=== PATIENT | female | born 1955 | race Caucasian/White ===

== ENCOUNTER 2020-09-02 09:44 | Outpatient (REF) | payer MEDICARE, MEDICAID, SELFPAY ==
[2020-09-02 11:49] LABS: Alanine Aminotransferase 19 U/L (0-31); Albumin Level 3.9 g/dL (3.5-5.0); Alkaline Phosphatase 83 U/L (39-117); Aspartate Amino Transferase 17 U/L (5-31); Bilirubin Direct < 0.2 mg/dL (0.0-0.5); Bilirubin Total 0.4 mg/dL (0.0-1.0); Total Protein 6.9 g/dL (6.5-8.0)
[2020-09-02 12:03] LABS: Anion Gap 13 (12-20); Blood Urea Nitrogen 29 mg/dL (9-16); Calcium 9.6 mg/dL (8.4-10.2); Carbon Dioxide 30 mmol/L (22-29); Chloride 101 mmol/L (96-108); Cholesterol 209 mg/dL; Estimated Glomerular Filt Rate 56; Glucose Fasting 93 mg/dL (60-99); HDL Cholesterol 38 mg/dL; LDL Cholesterol Calculated 125 mg/dl; Sodium 139 mmol/L (135-145); Triglycerides 233 mg/dL
[2020-09-02 12:13] LABS: Free T4 (Free Thyroxine) 0.97 ng/dL (0.71-1.85); Thyroid Stimulating Hormone 2.29 mIU/mL (0.32-4.0); Vitamin D 25-OH Total 55.1 ng/mL (>30)
[2020-09-02 19:19] LABS: Valproate 48.2 mcg/mL (50.0-100.0)
== END 2020-09-02 09:45 | disposition home or self-care (01) ==
LOC: HO.HMGCLDS 09:44
PROVIDERS: PCP Internal Medicine; Visit Provider Internal Medicine
DX: F33.1 Major depressive disorder, recurrent, moderate (principal); Z51.81 Encounter for therapeutic drug level monitoring; Z79.899 Other long term (current) drug therapy
CPT/HCPCS: 80048; 80061; 80076; 80164; 82306; 84439; 84443

== ENCOUNTER → 2020-10-05 08:57 | Outpatient (BNVA) | payer MEDICARE, MEDICAID, SELFPAY | PROVIDERS: PCP Internal Medicine; Referring Provider Internal Medicine; Visit Provider Nurse Practitioner | DX: K62.5 Hemorrhage of anus and rectum (principal) | CPT/HCPCS: 99212 ==

== ENCOUNTER 2020-10-28 09:33 | Day surgery (SDC) | payer MEDICARE, MEDICAID, SELFPAY ==
[2020-10-24 14:35] VITALS: BMI 41.4
--- NOTE | 2020-10-27 10:53 | HO.ANESPROP2 ---
HPI - Anesthesia Eval Consult details Narrative: 65yo F for Colonoscopy [facility] Past Medical History Medical History Allergic rhinitis Bipolar disorder CAD (coronary atherosclerotic disease) Chronic GERD Duodenum ulcer Dyslipidemia Eczema History of anoxic brain injury History of myasthenia gravis History of non-ST elevation myocardial infarction (NSTEMI) Mild intermittent asthma in adult without complication Mitral valve regurgitation Morbid obesity Narcotic dependence, in remission Postsurgical hypothyroidism Shoulder bursitis Smoker unmotivated to quit Trochanteric bursitis Family History Family History Father Stroke Mother Breast cancer, Onset Age: 40 Brother Brain cancer Brother HIV disease Son No problems noted. Maternal Grandmother Glaucoma Paternal Grandmother Lung cancer Ovarian cancer Surgical History Surgical History H/O colonoscopy History of appendectomy (Unknown) History of cholecystectomy (Unknown) History of esophagogastroduodenoscopy (~01/2015) History of partial hysterectomy History of thymectomy (~2007) History of thyroidectomy, total Hx of thyroidectomy Hx of tonsillectomy Social History Social History (Updated 10/05/20 @ 09:01 by JOSELO Brooke) Household Members: Other Household Members Other:: resides in retirement Do you presently have visiting nurse or other home services: Yes (resides in retirement) Alcohol intake: never Smoking Status: Current every day smoker Tobacco Type: Cigarette Packs Per Day: 0.5 Cigarettes Per Day: 10.0 Years Smoked: 40 Use of substances other than those prescribed or required for medical reasons: No Advance Directives Information Provided: No Narrative Narrative: Per PCP, NO CP/SOB. No recent EKG or Echo avail. Meds Allergies Allergy/AdvReac Type Severity Reaction Status Date / Time bee pollen [BEE STINGS] Allergy Severe ANAPHYLAXIS Verified 10/05/20 08:59 aspirin [ASA] Allergy Intermediate RASH Verified 10/05/20 08:59 Penicillins Allergy Intermediate Rash Verified 10/05/20 08:59 Compazine Allergy Unknown unknown Verified 10/05/20 08:59 iodine [IODINE] Allergy Unknown UNKNOWN Verified 10/05/20 08:59 strawberry [STRAWBERRY] Allergy Unknown RASH Verified 10/05/20 08:59 codeine [CODEINE] AdvReac Intermediate GI upset Verified 10/05/20 08:59 benztropine [From Cogentin] AdvReac Unknown Verified 10/28/20 10:07 Home Medications Medication Instructions Recorded Confirmed Type divalproex 125 mg tablet,delayed 125 mg PO TID 08/24/20 10/24/20 History release divalproex 500 mg tablet,extended 500 mg PO DAILY 08/24/20 10/24/20 History release 24 hr escitalopram oxalate 20 mg tablet 20 mg PO DAILY 08/24/20 10/24/20 History quetiapine 300 mg tablet 300 mg PO DAILY 08/24/20 10/24/20 History quetiapine 50 mg tablet 50 mg PO DAILY 08/24/20 10/24/20 History sennosides 8.6 mg tablet 8.6 mg PO BEDTIME 08/24/20 10/24/20 History atorvastatin 10 mg tablet 10 mg PO DAILY 08/25/20 10/24/20 History dextromethorphan-guaifenesin 10 10 ml PO Q4H PRN 08/25/20 10/24/20 History mg-100 mg/5 mL oral liquid esomeprazole magnesium 20 mg 20 mg PO BID cap 08/25/20 10/24/20 History capsule,delayed release fish oil-dha-epa 1,200 mg-144 1 cap PO BID cap 08/25/20 10/24/20 History mg-216 mg capsule fluticasone 250 mcg-salmeterol 50 1 inh INHALATION Q12H 08/25/20 10/24/20 History mcg/dose blistr powdr for inhalation montelukast 10 mg tablet 10 mg PO DAILY 08/25/20 10/24/20 History pyridoxine (vitamin B6) 100 mg 100 mg PO DAILY tab 08/25/20 10/24/20 History tablet trazodone 100 mg tablet 100 mg PO BEDTIME 08/25/20 10/24/20 History Exam Exam Date and Time: October 27, 2020 1053 Height,Weight and Vital Signs: Height 5 ft 7.5 in Weight 121.733 kg Assessment and Plan Assessment Anesthesia Assessment: Chart Reviewed
[2020-10-28 09:57] VITALS: BP 118/67; PULSE 74; RESP 16; TEMP 36.5; O2SAT 96
[2020-10-28] MEDS: Lactated Ringers 1,000 ML 100 ML IVCONT (10:20)
--- NOTE | 2020-10-28 10:27 | P.CONAN_ITS ---
[facility] Past Medical History Medical History Allergic rhinitis Bipolar disorder CAD (coronary atherosclerotic disease) Chronic GERD Duodenum ulcer Dyslipidemia Eczema History of anoxic brain injury History of myasthenia gravis History of non-ST elevation myocardial infarction (NSTEMI) Mild intermittent asthma in adult without complication Mitral valve regurgitation Morbid obesity Narcotic dependence, in remission Postsurgical hypothyroidism Shoulder bursitis Smoker unmotivated to quit Trochanteric bursitis Family History Family History Father Stroke Mother Breast cancer, Onset Age: 40 Brother Brain cancer Brother HIV disease Son No problems noted. Maternal Grandmother Glaucoma Paternal Grandmother Lung cancer Ovarian cancer Surgical History Surgical History H/O colonoscopy History of appendectomy (Unknown) History of cholecystectomy (Unknown) History of esophagogastroduodenoscopy (~01/2015) History of partial hysterectomy History of thymectomy (~2007) History of thyroidectomy, total Hx of thyroidectomy Hx of tonsillectomy Social History Social History (Updated 10/05/20 @ 09:01 by JOSELO Brooke) Household Members: Other Household Members Other:: resides in senior living Do you presently have visiting nurse or other home services: Yes (resides in senior living) Alcohol intake: never Smoking Status: Current every day smoker Tobacco Type: Cigarette Packs Per Day: 0.5 Cigarettes Per Day: 10.0 Years Smoked: 40 Use of substances other than those prescribed or required for medical reasons: No Advance Directives Information Provided: No Meds Allergies Allergy/AdvReac Type Severity Reaction Status Date / Time bee pollen [BEE STINGS] Allergy Severe ANAPHYLAXIS Verified 10/05/20 08:59 aspirin [ASA] Allergy Intermediate RASH Verified 10/05/20 08:59 Penicillins Allergy Intermediate Rash Verified 10/05/20 08:59 Compazine Allergy Unknown unknown Verified 10/05/20 08:59 iodine [IODINE] Allergy Unknown UNKNOWN Verified 10/05/20 08:59 strawberry [STRAWBERRY] Allergy Unknown RASH Verified 10/05/20 08:59 codeine [CODEINE] AdvReac Intermediate GI upset Verified 10/05/20 08:59 benztropine [From Cogentin] AdvReac Unknown Verified 10/28/20 10:07 Home Medications Medication Instructions Recorded Confirmed Type divalproex 125 mg tablet,delayed 125 mg PO TID 08/24/20 10/24/20 History release divalproex 500 mg tablet,extended 500 mg PO DAILY 08/24/20 10/24/20 History release 24 hr escitalopram oxalate 20 mg tablet 20 mg PO DAILY 08/24/20 10/24/20 History quetiapine 300 mg tablet 300 mg PO DAILY 08/24/20 10/24/20 History quetiapine 50 mg tablet 50 mg PO DAILY 08/24/20 10/24/20 History sennosides 8.6 mg tablet 8.6 mg PO BEDTIME 08/24/20 10/24/20 History atorvastatin 10 mg tablet 10 mg PO DAILY 08/25/20 10/24/20 History dextromethorphan-guaifenesin 10 10 ml PO Q4H PRN 08/25/20 10/24/20 History mg-100 mg/5 mL oral liquid esomeprazole magnesium 20 mg 20 mg PO BID cap 08/25/20 10/24/20 History capsule,delayed release fish oil-dha-epa 1,200 mg-144 1 cap PO BID cap 08/25/20 10/24/20 History mg-216 mg capsule fluticasone 250 mcg-salmeterol 50 1 inh INHALATION Q12H 08/25/20 10/24/20 History mcg/dose blistr powdr for inhalation montelukast 10 mg tablet 10 mg PO DAILY 08/25/20 10/24/20 History pyridoxine (vitamin B6) 100 mg 100 mg PO DAILY tab 08/25/20 10/24/20 History tablet trazodone 100 mg tablet 100 mg PO BEDTIME 08/25/20 10/24/20 History Exam Exam Date and Time: October 28, 2020 1027 Height,Weight and Vital Signs: Height 5 ft 7.5 in Weight 121.733 kg Last Vital Signs Temp 97.7 F 10/28/20 09:57 Pulse 74 10/28/20 09:57 Resp 16 10/28/20 09:57 BP 118/67 10/28/20 09:57 Pulse Ox 96 10/28/20 09:57 Airway Mallampati Class: II TM Dist: >3cm Neck ROM: Full Denture: Upper Partial: Lower Loose/Missing/Broken Teeth: Yes, Upper and Lower Heart: RRR Lungs: CTA Assessment and Plan Assessment Anesthesia Assessment: Anesthesia Plan Discussed and Chart Reviewed Final Anesthetic Review NPO: Yes ASA Class: III Final Preanesthetic Review: Meds/Allgs Chart Reviewed, Consent Obtained/Reviewed and Anes Risks/Benef Reviewed Patient Risk: High Procedure Risk: Low Anesthetic Plan Anesthetic Plan: MAC: Disposition: Standard PACU
--- NOTE | 2020-10-28 10:36 | MHC.SHP ---
Pre-Procedural Eval Section A The patient is an INPATIENT: No Changes since office visit: No Cold of Flu in the past 2 weeks, No New Medical Problems and No Changes in Medication The History & Physical has been completed within 30 days and I have reviewed it.: Yes Section B Chief Complaint: Screening Allergies: Allergies Allergy/AdvReac Type Severity Reaction Status Date / Time bee pollen [BEE STINGS] Allergy Severe ANAPHYLAXIS Verified 10/05/20 08:59 aspirin [ASA] Allergy Intermediate RASH Verified 10/05/20 08:59 Penicillins Allergy Intermediate Rash Verified 10/05/20 08:59 Compazine Allergy Unknown unknown Verified 10/05/20 08:59 iodine [IODINE] Allergy Unknown UNKNOWN Verified 10/05/20 08:59 strawberry [STRAWBERRY] Allergy Unknown RASH Verified 10/05/20 08:59 codeine [CODEINE] AdvReac Intermediate GI upset Verified 10/05/20 08:59 benztropine [From Cogentin] AdvReac Unknown Verified 10/28/20 10:07 Plan Patient has been examined and remains a candidate for the planned procedure
--- NOTE | 2020-10-28 11:32 | P.OP_ITS ---
Operative Note Operative Note Date of Service: 10/28/20 Narrative: Pre-op diagnosis: Colon cancer screening, rectal bleeding Post-op diagnosis: other (colon polyps, diverticulosis, hemorrhoids) Procedure: COLONOSCOPY PROCEDURE NOTE Consent: Indications for the procedure and potential complications of bleeding, perforation, reaction to medications and missed diagnosis were discussed with the patient and informed consent was obtained. Instrument: Olympus PCF H 190 L variable stiffness pediatric colonoscope Monitoring: Vital signs and clinical assessment, intermittent blood pressure monitoring, continuous EKG monitoring, Pulse oximetry and Carbon Dioxide monitoring were done throughout the procedure. Colon withdrawl time was 34 minutes. Procedure: The patient was placed in the left lateral decubitis position and pre-procedure medications were administered. After a digital rectal examination of the ano-rectum, the video colonoscope was inserted into the rectum and advanced through the colon to the cecum. The colonoscope was slowly withdrawn in a retrograde panoramic fashion and the colon mucosa was carefully examined including a retroflexed view of the rectum. Findings and interventions are described below. Procedure Difficulty: Colon was long and tortuous and there was some loop formation. LLQ pressure was applied to intubate the cecum Findings: Terminal Ileum: Not evaluated Cecum: A 10-12 mm sessile polyp removed with a hot snare. Ascending Colon: A 12-15 mm sessile polyp removed with a hot snare. A 4-5 mm diminutive appearing polyp removed with a cold bx. Transverse Colon: A 2 cms benign appearing nodule with normal overlying mucosa - biopsied. Descending Colon: Moderate diverticulosis Sigmoid Colon: Moderate to severe diverticulosis Rectum: Normal Ano-rectum: Moderate inflammed internal hemorrhoids Colon preparation: Good after copious irrigation Impression and Post Procedure Diagnosis: Colonoscopy Findings: Three polyps removed A 2 cms benign appearing nodule with normal overlying mucosa (likely submucosal lipoma) - biopsied. Moderate to severe diverticulosis seen in the left colon Moderate inflamed hemorrhoids on retroflexed exam - likely source of rectal bleeding. Plan: Await pathology results Patient has an appointment on 11/22/20 in the [facility] with Chantelle Iglesias NP. Repeat Colonoscopy interval based on path results - in 3 years if polyps are adenomatous and 10 years if polyps are hyperplastic. Above findings were reviewed with the patient and colon polyps, diverticulosis and hemorrhoids handouts were given in the discharge area Surgeon: Oh Ly MD Anesthesia: MAC (Dr Anti and PHYSICIAN/OPHTHALMOLOGIST [place]) Estimated blood loss (mL): 0 Pathology: other (A. Cecal polyp, B. AC polyps x 2, C. TC nodule at 80 cms) Condition: stable Disposition: PACU
[2020-10-28 12:48] VITALS: BP 116/54; PULSE 82; RESP 16; TEMP 36.8; O2SAT 94
[2020-10-28 13:03] VITALS: BP 114/61; PULSE 80; RESP 18; O2SAT 97
--- NOTE | 2020-10-28 13:30 | HO.POSTANES ---
Post Anesthesia Evaluation Post Anesthesia Evaluation Vital Signs: Vital Signs Temp Pulse Resp BP Pulse Ox 10/28/20 13:03 98.3 F 80 18 114/61 97 10/28/20 12:48 98.3 F 82 16 116/54 L 94 10/28/20 09:57 97.7 F 74 16 118/67 96 Anesthesia: Monitored Mental Status: Awake Pain Control: Satisfactory Nausea/Vomiting: None Hydration: Adequate Anesthesia-Related Issues: No Anes. Related Issues
== END 2020-10-28 13:39 | disposition home or self-care (01) ==
PROVIDERS: PCP Internal Medicine; Visit Provider Internal Medicine Gastroenterology
PROC: 0DJD8ZZ Inspection of Lower Intestinal Tract, Via Natural or Artificial Opening Endoscopic (ICD-10-PCS; CPT 45378; principal; 2020-10-28 10:40)
DX: Z12.11 Encounter for screening for malignant neoplasm of colon (principal); D12.2 Benign neoplasm of ascending colon; D12.0 Benign neoplasm of cecum; K64.8 Other hemorrhoids; K57.30 Diverticulosis of large intestine without perforation or abscess without bleeding; K56.2 Volvulus; Z88.0 Allergy status to penicillin; Z88.8 Allergy status to other drugs, medicaments and biological substances
CPT/HCPCS: 45385; 45380; 88305

== ENCOUNTER → 2020-11-22 14:54 | Outpatient (BNVA) | payer MEDICARE, MEDICAID, SELFPAY | PROVIDERS: PCP Internal Medicine; Visit Provider Nurse Practitioner | DX: Z13.89 Encounter for screening for other disorder (principal) | CPT/HCPCS: Q3014 ==

== ENCOUNTER 2021-01-05 08:50 | Outpatient (REF) | payer MEDICARE, MEDICAID, SELFPAY ==
[2021-01-05 12:05] LABS: Alanine Aminotransferase 17 U/L (0-31); Anion Gap 13 (12-20); Aspartate Amino Transferase 17 U/L (5-31); Blood Urea Nitrogen 24 mg/dL (9-16); Carbon Dioxide 29 mmol/L (22-29); Chloride 103 mmol/L (96-108); Cholesterol 187 mg/dL; Estimated Glomerular Filt Rate > 60; Glucose Fasting 91 mg/dL (60-99); HDL Cholesterol 38 mg/dL; LDL Cholesterol Calculated 107 mg/dl; Potassium 4.8 mmol/L (3.3-5.1); Sodium 140 mmol/L (135-145); Triglycerides 211 mg/dL
[2021-01-05 12:29] LABS: Free T4 (Free Thyroxine) 0.95 ng/dL (0.71-1.85); Thyroid Stimulating Hormone 3.25 uIU/mL (0.32-4.0); Vitamin D 25-OH Total 37.5 ng/mL (>30)
== END 2021-01-05 08:51 | disposition home or self-care (01) ==
LOC: HO.HMGCLDS 08:50
PROVIDERS: PCP Internal Medicine; Visit Provider Internal Medicine
DX: I25.10 Atherosclerotic heart disease of native coronary artery without angina pectoris (principal); E78.5 Hyperlipidemia, unspecified; E89.0 Postprocedural hypothyroidism; E66.01 Morbid (severe) obesity due to excess calories; Z78.0 Asymptomatic menopausal state
CPT/HCPCS: 36415; 80048; 80061; 82306; 84439; 84443; 84450; 84460

== ENCOUNTER → 2021-03-22 10:57 | Outpatient (BNVA) | payer MEDICARE, MEDICAID, SELFPAY | PROVIDERS: PCP Internal Medicine; Visit Provider Nurse Practitioner | DX: Z13.89 Encounter for screening for other disorder (principal) | CPT/HCPCS: Q3014 ==

== ENCOUNTER 2021-03-23 09:33 | Outpatient (REF) | payer MEDICARE, MEDICAID, SELFPAY ==
--- NOTE | ~2021-03-23 | MM_ITS ---
EXAMINATION: MM SCREENING DIGITAL BREAST TOMOSYNTHESIS, BILATERAL CLINICAL INFORMATION: Screening. Asymptomatic. The lifetime risk of breast cancer based on the Tyrer-Cuzick Model is 10%. COMPARISON: Mammography: 02/19/2019, outside mammography 06/16/2015 ([place]). TECHNIQUE: Digital breast tomosynthesis is performed in both the craniocaudal and mediolateral oblique views along with computer-aided detection (CAD). Synthesized 2D images are generated from the tomosynthesis. FINDINGS: There are scattered areas of fibroglandular density (ACR BI-RADS breast composition Category b). There are no significant masses, abnormal calcifications, or other abnormalities. There are chronic prominent draining veins right breast again seen similar to prior exams. The axilla and skin contours are unremarkable. MM/MM tomosynthesis screening BI IMPRESSION: No significant changes from prior exams. ASSESSMENT: BI-RADS 2: Benign RECOMMENDATION: Routine annual mammography screening. This patient's information was entered into a reminder system with a target due date for their next mammogram.
== END 2021-03-23 09:34 | disposition home or self-care (01) ==
LOC: HO.MAMMO 09:33
PROVIDERS: Visit Provider Internal Medicine
DX: Z12.31 Encounter for screening mammogram for malignant neoplasm of breast (principal)
CPT/HCPCS: 77063; 77067

== ENCOUNTER 2021-05-10 10:25 | Outpatient (REF) | payer MEDICARE, MEDICAID, SELFPAY ==
[2021-05-10 12:01] LABS: Alanine Aminotransferase 21 U/L (0-31); Anion Gap 11 (12-20); Aspartate Amino Transferase 27 U/L (5-31); Blood Urea Nitrogen 20 mg/dL (9-16); Calcium 9.2 mg/dL (8.4-10.2); Carbon Dioxide 29 mmol/L (22-29); Chloride 102 mmol/L (96-108); Cholesterol 199 mg/dL; Estimated Glomerular Filt Rate > 60; Glucose Fasting 88 mg/dL (60-99); HDL Cholesterol 43 mg/dL; LDL Cholesterol Calculated 103 mg/dl; Potassium 5.4 mmol/L (3.3-5.1); Sodium 137 mmol/L (135-145); Triglycerides 268 mg/dL
[2021-05-10 12:13] LABS: Free T4 (Free Thyroxine) 0.93 ng/dL (0.71-1.85); Thyroid Stimulating Hormone 3.16 uIU/mL (0.32-4.0); Vitamin D 25-OH Total 48.5 ng/mL (>30)
== END 2021-05-10 10:26 | disposition home or self-care (01) ==
LOC: HO.HMGCLDS 10:25
PROVIDERS: PCP Internal Medicine; Visit Provider Internal Medicine
DX: I25.10 Atherosclerotic heart disease of native coronary artery without angina pectoris (principal); E78.5 Hyperlipidemia, unspecified; E89.0 Postprocedural hypothyroidism; E03.9 Hypothyroidism, unspecified; I10 Essential (primary) hypertension; Z78.0 Asymptomatic menopausal state
CPT/HCPCS: 36415; 80048; 80061; 82306; 84439; 84443; 84450; 84460

== ENCOUNTER 2021-05-16 10:18 | Outpatient (REF) | payer MEDICARE, MEDICAID, SELFPAY | END 2021-05-16 10:19 | disposition home or self-care (01) | LOC: HO.HMGCLDS 10:18 | PROVIDERS: PCP Internal Medicine; Visit Provider Internal Medicine | DX: E87.5 Hyperkalemia (principal) | CPT/HCPCS: 36415; 84132 ==

== ENCOUNTER 2021-05-30 10:31 | Outpatient (REF) | payer MEDICARE, MEDICAID, SELFPAY ==
--- NOTE | ~2021-05-30 | MM_ITS ---
EXAMINATION: BONE DENSITOMETRY CLINICAL INDICATION: Screening or osteoporosis. COMPARISON: Baseline BD dated 02/19/2019. TECHNIQUE: Using a [employer] DXA System (software version: 13.1) manufactured by [employer], dual-energy x-ray absorptiometry was performed of the lumbar spine and left hip. The images are of good technical quality. Summary results are attached. FINDINGS: AP SPINE L1-L3 (excluding L4): The data of L1-L4 has been changed to exclude the L4 vertebral body, because degenerative changes at this level may cause overestimation of lumbar spine density. Current: BMD 1.139 g/cm2, Z-score 0.2, T-score -0.3, normal, 0.8% increase from baseline (<5% change is not significant). Baseline: BMD 1.130 g/cm2. LEFT FEMUR, NECK: Current: BMD 0.815 g/cm2, Z-score -0.9, T-score -1.6, osteopenia. Baseline: BMD 0.742 g/cm2. LEFT FEMUR, TOTAL: Current: BMD 0.869 g/cm2, Z-score -0.7, T-score -1.1, osteopenia, 12.6% increase from baseline (<5% change is not significant). Baseline: BMD 0.772 g/cm2. IDENTIFIED RISK FACTORS: Early menopause, history of fracture (adult), bilateral oophorectomy, hysterectomy, secondary osteoporosis, tobacco use (current smoker). HISTORY OF FRACTURE: Forearm, ankle. MEDICATIONS: Calcium, vitamin D. MM/XR DEXA axial skeleton IMPRESSION: 1. DIAGNOSIS: Osteopenia based on the lowest T-score value of -1.6 in the femoral neck applying World Health Organization criteria. 2. 10-YEAR FRACTURE RISK PREDICTION, FRAX: Major osteoporotic fracture (clinical spine, forearm, hip or shoulder) 13.4%. Hip fracture 2.4%. 3. Treatment Recommendations: NOF guidelines recommend consideration for treatment in postmenopausal women and men age 50 and older presenting with the following: -A hip or vertebral (clinical or morphometric) fracture. -T-score less than or equal to -2.5 at the femoral neck or spine after appropriate evaluation to exclude secondary causes. -Low bone mass at the hip or spine and a 10-year fracture probability by FRAX of greater than or equal to 3% for hip fracture or greater than or equal to 20% for major osteoporotic fracture based on the [place] adapted WHO algorithm. 4. Other Recommendations: All treatment decisions require clinical judgment and consideration of individual patient factors, including patient preferences, comorbidities, previous drug use, risk factors not captured in the FRAX model (e.g. frailty, falls, vitamin D deficiency, increased bone turnover, interval significant decline in bone density) and possible under or overestimation of fracture risk by FRAX. Additional medical evaluation for secondary cause of low bone mineral density may be appropriate. FUTURE SCAN RECOMMENDATION: People with diagnosed cases of osteoporosis or at high risk for fracture should have regular bone mineral density tests. For patients eligible for Medicare, routine testing is allowed once every 2 years. The testing frequency can be increased to one year for patients who have rapidly progressing disease, those who are receiving or discontinuing medical therapy to restore bone mass, or have additional risk factors.
== END 2021-05-30 10:32 | disposition home or self-care (01) ==
LOC: HO.MAMMO 10:31
PROVIDERS: Visit Provider Internal Medicine
DX: Z13.820 Encounter for screening for osteoporosis (principal); M85.80 Other specified disorders of bone density and structure, unspecified site; F17.200 Nicotine dependence, unspecified, uncomplicated; Z78.0 Asymptomatic menopausal state; Z87.81 Personal history of (healed) traumatic fracture; Z90.722 Acquired absence of ovaries, bilateral; Z79.899 Other long term (current) drug therapy
CPT/HCPCS: 77080

== ENCOUNTER → 2021-06-20 10:11 | Outpatient (BNVA) | payer MEDICARE, MEDICAID, SELFPAY | PROVIDERS: PCP Internal Medicine; Visit Provider Nurse Practitioner | CPT/HCPCS: Q3014 ==

== ENCOUNTER 2021-09-13 08:23 | Outpatient (REF) | payer MEDICARE, MEDICAID, SELFPAY ==
[2021-09-13 12:00] LABS: Alanine Aminotransferase 19 U/L (0-31); Albumin Level 3.6 g/dL (3.5-5.0); Alkaline Phosphatase 72 U/L (39-117); Aspartate Amino Transferase 18 U/L (5-31); Bilirubin Direct 0.2 mg/dL (0.0-0.5); Bilirubin Total 0.3 mg/dL (0.0-1.0); Total Protein 6.5 g/dL (6.5-8.0)
[2021-09-13 12:07] LABS: Valproate 69.6 mcg/mL (50.0-100.0)
== END 2021-09-13 08:24 | disposition home or self-care (01) ==
LOC: HO.HMGCLDS 08:23
PROVIDERS: PCP Internal Medicine; Visit Provider General Practice
DX: F33.1 Major depressive disorder, recurrent, moderate (principal); Z79.899 Other long term (current) drug therapy
CPT/HCPCS: 36415; 80076; 80164

== ENCOUNTER 2021-12-12 08:42 | Outpatient (REF) | payer MEDICARE, MEDICAID, SELFPAY ==
[2021-12-12 12:06] LABS: Alanine Aminotransferase 25 U/L (0-31); Anion Gap 13 (12-20); Aspartate Amino Transferase 25 U/L (5-31); Blood Urea Nitrogen 24 mg/dL (9-16); Calcium 9.5 mg/dL (8.4-10.2); Carbon Dioxide 29 mmol/L (22-29); Chloride 104 mmol/L (96-108); Cholesterol 187 mg/dL; Estimated Glomerular Filt Rate 55; Glucose Fasting 80 mg/dL (60-99); HDL Cholesterol 46 mg/dL; LDL Cholesterol Calculated 107 mg/dl; Potassium 4.5 mmol/L (3.3-5.1); Sodium 141 mmol/L (135-145); Triglycerides 173 mg/dL
[2021-12-12 12:18] LABS: Free T4 (Free Thyroxine) 0.92 ng/dL (0.71-1.85); Vitamin D 25-OH Total 45.3 ng/mL (>30)
== END 2021-12-12 08:43 | disposition home or self-care (01) ==
LOC: HO.HMGCLDS 08:42
PROVIDERS: Visit Provider Internal Medicine
DX: E78.5 Hyperlipidemia, unspecified (principal); I25.10 Atherosclerotic heart disease of native coronary artery without angina pectoris; Z78.0 Asymptomatic menopausal state; E89.0 Postprocedural hypothyroidism; I10 Essential (primary) hypertension; E03.9 Hypothyroidism, unspecified
CPT/HCPCS: 36415; 80048; 80061; 82306; 84439; 84443; 84450; 84460

== ENCOUNTER → 2022-03-27 10:15 | Outpatient (BNVA) | payer MEDICARE, MEDICAID, SELFPAY | PROVIDERS: PCP Internal Medicine; Referring Provider Internal Medicine; Visit Provider Nurse Practitioner | DX: K21.9 Gastro-esophageal reflux disease without esophagitis (principal); K64.8 Other hemorrhoids; E66.01 Morbid (severe) obesity due to excess calories; Z68.39 Body mass index [BMI] 39.0-39.9, adult | CPT/HCPCS: 99212 ==

== ENCOUNTER 2022-05-09 15:26 | Emergency (ER) | payer MEDICARE, MEDICAID, SELFPAY ==
--- NOTE | ~2022-05-09 | XR_ITS ---
EXAMINATION: XR SHOULDER, RIGHT CLINICAL INFORMATION: Pain after a fall COMPARISON: None TECHNIQUE: Three views of the right shoulder. FINDINGS: The bones and soft tissues are normal. No fracture. Glenohumeral and acromioclavicular alignment is anatomic with normal joint space. No abnormal soft tissue calcifications. Status post median sternotomy. Surgical clips over the mediastinum. XR/XR shoulder RT min 2V IMPRESSION: Normal right shoulder.
[2022-05-09 15:33] VITALS: BP 115/59; PULSE 82; RESP 18; TEMP 37.1; O2SAT 94; BMI 39.1
--- NOTE | 2022-05-09 15:39 | PC.NURSE ---
Pt is accompanied by Ayla from [facility] in [place] Contact number [phone]
--- NOTE | 2022-05-09 16:39 | ED.FALL ---
HPI - Fall General Chief Complaint: Fall Stated Complaint: fell ,right shoulder and head pain Time Seen by Provider: 05/09/22 16:30 Source: patient and other ( [facility] staff) Mode of arrival: ambulatory Limitations: no limitations History of Present Illness HPI Narrative: 66-year-old female from a [facility] with past medical history of coronary artery disease, bipolar disorder, GERD, high cholesterol, myasthenia gravis, hypothyroidism here with reports of fall. Patient tells me that she has a history of frequent falls. She tells me that today she was at [employer] [address]. She was using a different walker from her normal walker and while she was walking down hill she lost her balance falling backwards hitting her right posterior shoulder and her head. Patient denies loss of consciousness. She has no headache, vision changes, vomiting, neck pain, weakness. Patient does report some posterior right shoulder pain. No anticoagulation use. here with [facility] staff who tell me patient is at baseline Related Data Home Medications Medication Instructions Recorded Confirmed escitalopram oxalate 20 mg tablet 20 mg PO DAILY 08/24/20 05/02/22 (Lexapro) trazodone 100 mg tablet 100 mg PO BEDTIME 08/25/20 05/02/22 divalproex 500 mg tablet,extended 1,000 mg PO DAILY 01/10/21 05/02/22 release 24 hr (Depakote ER) divalproex 125 mg tablet,delayed 125 mg PO ONCE 03/22/21 05/02/22 release (Depakote) escitalopram oxalate 10 mg tablet 10 mg PO DAILY 03/22/21 05/02/22 quetiapine 300 mg tablet,extended 300 mg PO BEDTIME 09/19/21 05/02/22 release 24 hr quetiapine 50 mg tablet 50 mg PO BEDTIME 01/01/22 05/02/22 trazodone 50 mg tablet 50 mg PO BEDTIME PRN insomnia 03/27/22 05/02/22 latanoprost 0.005 % eye drops 0 drp ophthalmic (eye) 04/02/22 05/02/22 Previous Rx's Medication Instructions Recorded dextromethorphan-guaifenesin 10 10 ml PO Q4H PRN Cough #500 mL 07/05/21 mg-100 mg/5 mL oral liquid (Tussin DM) loperamide 2 mg capsule 2 mg PO BID PRN for diarrhea #20 11/13/21 caps albuterol sulfate 90 mcg/actuation 2 puff inhalation Q4H PRN for 11/23/21 aerosol inhaler (Ventolin HFA) wheezing #18 grams Advair Diskus 250 mcg-50 mcg/dose 1 inh inhalation BID #60 ea 01/01/22 powder for inhalation (fluticasone propion-salmeterol) atorvastatin 10 mg tablet 10 mg PO DAILY 90 days #90 tabs 03/12/22 montelukast 10 mg tablet 10 mg PO DAILY #90 tabs 03/12/22 pyridoxine (vitamin B6) 100 mg 100 mg PO DAILY #90 tabs 03/12/22 tablet hydrocortisone 2.5 % topical cream 1 appl [place] BID PRN hemorrhoids #30 03/27/22 with perineal applicator grams (Proctosol HC) pantoprazole 40 mg tablet,delayed 40 mg PO BID 30 days #60 tabs 03/27/22 release cetirizine 10 mg tablet 10 mg PO QAM #28 tabs 04/06/22 cholecalciferol (vitamin D3) 50 50 mcg PO QAM #28 caps 04/06/22 mcg (2,000 unit) capsule metoprolol tartrate 25 mg tablet 12.5 mg PO QAM #14 tabs 04/06/22 acetaminophen 325 mg tablet 650 mg PO Q6H PRN fever or pain 04/13/22 #60 tabs triamcinolone acetonide 0.1 % 1 appl topical BID 10 days #30 04/23/22 topical cream grams levothyroxine 50 mcg tablet 50 mcg PO DAILY #90 tabs 05/02/22 (Levoxyl) omega 2-pzv-dmk-fish oil 1,200 mg 1 cap PO BID 30 days #180 caps 05/02/22 (144 mg-216 mg) capsule (Fish Oil) Allergies Allergy/AdvReac Type Severity Reaction Status Date / Time bee pollen [BEE STINGS] Allergy Severe ANAPHYLAXIS Verified 05/02/22 12:28 aspirin [ASA] Allergy Intermediate RASH Verified 05/02/22 12:28 Penicillins Allergy Intermediate Rash Verified 05/02/22 12:28 Compazine Allergy Unknown unknown Verified 05/02/22 12:28 iodine [IODINE] Allergy Unknown UNKNOWN Verified 05/02/22 12:28 strawberry [STRAWBERRY] Allergy Unknown RASH Verified 05/02/22 12:28 codeine [CODEINE] AdvReac Intermediate GI upset Verified 05/02/22 12:28 benztropine [From Cogentin] AdvReac Unknown Verified 05/02/22 12:28 Review of Systems Review of Systems: Yes all other systems are reviewed and are negative Constitutional: Constitutional: Reports no additional constitutional complaints, Denies body ache(s), Denies chills, Denies fever(s), Denies headache(s) and Denies weakness Eyes: Eyes: Reports no additional eye complaints and Denies change in vision ENT: Reports system reviewed and no additional complaints, except as documented, Denies dizziness, Denies headache(s), Denies nasal congestion, Denies nasal discharge and Denies neck pain Cardiovascular: Cardiovascular: Reports no additional cardiovascular complaints, Denies chest pain, Denies leg edema and Denies dyspnea Respiratory: Respiratory: Reports no additional respiratory complaints, Denies cough and Denies dyspnea Gastrointestinal: Gastrointestinal: Reports no additional gastrointestinal complaints, Denies abdominal pain, Denies diarrhea, Denies nausea and Denies vomiting Genitourinary: Genitourinary: Reports no additional female genitourinary complaints and Denies urinary incontinence Musculoskeletal: Musculoskeletal: Reports no additional musculoskeletal complaints, Denies back pain, Reports arthralgias, Denies joint swelling, Denies neck pain, Denies numbness and Denies tingling Integumentary/Breasts: Skin/Breast: Reports system reviewed and no additional complaints, except as docu and Denies rash Neurologic: Reports system reviewed and no additional complaints, except as documented, Denies Abnormal speech present, Denies dizziness, Denies headache(s), Denies numbness, Denies tingling and Denies weakness [facility] Past Medical History Attestation statement: The following information was validated with the patient. Source: old records reviewed and nursing notes reviewed Medical History Cataract Colon cancer screening Duodenum ulcer History of anoxic brain injury History of myasthenia gravis Narcotic dependence, in remission Shoulder bursitis Trochanteric bursitis Surgical History H/O colonoscopy History of appendectomy (Unknown) History of cholecystectomy (Unknown) History of esophagogastroduodenoscopy (~01/2015) History of partial hysterectomy History of thymectomy (~2007) History of thyroidectomy, total Hx of thyroidectomy Hx of tonsillectomy Family History Family History Father Stroke Mother Breast cancer, Onset Age: 40 Brother Brain cancer Brother HIV disease Son No problems noted. Maternal Grandmother Glaucoma Paternal Grandmother Lung cancer Ovarian cancer Social History Social History Household Members: Other Household Members Other:: resides in [facility] Housing: Other Housing Other:: [employer] agency[facility] home Do you presently have visiting nurse or other home services: Yes (resides in [facility]) Alcohol intake: never Patient Tobacco Use Status: Current everyday Tobacco user Cigarette Packs Per Day: 0.5 Cigarettes Per Day: 10.0 Years Smoked: 40 e-Cigarette/Vaping Use: Never Used Substance Use Type: Painkillers and Prescription Drugs Advance Directives: No Advance Directives Information Provided: No Current occupational status: disabled Cognitive needs: No Hearing needs: No Vision needs: Yes Physical Exam Vital Signs: Vital Signs: Last Vital Signs Temp 98.8 F 05/09/22 15:33 Pulse 82 05/09/22 15:33 Resp 18 05/09/22 15:33 BP 115/59 L 05/09/22 15:33 Pulse Ox 94 05/09/22 15:33 O2 Del Method 05/09/22 15:33 BMI result Body Mass Index 39.1 Const: General: cooperative, healthy appearing, comfortable and no acute distress Orientation/consciousness: patient oriented x3 Limitations: no limitations HEENT: Other: no palpable tenderness over the skull Head: Yes normal to inspection, No Gonzalez's sign and No raccoon eyes Ears: hearing grossly normal bilaterally and TM's normal bilaterally General nose exam: Normal external nose present Face and sinus: Yes normal facial exam Mouth: Normal oral and palatal mucosa present Throat: Yes posterior oropharynx normal Eyes: General: appearance normal, both eyes and all related structures Pupils: Equal, round and reactive pupils present Neck: Other: no cervical midline tenderness, step-offs deformities Neck: Yes normal visual inspection, Yes full ROM and Yes no lymphadenopathy Chest: Chest palpation & inspection: normal inspection of the chest Resp: Effort & Inspection: normal respiratory effort Auscultation: clear to auscultation bilaterally Cardio: Rate: regular rate Rhythm: regular rhythm Peripheral pulses: Peripheral pulses 2+ throughout GI: Inspection: Yes normal to inspection Palpation (GI): Soft to palpation and nontender Auscultation: normal bowel sounds Back/Spine/Pelvis: Thoracic/Lumbar Spine: thoracic and lumbar spine normal to inspection Skin: General skin exam: no rashes or lesions noted Neuro: General: patient oriented x3, no focal motor deficits and normal sensation to monofilament Cranial nerves: Yes CN's II-XII intact bilaterally, Yes Equal, round and reactive pupils present, Yes Bilaterally intact EOM present, Yes Nystagmus not present, Yes Normal facial strength present and Yes Midline tongue present Cognition (Neuro): normal cognition Speech: No Abnormal speech present Gait exam (Neuro): Normal gait present Motor exam (neuro): 5/5 motor strength present throughout Sensory Exam: Normal double simultaneous stimulation for sensation Extrem: Other: tenderness the posterior right shoulder with no ecchymosis, swelling or deformity. Full range of motion. Neurovascular intact distally to the injury. General: Yes normal to inspection Course Course Course Narrative: 66-year-old female here with a fall with complaints of right shoulder pain. There was a head strike but no loss of consciousness. Patient has no complaints of headache, neck pain, dizziness, vision changes, vomiting. She has normal neurological exam. No AC therapies. Patient is alert oriented x3. She is here with [facility] staff who tell me she is at her baseline. Imaging was discussed of the head and patient declined this. [facility] staff tell me that they can monitor the patient for any signs of headache, behavior change, vomiting, dizziness and will return at that time for imaging of her head. Shoulder x-rays show no acute bony abnormality. likely contusion. reviewed rice. reviewed Tylenol for home. reviewed worrisome signs and symptoms of when to return to the emergency department. Comfortable discharge home. MDM - Fall Medical Records Attestation: I reviewed the patient's medical records. Lab Data Attestation: I reviewed the patient's lab results. Imaging Data shoulder xray: Attestation: I personally reviewed and interpreted this imaging study as follows: Radiologist's impression: ccession Number(s): [id number] cc: Generic ED Physician~ EXAMINATION: XR SHOULDER, RIGHT CLINICAL INFORMATION: Pain after a fall? COMPARISON: None? TECHNIQUE: Three views of the right shoulder. FINDINGS: The bones and soft tissues are normal. No fracture. Glenohumeral and acromioclavicular alignment is anatomic with normal joint space. No abnormal soft tissue calcifications. Status post median sternotomy. Surgical clips over the mediastinum. XR/XR shoulder RT min 2V IMPRESSION: Normal right shoulder. Discharge Plan Discharge Clinical Impression: Contusion of right shoulder, Head injury Patient Disposition: Home, Self-Care Instructions: Head Injury (ED), Contusion in Adults (ED) Additional Instructions: x-rays of the shoulder showed no bony abnormality ice 20 minutes on 20 minutes off Tylenol every 4 hours as needed for pain there was reports of a head strike but the patient denies any symptoms. She is at her baseline. Therefore imaging was declined. Patient should return for any headache, vomiting, vision changes, neck pain, weakness. Prescriptions: No Action dextromethorphan-guaifenesin [Tussin DM] 10-100 mg/5 mL liquid 10 ml PO Q4H PRN (Reason: Cough) Qty: 500 0RF loperamide 2 mg capsule 2 mg PO BID PRN (Reason: for diarrhea) Qty: 20 0RF albuterol sulfate [Ventolin HFA] 90 mcg/actuation HFA aerosol inhaler 2 puff inhalation Q4H PRN (Reason: for wheezing) Qty: 18 3RF atorvastatin 10 mg tablet 10 mg PO DAILY 90 Days Qty: 90 0RF montelukast 10 mg tablet 10 mg PO DAILY Qty: 90 0RF pyridoxine (vitamin B6) 100 mg tablet 100 mg PO DAILY Qty: 90 0RF cetirizine 10 mg tablet 10 mg PO QAM Qty: 28 5RF metoprolol tartrate 25 mg tablet 12.5 mg PO QAM Qty: 14 5RF cholecalciferol (vitamin D3) 50 mcg (2,000 unit) capsule 50 mcg PO QAM Qty: 28 3RF acetaminophen 325 mg tablet 650 mg PO Q6H PRN (Reason: fever or pain) Qty: 60 0RF triamcinolone acetonide 0.1 % cream 1 appl topical BID 10 Days Qty: 30 0RF omega 3-unz-vhq-fish oil [Fish Oil] 1,200 (144-216) mg capsule 1 cap PO BID 30 Days Qty: 180 3RF Rx Instructions: Take 1 capsule p.o. b.i.d. at 06:00 and 18:00 levothyroxine [Levoxyl] 50 mcg tablet 50 mcg PO DAILY Qty: 90 3RF escitalopram oxalate [Lexapro] 20 mg tablet 20 mg PO DAILY trazodone 100 mg tablet 100 mg PO BEDTIME divalproex [Depakote ER] 500 mg tablet extended release 24 hr 1,000 mg PO DAILY divalproex [Depakote] 125 mg tablet,delayed release (DR/EC) 125 mg PO ONCE quetiapine 300 mg tablet extended release 24 hr 300 mg PO BEDTIME latanoprost 0.005 % drops 0 drp ophthalmic (eye) quetiapine 50 mg tablet 50 mg PO BEDTIME fluticasone propion-salmeterol [Advair Diskus] 250-50 mcg/dose blister with device 1 inh inhalation BID Qty: 60 5RF escitalopram oxalate 10 mg tablet 10 mg PO DAILY trazodone 50 mg tablet 50 mg PO BEDTIME PRN (Reason: insomnia) Rx Instructions: PRN BETWEEN HOURS 11P-2A. pantoprazole 40 mg tablet,delayed release (DR/EC) 40 mg PO BID 30 Days Qty: 60 6RF hydrocortisone [Proctosol HC] 2.5 % cream with perineal applicator 1 appl WV BID PRN (Reason: hemorrhoids) Qty: 30 12RF Referrals: Chichi Rivers MD [Primary Care Provider] - 1 week ( As needed) Interventions: ED Discharge Assessment Last Done: 05/09/22 16:40 Discharge Date/Time: 05/09/22 16:42
== END 2022-05-09 16:42 | disposition home or self-care (01) ==
PROVIDERS: Emergency Provider Emergency Medicine Emergency Medical Services; PCP Internal Medicine
DX: S40.011A Contusion of right shoulder, initial encounter (principal); S09.90XA Unspecified injury of head, initial encounter; R29.6 Repeated falls; G70.00 Myasthenia gravis without (acute) exacerbation; W17.81XA Fall down embankment (hill), initial encounter; Y93.01 Activity, walking, marching and hiking; Y92.830 Public park as the place of occurrence of the external cause; Y99.9 Unspecified external cause status
CPT/HCPCS: 73030; 99282; 99283

== ENCOUNTER → 2022-08-07 10:27 | Outpatient (BNVA) | payer MEDICARE, MEDICAID, SELFPAY | PROVIDERS: PCP Internal Medicine; Referring Provider Internal Medicine; Visit Provider Internal Medicine | DX: I25.10 Atherosclerotic heart disease of native coronary artery without angina pectoris (principal); Z79.899 Other long term (current) drug therapy; Z95.1 Presence of aortocoronary bypass graft | CPT/HCPCS: 93005; 99202 ==

== ENCOUNTER 2022-08-13 10:23 | Outpatient (REF) | payer MEDICARE, MEDICAID, SELFPAY ==
[2022-08-13 14:22] LABS: Alanine Aminotransferase 27 U/L (0-31); Albumin Level 3.3 g/dL (3.5-5.0); Alkaline Phosphatase 65 U/L (39-117); Aspartate Amino Transferase 31 U/L (5-31); Bilirubin Direct 0.3 mg/dL (0.0-0.5); Bilirubin Total 0.5 mg/dL (0.0-1.0)
[2022-08-13 15:40] LABS: Valproate 92.5 mcg/mL (50.0-100.0)
[2022-08-17 19:56] LABS: Acetylcholine Recept. Blocking <15 (<15)
[2022-08-18 18:22] LABS: Acetylcholine Receptor Binding <0.30 nmol/L
[2022-08-26 18:47] LABS: Acetylcholine Recep Modulating 8
== END 2022-08-13 10:24 | disposition home or self-care (01) ==
LOC: HO.HMGCLDS 10:23
PROVIDERS: Psychiatry & Neurology Neurology; Absent Provider Internal Medicine; PCP Internal Medicine; Visit Provider General Practice
DX: G70.00 Myasthenia gravis without (acute) exacerbation (principal); Z79.899 Other long term (current) drug therapy
CPT/HCPCS: 36415; 80076; 80164; 83519

== ENCOUNTER 2022-08-17 10:14 | Outpatient (REF) | payer MEDICARE, MEDICAID, SELFPAY ==
--- NOTE | ~2022-08-17 | MR_ITS ---
EXAMINATION: MR BRAIN WITHOUT CONTRAST CLINICAL INFORMATION: Multifactorial gait disorder. COMPARISON: None available. TECHNIQUE: Multiplanar, multisequence imaging of the brain was performed without intravenous contrast. The examination was prematurely terminated at the patient's request. No axial T2 sequence was obtained. FINDINGS: There is no acute infarction, hemorrhage, mass, or extra-axial fluid collection. 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 A few minimal nonspecific foci of T2/FLAIR hyperintensity are seen within the cerebral white matter. The ventricles and sulci are commensurate with mild degree of parenchymal volume loss noted. The basal ganglia, thalami, and brainstem are unremarkable. The extracranial structures are within normal limits. MR/MR head/brain wo con IMPRESSION: No acute infarct, mass lesion, intracranial hemorrhage, or evidence of hydrocephalus. 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
--- NOTE | ~2022-08-17 | XR_ITS ---
EXAMINATION: X-RAY SKULL X-RAY CHEST X-RAY ABDOMEN CLINICAL INFORMATION: Pre-MRI screening. COMPARISON: No similar priors. TECHNIQUE: Two views of the skull. One view of the chest. One view of the abdomen. FINDINGS: Skull: Linear-like density projecting inferior to the nose is likely related with a face mask. Correlate with physical examination. No unexpected foreign bodies. No displaced fractures. Chest: Sternal wires and mediastinal surgical clips. Normal appearance of the cardiomediastinal silhouette. No focal airspace opacity, pleural effusion or pneumothorax. No acute osseous abnormalities. Abdomen: Nonobstructive bowel gas pattern. Right upper quadrant surgical clips. No acute osseous abnormalities. Small calcifications in the left abdominal wall and pelvis. No acute osseous abnormalities. XR/XR pre mri screening IMPRESSION: Sternal wires, mediastinal surgical clips and right upper quadrant cholecystectomy clips. Radiopacity projecting inferior to the nose likely related with a facial mask. Otherwise, no unexpected radiopaque foreign bodies. No acute cardiopulmonary findings. Nonobstructive bowel gas pattern.
== END 2022-08-17 10:15 | disposition home or self-care (01) ==
LOC: HO.MRI 10:14
PROVIDERS: PCP Internal Medicine; Visit Provider Psychiatry & Neurology Neurology
DX: R26.89 Other abnormalities of gait and mobility (principal)
CPT/HCPCS: 70551

== ENCOUNTER 2022-09-21 09:05 | Outpatient (REF) | payer MEDICARE, MEDICAID, SELFPAY ==
[2022-09-21 12:07] LABS: Alanine Aminotransferase 25 U/L (0-31); Aspartate Amino Transferase 23 U/L (5-31); Cholesterol 168 mg/dL; HDL Cholesterol 53 mg/dL; LDL Cholesterol Calculated 91 mg/dl; Triglycerides 121 mg/dL
[2022-09-21 12:27] LABS: Free T4 (Free Thyroxine) 1.03 ng/dL (0.71-1.85); Thyroid Stimulating Hormone 2.12 uIU/mL (0.32-4.0)
== END 2022-09-21 09:06 | disposition home or self-care (01) ==
LOC: HO.HMGCLDS 09:05
PROVIDERS: PCP Internal Medicine; Visit Provider Internal Medicine
DX: Z00.01 Encounter for general adult medical examination with abnormal findings (principal); I25.10 Atherosclerotic heart disease of native coronary artery without angina pectoris; E89.0 Postprocedural hypothyroidism; E78.5 Hyperlipidemia, unspecified; E66.01 Morbid (severe) obesity due to excess calories; J45.20 Mild intermittent asthma, uncomplicated; K21.9 Gastro-esophageal reflux disease without esophagitis; L30.9 Dermatitis, unspecified; F31.9 Bipolar disorder, unspecified; F17.200 Nicotine dependence, unspecified, uncomplicated; Z71.89 Other specified counseling
CPT/HCPCS: 36415; 80061; 84439; 84443; 84450; 84460

== ENCOUNTER → 2022-10-08 10:57 | Outpatient (BNVA) | payer MEDICARE, MEDICAID, SELFPAY | PROVIDERS: PCP Internal Medicine; Referring Provider Internal Medicine; Visit Provider Internal Medicine | DX: I25.10 Atherosclerotic heart disease of native coronary artery without angina pectoris (principal); I42.9 Cardiomyopathy, unspecified | CPT/HCPCS: 99212 ==

== ENCOUNTER → 2022-10-16 09:19 | Outpatient (REF) | payer MEDICARE, MEDICAID, SELFPAY ==
--- NOTE | 2022-10-16 09:23 | CA_ITS ---
Transthoracic Echocardiogram Patient (Last, First, Middle): Mayra Osorio, Gender: Female Date of : 1955 Age: 66 Procedure Date: 10/16/2022 Procedure Type: Transthoracic Echocardiogram Location: OP Height: 170.18 cm Weight: 100.7 kg BSA: 2.11 m2 Heart Rate: 58 bpm BP: 110 / 60 mmHg Medicaid Analyst: GARRISON Referring MD: Dallin Chin MD Symptoms: I25.10 - Atherosclerotic heart disease of [place] coronary artery without... Study Quality: Technically Difficult ECG Rhythm: Bradycardia Conclusions: - The left ventricular systolic function is normal. The visually estimated ejection fraction is between 55-60%. - No obvious valvular pathology seen on this study. Findings Procedure Information The patient declines contrast. Left Ventricle Normal left ventricular cavity size. There is mildly increased left ventricular wall thickness. The left ventricular systolic function is normal. The visually estimated ejection fraction is between 55-60%. Regional wall motion abnormalities can not be excluded due to suboptimal endocardial definition. Diastolic function is normal for age. Right Ventricle Normal right ventricular cavity size. There is mildly decreased right ventricular systolic function. Atria Both atria are normal in size. Aortic Valve The aortic valve was not well visualized. There is no aortic valve stenosis. There is no aortic valve regurgitation. Mitral Valve The mitral valve was not well visualized. There is no mitral valve regurgitation. There is no mitral valve stenosis. Pulmonic Valve The pulmonic valve is likely normal. Tricuspid Valve There is no tricuspid valve regurgitation. Tricuspid regurgitation envelope is inadequate for calculation of right ventricular systolic pressure. Great Vessels The asc aorta is normal in size. Venous The inferior vena cava is normal in size and collapses greater than 50% with inspiration. Pericardium/Pleural There is no evidence of pericardial effusion. Prior Study Comparison No prior study available for comparison. Recommendations, Care & Conclusions No obvious valvular pathology seen on this study. Measurements 2D Linear Measurements IVSd: 1.19 0.6-0.9/0.6-1.0 cm LVIDd: 4.43 3.9-5.3/4.2-5.9 cm LVIDd Index: 2.10 2.4-3.2/2.2-3.1 cm/m2 LVIDs: 3.01 2.0-3.6 cm LVPWd: 1.15 0.7-1.1 cm LA Diam: 3.20 2.7-3.8/3.0-4.0 cm LAIDs Index: 1.52 1.5-2.3 cm/m2 LV Mass: 232.28 67-162/88-224 g LV Mass Index: 110.09 43-95/49-115 g/m2 LVOT Diam: 2.00 3.0+(-)1.3 cm Mitral Valve MV Pk E: 0.56 MV PK A: 0.63 MV Decel Time: 287.00 E/A: 0.90 E'Lateral: 6.09 E'Medial: 5.98 E/E' Med: 9.30 E/E' Lat: 9.10 PHT: 84.00 MVA PHT: 2.62 Decel [place]: 1.94 Aortic Valve AoV Pk Klever: 0.91 AoV Mn Klever: 0.58 AoV VTI: 0.17 AoV Pk Grad: 3.00 Aov Mn Grad: 2.00 GILBERT Cont.VTI: 3.55 LVOT LVOT Pk Klever: 0.91 LVOT Mn Klever: 0.55 LVOT VTI: 0.19 LVOT Pk Grad: 3.00 LVOT Mn Grad: 1.00 LVOT Diam: 2.00 LVOT Area: 3.14 Diastolic Function MV Pk E: 0.56 MV Pk A: 0.63 E/A: 0.90 E'Medial: 5.98 E/E' Med: 9.30 E' Laterial: 6.09 E/E' Lat: 9.10 Right Ventricle TAPSE (mm): 12.10 TVS' Klever: 8.11 Tricuspid Valve RA Press: 3.00 Great Vessels Aorta Sinus of Valsalva: 3.20 2.0-3.5 cm Ao Asc: 3.10 2.1-3.4 cm Pulmonary Valve PV Pk Klever: 0.68 Peak PV Grad: 2.00 Updated in Other Vendor System with Status of Final Dallin Chin MD electronically signed on 10/18/2022 12:54:40 PM with status of Final
== END ==
LOC: HO.CARD 09:19
PROVIDERS: Visit Provider Internal Medicine
DX: I25.10 Atherosclerotic heart disease of native coronary artery without angina pectoris (principal); Z95.1 Presence of aortocoronary bypass graft
CPT/HCPCS: 93306

== ENCOUNTER 2022-10-24 09:55 | Outpatient (REF) | payer MEDICARE, MEDICAID, SELFPAY ==
[2022-10-24 11:46] LABS: Valproate 74.1 mcg/mL (50.0-100.0)
== END 2022-10-24 09:56 | disposition home or self-care (01) ==
LOC: HO.HMGCLDS 09:55
PROVIDERS: PCP Internal Medicine; Visit Provider General Practice
DX: Z79.899 Other long term (current) drug therapy (principal)
CPT/HCPCS: 36415; 80164

== ENCOUNTER → 2022-12-04 10:13 | Outpatient (BNVA) | payer MEDICARE, MEDICAID, SELFPAY | PROVIDERS: PCP Internal Medicine; Visit Provider Nurse Practitioner | DX: Z01.818 Encounter for other preprocedural examination (principal); K21.9 Gastro-esophageal reflux disease without esophagitis; D12.6 Benign neoplasm of colon, unspecified; E66.01 Morbid (severe) obesity due to excess calories; I42.9 Cardiomyopathy, unspecified; I25.10 Atherosclerotic heart disease of native coronary artery without angina pectoris; K64.8 Other hemorrhoids; J45.20 Mild intermittent asthma, uncomplicated; Z86.69 Personal history of other diseases of the nervous system and sense organs; Z68.32 Body mass index [BMI] 32.0-32.9, adult | CPT/HCPCS: 99212 ==

== ENCOUNTER 2023-01-02 11:10 | Outpatient (REF) | payer MEDICARE, MEDICAID, SELFPAY ==
--- NOTE | ~2023-01-02 | MM_ITS ---
EXAMINATION: MM SCREENING DIGITAL BREAST TOMOSYNTHESIS, BILATERAL CLINICAL INFORMATION: Screening. Asymptomatic. The lifetime risk of breast cancer based on the Tyrer-Cuzick Model is 10.9%. COMPARISON: Mammography: 03/23/2021 and studies dating back to 06/16/2015. TECHNIQUE: Digital breast tomosynthesis is performed in both the craniocaudal and mediolateral oblique views along with computer-aided detection (CAD). Synthesized 2D images are generated from the tomosynthesis. FINDINGS: There are scattered areas of fibroglandular density (ACR BI-RADS breast composition Category b). There are no significant masses, abnormal calcifications, or other abnormalities. Prominent right breast veins again noted. Rounded density is seen about the superior aspect of the right breast which represents a vessel on end as seen on tomosynthesis views. MM/MM tomosynthesis screening BI IMPRESSION: No significant changes from prior exam. ASSESSMENT: BI-RADS 1: Negative RECOMMENDATION: Routine annual mammography screening. This patient's information was entered into a reminder system with a target due date for their next mammogram.
== END 2023-01-02 11:11 | disposition home or self-care (01) ==
LOC: HO.MAMMO 11:10
PROVIDERS: PCP Internal Medicine; Visit Provider Internal Medicine
DX: Z12.31 Encounter for screening mammogram for malignant neoplasm of breast (principal)
CPT/HCPCS: 77063; 77067

== ENCOUNTER → 2023-03-06 10:15 | Outpatient (BNVA) | payer MEDICARE, MEDICAID, SELFPAY | PROVIDERS: PCP Internal Medicine; Visit Provider Nurse Practitioner | DX: K21.9 Gastro-esophageal reflux disease without esophagitis (principal); K58.0 Irritable bowel syndrome with diarrhea; D12.6 Benign neoplasm of colon, unspecified | CPT/HCPCS: 99212 ==

== ENCOUNTER 2023-03-11 08:09 | Outpatient (REF) | payer MEDICARE, MEDICAID, SELFPAY ==
[2023-03-11 12:05] LABS: Alanine Aminotransferase 20 U/L (0-31); Anion Gap 10 (12-20); Aspartate Amino Transferase 19 U/L (5-31); Blood Urea Nitrogen 25 mg/dL (9-16); Calcium 8.9 mg/dL (8.4-10.2); Carbon Dioxide 31 mmol/L (22-29); Chloride 107 mmol/L (96-108); Cholesterol 155 mg/dL; Estimated Glomerular Filt Rate > 60; Glucose Fasting 80 mg/dL (60-99); HDL Cholesterol 44 mg/dL; LDL Cholesterol Calculated 93 mg/dl; Potassium 4.4 mmol/L (3.3-5.1); Sodium 144 mmol/L (135-145); Triglycerides 93 mg/dL
[2023-03-11 12:16] LABS: Free T4 (Free Thyroxine) 0.89 ng/dL (0.71-1.85)
== END 2023-03-11 08:10 | disposition home or self-care (01) ==
LOC: HO.HMGCLDS 08:09
PROVIDERS: PCP Internal Medicine; Visit Provider Internal Medicine
DX: I25.10 Atherosclerotic heart disease of native coronary artery without angina pectoris (principal); I42.9 Cardiomyopathy, unspecified; E78.5 Hyperlipidemia, unspecified; E89.0 Postprocedural hypothyroidism
CPT/HCPCS: 36415; 80048; 80061; 84439; 84443; 84450; 84460

== ENCOUNTER 2023-04-09 12:50 | Outpatient (REF) | payer MEDICARE, MEDICAID, SELFPAY ==
[2023-04-09 17:21] LABS: Urine Cytology See Pathology rpt
== END 2023-04-09 12:51 | disposition home or self-care (01) ==
LOC: HO.LNP 12:50
PROVIDERS: PCP Internal Medicine; Visit Provider Nurse Practitioner Family
DX: N39.46 Mixed incontinence (principal)
CPT/HCPCS: 51798; 88112; 99202

== ENCOUNTER 2023-05-06 10:03 | Outpatient (REF) | payer MEDICARE, MEDICAID, SELFPAY ==
--- NOTE | ~2023-05-06 | US_ITS ---
EXAMINATION: US RETROPERITONEAL COMPLETE (RENAL) CLINICAL INFORMATION: Mixed incontinence. COMPARISON: None available. TECHNIQUE: Real-time imaging of the kidneys and bladder. Technically difficult study secondary to patient's limited mobility. FINDINGS: RIGHT KIDNEY: 10.4 x 4.6 x 4.6 cm (SAG x AP x TRV). The kidney is normal in size, contour, and echogenicity. Renal cortical thickness is normal. Multiple echogenic foci are noted in the kidney with the largest measuring 1.3 cm consistent with nonobstructing calculi. No focal parenchymal lesions or hydronephrosis. LEFT KIDNEY: 9.8 x 5.8 x 5.2 cm (SAG x AP x TRV). The kidney is normal in size, contour, and echogenicity. Renal cortical thickness is normal. No calculi or focal parenchymal lesions. No hydronephrosis. BLADDER: Well distended and normal. Bilateral ureteral jets are demonstrated. Prevoid bladder volume is 158 mL. Postvoid bladder volume is 7.2 mL. US/US retroperitoneal comp IMPRESSION: Multiple nonobstructing right renal calculi.
== END 2023-05-06 10:04 | disposition home or self-care (01) ==
LOC: HO.US 10:03
PROVIDERS: PCP Internal Medicine; Visit Provider Nurse Practitioner Family
DX: N39.46 Mixed incontinence (principal)
CPT/HCPCS: 76770

== ENCOUNTER 2023-06-28 10:18 | Outpatient (AMB) | payer MEDICARE, MEDICAID, SELFPAY ==
--- NOTE | 2023-06-28 10:20 | MHC.OFFWIV ---
Intake Vital Signs 06/28/23 10:21 Height 5 ft 7 in BP 104/62 Blood Pressure Location Lt brachial Position Sitting Pulse 88 Pulse Source Pulse Oximeter Temp 96.2 F L Temp Source Temporal Artery Scan Pulse Oximetry (%) 96 Oxygen Delivery Method Room Air Intake Visit Reasons: EST/threw her back out Intake Note: Pt is here c/o lower left back pain. Pt states she did have an injury years ago but not recently. Pt states her back pain started Saturday morning. Patient Tobacco Use Status: Current everyday Tobacco user Allergies bee pollen [BEE STINGS] Allergy (Severe, Verified 06/28/23 10:21) ANAPHYLAXIS aspirin [ASA] Allergy (Intermediate, Verified 06/28/23 10:21) RASH Penicillins Allergy (Intermediate, Verified 06/28/23 10:21) Rash Compazine Allergy (Unknown, Verified 06/28/23 10:21) unknown iodine [IODINE] Allergy (Unknown, Verified 06/28/23 10:21) UNKNOWN strawberry [STRAWBERRY] Allergy (Unknown, Verified 06/28/23 10:21) RASH codeine [CODEINE] Adverse Reaction (Intermediate, Verified 06/28/23 10:21) GI upset benztropine [From Cogentin] Adverse Reaction (Verified 06/28/23 10:21) Unknown Do you need a note to return to daycare/school/sports/work: No HPI HPI Comments History of Present Illness Details 1022 67-year-old female history of IBS, myasthenia gravis, coronary artery disease, GERD, bipolar disorder, obesity coming [facility] with lower back pain for the past few days worsening, pain is atraumatic in nature located to the left lower back and sometimes right lower back. Patient tells me she gets pain like this all the time, she ran out of lidocaine patches however the care home requires that she has a prescription for them and that is why she is here. Denies red flag symptoms. Denies fevers, chills, chest pain, shortness of breath, saddle paresthesias, urinary/ bowel incontinence/ retention, difficulties with ambulation, weakness, chest pain, shortness of breath, nausea, vomiting, abdominal pain, recent trauma. Physical examination lumbar paraspinous tenderness bilaterally, ambulating with steady gait normal coordination. No midline tenderness. No saddle paresthesias. Likely lumbar spasm or strain vs lumbar radiculopathy versus lumbago. unlikely cauda equina, epidural abscess, cord compression. Plan, Lidoderm and Ibuprofen. Will have her follow up with PCP, educated on red flag symptoms. Educated patient on diagnosis and treatment plan, answered all question, patient verbalizes understanding. At this time patient will be discharged home, advised to return with new or worsening symptoms. Educated on worrisome signs and symptoms and when to return. At this time I feel comfortable discharge home. [facility] Medical History Allergic rhinitis Atherosclerotic cardiovascular disease Bipolar disorder CAD (coronary atherosclerotic disease) Cataract Chronic GERD Colon cancer screening Duodenum ulcer Dyslipidemia Eczema History of anoxic brain injury History of myasthenia gravis Hx of non-ST elevation myocardial infarction (NSTEMI) Mild intermittent asthma in adult without complication Mitral valve regurgitation Morbid obesity Narcotic dependence, in remission Postsurgical hypothyroidism Shoulder bursitis Smoker unmotivated to quit Trochanteric bursitis Urinary incontinence, mixed Surgical History H/O colonoscopy History of appendectomy (Unknown) History of cholecystectomy (Unknown) History of esophagogastroduodenoscopy (~01/2015) History of partial hysterectomy History of thymectomy (~2007) History of thyroidectomy, total Hx of CABG Hx of thyroidectomy Hx of tonsillectomy Family History Father Stroke Mother Breast cancer, Onset Age: 40 Brother Brain cancer Brother HIV disease Son No problems noted. Maternal Grandmother Glaucoma Paternal Grandmother Lung cancer Ovarian cancer Social History Household Members: Other Household Members Other:: resides in care home Housing: Other Housing Other:: [employer] agencyGroup home Do you presently have visiting nurse or other home services: Yes (resides in care home) Alcohol intake: never Patient Tobacco Use Status: Current everyday Tobacco user Cigarette Packs Per Day: 0.5 Cigarettes Per Day: 10.0 Years Smoked: 40 e-Cigarette/Vaping Use: Never Used Current occupational status: disabled Cognitive needs: No Hearing needs: No Vision needs: Yes Review of Systems Const Details: Constitutional : No Weight loss, No Fever, No Chills, ENT/Mouth : No Hearing loss, No Ear Pain, No Nasal Congestion, No Sinus Pain, No Hoarseness, No sore throat, No Rhinorrhea, No Swallowing Difficulty Cardiovascular : No Chest Pain, No SOB Respiratory : No Cough, No Dyspnea Gastrointestinal : No Nausea, No Vomiting, No Diarrhea, No abdominal Pain, No Hematochezia, No Melena Genitourinary : No Dysuria, No Urinary Frequency, No Hematuria, No Urinary Incontinence, Musculoskeletal : positive back pain Skin : No Skin Lesions, No rash Neuro : No Weakness, No Numbness, No Paresthesias, no loss of bowel or bladder incontinence, no saddle anesthesia All systems reviewed & are unremarkable except as noted in HPI and below Physical Exam Vital Signs: vss Appearance: Alert.? Oriented X3.? No acute distress.? Head: Normocephalic, atraumatic, no step-offs or deformities Eyes: Pupils equal, round and reactive to light.? CVS: Normal heart rate and rhythm.? Pulses normal.? Respiratory: No respiratory distress.? Breath sounds normal.? Abdomen: Soft and nontender.? Skin: Skin warm and dry.? Normal skin color.? Normal skin turgor.? Extremities: No lower extremity edema.? No calf ttp. 5/5 strength to bilateral upper and lower extremities Back: No midline tenderness, no C-spine tenderness, full range of motion, no CVA tenderness bilaterally + Bilateral lumbar paraspinous tenderness bilaterally L>R No midline tenderness. Neuro: Oriented X 3.? No motor deficit.? No sensory deficit. CN 2-12 intact . No saddle paresthesias, ambulating with steady gait normal coordination. Assessment & Plan Assessment & Plan (1) Lumbar paraspinal muscle spasm: Code(s): M62.830 - Muscle spasm of back Plan Take your medications as prescribed. If you were prescribed antibiotics today, it is important that you take your medication to their entirety, do not skip any doses, do not finish them early. Follow-up with your primary care provider this week. Return to the emergency department with new or worsening symptoms. Such as fevers, chills, chest pain, shortness of breath, nausea, vomiting, dizziness, headache, vision changes, lethargy In case of emergency call 911 Medications: New lidocaine 4% (AsperFlex (lidocaine)) 1 patch topical DAILY PRN 15 ea 0RF pain acetaminophen 325 mg PO QID PRN 30 caps 0RF pain Coding Level of Care Code Est Pt Level 3 (65389) Diagnoses Lumbar paraspinal muscle spasm M62.830
[2023-06-28 10:21] VITALS: BP 104/62; PULSE 88; TEMP 35.7; O2SAT 96
== END 2023-06-28 11:54 | disposition home or self-care (01) ==
PROVIDERS: PCP Internal Medicine; Visit Provider Physician Assistant
DX: M62.830 Muscle spasm of back (principal)
CPT/HCPCS: 99213

== ENCOUNTER 2023-07-03 10:19 | Outpatient (AMB) | payer MEDICARE, MEDICAID, SELFPAY ==
[2023-07-03 10:46] VITALS: BP 98/60; PULSE 63; O2SAT 99; BMI 34.8
--- NOTE | 2023-07-03 10:46 | MHC.OFFWIV ---
Intake Vital Signs 07/03/23 10:46 Height 5 ft 7 in Weight 100.698 kg BMI 34.8 BP 98/60 Blood Pressure Location Lt brachial Position Sitting Pulse 63 Pulse Source Pulse Oximeter Pulse Oximetry (%) 99 Oxygen Delivery Method Room Air Intake Visit Reasons: EP lower back pain (lobby) Intake Note: Pt is here today for a walk in visit. Pt c/o lower back pain. Patient Tobacco Use Status: Current everyday Tobacco user Allergies bee pollen [BEE STINGS] Allergy (Severe, Verified 06/28/23 10:21) ANAPHYLAXIS aspirin [ASA] Allergy (Intermediate, Verified 06/28/23 10:21) RASH Penicillins Allergy (Intermediate, Verified 06/28/23 10:21) Rash Compazine Allergy (Unknown, Verified 06/28/23 10:21) unknown iodine [IODINE] Allergy (Unknown, Verified 06/28/23 10:21) UNKNOWN strawberry [STRAWBERRY] Allergy (Unknown, Verified 06/28/23 10:21) RASH codeine [CODEINE] Adverse Reaction (Intermediate, Verified 06/28/23 10:21) GI upset benztropine [From Cogentin] Adverse Reaction (Verified 06/28/23 10:21) Unknown HPI HPI Comments History of Present Illness Details 67-year-old female? history of IBS, myasthenia gravis, coronary artery disease, GERD, bipolar disorder, obesity coming from [facility] with lower back pain for the past few days worsening, pain is atraumatic in nature located to the left lower back and sometimes right lower back, was seen here on 06/28 for same compalint.? Patient tells me she gets pain like this all the time, she ran out of lidocaine patches however [facility] a prescription for them and that is why she is here, since her last visit purchased a heating pack..? Denies red flag symptoms.? Denies fevers, chills, chest pain, shortness of breath, saddle paresthesias, urinary/ bowel incontinence/ retention, difficulties with ambulation, weakness, chest pain, shortness of breath, nausea, vomiting, abdominal pain, recent trauma Physical examination lumbar paraspinous tenderness bilaterally, ambulating with steady gait normal coordination.? No midline tenderness.? No saddle paresthesias. Likely lumbar spasm or strain vs lumbar radiculopathy versus lumbago. unlikely cauda equina, epidural abscess, cord compression. Plan volataren tylenol as needed .? Will have her follow up with PCP, educated on red flag symptoms.? Educated patient on diagnosis and treatment plan, answered all question, patient verbalizes understanding.? At this time patient will be discharged home, advised to return with new or worsening symptoms.? Educated on worrisome signs and symptoms and when to return.? At this time I feel comfortable discharge home. ? [facility] Medical History Allergic rhinitis Atherosclerotic cardiovascular disease Bipolar disorder CAD (coronary atherosclerotic disease) Cataract Chronic GERD Colon cancer screening Duodenum ulcer Dyslipidemia Eczema History of anoxic brain injury History of myasthenia gravis Hx of non-ST elevation myocardial infarction (NSTEMI) Mild intermittent asthma in adult without complication Mitral valve regurgitation Morbid obesity Narcotic dependence, in remission Postsurgical hypothyroidism Shoulder bursitis Smoker unmotivated to quit Trochanteric bursitis Urinary incontinence, mixed Surgical History H/O colonoscopy History of appendectomy (Unknown) History of cholecystectomy (Unknown) History of esophagogastroduodenoscopy (~01/2015) History of partial hysterectomy History of thymectomy (~2007) History of thyroidectomy, total Hx of CABG Hx of thyroidectomy Hx of tonsillectomy Family History Father Stroke Mother Breast cancer, Onset Age: 40 Brother Brain cancer Brother HIV disease Son No problems noted. Maternal Grandmother Glaucoma Paternal Grandmother Lung cancer Ovarian cancer Social History Household Members: Other Household Members Other:: resides in jail Housing: Other Housing Other:: [employer] agencyGroup home Do you presently have visiting nurse or other home services: Yes (resides in jail) Alcohol intake: never Patient Tobacco Use Status: Current everyday Tobacco user Cigarette Packs Per Day: 0.5 Cigarettes Per Day: 10.0 Years Smoked: 40 e-Cigarette/Vaping Use: Never Used Current occupational status: disabled Cognitive needs: No Hearing needs: No Vision needs: Yes Review of Systems Const Details: Constitutional : No Weight loss, No Fever, No Chills, ENT/Mouth : No Hearing loss, No Ear Pain, No Nasal Congestion, No Sinus Pain, No Hoarseness, No sore throat, No Rhinorrhea, No Swallowing Difficulty Cardiovascular : No Chest Pain, No SOB Respiratory : No Cough, No Dyspnea Gastrointestinal : No Nausea, No Vomiting, No Diarrhea, No abdominal Pain, No Hematochezia, No Melena Genitourinary : No Dysuria, No Urinary Frequency, No Hematuria, No Urinary Incontinence, Musculoskeletal : positive back pain Skin : No Skin Lesions, No rash Neuro : No Weakness, No Numbness, No Paresthesias, no loss of bowel or bladder incontinence, no saddle anesthesia All systems reviewed & are unremarkable except as noted in HPI and below Physical Exam Vital Signs: Last Vital Signs Pulse 63 07/03/23 10:46 BP 98/60 07/03/23 10:46 Pulse Ox 99 07/03/23 10:46 Oxygen Delivery Method Room Air 07/03/23 10:46 BMI result Body Mass Index 34.8 vss Appearance: Alert.? Oriented X3.? No acute distress.? Head:? Normocephalic, atraumatic, no step-offs or deformities Eyes: Pupils equal, round and reactive to light.? CVS: Normal heart rate and rhythm.? Pulses normal.? Respiratory: No respiratory distress.? Breath sounds normal.? Abdomen: Soft and nontender.? Skin: Skin warm and dry.? Normal skin color.? Normal skin turgor.? Extremities: No lower extremity edema.? No calf ttp.? 5/5 strength to bilateral upper and lower extremities Back:? No midline tenderness, no C-spine tenderness, full range of motion, no CVA tenderness bilaterally +? Bilateral lumbar paraspinous tenderness bilaterally L>R? No midline tenderness. Neuro: Oriented X 3.? No motor deficit.? No sensory deficit. CN 2-12 intact? .? No saddle paresthesias,? ambulating with steady gait normal coordination. Assessment & Plan Assessment & Plan (1) Lumbar paraspinal muscle spasm: Code(s): M62.830 - Muscle spasm of back Plan Take your medications as prescribed. If you were prescribed antibiotics today, it is important that you take your medication to their entirety, do not skip any doses, do not finish them early. Follow-up with your primary care provider this week. Return to the emergency department with new or worsening symptoms. Such as fevers, chills, chest pain, shortness of breath, nausea, vomiting, dizziness, headache, vision changes, lethargy In case of emergency call 911 Medications: New diclofenac sodium 1% (Voltaren Arthritis Pain) apply to single elbow, wrist or hand; for hand includes palm/fingers/back of hand. Can apply to lower back 2 grams topical QID 100 grams 2RF Coding Level of Care Code Est Pt Level 3 (27171) Diagnoses Lumbar paraspinal muscle spasm M62.830
== END 2023-07-03 12:44 | disposition home or self-care (01) ==
PROVIDERS: PCP Internal Medicine; Visit Provider Physician Assistant
DX: M62.830 Muscle spasm of back (principal)
CPT/HCPCS: 99213

== ENCOUNTER 2023-07-10 08:10 | Outpatient (AMB) | payer MEDICARE, MEDICAID, SELFPAY ==
--- NOTE | 2023-07-10 08:11 | MHC.OFFWIV ---
Intake Vital Signs 07/10/23 08:13 Weight 228 lb BP 94/50 L Blood Pressure Location Lt brachial Position Sitting Pulse 60 Pulse Source Pulse Oximeter Pulse Oximetry (%) 96 Oxygen Delivery Method Room Air Intake Visit Reasons: EP LT Leg Swelling Intake Note: Patient here for left leg swelling, pt mentioned that her back is hurting as well which started first and then the swelling in the leg happened and is unsure if its connected. Patient Tobacco Use Status: Current everyday Tobacco user Allergies bee pollen [BEE STINGS] Allergy (Severe, Verified 07/10/23 18:08) ANAPHYLAXIS aspirin [ASA] Allergy (Intermediate, Verified 07/10/23 18:08) RASH Penicillins Allergy (Intermediate, Verified 07/10/23 18:08) Rash Compazine Allergy (Unknown, Verified 07/10/23 18:08) unknown iodine [IODINE] Allergy (Unknown, Verified 07/10/23 18:08) UNKNOWN strawberry [STRAWBERRY] Allergy (Unknown, Verified 07/10/23 18:08) RASH codeine [CODEINE] Adverse Reaction (Intermediate, Verified 07/10/23 18:08) GI upset benztropine [From Cogentin] Adverse Reaction (Verified 07/10/23 18:08) Unknown Medication List - Last Reconciled 07/10/23 by Huey Marte MD acetaminophen 325 mg PO QID PRN acetaminophen 650 mg (2 x 325 mg) PO BID PRN Advair Diskus 250-50 mcg/dose (fluticasone propion-salmeterol) 1 inh inhalation BID NS albuterol sulfate 90 mcg/actuation (Ventolin HFA) 2 puffs inhalation Q4H PRN atorvastatin 10 mg PO DAILY 90 days cetirizine 10 mg PO QAM cholecalciferol (vitamin D3) 50 mcg PO QAM dextromethorphan-guaifenesin 10-100 mg/5 mL (Tussin DM) 10 mL PO Q4H PRN diclofenac sodium 1% (Voltaren Arthritis Pain) 2 grams topical QID divalproex 500 mg PO BID dorzolamide 2% 0 drps ophthalmic (eye) escitalopram oxalate (Lexapro) 20 mg PO DAILY escitalopram oxalate 10 mg PO DAILY hydrocortisone 2.5% (Proctosol HC) 1 appl NV BID PRN latanoprost 0.005% 0 drps ophthalmic (eye) levothyroxine (Levoxyl) 50 mcg PO DAILY lidocaine 4% (AsperFlex (lidocaine)) 1 patch topical DAILY PRN loperamide 2 mg PO TID PRN metoprolol tartrate 12.5 mg (1/2 x 25 mg) PO QAM montelukast 10 mg PO DAILY omega [id number] oil 1,200 (144-216) mg (Fish Oil) 1 cap PO BID 30 days pantoprazole 40 mg PO BID pyridoxine (vitamin B6) 100 mg PO DAILY quetiapine ER 300 mg PO BEDTIME trazodone 100 mg PO BEDTIME trazodone 50 mg PO BEDTIME Do you need a note to return to daycare/school/sports/work: No HPI EP LT Leg Swelling HPI Details 67-year-old female presents to the office for a sick visit. She lives in a prison and is brought to the office by a worker from the prison. Patient is reporting swelling in both her legs in knees. She cannot actually tell me when her symptoms really started. He denies any shortness of breath or chest pains. No fevers or chills. She uses a walker to ambulate at baseline. [facility] Medical History Allergic rhinitis Atherosclerotic cardiovascular disease Bipolar disorder CAD (coronary atherosclerotic disease) Cataract Chronic GERD Colon cancer screening Duodenum ulcer Dyslipidemia Eczema History of anoxic brain injury History of myasthenia gravis Hx of non-ST elevation myocardial infarction (NSTEMI) Mild intermittent asthma in adult without complication Mitral valve regurgitation Morbid obesity Narcotic dependence, in remission Postsurgical hypothyroidism Shoulder bursitis Smoker unmotivated to quit Trochanteric bursitis Urinary incontinence, mixed Surgical History H/O colonoscopy History of appendectomy (Unknown) History of cholecystectomy (Unknown) History of esophagogastroduodenoscopy (~01/2015) History of partial hysterectomy History of thymectomy (~2007) History of thyroidectomy, total Hx of CABG Hx of thyroidectomy Hx of tonsillectomy Family History Father Stroke Mother Breast cancer, Onset Age: 40 Brother Brain cancer Brother HIV disease Son No problems noted. Maternal Grandmother Glaucoma Paternal Grandmother Lung cancer Ovarian cancer Social History Household Members: Other Household Members Other:: resides in prison Housing: Other Housing Other:: Service Net agencyGroup home Do you presently have visiting nurse or other home services: Yes (resides in prison) Alcohol intake: never Patient Tobacco Use Status: Current everyday Tobacco user Cigarette Packs Per Day: 0.5 Cigarettes Per Day: 10.0 Years Smoked: 40 e-Cigarette/Vaping Use: Never Used Current occupational status: disabled Cognitive needs: No Hearing needs: No Vision needs: Yes Physical Exam Vital Signs: Last Vital Signs Pulse 60 07/10/23 08:13 BP 94/50 L 07/10/23 08:13 Pulse Ox 96 07/10/23 08:13 Oxygen Delivery Method Room Air 07/10/23 08:13 Const General: cooperative and healthy appearing Nutritional Appearance: well nourished Orientation/consciousness: patient oriented x3 Limitations: no limitations HEENT Head: Yes normal to inspection Eyes General: appearance normal, both eyes and all related structures Neck Neck: Yes normal visual inspection Chest Chest palpation & inspection: normal palpation of entire chest wall Resp Effort & Inspection: normal respiratory effort Neuro General: patient oriented x3 Extrem Other: Right knee: No joint line tenderness. Similar in size to the left knee. Significant overlying pendulous layer of skin. Assessment & Plan Assessment & Plan (1) Osteoarthritis: Code(s): M19.90 - Unspecified osteoarthritis, unspecified site Plan: Nothing acute in this visit. Most of her problems are chronic and need the attention of her primary care provider. Patient was encouraged to see her primary care provider Coding Level of Care Code Est Pt Level 3 (63428) Diagnoses Osteoarthritis M19.90
[2023-07-10 08:13] VITALS: BP 94/50; PULSE 60; O2SAT 96
== END 2023-07-10 09:05 | disposition home or self-care (01) ==
PROVIDERS: PCP Internal Medicine; Visit Provider Internal Medicine
DX: M19.90 Unspecified osteoarthritis, unspecified site (principal)
CPT/HCPCS: 99213

== ENCOUNTER 2023-08-22 07:54 | Day surgery (SDC) | payer MEDICARE, MEDICAID, SELFPAY ==
[2023-08-20 10:49] VITALS: BMI 34.8
--- NOTE | 2023-08-21 09:28 | HO.ANESPROP2 ---
Documented by User: Jazmin Miller NP 08/21/23 11:49 HPI - Anesthesia Eval Consult details Narrative: 67yo F for Colonoscopy Pt from a half-way Myesthenia Gravis ? s/p thymectomy Last seen by cardiology 09/2022: Vague history of coronary artery bypass in 2008 but cardiac catheterization 2010 rather shows [place] coronaries only. There was 30% mid right coronary artery stenosis but no significant obstructive disease overall. There is an echocardiogram from 2009 that describes EF of 30-40%; inferior septal infarction. Overall, she has underlying coronary disease but mild based on the catheterization. With regard to bypass surgery, not entirely clear if she actually had a surgery or if it is just incorrect information. More than likely, may not have had bypass as she does not have any obstructive CAD. Of note, there is description of rather thymus surgery for myasthenia gravis and hence the sternotomy scar might be from this rather. FORMERLY [facility], [facility] Active Problems Active Problems: All Active Problems (Updated 08/20/23 @ 10:53 by Teresa Saunders RN) Osteoarthritis (Acute) Irritable bowel syndrome with diarrhea (Acute) Cardiomyopathy (Acute) Frequent falls (Acute) Difficulty balancing (Acute) Tubular adenoma of colon (Acute) Hemorrhoids, internal, with bleeding (Acute) Diverticulosis (Acute) Menopause (Acute) Urinary incontinence, mixed (Acute) Atherosclerotic cardiovascular disease (Acute) History of myasthenia gravis (Acute) History of anoxic brain injury (Acute) Hx of non-ST elevation myocardial infarction (NSTEMI) (Acute) Smoker unmotivated to quit (Acute) Mitral valve regurgitation (Acute) CAD (coronary atherosclerotic disease) (Acute) Dyslipidemia (Acute) Postsurgical hypothyroidism (Acute) Mild intermittent asthma in adult without complication (Acute) Bipolar disorder (Acute) Chronic GERD (Acute) Allergic rhinitis (Acute) Eczema (Acute) Morbid obesity (Acute) Past Medical History Medical History Urinary incontinence, mixed Atherosclerotic cardiovascular disease Hx of non-ST elevation myocardial infarction (NSTEMI) Cataract Colon cancer screening Smoker unmotivated to quit Shoulder bursitis Trochanteric bursitis Mitral valve regurgitation Narcotic dependence, in remission Chronic GERD Morbid obesity History of myasthenia gravis Allergic rhinitis Eczema CAD (coronary atherosclerotic disease) Duodenum ulcer Bipolar disorder History of anoxic brain injury Dyslipidemia Mild intermittent asthma in adult without complication Postsurgical hypothyroidism Family History Family History Father Stroke Mother Breast cancer, Onset Age: 40 Brother Brain cancer Brother HIV disease Son No problems noted. 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-way ([employer]) Housing: Other Housing Other:: [employer] agencyGroup home Do you presently have visiting nurse or other home services: Yes (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-way staff) Alcohol intake: never Patient Tobacco Use Status: Current everyday Tobacco user Tobacco use type: Cigarette Cigarette Packs Per Day: 0.5 Cigarettes Per Day: 10 Years Smoked: 40 e-Cigarette/Vaping Use: Never Used Use of substances other than those prescribed or required for medical reasons: No Are you DNR?: No Advance Directives: No Advance Directives Information Provided: Yes Advance Directives on File: No Recently lost weight without trying: No Eating poorly because of decreased appetite: No Nutrition Risks: No Nutritional Risk Current occupational status: disabled Cognitive needs: No Hearing needs: No Vision needs: Yes Meds Allergies Allergy/AdvReac Type Severity Reaction Status Date / Time bee pollen [BEE STINGS] Allergy Severe ANAPHYLAXIS Verified 07/10/23 18:08 aspirin [ASA] Allergy Intermediate RASH Verified 07/10/23 18:08 Penicillins Allergy Intermediate Rash Verified 07/10/23 18:08 strawberry [STRAWBERRY] Allergy Intermediate RASH Verified 08/20/23 10:47 Compazine Allergy Unknown unknown Verified 07/10/23 18:08 iodine [IODINE] Allergy Unknown UNKNOWN Verified 07/10/23 18:08 codeine [CODEINE] AdvReac Intermediate GI upset Verified 07/10/23 18:08 benztropine [From Cogentin] AdvReac Unknown Unknown Verified 08/20/23 10:47 Home Medications Medication Instructions Recorded Confirmed Last Taken Type escitalopram oxalate 20 mg tablet 20 mg PO DAILY 08/24/20 08/20/23 10/28/20 History (Lexapro) trazodone 100 mg tablet 100 mg PO BEDTIME 08/25/20 08/20/23 Unknown History escitalopram oxalate 10 mg tablet 10 mg PO DAILY 03/22/21 08/20/23 Unknown History quetiapine 300 mg tablet,extended 300 mg PO BEDTIME 09/19/21 08/20/23 Unknown History release 24 hr latanoprost 0.005 % eye drops 0 drp ophthalmic (eye) 04/02/22 07/10/23 Unknown History trazodone 50 mg tablet 50 mg PO BEDTIME 12/04/22 08/20/23 Unknown History dorzolamide 2 % eye drops 0 drp ophthalmic (eye) 03/22/23 07/10/23 Unknown History divalproex 500 mg tablet,delayed 500 mg PO BID 04/09/23 08/20/23 Unknown History release Exam Exam Date and Time: August 21, [id number] Height,Weight and Vital Signs: Height 5 ft 7 in Weight 100.698 kg Pertinent Lab Results Pertinent Lab Results: Laboratory Tests 03/11/23 08:19 Sodium 144 Potassium 4.4 Chloride 107 Carbon Dioxide 31 H BUN 25 H Creatinine 0.84 Assessment and Plan Assessment Anesthesia Assessment: Chart Reviewed Documented by User: Kiana Ibrahim MD 08/22/23 09:13 FOR[facility]LY [facility] Past Medical History Medical History Urinary incontinence, mixed Atherosclerotic cardiovascular disease Hx of non-ST elevation myocardial infarction (NSTEMI) Cataract Colon cancer screening Smoker unmotivated to quit Shoulder bursitis Trochanteric bursitis Mitral valve regurgitation Narcotic dependence, in remission Chronic GERD Morbid obesity History of myasthenia gravis Allergic rhinitis Eczema CAD (coronary atherosclerotic disease) Duodenum ulcer Bipolar disorder History of anoxic brain injury Dyslipidemia Mild intermittent asthma in adult without complication Postsurgical hypothyroidism Family History Family History Father Stroke Mother Breast cancer, Onset Age: 40 Brother Brain cancer Brother HIV disease Son No problems noted. 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 ([employer]) Housing: Other Housing Other:: [employer] agencyGroup home Do you presently have visiting nurse or other home services: Yes (half-way staff) Alcohol intake: never Patient Tobacco Use Status: Current everyday Tobacco user Tobacco use type: Cigarette Cigarette Packs Per Day: 0.5 Cigarettes Per Day: 10 Years Smoked: 40 e-Cigarette/Vaping Use: Never Used Use of substances other than those prescribed or required for medical reasons: No Are you DNR?: No Advance Directives: No Advance Directives Information Provided: Yes Advance Directives on File: No Recently lost weight without trying: No Eating poorly because of decreased appetite: No Nutrition Risks: No Nutritional Risk Current occupational status: disabled Cognitive needs: No Hearing needs: No Vision needs: Yes Meds Allergies Allergy/AdvReac Type Severity Reaction Status Date / Time bee pollen [BEE STINGS] Allergy Severe ANAPHYLAXIS Verified 07/10/23 18:08 aspirin [ASA] Allergy Intermediate RASH Verified 07/10/23 18:08 Penicillins Allergy Intermediate Rash Verified 07/10/23 18:08 strawberry [STRAWBERRY] Allergy Intermediate RASH Verified 08/20/23 10:47 Compazine Allergy Unknown unknown Verified 07/10/23 18:08 iodine [IODINE] Allergy Unknown UNKNOWN Verified 07/10/23 18:08 codeine [CODEINE] AdvReac Intermediate GI upset Verified 07/10/23 18:08 benztropine [From Cogentin] AdvReac Unknown Unknown Verified 08/20/23 10:47 Home Medications Medication Instructions Recorded Confirmed Last Taken Type escitalopram oxalate 20 mg tablet 20 mg PO DAILY 08/24/20 08/20/23 10/28/20 History (Lexapro) trazodone 100 mg tablet 100 mg PO BEDTIME 08/25/20 08/20/23 Unknown History escitalopram oxalate 10 mg tablet 10 mg PO DAILY 03/22/21 08/20/23 Unknown History quetiapine 300 mg tablet,extended 300 mg PO BEDTIME 09/19/21 08/20/23 Unknown History release 24 hr latanoprost 0.005 % eye drops 0 drp ophthalmic (eye) 04/02/22 07/10/23 Unknown History trazodone 50 mg tablet 50 mg PO BEDTIME 12/04/22 08/20/23 Unknown History dorzolamide 2 % eye drops 0 drp ophthalmic (eye) 03/22/23 07/10/23 Unknown History divalproex 500 mg tablet,delayed 500 mg PO BID 04/09/23 08/20/23 Unknown History release Exam Airway Mallampati Class: II (edentulous) TM Dist: >3cm Neck ROM: Full Loose/Missing/Broken Teeth: Yes, Upper and Lower Heart: RRR Lungs: CTA Assessment and Plan Assessment Anesthesia Assessment: Anesthesia Plan Discussed Final Anesthetic Review History of Problems with Anesthesia: No NPO: Yes ASA Class: III Final Preanesthetic Review: Meds/Allgs Chart Reviewed, Consent Obtained/Reviewed and Anes Risks/Benef Reviewed Patient Risk: Intermediate Procedure Risk: Low Anesthetic Plan Anesthetic Plan: MAC: Disposition: Standard PACU
--- NOTE | 2023-08-22 08:39 | P.OP_ITS ---
Operative Note Operative Note Date of Service: 08/22/23 Narrative: Procedure: Colonoscopy Indication: Personal history of polyps Endoscopist: Catalina Sunshine MD Anesthesia Provider: Ashlie Ingram CRNA Anesthesia type: MAC Instrument: Olympus [id number]-H190L Consent: Indication, risks vs benefits, and alternatives were discussed with the patient who gave written informed consent to proceed. EKG, pulse, pulse oximetry and blood pressure were monitored throughout the procedure. Please see anesthesia flowsheet. Procedure: The patient was brought to the procedure room and placed in the left lateral decubitus position. IV medications were administered by the anesthesia provider in attendance. A digital rectal exam was performed which was abnormal due to finding of hemorrhoids and perineal rash. A distal attachment cap was affixed to the tip of the colonoscope which was then inserted through the anus and advanced through the colon to the cecum at 80 cm,and terminal ileum. Ileocecal valve and appendiceal orifice were identified. Mucosa was carefully examined under high definition white light as the instrument was slowly withdrawn in a retrograde panoramic fashion. Retroflexion was performed in rectum. The procedure was not difficult. There were no immediate obvious complications. The quality of the prep was BBPS: 2+3+3 = adequate Withdrawal time 16 minutes. Limitations: No limitations. Findings: Mucosa: Normal to cecum and terminal ileum. Protruding lesions: * 1 sessile polyp of size 2 mm in cecum Cold forceps polypectomy was performed. The polyp was completely removed and retrieved. * 2 sessile polyp of size 4-6 mm in transverse colon. Cold forceps polypectomy was done for the smaller polyp while the 6 mm polyp was removed with cold snare. The polyps were completely removed and retrieved. * Medium internal hemorrhoids without stigmata of recent bleeding. Impression: 1. Normal colon and terminal ileum mucosa 2. Total of 3 polyps removed 3. External and internal hemorrhoids Recommendations: - Follow path results. - Repeat colonoscopy in 3 years if all 3 polyps are adenomas otherwise 5 years. - Nystatin powder prescribed for perianal yeast infection.
--- NOTE | 2023-08-22 08:39 | MHC.SHP ---
Pre-Procedural Eval Section A Date of Service: 08/22/23 Section B Chief Complaint: Personal hx of polyps Details of Present Illness: PMH: Allergic rhinitis Atherosclerotic cardiovascular disease Bipolar disorder CAD (coronary atherosclerotic disease) Cataract Chronic GERD Colon cancer screening Duodenum ulcer Dyslipidemia Eczema History of anoxic brain injury History of myasthenia gravis Hx of non-ST elevation myocardial infarction (NSTEMI) Mild intermittent asthma in adult without complication Mitral valve regurgitation Morbid obesity Narcotic dependence, in remission Postsurgical hypothyroidism Shoulder bursitis Smoker unmotivated to quit Trochanteric bursitis Surgical History H/O colonoscopy History of appendectomy (Unknown) History of cholecystectomy (Unknown) History of esophagogastroduodenoscopy (~01/2015) History of partial hysterectomy History of thymectomy (~2007) History of thyroidectomy, total Hx of CABG Hx of thyroidectomy Hx of tonsillectomy Present Medications: see Short Stay Collaborative assessment Allergies: Allergies Allergy/AdvReac Type Severity Reaction Status Date / Time bee pollen [BEE STINGS] Allergy Severe ANAPHYLAXIS Verified 07/10/23 18:08 aspirin [ASA] Allergy Intermediate RASH Verified 07/10/23 18:08 Penicillins Allergy Intermediate Rash Verified 07/10/23 18:08 strawberry [STRAWBERRY] Allergy Intermediate RASH Verified 08/20/23 10:47 Compazine Allergy Unknown unknown Verified 07/10/23 18:08 iodine [IODINE] Allergy Unknown UNKNOWN Verified 07/10/23 18:08 codeine [CODEINE] AdvReac Intermediate GI upset Verified 07/10/23 18:08 benztropine [From Cogentin] AdvReac Unknown Unknown Verified 08/20/23 10:47 Review of Systems Review of Systems Comment: Ten point ROS negative Exam Exam Comment: Gen appear: No acute distress HEENT: no icterus Chest: No overt resp distress Abd: soft, nontender, nondistended Psych: Stable affect, answering questions appropriately Neuro: A/Ox3 noted to move all extremities spontaneously Ext: no peripheral edema Plan Diagnosis/Plan: Unchanged I have reviewed the history and physical and performed a pertinent physical examination on my patient. No changes have occurred unless specified. Time Spent With Patient Time: Total time managing care of this patient today ____ minutes.
[2023-08-22 08:43] VITALS: BP 125/67; PULSE 58; RESP 17; TEMP 35.6; O2SAT 98
[2023-08-22 09:49] VITALS: BP 111/51; PULSE 60; RESP 16; TEMP 36.1; O2SAT 96
[2023-08-22 10:04] VITALS: BP 124/55; PULSE 57; RESP 16; TEMP 36.1; O2SAT 96
[2023-08-22 10:19] VITALS: BP 118/49; PULSE 50; RESP 16; TEMP 36.1; O2SAT 96
== END 2023-08-22 11:20 | disposition home or self-care (01) ==
PROVIDERS: PCP Internal Medicine; Visit Provider Internal Medicine
PROC: 0DJD8ZZ Inspection of Lower Intestinal Tract, Via Natural or Artificial Opening Endoscopic (ICD-10-PCS; CPT 45378; principal; 2023-08-22 09:10)
DX: Z12.11 Encounter for screening for malignant neoplasm of colon (principal); Z86.010 Personal history of colon polyps; D12.0 Benign neoplasm of cecum; D12.3 Benign neoplasm of transverse colon; K64.8 Other hemorrhoids; K64.4 Residual hemorrhoidal skin tags; K58.0 Irritable bowel syndrome with diarrhea; K21.9 Gastro-esophageal reflux disease without esophagitis; J45.20 Mild intermittent asthma, uncomplicated; I25.2 Old myocardial infarction; I42.9 Cardiomyopathy, unspecified; I25.10 Atherosclerotic heart disease of native coronary artery without angina pectoris; Z95.1 Presence of aortocoronary bypass graft; E89.0 Postprocedural hypothyroidism; E78.5 Hyperlipidemia, unspecified; E66.01 Morbid (severe) obesity due to excess calories; Z68.34 Body mass index [BMI] 34.0-34.9, adult; Z86.69 Personal history of other diseases of the nervous system and sense organs; Z88.0 Allergy status to penicillin; Z88.5 Allergy status to narcotic agent; Z88.8 Allergy status to other drugs, medicaments and biological substances; Z91.041 Radiographic dye allergy status; F11.21 Opioid dependence, in remission; F17.210 Nicotine dependence, cigarettes, uncomplicated
CPT/HCPCS: 45385; 45380; 88305

== ENCOUNTER → 2023-08-22 07:54 | Outpatient (BNV) | payer MEDICARE, MEDICAID, SELFPAY | PROVIDERS: PCP Internal Medicine; Visit Provider Internal Medicine | DX: Z12.11 Encounter for screening for malignant neoplasm of colon (principal); Z86.010 Personal history of colon polyps; D12.0 Benign neoplasm of cecum; D12.3 Benign neoplasm of transverse colon | CPT/HCPCS: 45380; 45385 ==

== ENCOUNTER 2023-08-26 08:20 | Outpatient (REF) | payer MEDICARE, MEDICAID, SELFPAY ==
[2023-08-26 12:04] LABS: Alanine Aminotransferase 15 U/L (0-31); Albumin Level 3.7 g/dL (3.5-5.0); Alkaline Phosphatase 75 U/L (39-117); Aspartate Amino Transferase 14 U/L (5-31); Bilirubin Direct < 0.2 mg/dL (0.0-0.5); Bilirubin Total 0.2 mg/dL (0.0-1.0); Total Protein 6.9 g/dL (6.5-8.0)
[2023-08-26 12:36] LABS: Alanine Aminotransferase 14 U/L (0-31); Anion Gap 12 (12-20); Aspartate Amino Transferase 15 U/L (5-31); Blood Urea Nitrogen 20 mg/dL (9-16); Calcium 10.2 mg/dL (8.4-10.2); Carbon Dioxide 30 mmol/L (22-29); Chloride 104 mmol/L (96-108); Cholesterol 162 mg/dL (<200); Estimated Glomerular Filt Rate > 60; Free T4 (Free Thyroxine) 0.98 ng/dL (0.71-1.85); Glucose Fasting 75 mg/dL (60-99); HDL Cholesterol 54 mg/dL (>40); LDL Cholesterol Calculated 88 mg/dL (<100); Sodium 141 mmol/L (135-145); Thyroid Stimulating Hormone 2.11 uIU/mL (0.32-4.0); Triglycerides 103 mg/dL (<150)
== END 2023-08-26 08:21 | disposition home or self-care (01) ==
LOC: HO.HMGCLDS 08:20
PROVIDERS: PCP Internal Medicine; Visit Provider General Practice
DX: E89.0 Postprocedural hypothyroidism (principal); E66.01 Morbid (severe) obesity due to excess calories; J45.20 Mild intermittent asthma, uncomplicated; K21.9 Gastro-esophageal reflux disease without esophagitis; E78.5 Hyperlipidemia, unspecified; F17.200 Nicotine dependence, unspecified, uncomplicated; N39.46 Mixed incontinence; I42.9 Cardiomyopathy, unspecified; F33.1 Major depressive disorder, recurrent, moderate; Z79.899 Other long term (current) drug therapy
CPT/HCPCS: 36415; 80048; 80061; 80076; 80164; 84439; 84443; 84450; 84460

== ENCOUNTER 2023-09-05 09:38 | Outpatient (AMB) | payer MEDICARE, MEDICAID, SELFPAY ==
--- NOTE | 2023-09-05 09:40 | MHC.OFFVIS ---
Intake Vital Signs 09/05/23 09:41 Height 5 ft 7 in Weight 228 lb 6.382 oz BMI 35.8 BP 144/63 H Blood Pressure Location Rt brachial Position Sitting Intake Visit Reasons: S/P Jong colo / 6 month follow up Intake Note: Patient presents to in office visit today in follow up of colonoscopy. CC: Pt reports rectal bleeding for 2 days after colonoscopy but she is no longer having rectal bleeding. She c/o diarrhea and nausea today. 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 Accompanied by: STAFF Allergies bee pollen [BEE STINGS] Allergy (Severe, Verified 07/10/23 18:08) ANAPHYLAXIS aspirin [ASA] Allergy (Intermediate, Verified 07/10/23 18:08) RASH Penicillins Allergy (Intermediate, Verified 07/10/23 18:08) Rash strawberry [STRAWBERRY] Allergy (Intermediate, Verified 08/20/23 10:47) RASH Compazine Allergy (Unknown, Verified 07/10/23 18:08) unknown iodine [IODINE] Allergy (Unknown, Verified 07/10/23 18:08) UNKNOWN codeine [CODEINE] Adverse Reaction (Intermediate, Verified 07/10/23 18:08) GI upset benztropine [From Cogentin] Adverse Reaction (Unknown, Verified 08/20/23 10:47) Unknown HPI S/P Jong colo / 6 month follow up HPI Details Assessment & Plan (1) Chronic GERD: Code(s): K21.9 - Gastro-esophageal reflux disease without esophagitis Plan: Mayra is doing well. She continues on her pantoprazole, loperamide, and her hemorrhoid cream with acceptable control. She will still have breakthrough diarrhea times but again she is not good about asking for her p.r.n. loperamide and this is an ongoing point of Education. She has not yet heard about scheduling the colonoscopy and I explained our schedulers her behind but I will send them another note. Return office visit in 6 months and of course after the procedure. (2) Tubular adenoma of colon: Comment: 10/2020 scope repeat in 3 years related to large size Code(s): D12.6 - Benign neoplasm of colon, unspecified (3) Irritable bowel syndrome with diarrhea: Code(s): K58.0 - Irritable bowel syndrome with diarrhea Medications: New hydrocortisone 2.5% (Proctosol HC) BE SURE TO INCLUDE RECTAL APPICATOR!! 1 appl ID BID 30 grams 6RF hemorrhoids K64.9 - Unspecified hemorrhoids Changed From loperamide 2 mg PO BID PRN 20 caps 0RF for diarrhea K58.0 - Irritable bowel syndrome with diarrhea To loperamide 2 mg PO TID PRN 90 caps 6RF for diarrhea K58.0 - Irritable bowel syndrome with diarrhea Refilled hydrocortisone 2.5% (Proctosol HC) 1 appl ID BID PRN 30 grams 12RF hemorrhoids pantoprazole 40 mg PO BID 60 tabs 6RF K21.9 - Gastro-esophageal reflux disease without esophagitis COLONOSCOPY 08/22/23 Findings: Mucosa: Normal to cecum and terminal ileum. Protruding lesions: 1 sessile polyp of size 2 mm in cecum Cold forceps polypectomy was performed. The polyp was completely removed and retrieved. 2 sessile polyp of size 4-6 mm in transverse colon. Cold forceps polypectomy was done for the smaller polyp while the 6 mm polyp was removed with cold snare. The polyps were completely removed and retrieved. Medium internal hemorrhoids without stigmata of recent bleeding. Impression: 1. Normal colon and terminal ileum mucosa 2. Total of 3 polyps removed 3. External and internal hemorrhoids Recommendations: - Follow path results. - Repeat colonoscopy in 3 years if all 3 polyps are adenomas otherwise 5 years. - Nystatin powder prescribed for perianal yeast infection. Received: 08/22/23 Diagnosis A. Colon, cecum, polypectomy: Tubular adenoma; negative for high-grade dysplasia. B. Colon, transverse, polypectomy x2: Tubular adenoma (2); negative for high-grade dysplasia. TODAY'S VISIT She is here today with Di jaquez who is a residential counsellor. THE PROCEDURE NEEDS TO BE REPEATED IN 3 YEARS TO THE FINDING OF 3 LARGE TUBULAR ADENOMAS. The procedure was well tolerated. The results were explained and the patient is agreeable to the follow-up interval as stated. The bowel pattern has returned to normal. Education was provided to tell any 1st degree relatives about their findings to be sure that they are screened by age 45. Educated that they will be put on a recall list when it is time for their repeat scope but should they move out of state or away from the hospital they will need to remember along with their primary to repeat the procedure in a timely fashion to avoid any adverse complications. She continues to have diarrhea which is her baseline. She is only eating 1 meal a day because she was counseled to lose weight and she has lost over 40 lb any year. However she is concerned that she is not getting proper nutrition because she has frequent diarrhea that tends to manifest mostly overnight. As the past we discussed that she needs to take at least 1 Imodium a day but I do not think she has remembered to do this, she also was concerned about her total pill burden. Now that she has someone with her to help her I think we can try this and then titrate the medication to affect her side effect. Return office visit in 4 weeks [facility] Medical History Urinary incontinence, mixed Atherosclerotic cardiovascular disease Hx of non-ST elevation myocardial infarction (NSTEMI) Cataract Colon cancer screening Smoker unmotivated to quit Shoulder bursitis Trochanteric bursitis Mitral valve regurgitation Narcotic dependence, in remission Chronic GERD Morbid obesity History of myasthenia gravis Allergic rhinitis Eczema CAD (coronary atherosclerotic disease) Duodenum ulcer Bipolar disorder History of anoxic brain injury Dyslipidemia Mild intermittent asthma in adult without complication Postsurgical hypothyroidism Surgical History Hx of CABG H/O colonoscopy Hx of thyroidectomy History of esophagogastroduodenoscopy (~01/2015) History of partial hysterectomy History of thymectomy (~2007) History of thyroidectomy, total Hx of tonsillectomy History of cholecystectomy (Unknown) History of appendectomy (Unknown) Family History Father Stroke Mother Breast cancer, Onset Age: 40 Brother Brain cancer Brother HIV disease Son No problems noted. Maternal Grandmother Glaucoma Paternal Grandmother Lung cancer Ovarian cancer Social History Household Members: Other Household Members Other:: [facility] ([employer] Housing: Other Housing Other:: [employer] agencyGroup home Do you presently have visiting nurse or other home services: Yes (penitentiary staff) Alcohol intake: never Patient Tobacco Use Status: Current everyday Tobacco user Tobacco use type: Cigarette Cigarette Packs Per Day: 0.5 Cigarettes Per Day: 10 Years Smoked: 40 e-Cigarette/Vaping Use: Never Used Current occupational status: disabled Cognitive needs: No Hearing needs: No Vision needs: Yes Review of Systems Const Denies fatigue, Denies fever(s), Denies night sweats, Denies poor appetite and Reports weight loss (Via intentional dieting) ENT Details: Edentulous Reports Normal hearing present, Denies dental pain, Denies dysphagia, Denies hearing loss, Denies mouth pain, Denies odynophagia, Denies throat swelling and Denies tongue swelling Card Reports no additional complaints Resp Reports no additional complaints GI Denies abdominal pain, Denies melena, Denies bloating, Denies hematochezia, Denies constipation, Denies GI cramping, Denies dysphagia, Denies excessive flatus, Denies early satiety, Reports heartburn, Reports diarrhea, Denies nausea, Denies odynophagia, Denies vomiting and Denies hematemesis Musc Reports abnormal gait and Reports arthralgias Skin/Breast Denies pruritus, Denies lesions, Denies rash and Denies jaundice Neuro Reports Normal hearing present, Denies Abnormal speech present and Reports abnormal gait Endo Denies fatigue Aller/Immun Denies throat swelling and Denies tongue swelling Physical Exam Vital Signs: Last Vital Signs BP 144/63 H 09/05/23 09:41 BMI result Body Mass Index 35.8 Const General: cooperative, no acute distress, well developed and well groomed Nutritional Appearance: well nourished and obese Orientation/consciousness: oriented to person, oriented to place and oriented to time Limitations: No language barrier, ambulation with walker and other limitations HEENT Head: Yes normocephalic and Yes atraumatic Eyes General: appearance normal, both eyes and all related structures Pupils: Equal, round and reactive pupils present Neck Neck: Yes normal visual inspection and Yes no lymphadenopathy Thyroid: Thyroid normal Resp Effort & Inspection: normal respiratory effort and able to speak in complete sentences Auscultation: clear to auscultation bilaterally Cardio Rate: regular rate Rhythm: regular rhythm Heart sounds: Normal, physiologic split S2 sound present Peripheral pulses: radial pulses present and posterior tibial pulses present GI Inspection: No distended, Yes Abdominal panniculus present and Yes obesity Palpation (GI): Soft to palpation, nontender, no guarding, not rigid and No hepatosplenomegaly present Percussion: Yes normal to percussion Auscultation: normal bowel sounds Rectal Exam - Female: deferred Skin General skin exam: no rashes or lesions noted, turgor normal, skin not dry, no jaundice, No spider nevi and no striae Rashes: no rashes Nails: normal Neuro General: oriented to person, oriented to place and oriented to time Cranial nerves: Yes Equal, round and reactive pupils present and Yes Normal hearing present Speech: No Abnormal speech present Extrem General: Yes normal to inspection, No clubbing, No cyanosis and No edema Psych Appearance: grossly normal and well kempt Mental Status: mental status grossly normal Speech and movement: Normal speech and movement present Affect: normal affect Attitude: cooperative Thought process: Circumstantial thought process present and not confabulating Thought content: Normal thought content present Insight: Limited insight present (Psych) Judgement: Limited judgement present (Psych) Results Reviewed Results Reviewed: COLONOSCOPY 08/22/23 Findings: Mucosa: Normal to cecum and terminal ileum. Protruding lesions: 1 sessile polyp of size 2 mm in cecum Cold forceps polypectomy was performed. The polyp was completely removed and retrieved. 2 sessile polyp of size 4-6 mm in transverse colon. Cold forceps polypectomy was done for the smaller polyp while the 6 mm polyp was removed with cold snare. The polyps were completely removed and retrieved. Medium internal hemorrhoids without stigmata of recent bleeding. Impression: 1. Normal colon and terminal ileum mucosa 2. Total of 3 polyps removed 3. External and internal hemorrhoids Recommendations: - Follow path results. - Repeat colonoscopy in 3 years if all 3 polyps are adenomas otherwise 5 years. - Nystatin powder prescribed for perianal yeast infection. Received: 08/22/23 Diagnosis A. Colon, cecum, polypectomy: Tubular adenoma; negative for high-grade dysplasia. B. Colon, transverse, polypectomy x2: Tubular adenoma (2); negative for high-grade dysplasia. Assessment & Plan Assessment & Plan (1) Tubular adenoma of colon: Comment: 2022= 3 POLYPS REPEAT IN 3 YEARS; 10/2020 scope repeat in 3 years related to large size Code(s): D12.6 - Benign neoplasm of colon, unspecified Plan: She is here today with Di today who is a residential counsellor. THE PROCEDURE NEEDS TO BE REPEATED IN 3 YEARS TO THE FINDING OF 3 LARGE TUBULAR ADENOMAS. The procedure was well tolerated. The results were explained and the patient is agreeable to the follow-up interval as stated. The bowel pattern has returned to normal. Education was provided to tell any 1st degree relatives about their findings to be sure that they are screened by age 45. Educated that they will be put on a recall list when it is time for their repeat scope but should they move out of state or away from the hospital they will need to remember along with their primary to repeat the procedure in a timely fashion to avoid any adverse complications. She continues to have diarrhea which is her baseline. She is only eating 1 meal a day because she was counseled to lose weight and she has lost over 40 lb any year. However she is concerned that she is not getting proper nutrition because she has frequent diarrhea that tends to manifest mostly overnight. As the past we discussed that she needs to take at least 1 Imodium a day but I do not think she has remembered to do this, she also was concerned about her total pill burden. Now that she has someone with her to help her I think we can try this and then titrate the medication to affect her side effect. Return office visit in 4 weeks (2) Irritable bowel syndrome with diarrhea: Code(s): K58.0 - Irritable bowel syndrome with diarrhea (3) Chronic GERD: Code(s): K21.9 - Gastro-esophageal reflux disease without esophagitis Coding Level of Care Code Est Pt Level 3 (07543) Diagnoses Tubular adenoma of colon D12.6 Irritable bowel syndrome with diarrhea K58.0 Chronic GERD K21.9
[2023-09-05 09:41] VITALS: BP 144/63; BMI 35.8
== END 2023-09-05 10:26 | disposition home or self-care (01) ==
PROVIDERS: Visit Provider Nurse Practitioner
DX: D12.6 Benign neoplasm of colon, unspecified (principal); K58.0 Irritable bowel syndrome with diarrhea; K21.9 Gastro-esophageal reflux disease without esophagitis
CPT/HCPCS: 99213

== ENCOUNTER → 2023-09-05 09:38 | Outpatient (BNVA) | payer MEDICARE, MEDICAID, SELFPAY | PROVIDERS: Visit Provider Nurse Practitioner | DX: D12.0 Benign neoplasm of cecum (principal); K64.8 Other hemorrhoids; K64.4 Residual hemorrhoidal skin tags; K58.0 Irritable bowel syndrome with diarrhea; K21.9 Gastro-esophageal reflux disease without esophagitis; Z98.890 Other specified postprocedural states | CPT/HCPCS: 99212 ==

== ENCOUNTER 2023-09-09 11:08 | Outpatient (AMB) | payer MEDICARE, MEDICAID, SELFPAY ==
--- NOTE | 2023-09-09 11:06 | MHC.OFFVIS ---
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 Required: No Accompanied by: hadoop java developer(Franci) Allergies bee pollen [BEE STINGS] Allergy (Severe, Verified 09/09/23 12:15) ANAPHYLAXIS aspirin [ASA] Allergy (Intermediate, Verified 09/09/23 12:15) RASH Penicillins Allergy (Intermediate, Verified 09/09/23 12:15) Rash strawberry [STRAWBERRY] Allergy (Intermediate, Verified 09/09/23 12:15) RASH Compazine Allergy (Unknown, Verified 09/09/23 12:15) unknown iodine [IODINE] Allergy (Unknown, Verified 09/09/23 12:15) UNKNOWN codeine [CODEINE] Adverse Reaction (Intermediate, Verified 09/09/23 12:15) GI upset benztropine [From Cogentin] Adverse Reaction (Unknown, Verified 09/09/23 12:15) Unknown Medication List - Last Reconciled 09/09/23 by BRADY Zuniga acetaminophen 650 mg (2 x 325 mg) PO BID PRN Advair Diskus 250-50 mcg/dose (fluticasone propion-salmeterol) 1 inh inhalation BID NS albuterol sulfate 90 mcg/actuation (Ventolin HFA) 2 puffs inhalation Q4H PRN atorvastatin 10 mg PO DAILY 90 days cetirizine 10 mg PO QAM cholecalciferol (vitamin D3) 50 mcg PO QAM dextromethorphan-guaifenesin 10-100 mg/5 mL (Tussin DM) 10 mL PO Q4H PRN diclofenac sodium 1% (Voltaren Arthritis Pain) 2 grams topical QID divalproex 1,000 mg PO .every evening dorzolamide 2% 0 drps ophthalmic (eye) escitalopram oxalate (Lexapro) 20 mg PO DAILY escitalopram oxalate 10 mg PO DAILY hydrocortisone 2.5% (Proctosol HC) 1 appl RI BID PRN latanoprost 0.005% 0 drps ophthalmic (eye) levothyroxine (Levoxyl) 50 mcg PO DAILY lidocaine 4% (AsperFlex (lidocaine)) 1 patch topical DAILY PRN loperamide 2 mg PO TID PRN metoprolol tartrate 12.5 mg (1/2 x 25 mg) PO QAM montelukast 10 mg PO DAILY nystatin 1 appl topical BID 2 weeks omega 1-lbs-ald-fish oil 1,200 (144-216) mg (Fish Oil) 1 cap PO BID 30 days pantoprazole 40 mg PO BID pyridoxine (vitamin B6) 100 mg PO DAILY quetiapine ER 300 mg PO BEDTIME trazodone 100 mg PO BEDTIME trazodone 50 mg PO BEDTIME HPI HPI Comments History of Present Illness Details Mayra is a pleasant 67-year-old female patient of Dr. Rivers who is accompanied by her hadoop java developer/sawmill manager Tess. She has a PMH of irritable bowel syndrome, cardiomyopathy, ACD, myasthenia gravis, and oxycodone injury, frequent falls, difficulty balancing, history of non ST elevation [place], diverticulosis, tobacco dependence, mitral valve regurgitation, CAD, dyslipidemia, bipolar disorder, GERD, eczema, and morbid obesity. She presents to the office today for follow-up of her mixed urinary incontinence. Of note, patient was seen approximately 5 months ago at which time a retroperitoneal ultrasound was ordered for further assessment evaluation. These results were reviewed with the patient and her hadoop java developer today. Right kidney with multiple echogenic foci in the kidney with the largest measuring 1.3 cm consistent with nonobstructing calculi. No lesions or hydronephrosis noted. Left kidney with no calculi, lesions, and or hydronephrosis. The bladder is well distended and normal. Pre void bladder volume is approximately 160 mL. Postvoid bladder volume is approximately 10 mL. When asked she does report previously approximately 2-3 months ago experiencing back pain and is unsure if this is related. She reports pain has since subsided. She does endorse to not drinking water as she reports not liking it. She reports to also be drinking coffee all day long. Discussed at length potential causes of nephrolithiasis as well as mixed urinary incontinence patient is experiencing. Discussed at length effects of cigarette smoking as well as caffeine on urinary symptoms as well as overall health and well-being. When asked patient currently denies hematuria, foul smelling urine, changes to urinary stream, flank pain, fever, and or chills. In office urinalysis results reviewed with the patient today. 3+ leukocytes. Negative nitrates. PVR 0 mL Patient does report noting intermittent episodes of dysuria. Discussed obtaining CT KUB for further assessment evaluation. [facility] Medical History Urinary incontinence, mixed Atherosclerotic cardiovascular disease Hx of non-ST elevation myocardial infarction (NSTEMI) Cataract Colon cancer screening Smoker unmotivated to quit Shoulder bursitis Trochanteric bursitis Mitral valve regurgitation Narcotic dependence, in remission Chronic GERD Morbid obesity History of myasthenia gravis Allergic rhinitis Eczema CAD (coronary atherosclerotic disease) Duodenum ulcer Bipolar disorder History of anoxic brain injury Dyslipidemia Mild intermittent asthma in adult without complication Postsurgical hypothyroidism Surgical History Hx of CABG H/O colonoscopy Hx of thyroidectomy History of esophagogastroduodenoscopy (~01/2015) History of partial hysterectomy History of thymectomy (~2007) History of thyroidectomy, total Hx of tonsillectomy History of cholecystectomy (Unknown) History of appendectomy (Unknown) Family History Father Stroke Mother Breast cancer, Onset Age: 40 Brother Brain cancer Brother HIV disease Son No problems noted. Maternal Grandmother Glaucoma Paternal Grandmother Lung cancer Ovarian cancer Social History Household Members: Other Household Members Other:: longterm ([employer]) Housing: Other Housing Other:: [employer] agencyGroup home Do you presently have visiting nurse or other home services: Yes (longterm staff) Alcohol intake: never Patient Tobacco Use Status: Current everyday Tobacco user Tobacco use type: Cigarette Cigarette Packs Per Day: 0.5 Cigarettes Per Day: 10 Years Smoked: 40 e-Cigarette/Vaping Use: Never Used Current occupational status: disabled Cognitive needs: No Hearing needs: No Vision needs: Yes Review of Systems Const Reports as per HPI Eyes Reports no additional complaints ENT Reports no additional complaints Card Reports as per HPI Resp Reports no additional complaints GI Reports as per HPI Reports as per HPI Neuro Reports as per HPI Psych Reports as per HPI Physical Exam Const General: cooperative, healthy appearing, comfortable, no acute distress, well developed, alert and awake Orientation/consciousness: patient oriented x3 Limitations: ambulation with walker HEENT Head: Yes normal to inspection, Yes normocephalic and Yes atraumatic Ears: hearing grossly normal bilaterally Eyes General: appearance normal, both eyes and all related structures Neck Neck: Yes normal visual inspection and Yes trachea midline Chest Chest palpation & inspection: normal inspection of the chest Resp Effort & Inspection: normal respiratory effort and able to speak in complete sentences Cardio Rate: regular rate GI Inspection: Yes normal to inspection General: Yes no CVA tenderness Back/Spine/Pelvis Back: no CVA tenderness Skin General skin exam: no rashes or lesions noted Neuro General: patient oriented x3 Extrem General: Yes normal to inspection Psych Appearance: grossly normal and well kempt Mental Status: mental status grossly normal Speech and movement: Normal speech and movement present and Clear speech present Affect: normal affect Attitude: cooperative Thought process: Normal thought process present Thought content: Normal thought content present Insight: Fair insight present (Psych) Judgement: Fair judgement present (Psych) Office Procedures Post Void Residual Post Residual Void Post Void Residual (PVR): 0 [id number]-[id number] Void Residual by ultrasound Results AMB Urinalysis, Automated UA Leukoctes 500 Pasquale/uL Last Edit by [employer] on 09/09/23 11:47 UA Nitrite Negative Last Edit by [employer] on 09/09/23 11:47 UA Urobilinogen 0.2 mg/dL Last Edit by [employer] on 09/09/23 11:47 UA Protein 15 mg/dL Last Edit by [employer] on 09/09/23 11:47 UA pH 7.0 Last Edit by [employer] on 09/09/23 11:47 UA Blood 10 Gregorio/uL Last Edit by [employer] on 09/09/23 11:47 UA Specific [place] 1.015 Last Edit by [employer] on 09/09/23 11:47 UA Ketone Negative Last Edit by [employer] on 09/09/23 11:47 UA Bilirubin 0 mg/dL Last Edit by [employer] on 09/09/23 11:47 UA Glucose 0 mg/dL Last Edit by [employer] on 09/09/23 11:47 Results Reviewed Results Reviewed: Laboratory Last Values Urine pH (Auto) 7.0 09/09/23 11:09 Specific [place] (Auto) 1.015 09/09/23 11:09 Urine Protein (Auto) 15 mg/dL 09/09/23 11:09 Glucose (UA)(Auto) 0 mg/dL 09/09/23 11:09 Urine Ketones (Auto) Negative 09/09/23 11:09 Urine Blood (Auto) 10 Gregorio/uL 09/09/23 11:09 Urine Nitrite (Auto) Negative 09/09/23 11:09 Urine Bilirubin (Auto) 0 mg/dL 09/09/23 11:09 Urine Urobilinogen (Auto) 0.2 mg/dL 09/09/23 11:09 Leukocyte Esterase (Auto) 500 Pasquale/uL 09/09/23 11:09 Date of Service: 05/06/23 EXAMINATION: US RETROPERITONEAL COMPLETE (RENAL) CLINICAL INFORMATION: Mixed incontinence. COMPARISON: None available. TECHNIQUE: Real-time imaging of the kidneys and bladder. Technically difficult study secondary to patient's limited mobility. FINDINGS: RIGHT KIDNEY: 10.4 x 4.6 x 4.6 cm (SAG x AP x TRV). The kidney is normal in size, contour, and echogenicity. Renal cortical thickness is normal. Multiple echogenic foci are noted in the kidney with the largest measuring 1.3 cm consistent with nonobstructing calculi. No focal parenchymal lesions or hydronephrosis. LEFT KIDNEY: 9.8 x 5.8 x 5.2 cm (SAG x AP x TRV). The kidney is normal in size, contour, and echogenicity. Renal cortical thickness is normal. No calculi or focal parenchymal lesions. No hydronephrosis. BLADDER: Well distended and normal. Bilateral ureteral jets are demonstrated. Prevoid bladder volume is 158 mL. Postvoid bladder volume is 7.2 mL. IMPRESSION: Multiple nonobstructing right renal calculi. Assessment & Plan Assessment & Plan (1) Nephrolithiasis: Code(s): N20.0 - Calculus of kidney (2) Urinary incontinence, mixed: Code(s): N39.46 - Mixed incontinence Plan In office urinalysis results reviewed with the patient today; as noted above; will send for urine culture PVR 0 mL Recent retroperitoneal ultrasound results reviewed with the patient and her hadoop java developer today; as noted above. Discussed at length potential causes of nephrolithiasis as well as mixed urinary incontinence. Discussed and stressed the importance of drinking water daily. Discussed affects of caffeine and cigarettes on the bladder as well as overall health and well-being. Will obtain CT KUB for further assessment evaluation. Continue vitamin B6 as discussed and prescribed. Follow-up in 1 month with imaging to be completed prior; or sooner with any issues, concerns, and or questions. Orders: Orders AMB Post Void Residual by ultrasound Today N39.46 - Mixed incontinence Urine Culture Today N39.46 - Mixed incontinence AMB Urinalysis Automated Today Z13.9 - Encounter for screening, unspecified CT kidney stone Today N20.0 - Calculus of kidney Patient Instructions: The patient had an opportunity to ask questions regarding the treatment plan. All questions were answered. Physical exam, labs, and imaging were discussed and reviewed in detail. As well as risks, benefits, and discussion of treatment choices. No major barriers to understanding were identified. The patient expressed understanding and agreement with the above treatment plan. The patient was made aware they should contact our office by phone for worsening of their current condition, the appearance of new symptoms, or with any questions or concerns. Compliance is encouraged with any medications and follow up testing that is ordered. It is a privilege to be allowed the opportunity to participate in? your urological care.? Again, if you have any questions or concerns If you have any questions or concerns please do not hesitate to contact me. The office is [phone]. This note is constructed using voice recognition software. While every effort has been made to ensure accuracy wool cleaner errors may have been included. Yours sincerely, BRADY Zuniga Coding Level of Care Code Est Pt Level 3 (85646) Diagnoses Nephrolithiasis N20.0 Urinary incontinence, mixed N39.46 CPT Codes Post Residual Void - PVR CPT Code: 58185-Khli Void Residual by ultrasound ([id number]) Time Spent (min) 35
== END 2023-09-09 13:09 | disposition home or self-care (01) ==
PROVIDERS: PCP Internal Medicine; Visit Provider Nurse Practitioner Family
DX: N20.0 Calculus of kidney (principal); N39.46 Mixed incontinence; Z13.9 Encounter for screening, unspecified
CPT/HCPCS: 99213

== ENCOUNTER 2023-09-09 11:20 | Outpatient (REF) | payer MEDICARE, MEDICAID, SELFPAY | END 2023-09-09 11:21 | disposition home or self-care (01) | LOC: HO.LNP 11:20 | PROVIDERS: PCP Internal Medicine; Visit Provider Nurse Practitioner Family | DX: N20.0 Calculus of kidney (principal); N39.46 Mixed incontinence | CPT/HCPCS: 51798; 81003; 87086; 87088; 87186; 99212 ==

== ENCOUNTER 2023-09-23 08:41 | Outpatient (AMB) | payer MEDICARE, MEDICAID, SELFPAY ==
--- NOTE | 2023-09-23 08:48 | AM.OFFVISMDC ---
Intake Vital Signs 09/23/23 08:51 Height 5 ft 7 in Weight 233 lb 6 oz BMI 36.5 BP 100/58 L Blood Pressure Location Lt brachial Position Sitting Pulse 70 Pulse Source Pulse Oximeter Pulse Oximetry (%) 100 Oxygen Delivery Method Room Air Intake Visit Reasons: AWV Intake Note: pt is here for AWV Allergies bee pollen [BEE STINGS] Allergy (Severe, Verified 10/14/23 11:22) ANAPHYLAXIS aspirin [ASA] Allergy (Intermediate, Verified 10/14/23 11:22) RASH Penicillins Allergy (Intermediate, Verified 10/14/23 11:22) Rash strawberry [STRAWBERRY] Allergy (Intermediate, Verified 10/14/23 11:22) RASH Compazine Allergy (Unknown, Verified 10/14/23 11:22) unknown iodine [IODINE] Allergy (Unknown, Verified 10/14/23 11:22) UNKNOWN codeine [CODEINE] Adverse Reaction (Intermediate, Verified 10/14/23 11:22) GI upset benztropine [From Cogentin] Adverse Reaction (Unknown, Verified 10/14/23 11:22) Unknown Medication List - Last Reconciled 09/23/23 by Chichi Rivers MD acetaminophen 650 mg (2 x 325 mg) PO BID PRN Advair Diskus 250-50 mcg/dose (fluticasone propion-salmeterol) 1 inh inhalation BID NS albuterol sulfate 90 mcg/actuation (Ventolin HFA) 2 puffs inhalation Q4H PRN atorvastatin 10 mg PO DAILY 90 days cetirizine 10 mg PO QAM cholecalciferol (vitamin D3) 50 mcg PO QAM dextromethorphan-guaifenesin 10-100 mg/5 mL (Tussin DM) 10 mL PO Q4H PRN diclofenac sodium 1% (Voltaren Arthritis Pain) 2 grams topical QID divalproex 1,000 mg PO .every evening dorzolamide 2% 0 drps ophthalmic (eye) escitalopram oxalate (Lexapro) 20 mg PO DAILY escitalopram oxalate 10 mg PO DAILY hydrocortisone 2.5% (Proctosol HC) 1 appl [place] BID PRN latanoprost 0.005% 0 drps ophthalmic (eye) levothyroxine (Levoxyl) 50 mcg PO DAILY lidocaine 4% (AsperFlex (lidocaine)) 1 patch topical DAILY PRN loperamide 2 mg PO TID PRN metoprolol tartrate 12.5 mg (1/2 x 25 mg) PO QAM montelukast 10 mg PO DAILY nystatin 1 appl topical BID 2 weeks omega [id number] oil 1,200 (144-216) mg (Fish Oil) 1 cap PO BID 30 days pantoprazole 40 mg PO BID pyridoxine (vitamin B6) 100 mg PO DAILY quetiapine ER 300 mg PO BEDTIME sulfamethoxazole-trimethoprim 800-160 mg (Bactrim DS) 1 tab PO BID 14 days trazodone 100 mg PO BEDTIME trazodone 50 mg PO BEDTIME HPI AWV HPI Details AWV 67-year-old lady with history of myasthenia gravis, atherosclerotic cardiovascular disease status post non STEMI, has mitral valve regurgitation, dyslipidemia, postsurgical hypothyroidism, mild intermittent asthma, bipolar disorder, chronic GERD, allergic rhinitis, eczema and morbid obesity, here today for her initial annual wellness visit. She is up-to-date with her cholesterol and glucose screening, done 08/26/2023. Up-to-date with her screening mammogram done 01/02/2023, does not get Paps as she has had a hysterectomy, up-to-date with her colonoscopy done 08/22/2023, to be repeated again in 5 years due to removal of a tubular adenoma in the transverse colon. Up-to-date with her pneumonia vaccine and Shingrix vaccination, and is scheduled to get her flu and COVID booster later this week. She has osteopenia in her left femoral neck, seen on bone density scan done 05/30/2021. ? Medical / Social History Reviewed? Past Medical History ?Yes . ? [place] of Care / Care Team list updated ?Yes . ? Surgical/Hospitalization History ?Yes . ? Current Medications (including OTC and supplements) ?Yes . ? Family History ?Yes . ? Tobacco Control form ?Yes . ? AUDIT-C (Alcohol use) form ?Yes . ? Illicit drug use in Social History ?Yes . ? Current diagnosis of depression? ?No ? Appropriate PHQ2/PHQ9 completed ?Yes . ? Data entered by ?Stone Paver and reviewed by provider ? Fall Risk ? Fall History? Have you had any falls with injury in the past year? ?No . ? Have you had two or more falls in the past year? ?No . ? Fall Risk Assessment: ?No falls in the past year . ? HRA filled out by the patient, reviewed by Provider and scanned. ? AWV ? Balance? Romberg ?Yes . ? Tandem walk ?Yes . ? Walk and Turn ?Yes . ? Rise from sit to stand ?Yes . ?Vision? Corrective lens ?Yes ? Vision screen ? Up-to-date, goes to [facility] in [place] ?Hearing? Whisper test ?pass . ?Written Plan?Completed. See Patient Documents.? [facility] Medical History Urinary incontinence, mixed Atherosclerotic cardiovascular disease Hx of non-ST elevation myocardial infarction (NSTEMI) Cataract Colon cancer screening Smoker unmotivated to quit Shoulder bursitis Trochanteric bursitis Mitral valve regurgitation Narcotic dependence, in remission Chronic GERD Morbid obesity History of myasthenia gravis Allergic rhinitis Eczema CAD (coronary atherosclerotic disease) Duodenum ulcer Bipolar disorder History of anoxic brain injury Dyslipidemia Mild intermittent asthma in adult without complication Postsurgical hypothyroidism Surgical History Hx of CABG H/O colonoscopy Hx of thyroidectomy History of esophagogastroduodenoscopy (~01/2015) History of partial hysterectomy History of thymectomy (~2007) History of thyroidectomy, total Hx of tonsillectomy History of cholecystectomy (Unknown) History of appendectomy (Unknown) Family History Father Stroke Mother Breast cancer, Onset Age: 40 Brother Brain cancer Brother HIV disease Son No problems noted. Maternal Grandmother Glaucoma Paternal Grandmother Lung cancer Ovarian cancer Social History Household Members: Other Household Members Other:: [facility] Housing: Other Housing Other:: [facility] agencyGroup home Do you presently have visiting nurse or other home services: Yes (penitentiary staff) Alcohol intake: never Patient Tobacco Use Status: Current everyday Tobacco user Tobacco use type: Cigarette Cigarette Packs Per Day: 0.5 Cigarettes Per Day: 10 Years Smoked: 40 e-Cigarette/Vaping Use: Never Used Current occupational status: disabled Cognitive needs: No Hearing needs: No Vision needs: Yes Questionnaire Medicare Wellness Checkup What [age] What gender do you identify with?: female During the past 4 weeks, how much have you been bothered by emotional problems such as feeling anxious, depressed, irritable, sad or downhearted, and blue?: moderately During the past 4 weeks, has your physical & emotional health limited your social activities with family, friends, neighbors, or groups?: slightly During the past 4 weeks, how much bodily pain have you generally had?: mild pain During the past 4 weeks, was someone available to help you if you needed & wanted help?: yes, as much as I wanted During the past 4 weeks, what was the hardest physical activity you could do for at least 2 minutes?: light Can you get to places out of walking distance without help? (For eg., can you travel alone on buses, taxis or drive your car?): No Can you go shopping for groceries or clothes without someone's help?: No Can you prepare your own meals?: Yes Can you do your housework without help?: Yes Because of any health problems, do you need the help of another person with your personal care needs such as eating, bathing, dressing or getting around the house?: No Can you handle your own money without help?: No During the past 4 weeks, how would you rate your health in general?: fair During the past 4 weeks how have things been going for you?: good & bad parts about equal Are you having difficulties driving your car?: not applicable, I don't use a car Do you always fasten your seat belt when you are in a car?: yes, usually During past 4 weeks, have you been bothered by the following: never: Falling or dizzy when standing up, Sexual problems?, Trouble eating well?, Teeth or denture problems? and Problems using the telephone? and sometimes: Tiredness or fatigue? Have you fallen 2 or more times in the past year?: No Are you afraid of falling?: Yes Are you a smoker?: yes, but I'm not ready to quit During the past 4 weeks, how many drinks of wine, beer, or other alcoholic beverages did you have?: no alcohol at all Do you exercise for about 20 minutes 3 or more times a week?: yes, some of the time Have you been given information to help with the following?: yes: Hazards in your house that might hurt you? and yes: Keeping track of your medications? How often do you have trouble taking medicines the way you have been told to take them?: I always take medicine as prescribed How confident are you that you can control & manage most of your health problems?: somewhat confident What is your race?: White Mini Mental State Exam (MMSE) Orientation What is the (year) (season) (date) (day) (month)?: year (2022), season (Fall), date (09/23/2020), day (Saturday) and month (August) Where are we (state) (county) (town or city) (hospital) (floor)?: state ([place]), county ([place]), town or city ([place]) and hospital/clinic ([facility]) Score Score: 9 Activity of Daily Living Bathing - sponge bath, tub bath or shower: receives help in bathing only one body part (such as back or leg) Transfer: moves in & out of bed or chair with help Continence: has occasional 'accidents' Feeding: feeds self without help Total Score: 0 Information obtained from: patient Using telephone: independent Traveling: dependent Shopping: dependent Preparing meals: dependent Housework: needs assistance Taking medicine: dependent Managing money: dependent PHQ-9 Over the last 2 weeks, how often have you been bothered by any of the following problems? 1. Little interest or pleasure in doing things: not at all 2. Feeling down, depressed, or hopeless: several days 3. Trouble falling or staying asleep, or sleeping too much: several days 4. Feeling tired or having little energy: several days 5. Poor appetite or overeating: not at all 6. Feeling bad about yourself - or that you are a failure or have let yourself or your family down: several days 7. Trouble concentrating on things, such as reading the newspaper or watching television: not at all 8. Moving or speaking so slowly that other people could have noticed. Or the opposite - being so fidgety or restless that you have been moving around a lot more than usual: not at all 9. Thoughts that you would be better off or of hurting yourself in some way: not at all Total score: 4 Depression Screening Interpretation: Positive Depression Screening Follow-up: Existing condition, In treatment and Community Mental Health Worker F/U Depression Screening Done: Yes 56516 - PHQ-9 Billing: Yes Source: Developed by Drs. Maxi Powers, Palak Brown, Gorge Lund and colleagues, with an educational jon from [employer]. Physical Exam Vital Signs: Last Vital Signs Pulse 70 09/23/23 08:51 BP 100/58 L 09/23/23 08:51 Pulse Ox 100 09/23/23 08:51 Oxygen Delivery Method Room Air 09/23/23 08:51 BMI result Body Mass Index 36.5 Assessment & Plan Assessment & Plan (1) Nephrolithiasis: Code(s): N20.0 - Calculus of kidney Plan: Followed by [facility] (2) Difficulty balancing: Code(s): R29.818 - Other symptoms and signs involving the nervous system (3) Tubular adenoma of colon: Comment: 2022= 3 POLYPS REPEAT IN 3 YEARS; 10/2020 scope repeat in 3 years related to large size Code(s): D12.6 - Benign neoplasm of colon, unspecified Plan: Up-to-date with screening colonoscopy due again in 2025 (4) Urinary incontinence, mixed: Code(s): N39.46 - Mixed incontinence Plan: Followed by urology (5) Atherosclerotic cardiovascular disease: Code(s): I25.10 - Atherosclerotic heart disease of torres martinez coronary artery without angina pectoris Plan: Currently on metoprolol tartrate (6) History of myasthenia gravis: Code(s): Z86.69 - Personal history of other diseases of the nervous system and sense organs Plan: Followed by Neurology (7) Dyslipidemia: Code(s): E78.5 - Hyperlipidemia, unspecified Plan: Currently on atorvastatin (8) Postsurgical hypothyroidism: Code(s): E89.0 - Postprocedural hypothyroidism Plan: On levothyroxine 50 mcg daily (9) Mild intermittent asthma in adult without complication: Code(s): J45.20 - Mild intermittent asthma, uncomplicated Plan: Currently on montelukast, Advair Diskus and rescue Ventolin inhaler (10) Bipolar disorder: Code(s): F31.9 - Bipolar disorder, unspecified Plan: Followed by psychiatry (11) Chronic GERD: Code(s): K21.9 - Gastro-esophageal reflux disease without esophagitis Plan: Currently on pantoprazole (12) Allergic rhinitis: Code(s): J30.9 - Allergic rhinitis, unspecified Qualifiers: Allergic rhinitis trigger: unspecified Allergic rhinitis seasonality: seasonal Qualified Code(s): J30.2 - Other seasonal allergic rhinitis Plan: Takes montelukast and cetirizine (13) Encounter for annual wellness visit (AWV) in Medicare patient: Code(s): Z00.00 - Encounter for general adult medical examination without abnormal findings Plan: Medical wellness checklist, discussed with patient and caregiver, reviewed and updated. (14) CAD (coronary atherosclerotic disease): Comment: follows with [facility]-Dr. Chin Code(s): I25.10 - Atherosclerotic heart disease of torres martinez coronary artery without angina pectoris Qualifiers: Coronary Disease-Associated Artery/Lesion type: torres martinez artery Eagle vs. transplanted heart: torres martinez heart Associated angina: without angina Qualified Code(s): I25.10 - Atherosclerotic heart disease of torres martinez coronary artery without angina pectoris Plan: Currently on metoprolol tartrate and atorvastatin, followed by cardiology (15) Advanced directives, counseling/discussion: Code(s): Z71.89 - Other specified counseling Plan: Initiated the conversation about Advanced Directives. Advanced Directives help patients prepare for current and future decisions about their medical treatment and place of care. Discussed with patient that it is a process where a patients current condition and prognosis are reviewed, their wishes for information regarding their illness are elicited, and likely medical dilemmas are presented and options discussed. These forms can be amended as needed, reviewed yearly and make changes as needed Quality Reporting (2019) Depression/Bipolar (159/160/161/177) PHQ-9: Total score: 4 Coding Level of Care Code Medicare First (G0438) Diagnoses Nephrolithiasis N20.0 Difficulty balancing R29.818 Tubular adenoma of colon D12.6 Urinary incontinence, mixed N39.46 Atherosclerotic cardiovascular disease I25.10 History of myasthenia gravis Z86.69 Dyslipidemia E78.5 Postsurgical hypothyroidism E89.0 Mild intermittent asthma in adult without complication J45.20 Bipolar disorder F31.9 Chronic GERD K21.9 Seasonal allergic rhinitis, unspecified trigger J30.2 Allergic rhinitis trigger: unspecified Allergic rhinitis seasonality: seasonal Encounter for annual wellness visit (AWV) in Medicare patient Z00.00 Atherosclerosis of torres martinez coronary artery of torres martinez heart without angina pectoris I25.10 Coronary Disease-Associated Artery/Lesion type: torres martinez artery Eagle vs. transplanted heart: torres martinez heart Associated angina: without angina Advanced directives, counseling/discussion Z71.89 CPT Codes Advance Care Planning - Time spent: 16-45 minutes ([id number]) Advance Care Planning Advance Care Planning discussion: Completed/Scanned Date of discussion: 09/23/23 Who was present: Patient and caregiver Forms completed: Health Care Proxy and MOLST Time spent: 16-45 minutes Actual minutes spent: 16
[2023-09-23 08:51] VITALS: BP 100/58; PULSE 70; O2SAT 100; BMI 36.5
== END 2023-09-23 09:54 | disposition home or self-care (01) ==
PROVIDERS: PCP Internal Medicine; Visit Provider Internal Medicine
DX: Z00.00 Encounter for general adult medical examination without abnormal findings (principal)
CPT/HCPCS: 99497; G0438

== ENCOUNTER 2023-10-10 08:36 | Outpatient (REF) | payer MEDICARE, MEDICAID, SELFPAY ==
--- NOTE | ~2023-10-10 | CT_ITS ---
STUDY PERFORMED: CT ABDOMEN AND PELVIS WITHOUT CONTRAST HISTORY: Kidney stone. DESCRIPTION: Routine abdomen and pelvis CT protocol without contrast was performed. Coronal and sagittal reformatted images. DOSE LOWERING TECHNIQUES: This CT examination was performed using dose optimization techniques as appropriate, variously including the following: - Automated exposure control - Adjustment of mA and/or kV according to patient size (this includes techniques or standardized protocols for targeted exams where dose is matched to indication/reason for exam; i.e. extremities or head) - Use of iterative reconstruction technique DOSE LENGTH PRODUCT: 738 mGycm COMPARISON: Renal ultrasound 05/06/2023. FINDINGS: Lung Bases: The visualized lung bases are unremarkable. Liver, Gallbladder and Biliary Tree: The liver is normal in size, shape, and attenuation. No focal hepatic lesion or biliary ductal dilatation is present. Cholecystectomy. Calcification along the posterior dependent right liver margin may be a dropped gallstone. There is no inflammatory reaction around it. Pancreas: No discrete pancreatic mass or ductal dilatation. Spleen: Unremarkable. Adrenal Glands: Unremarkable. Kidneys and Ureters: 3.3 cm staghorn calculus in the upper pole the right kidney with attenuation approximately 675 Hounsfield units. No nephrolithiasis on the left. No hydroureteronephrosis. There are gonadal vein phleboliths but no definite ureterolithiasis. Bladder: No visible bladder calculus. Gastrointestinal Tract: The small and large bowel are normal in caliber. Abdominal Wall: No significant hernia is appreciated. Lymph Nodes: No adenopathy. Vascular: No aortic aneurysm. Mild aortoiliac atherosclerosis. Pelvic Viscera: Hysterectomy. No pelvic mass. Osseous Structures: Moderate degenerative disc disease in the lower lumbar spine. CT/CT kidney stone IMPRESSION: 3.3 cm right upper pole staghorn calculus. No hydronephrosis.
== END 2023-10-10 08:37 | disposition home or self-care (01) ==
LOC: HO.CT 08:36
PROVIDERS: PCP Internal Medicine; Visit Provider Nurse Practitioner Family
DX: N20.0 Calculus of kidney (principal)
CPT/HCPCS: 74176

== ENCOUNTER 2023-10-14 09:54 | Outpatient (REF) | payer MEDICARE, MEDICAID, SELFPAY | END 2023-10-14 09:55 | disposition home or self-care (01) | LOC: HO.LNP 09:54 | PROVIDERS: PCP Internal Medicine; Visit Provider Nurse Practitioner Family | DX: N20.0 Calculus of kidney (principal); N39.46 Mixed incontinence | CPT/HCPCS: 51798; 81003; 87086; 99212 ==

== ENCOUNTER 2023-10-14 09:54 | Outpatient (AMB) | payer MEDICARE, MEDICAID, SELFPAY ==
--- NOTE | 2023-10-14 09:59 | MHC.OFFVIS ---
Intake Intake Visit Reasons: 4w/CT(set) Intake Note: Patient is present for follow up visit mixed incontinence/CT Scan (imaging 10/10/23) Urology Medications: none Blood Thinner: none PVR: 0ml's Grades 9 Through 12 Teacher Required: No Accompanied by: mba internship(Franci) Allergies bee pollen [BEE STINGS] Allergy (Severe, Verified 10/14/23 11:22) ANAPHYLAXIS aspirin [ASA] Allergy (Intermediate, Verified 10/14/23 11:22) RASH Penicillins Allergy (Intermediate, Verified 10/14/23 11:22) Rash strawberry [STRAWBERRY] Allergy (Intermediate, Verified 10/14/23 11:22) RASH Compazine Allergy (Unknown, Verified 10/14/23 11:22) unknown iodine [IODINE] Allergy (Unknown, Verified 10/14/23 11:22) UNKNOWN codeine [CODEINE] Adverse Reaction (Intermediate, Verified 10/14/23 11:22) GI upset benztropine [From Cogentin] Adverse Reaction (Unknown, Verified 10/14/23 11:22) Unknown Medication List - Last Reconciled 10/14/23 by BRADY Zuniga acetaminophen 650 mg (2 x 325 mg) PO BID PRN Advair Diskus 250-50 mcg/dose (fluticasone propion-salmeterol) 1 inh inhalation BID NS albuterol sulfate 90 mcg/actuation (Ventolin HFA) 2 puffs inhalation Q4H PRN atorvastatin 10 mg PO DAILY 90 days cetirizine 10 mg PO QAM cholecalciferol (vitamin D3) 50 mcg PO QAM diclofenac sodium 1% (Voltaren Arthritis Pain) 2 grams topical QID divalproex 1,000 mg PO .every evening escitalopram oxalate (Lexapro) 20 mg PO DAILY escitalopram oxalate 10 mg PO DAILY hydrocortisone 2.5% (Proctosol HC) 1 appl [place] BID PRN levothyroxine (Levoxyl) 50 mcg PO DAILY lidocaine 4% (AsperFlex (lidocaine)) 1 patch topical DAILY PRN loperamide 2 mg PO TID PRN metoprolol tartrate 12.5 mg (1/2 x 25 mg) PO QAM montelukast 10 mg PO DAILY nystatin 1 appl topical BID 2 weeks pantoprazole 40 mg PO BID quetiapine ER 300 mg PO BEDTIME trazodone 100 mg PO BEDTIME trazodone 50 mg PO BEDTIME HPI HPI Comments History of Present Illness Details Mayra is a pleasant 67-year-old female patient of Dr. Rivers who is accompanied by her mba internship/semiconductor testing group leader Tess. She has a PMH of mixed urinary incontinence, atherosclerotic cardiovascular disease, NSTEMI, cataracts, smoker, shoulder bursitis, trochanter bursitis, mitral valve regurgitation, GERD, obesity, myasthenia gravis, allergic rhinitis, eczema, bipolar disorder, dyslipidemia, asthma, hypothyroidism, and history of anoxic brain injury. She presents to the office today for follow-up of her mixed urinary incontinence. Of note, patient was seen approximately 1 month ago at which time a CT KUB was ordered for further assessment evaluation as most recent retroperitoneal ultrasound noting right kidney with multiple echogenic foci in the right kidney with the largest measuring 1.3 cm consistent with nonobstructing calculi. Therefore, CT KUB was ordered for further assessment evaluation. These results reviewed with the patient today. 3.3 cm staghorn calculus in the upper pole of the right kidney. No nephrolithiasis on the left. No hydroureteronephrosis. No visible bladder calculus. Discussed at length surveillance monitoring of staghorn calculus verses surgical intervention. Discussed risks and benefits of surveillance monitoring versus surgical intervention at length. She reports many months ago having experienced flank pain however has not recently. She endorses to be drinking coffee most of the day. Discussed at length potential causes of nephrolithiasis as well as mixed urinary incontinence patient is experiencing. Discussed at length effects of cigarette smoking as well as caffeine on urinary symptoms as well as overall health and well-being. When asked patient currently denies hematuria, foul smelling urine, changes to urinary stream, flank pain, fever, and or chills. In office urinalysis results reviewed with the patient today. 3+ leukocytes. Negative nitrates. PVR 0 mL. PFSH Medical History Urinary incontinence, mixed Atherosclerotic cardiovascular disease Hx of non-ST elevation myocardial infarction (NSTEMI) Cataract Colon cancer screening Smoker unmotivated to quit Shoulder bursitis Trochanteric bursitis Mitral valve regurgitation Narcotic dependence, in remission Chronic GERD Morbid obesity History of myasthenia gravis Allergic rhinitis Eczema CAD (coronary atherosclerotic disease) Duodenum ulcer Bipolar disorder History of anoxic brain injury Dyslipidemia Mild intermittent asthma in adult without complication Postsurgical hypothyroidism Surgical History Hx of CABG H/O colonoscopy Hx of thyroidectomy History of esophagogastroduodenoscopy (~01/2015) History of partial hysterectomy History of thymectomy (~2007) History of thyroidectomy, total Hx of tonsillectomy History of cholecystectomy (Unknown) History of appendectomy (Unknown) Family History Father Stroke Mother Breast cancer, Onset Age: 40 Brother Brain cancer Brother HIV disease Son No problems noted. Maternal Grandmother Glaucoma Paternal Grandmother Lung cancer Ovarian cancer Social History Household Members: Other Household Members Other:: intermediate ([employer]) Housing: Other Housing Other:: [employer] agencyGroup home Do you presently have visiting nurse or other home services: Yes (intermediate staff) Alcohol intake: never Patient Tobacco Use Status: Current everyday Tobacco user Tobacco use type: Cigarette Cigarette Packs Per Day: 0.5 Cigarettes Per Day: 10 Years Smoked: 40 e-Cigarette/Vaping Use: Never Used Current occupational status: disabled Cognitive needs: No Hearing needs: No Vision needs: Yes Review of Systems Const Reports as per HPI Eyes Reports no additional complaints ENT Reports no additional complaints Card Reports as per HPI Resp Reports no additional complaints GI Reports as per HPI Reports as per HPI Neuro Reports as per HPI Psych Reports as per HPI Physical Exam Const General: cooperative, healthy appearing, comfortable, no acute distress, well developed, alert and awake Orientation/consciousness: patient oriented x3 Limitations: ambulation with walker HEENT Head: Yes normal to inspection, Yes normocephalic and Yes atraumatic Ears: hearing grossly normal bilaterally Eyes General: appearance normal, both eyes and all related structures Neck Neck: Yes normal visual inspection and Yes trachea midline Chest Chest palpation & inspection: normal inspection of the chest Resp Effort & Inspection: normal respiratory effort and able to speak in complete sentences Cardio Rate: regular rate GI Inspection: Yes normal to inspection General: Yes no CVA tenderness Back/Spine/Pelvis Back: no CVA tenderness Skin General skin exam: no rashes or lesions noted Neuro General: patient oriented x3 Extrem General: Yes normal to inspection Psych Appearance: grossly normal and well kempt Mental Status: mental status grossly normal Speech and movement: Normal speech and movement present and Clear speech present Affect: normal affect Attitude: cooperative Thought process: Normal thought process present Thought content: Normal thought content present Insight: Fair insight present (Psych) Judgement: Fair judgement present (Psych) Office Procedures Post Void Residual Post Residual Void Post Void Residual (PVR): 0 63160-[id number] Void Residual by ultrasound Results AMB Urinalysis, Automated UA Leukoctes 500 Pasquale/uL Last Edit by Chasqui Bus on 10/14/23 10:22 UA Nitrite Negative Last Edit by Chasqui Bus on 10/14/23 10:22 UA Urobilinogen 0.2 mg/dL Last Edit by Chasqui Bus on 10/14/23 10:22 UA Protein 0 mg/dL Last Edit by Chasqui Bus on 10/14/23 10:22 UA pH 7.0 Last Edit by Chasqui Bus on 10/14/23 10:22 UA Blood 0 Gregorio/uL Last Edit by Chasqui Bus on 10/14/23 10:22 UA Specific [place] 1.015 Last Edit by Chasqui Bus on 10/14/23 10:22 UA Ketone Negative Last Edit by Chasqui Bus on 10/14/23 10:22 UA Bilirubin 0 mg/dL Last Edit by Chasqui Bus on 10/14/23 10:22 UA Glucose 0 mg/dL Last Edit by Chasqui Bus on 10/14/23 10:22 Results Reviewed Results Reviewed: Laboratory Last Values Urine pH (Auto) 7.0 10/14/23 10:11 Specific [place] (Auto) 1.015 10/14/23 10:11 Urine Protein (Auto) 0 mg/dL 10/14/23 10:11 Glucose (UA)(Auto) 0 mg/dL 10/14/23 10:11 Urine Ketones (Auto) Negative 10/14/23 10:11 Urine Blood (Auto) 0 Gregorio/uL 10/14/23 10:11 Urine Nitrite (Auto) Negative 10/14/23 10:11 Urine Bilirubin (Auto) 0 mg/dL 10/14/23 10:11 Urine Urobilinogen (Auto) 0.2 mg/dL 10/14/23 10:11 Leukocyte Esterase (Auto) 500 Pasquale/uL 10/14/23 10:11 Date of Service: 10/10/23 Procedure(s): CT kidney stone FINDINGS: Lung Bases: The visualized lung bases are unremarkable. Liver, Gallbladder and Biliary Tree: The liver is normal in size, shape, and attenuation. No focal hepatic lesion or biliary ductal dilatation is present. Cholecystectomy. Calcification along the posterior dependent right liver margin may be a dropped gallstone. There is no inflammatory reaction around it. Pancreas: No discrete pancreatic mass or ductal dilatation. Spleen: Unremarkable. Adrenal Glands: Unremarkable. Kidneys and Ureters: 3.3 cm staghorn calculus in the upper pole the right kidney with attenuation approximately 675 Hounsfield units. No nephrolithiasis on the left. No hydroureteronephrosis. There are gonadal vein phleboliths but no definite ureterolithiasis. Bladder: No visible bladder calculus. Gastrointestinal Tract: The small and large bowel are normal in caliber. Abdominal Wall: No significant hernia is appreciated. Lymph Nodes: No adenopathy. Vascular: No aortic aneurysm. Mild aortoiliac atherosclerosis. Pelvic Viscera: Hysterectomy. No pelvic mass. Osseous Structures: Moderate degenerative disc disease in the lower lumbar spine. IMPRESSION: 3.3 cm right upper pole staghorn calculus. No hydronephrosis. Assessment & Plan Assessment & Plan (1) Staghorn calculus: Code(s): N20.0 - Calculus of kidney (2) Urinary incontinence, mixed: Code(s): N39.46 - Mixed incontinence Plan: Ureteroscopy We discussed the nature of the decision and reasonable alternatives for performing ureteroscopy. Options such as medical therapy were discussed. Interventions include chemical dissolution, ESWL, ureteroscopy with laser lithotripsy and stent placement, PCNL. The relative uncertainties and benefits related to each alternate procedure were adequately discussed. General surgical risks including, but not limited to - pain, bleeding, infection, myocardial infarction, pulmonary embolus, deep vein thrombosis and cerebrovascular accident which may result in further hospitalization were discussed.? Full disclosure of the procedure as well as all major risks, benefits and complications were discussed including but not limited to damage to the urethra, bladder and kidney infection, damage to the ureter, stent migration or malposition, scarring to the renal pelvis, remnant stone fragments, subsequent stone passage with need for secondary procedures. The overall secondary procedure rate is approximately 10-15%.? The overall clearance rate is approximately 90-95%. Success of the procedure in the short-term does not necessarily guarantee that long-term success will be maintained. Suitable follow up will need to be maintained. The patient showed understanding of discussion and wishes to proceed with - cystoscopy, retrograde, ureteroscopy, possible lithotripsy/stone basketing and stent on the right side Plan In office urinalysis results reviewed with the patient today; as noted above; will send for urine culture. PVR [address] KUB results reviewed with the patient today; as noted above Start Bactrim as discussed and prescribed. Discussed low-dose antibiotic therapy prior to surgical intervention. Discussed at length surveillance monitoring versus surgical intervention of staghorn calculus; discussed risks and benefits of these interventions. Discussed bladder triggers/irritants Discussed and stressed the importance of drinking plenty of water daily. Will schedule for right-sided cystoscopy, retrograde, ureteroscopy, possible lithotripsy/stone basketing and stent on the right side with Dr. Mays as discussed Follow-up status post surgical intervention per Dr. Mays's order; or sooner with any issues, concerns, and or questions. Orders: Orders AMB Urinalysis Automated Today Z13.9 - Encounter for screening, unspecified AMB Post Void Residual by ultrasound Today N39.46 - Mixed incontinence Urine Culture Today N39.46 - Mixed incontinence Patient Instructions: The patient had an opportunity to ask questions regarding the treatment plan. All questions were answered. Physical exam, labs, and imaging were discussed and reviewed in detail. As well as risks, benefits, and discussion of treatment choices. No major barriers to understanding were identified. The patient expressed understanding and agreement with the above treatment plan. The patient was made aware they should contact our office by phone for worsening of their current condition, the appearance of new symptoms, or with any questions or concerns. Compliance is encouraged with any medications and follow up testing that is ordered. It is a privilege to be allowed the opportunity to participate in? your urological care.? Again, if you have any questions or concerns If you have any questions or concerns please do not hesitate to contact me. The office is [phone]. This note is constructed using voice recognition software. While every effort has been made to ensure accuracy pipe buffer errors may have been included. Yours sincerely, LJ Zuniga-BC Coding Level of Care Code Est Pt Level 4 (38466) Diagnoses Staghorn calculus N20.0 Urinary incontinence, mixed N39.46 CPT Codes Post Residual Void - PVR CPT Code: 29777-Xfbv Void Residual by ultrasound ([id number])
== END 2023-10-14 10:48 | disposition home or self-care (01) ==
PROVIDERS: PCP Internal Medicine; Visit Provider Nurse Practitioner Family
DX: N20.0 Calculus of kidney (principal); N39.46 Mixed incontinence; Z13.9 Encounter for screening, unspecified
CPT/HCPCS: 99214

== ENCOUNTER 2023-12-26 10:32 | Outpatient (AMB) | payer MEDICARE, MEDICAID, SELFPAY ==
--- NOTE | 2023-12-26 10:36 | A.OFFVIS_ITS ---
Intake Vital Signs 12/26/23 10:38 Height 5 ft 7 in Weight 240 lb 4.862 oz BMI 37.6 BP 102/56 L Blood Pressure Location Lt brachial Position Sitting Pulse 65 Intake Visit Reasons: FU/needs cardiac clearance Intake Note: follow up Refund Specialist Required: No Accompanied by: Editor & Co Founder Allergies bee pollen [BEE STINGS] Allergy (Severe, Verified 12/26/23 10:39) ANAPHYLAXIS aspirin [ASA] Allergy (Intermediate, Verified 12/26/23 10:39) RASH Penicillins Allergy (Intermediate, Verified 12/26/23 10:39) Rash strawberry [STRAWBERRY] Allergy (Intermediate, Verified 12/26/23 10:39) RASH Compazine Allergy (Unknown, Verified 12/26/23 10:39) unknown iodine [IODINE] Allergy (Unknown, Verified 12/26/23 10:39) UNKNOWN codeine [CODEINE] Adverse Reaction (Intermediate, Verified 12/26/23 10:39) GI upset benztropine [From Cogentin] Adverse Reaction (Unknown, Verified 12/26/23 10:39) Unknown Medication List - Last Reconciled 12/26/23 by Dallin Chin MD acetaminophen 650 mg (2 x 325 mg) PO BID PRN Advair Diskus 250-50 mcg/dose (fluticasone propion-salmeterol) 1 inh inhalation BID NS albuterol sulfate 90 mcg/actuation (Ventolin HFA) 2 puffs inhalation Q4H PRN atorvastatin 10 mg PO DAILY 90 days cetirizine 10 mg PO QAM cholecalciferol (vitamin D3) 50 mcg PO QAM diclofenac sodium 1% (Voltaren Arthritis Pain) 2 grams topical QID divalproex 1,000 mg PO .every evening dorzolamide 2% drps ophthalmic (eye) escitalopram oxalate (Lexapro) 20 mg PO DAILY escitalopram oxalate 10 mg PO DAILY hydrocortisone 2.5% (Proctosol HC) 1 appl SC BID PRN latanoprost 0.005% drps ophthalmic (eye) levothyroxine (Levoxyl) 50 mcg PO DAILY lidocaine 4% (AsperFlex (lidocaine)) 1 patch topical DAILY PRN loperamide 2 mg PO TID PRN metoprolol tartrate 12.5 mg (1/2 x 25 mg) PO QAM montelukast 10 mg PO DAILY nystatin 1 appl topical BID 2 weeks pantoprazole 40 mg PO BID quetiapine ER 300 mg PO BEDTIME sulfamethoxazole-trimethoprim 400-80 mg (Bactrim) 1 tab PO DAILY 90 days sulfamethoxazole-trimethoprim 400-80 mg (Bactrim) 1 tab PO DAILY sulfamethoxazole-trimethoprim 800-160 mg (Bactrim DS) 1 tab PO BID 14 days trazodone 100 mg PO BEDTIME trazodone 50 mg PO BEDTIME HPI HPI Comments History of Present Illness Details Mayra returns for follow-up. She needs preoperative clearance for ureteroscopy. In the past, she was seen in consultation regarding coronary disease. There was a question of bypass surgery but it was felt that she probably did not have bypass, but just thymus surgery. On review of data from [facility], there is a cardiac catheterization from 2010. However, that shows only nonobstructive disease and nothing of hemodynamic significance. Hence likely did not have coronary bypass. Otherwise, she lives in a senior living. No specific cardiac symptoms like angina. Chronic smoker. Overall, no new symptoms since last seen. [facility] Medical History (Updated 10/29/23 @ 19:06 by Chichi Rivers MD) Urinary incontinence, mixed Atherosclerotic cardiovascular disease Hx of non-ST elevation myocardial infarction (NSTEMI) Cataract Colon cancer screening Smoker unmotivated to quit Shoulder bursitis Trochanteric bursitis Mitral valve regurgitation Narcotic dependence, in remission Chronic GERD Morbid obesity History of myasthenia gravis Allergic rhinitis Eczema CAD (coronary atherosclerotic disease) Duodenum ulcer Bipolar disorder History of anoxic brain injury Dyslipidemia Mild intermittent asthma in adult without complication Postsurgical hypothyroidism Surgical History (Updated 12/26/23 @ 12:25 by Dallin Chin MD) H/O colonoscopy Hx of thyroidectomy History of esophagogastroduodenoscopy (~01/2015) History of partial hysterectomy History of thymectomy (~2007) History of thyroidectomy, total Hx of tonsillectomy History of cholecystectomy (Unknown) History of appendectomy (Unknown) Family History Father Stroke Mother Breast cancer, Onset Age: 40 Brother Brain cancer Brother HIV disease Son No problems noted. Maternal Grandmother Glaucoma Paternal Grandmother Lung cancer Ovarian cancer Social History Household Members: Other Household Members Other:: senior living ([employer]) Housing: Other Housing Other:: [employer] agencyGroup home Do you presently have visiting nurse or other home services: Yes (senior living staff) Alcohol intake: never Patient Tobacco Use Status: Current everyday Tobacco user Tobacco use type: Cigarette Cigarette Packs Per Day: 0.5 Cigarettes Per Day: 10 Years Smoked: 40 e-Cigarette/Vaping Use: Never Used Current occupational status: disabled Cognitive needs: No Hearing needs: No Vision needs: Yes Review of Systems Const Denies weakness ENT Denies dizziness Card Denies chest pain, Denies chest pain with activity, Denies syncope, Denies rapid heart rate, Denies pedal edema, Denies edema, Denies leg edema, Denies lightheadedness, Denies palpitations, Denies dyspnea, Denies dyspnea on exertion and Denies orthopnea Resp Denies cough, Denies dyspnea and Denies dyspnea on exertion GI Denies hematochezia and Denies change in stool character Musc Denies abnormal gait, Denies muscle cramps, Denies muscle weakness, Denies numbness, Denies radiating pain into limb and Denies tingling Neuro Denies abnormal gait, Denies dizziness, Denies syncope, Denies numbness, Denies tingling and Denies weakness Endo Denies palpitations Physical Exam Vital Signs: Last Vital Signs Pulse 65 12/26/23 10:38 BP 102/56 L 12/26/23 10:38 BMI result Body Mass Index 37.6 Const General: comfortable and no acute distress Orientation/consciousness: patient oriented x3 HEENT Other: Unremarkable Head: Yes normal to inspection Neck Neck: Yes normal visual inspection Chest Chest palpation & inspection: normal inspection of the chest Resp Auscultation: clear to auscultation bilaterally Cardio Palpation: normal PMI Heart sounds: S1 normal heart sound present, S2 normal heart sound present, no gallops, no murmurs and no rubs GI Palpation (GI): Soft to palpation Back/Spine/Pelvis Other: unremarkable Skin General skin exam: no rashes or lesions noted Neuro General: patient oriented x3 Extrem General: Yes normal to inspection Psych Mental Status: mental status grossly normal Office Procedures EKG Details: EKG with sinus rhythm at 65/Min; right bundle-branch block pattern. [id number], Complete Assessment & Plan Assessment & Plan (1) Atherosclerotic cardiovascular disease: Code(s): I25.10 - Atherosclerotic heart disease of [place] coronary artery without angina pectoris (2) Cardiomyopathy: Code(s): I42.9 - Cardiomyopathy, unspecified Plan Cardiac studies reviewed. Vague history of coronary artery bypass in 2008 but cardiac catheterization 2010 rather shows [place] coronaries only. There was 30% mid right coronary artery stenosis but no significant obstructive disease overall. There is an echocardiogram from 2009 that describes EF of 30-40%; inferior septal infarction. A more recent echocardiogram from 2021 shows LVEF of 55-60% and otherwise unremarkable. Hence overall suspect that the question of CABG was likely incorrect and she probably just had time of surgery leading to the sternotomy scar. With regard to cardiac function, seems recovered on the echocardiogram. Clinically, she has got no cardiac symptoms whatsoever. With regard to the ureteroscopic procedure, may proceed as planned. Low cardiac risk. Discussed with the physical testing supervisor from a senior living. They will contact us as needed for appointments. Total time spent including review of data, counseling, documentation, coordination of care-33 minutes. Coding Level of Care Code Est Pt Level 4 (90838) Diagnoses Atherosclerotic cardiovascular disease I25.10 Cardiomyopathy I42.9 CPT Codes EKG - CPT: 45635-[id number], Complete ([id number])
[2023-12-26 10:38] VITALS: BP 102/56; PULSE 65; BMI 37.6
== END 2023-12-26 10:57 | disposition home or self-care (01) ==
PROVIDERS: PCP Internal Medicine; Visit Provider Internal Medicine
DX: I25.10 Atherosclerotic heart disease of native coronary artery without angina pectoris (principal); I42.9 Cardiomyopathy, unspecified
CPT/HCPCS: 93010; 99214

== ENCOUNTER → 2023-12-26 10:32 | Outpatient (BNVA) | payer MEDICARE, MEDICAID, SELFPAY | PROVIDERS: PCP Internal Medicine; Visit Provider Internal Medicine | DX: I25.10 Atherosclerotic heart disease of native coronary artery without angina pectoris (principal); I42.9 Cardiomyopathy, unspecified | CPT/HCPCS: 93005; 99212 ==

== ENCOUNTER 2024-01-01 10:13 | Outpatient (AMB) | payer MEDICARE, MEDICAID, SELFPAY ==
--- NOTE | 2024-01-01 10:54 | A.OFFPC_ITS ---
Vital Signs 01/01/24 11:08 Height 5 ft 7 in Weight 245 lb BMI 38.4 BP 108/64 Blood Pressure Location Rt brachial Position Sitting Pulse 62 Pulse Source Pulse Oximeter Pulse Oximetry (%) 99 Oxygen Delivery Method Room Air Intake Visit Reasons: kidney stone removal Intake Note: Pt is here today for her pre-op for a cysto with possible stent on 01/20/[address] Mays Allergies bee pollen [BEE STINGS] Allergy (Severe, Verified 01/17/24 15:58) ANAPHYLAXIS aspirin [ASA] Allergy (Intermediate, Verified 01/17/24 15:58) RASH Penicillins Allergy (Intermediate, Verified 01/17/24 15:58) Rash strawberry [STRAWBERRY] Allergy (Intermediate, Verified 01/17/24 15:58) RASH Compazine Allergy (Unknown, Verified 01/17/24 15:58) unknown iodine [IODINE] Allergy (Unknown, Verified 01/17/24 15:58) UNKNOWN codeine [CODEINE] Adverse Reaction (Intermediate, Verified 01/17/24 15:58) GI upset benztropine [From Cogentin] Adverse Reaction (Unknown, Verified 01/17/24 15:58) Unknown Medication List - Last Reconciled 01/01/24 by Chichi Rivers MD acetaminophen 650 mg (2 x 325 mg) PO BID PRN Advair Diskus 250-50 mcg/dose (fluticasone propion-salmeterol) 1 inh inhalation BID NS albuterol sulfate 90 mcg/actuation (Ventolin HFA) 2 puffs inhalation Q4H PRN atorvastatin 10 mg PO DAILY 90 days cetirizine 10 mg PO QAM cholecalciferol (vitamin D3) 50 mcg PO QAM diclofenac sodium 1% (Voltaren Arthritis Pain) 2 grams topical QID divalproex 1,000 mg PO .every evening dorzolamide 2% drps ophthalmic (eye) escitalopram oxalate (Lexapro) 20 mg PO DAILY escitalopram oxalate 10 mg PO DAILY hydrocortisone 2.5% (Proctosol HC) 1 appl TN BID PRN latanoprost 0.005% drps ophthalmic (eye) levothyroxine (Levoxyl) 50 mcg PO DAILY lidocaine 4% (AsperFlex (lidocaine)) 1 patch topical DAILY PRN loperamide 2 mg PO TID PRN metoprolol tartrate 12.5 mg (/2 x 25 mg) PO QAM montelukast 10 mg PO DAILY nystatin 1 appl topical BID 2 weeks pantoprazole 40 mg PO BID quetiapine ER 300 mg PO BEDTIME sulfamethoxazole-trimethoprim 400-80 mg (Bactrim) 1 tab PO DAILY trazodone 100 mg PO BEDTIME trazodone 50 mg PO BEDTIME Tobacco use date assessed: 01/01/24 Fall risk assessment: No Falls in past year Last assessed Fall Risk: 01/01/24 Dental Screening Dental Screen Date: 01/01/24 Did you have a dental visit in the last 12 months?: Yes Did you have a dental problem in the last 6 months where you did not have access to dental care?: No Was dental information given to patient?: Patient has dentist HPI kidney stone removal HPI Details 68 year lady with history of myasthenia gravies history of non STEMI, has mitral valve regurgitation, dyslipidemia, postsurgical hypothyroidism , low disorder, mild intermittent asthma and chronic GERD with morbid obesity, here today for preoperative exam for ureteroscopy for removed right kidney stone, scheduled for 01/20/2024, requested by Dr. Mays. She has been feeling well, with no complaints at present time, no chest pain, no unusual bleeding noted or shortness of breath. She has already been seen and cleared by Cardiology for procedure. [facility] Medical History (Updated 01/17/24 @ 16:19 by Chichi Rivers MD) Urinary incontinence, mixed Atherosclerotic cardiovascular disease Hx of non-ST elevation myocardial infarction (NSTEMI) Cataract Colon cancer screening Smoker unmotivated to quit Shoulder bursitis Trochanteric bursitis Mitral valve regurgitation Narcotic dependence, in remission Chronic GERD Morbid obesity History of myasthenia gravis Allergic rhinitis Eczema Duodenum ulcer Bipolar disorder History of anoxic brain injury Dyslipidemia Mild intermittent asthma in adult without complication Postsurgical hypothyroidism Surgical History H/O colonoscopy Hx of thyroidectomy History of esophagogastroduodenoscopy (~01/2015) History of partial hysterectomy History of thymectomy (~2007) History of thyroidectomy, total Hx of tonsillectomy History of cholecystectomy (Unknown) History of appendectomy (Unknown) Family History Father Stroke Mother Breast cancer, Onset Age: 40 Brother Brain cancer Brother HIV disease Son No problems noted. Maternal Grandmother Glaucoma Paternal Grandmother Lung cancer Ovarian cancer Social History Household Members: Other Household Members Other:: shelter ([employer] [facility]) Housing: Other Housing Other:: [facility] agency[facility] home Do you presently have visiting nurse or other home services: Yes (shelter staff) Alcohol intake: never Patient Tobacco Use Status: Current everyday Tobacco user Tobacco use type: Cigarette Cigarette Packs Per Day: 0.5 Cigarettes Per Day: 10 Years Smoked: 40 e-Cigarette/Vaping Use: Never Used Current occupational status: disabled Cognitive needs: No Hearing needs: No Vision needs: Yes Questionnaire PHQ-9 Over the last 2 weeks, how often have you been bothered by any of the following problems? 1. Little interest or pleasure in doing things: not at all 2. Feeling down, depressed, or hopeless: not at all 3. Trouble falling or staying asleep, or sleeping too much: nearly every day 4. Feeling tired or having little energy: nearly every day 5. Poor appetite or overeating: not at all 6. Feeling bad about yourself - or that you are a failure or have let yourself or your family down: not at all 7. Trouble concentrating on things, such as reading the newspaper or watching television: not at all 8. Moving or speaking so slowly that other people could have noticed. Or the opposite - being so fidgety or restless that you have been moving around a lot more than usual: not at all 9. Thoughts that you would be better off or of hurting yourself in some way: not at all Total score: 6 Depression Screening Interpretation: Negative Depression Screening Done: Yes 57650 - PHQ-9 Billing: Yes Source: Developed by Drs. Maxi Powers, Palak Brown, Gorge Lund and colleagues, with an educational jon from [employer]. Thrive Questionnaire Date Thrive assessed: 01/01/24 I am a: Patient What is your living situation today?: I have a steady place to live Within the past 12 months, did the food you bought not last and you didn't have the money to get more?: Never true Within the past 12 months, did you worry whether your food would run out before you got money to buy more?: Never true Do you have trouble paying for medicines?: No Do you have trouble getting transportation to medical appointments?: No Do you have trouble paying your heating and electricity bill?: No Do you have trouble taking care of your child, family member or friend?: No Do you have trouble with day-to-day activities such as bathing, preparing meals, shopping, managing finances, etc.?: No Are you currently unemployed and looking for a job?: No Are you interested in more education?: No THRIVE Score: 0 AUDIT C Alcohol Use Questionnaire (AUDIT-C) 1. How often do you have a drink containing alcohol?: Never Total Score: 0 SIMRAN-7 AMB Questionnaire SIMRAN-7 Date SIMRAN - 7 assessed: 01/01/24 Feeling nervous, anxious, or on edge: 2 = More than half the days Not being able to stop or control worryin = Several days Worrying too much about different things: 1 = Several days Trouble relaxin = Not at all Being so restless that it is hard to sit still: 0 = Not at all Becoming easily annoyed or irritable: 1 = Several days Feeling afraid as if something awful might happen: 0 = Not at all Total SIMRAN-7 score (0-4 normal; 5-9 mild; 10-14 moderate; 15-21 severe): 5 Source: Developed by Drs. Maxi Powers, Palak Brown, Gorge Lund and colleagues, with an educational jon from [employer]. SIMRAN-7 Assessment Billing SIMRAN-7 Assessment Tool: SIMRAN-7 Assessment 39317 Review of Systems Const Denies fatigue, Denies headache(s) and Denies weakness Eyes Denies change in vision ENT Reports Normal hearing present, Denies dizziness, Denies headache(s) and Denies nasal congestion Card Denies chest pain, Denies chest pain with activity, Denies syncope, Denies rapid heart rate, Denies edema, Denies lightheadedness, Denies palpitations, Denies dyspnea and Denies dyspnea on exertion Resp Denies cough, Denies dyspnea and Denies dyspnea on exertion GI Denies abdominal pain, Denies melena, Denies hematochezia, Denies change in bowel habits and Denies heartburn Reports as per HPI Musc Denies abnormal gait, Denies muscle cramps, Denies muscle weakness, Denies numbness, Denies radiating pain into limb and Denies tingling Skin/Breast Denies rash and Denies unusual bruising Neuro Reports Normal hearing present, Denies Abnormal speech present, Denies abnormal gait, Denies dizziness, Denies syncope, Denies headache(s), Denies numbness, Denies tingling and Denies weakness Psych Reports no additional complaints and Reports as per HPI Endo Denies fatigue, Denies polydipsia, Denies polyuria and Denies palpitations Ned/Lymph Denies easy bleeding and Denies easy bruising Aller/Immun Reports no additional complaints Physical exam (Primary Care) Vital Signs: Last Vital Signs Pulse 62 01/01/24 11:08 BP 108/64 01/01/24 11:08 Pulse Ox 99 01/01/24 11:08 Oxygen Delivery Method Room Air 01/01/24 11:08 BMI result Body Mass Index 38.4 Tobacco/Smoking Status: Tobacco use Status Tobacco use date assessed 01/01/24 01/01/24 11:15 Patient Tobacco Use Status Current everyday Tobacco 01/01/24 10:59 Tobacco use type Cigarette 01/01/24 10:59 e-Cigarette/Vaping Use Never Used 01/01/24 10:59 Are you ready to quit: No PHQ-9: PHQ-9 Score PHQ-9: Total score 6 01/17/24 16:14 Depression Screening Interpretation: Negative Thrive Assessment: Date of Thrive Assessment Date Thrive assessed 01/01/24 01/01/24 12:05 Const Other: Accompanied by caregiver General: no acute distress and alert Nutritional Appearance: obese Orientation/consciousness: patient oriented x3 HENMT Mouth: Normal oral and palatal mucosa present, oropharynx normal and moist mucous membranes Eyes General: appearance normal, both eyes and all related structures Neck Neck: Yes full ROM, Yes no lymphadenopathy and Yes supple Resp Auscultation: clear to auscultation bilaterally Cardio Other: S1-S2 present regular rate and rhythm GI Palpation (GI): Soft to palpation, nontender and no guarding Auscultation: normal bowel sounds General: Yes no CVA tenderness Back/Spine/Pelvis Back: no CVA tenderness and No back tenderness Skin General skin exam: no rashes or lesions noted Neuro General: patient oriented x3, moves all extremities, Normal light touch and pain sensation, no focal motor deficits and CN's II-XI intact bilaterally Cranial nerves: Yes Normal hearing present Speech: No Abnormal speech present Gait exam (Neuro): Shuffling gait present and Assisted gait required Gait assisted method: walker Extrem General: Yes full ROM, Yes no joint enlargement, Yes no pedal edema and Yes no calf tenderness Results Reviewed Results Reviewed: RUN: 01/17/24 1615 PAGE 1 [facility] [address] [place] [id number] Manager Hiv: Aj Leach M.D. Specimen Inquiry Name: Mayra Osorio Age/Sex: 68/F : 1955 Unit#: [id number] Attend Dr: Chichi Rivers MD Re01/06/24 Status: DEP REF Location: [facility] Disch: SPEC : [id number] ANITA: 01/06/24 STATUS: COMP REQ : [id number] RECD: 01/06/24-[address]: Chichi Rivers MD COMP: 01/06/24-1301 ENTERED: 01/06/[address] [facility] [address]: ORDERED: Met Prof Fast, AST, ALT, Lipid Panel, Vitamin D 25-OH, Free T4, TSH Test Result Flag Reference Sodium 140 135-145 mmol/L Potassium 5.1 3.3-5.1 mmol/L CL 104 96-108 mmol/L CO2 29 22-29 mmol/L Gap 12 12-20 BUN 27 H 9-16 mg/dL Creat 0.88 0.5-1.4 mg/dL EGFR > 60 NOTE: For -Serbian individuals, multiply the result by 1.210. Chronic Kidney Disease: Estimated GFR < 60 mL/min/1.73m2 Severe Kidney Disease: Estimated GFR < 15 mL/min/1.7 3m2 FBS 92 60-99 mg/dL CA 9.9 8.4-10.2 mg/dL AST (GOT) 16 5-31 U/L ALT (GPT) 15 0-31 U/L Triglyceride 106 <150 mg/dL Desirable Triglyceride: less than 150 mg/dL Borderline High Triglyceride 150-199 mg/dL High Triglyceride: 200-499 mg/dL Very High Triglyceride: greater than or equal to 5OO mg/dL Cholesterol 165 <200 mg/dL Desirable Cholesterol: less than 200 mg/dL Borderline High Cholesterol: 200-239 mg/dL High Cholesterol: greater than 239 mg/dL LDL Calculated 93 <100 mg/dL Desirable LDL: less than 100 mg/dL Near Optimal/Above Optimal LDL: 110-129 mg/dL Borderline High LDL: 130-159 mg/dL High LDL: 160-189 mg/dL Very High LDL: greater than or equal to 190 mg/dL HDL 51 >40 mg/dL Desirable HDL: greater than 40 mg/dL Note: This HDL assay may give artificially low results in patients with liver disease. Vit D 25-OH Tot 46.2 >30 ng/mL Health Based Reference Values* < 20 ng/mL Deficient 20-30 ng/mL Insufficient > 30 ng/mL Sufficient *Romeo BLAKE. N Engl J Med. 2007;357:266-280 Care must be taken in interpreting Vitamin D results from different laboratories and methodologies. Published data demonstrated that results from patients undergoing hemodialysis may show a negative bias when tested with various automated 25-OH vitamin D assays when compared to LC-MS/MS. When testing samples from patients whose predominant form of Vitamin D is Vitamin D2, such as patients receiving Vitamin D2 supplementation, results that are subtherapeutic should be confirmed with another method such as LC-MS/MS. Free T4 0.96 0.71-1.85 ng/dL TSH 3rd Gen. 2.53 0.32-4.0 uIU/mL Name: Mayra Osorio Age/Sex: 68/F : 1955 Unit#: [id number] Attend Dr: Chichi Rivers MD Re01/06/24 Status: DEP [facility] Disch: SPEC : [id number] ANITA: 01/06/24 STATUS: COMP REQ : [id number] RECD: 01/06/[address]: Chichi Rivers MD COMP: 01/06/24 ENTERED: 01/06/[address] [facility] [address]: ORDERED: CBC Auto Diff Test Result Flag Reference WBC 4.7 L 4.8-10.8 X10*3/uL RBC 4.49 4.20-5.50 X10*6/uL HGB 13.4 12.0-16.0 g/dl HCT 41.8 37.0-47.0 % MCV 93.1 80.0-98.0 fL MCH 29.8 27.0-33.0 pg MCHC 32.1 31.0-35.0 g/dl RDW 13.4 11.0-16.0 % PLT 166 160-400 X10*3/uL MPV 11.4 9.4-12.3 fL Neut Pct Auto 55.8 45-73 % ImGran Pct Auto 0.4 0.0-0.4 % Lymp Pct Auto 32.2 20-40 % Garrard Pct Auto 6.1 2-11 % Eos Pct Auto 4.7 H 0-4 % Baso Pct Auto 0.8 0-2 % NRBC Pct Auto 0.0 0.0-0.2 /100WBC ANC Neut Abs # 2.6 2.0-8.3 x10*3/uL ImGran Abs Auto 0.02 0.00-0.03 X10*3/uL Lymph Abs Auto 1.5 1.2-4.9 X10*3/uL G[place]ard Abs Auto 0.3 0.1-1.2 X10*3/uL Eos Abs Auto 0.2 0.0-0.4 X10*3/uL Baso Abs Auto 0.0 0.0-0.2 X10*3/uL NRBC Abs Auto 0.000 0.0-0.012 X10*3/uL Assessment and Plan Assessment & Plan (1) Preoperative examination: Code(s): Z01.818 - Encounter for other preprocedural examination Plan: 68 year old lady with history of myasthenia gravis, dyslipidemia, chronic GERD, mild intermittent asthma history of non STEMI,here, acquired hypothyroidism, fo bipolar disorder, here for preoperative clearance for ureteroscopy for removal of right renal calculi, scheduled for 01/20/[address] Mays. Preoperative exam and labs were unremarkable . She has been seen already by Cardiology and cleared for surgery . Patient with low cardiac risk index for proposed procedure. (2) Staghorn calculus: Code(s): N20.0 - Calculus of kidney Plan: Scheduled for ureteroscopy on 01/20/[address] Mays (3) Dyslipidemia: Code(s): E78.5 - Hyperlipidemia, unspecified Plan: Reviewed recent fasting lipid profile with patient with levels within normal limits . Continue with atorvastatin 10 mg daily , in addition to adherence to low-cholesterol diet and regular exercise, at least 30 minutes 3 to 4 times a week. Advised patient to make healthy food choices, eat more fruits, vegetables, whole grains, wild caught fish and low-fat dairy. Limit amount of meat and fried or fatty food products, as well as processed foods and fast foods. (4) Postsurgical hypothyroidism: Code(s): E89.0 - Postprocedural hypothyroidism Plan: Controlled with levothyroxine 50 mcg once a day. Latest thyroid levels are within normal limits (5) History of myasthenia gravis: Code(s): Z86.69 - Personal history of other diseases of the nervous system and sense organs Plan: Currently asymptomatic (6) Hx of non-ST elevation myocardial infarction (NSTEMI): Comment: per pt in 2008 Code(s): I25.2 - Old myocardial infarction Plan: On metoprolol tartrate 12.5 mg daily in a.m., Has already been seen and cleared by Cardiology (7) Smoker unmotivated to quit: Code(s): F17.200 - Nicotine dependence, unspecified, uncomplicated Plan: Patient strongly advised to stop smoking, as smoking damages blood vessels, degenerative of joints and spine, damage to lungs and heart., predisposes to developing certain cancers like lung, breast, bladder, colon. Recommended to try decreasing cigarette use by 1-2 cigarettes a day. Advised to monitor what triggers are for smoking so that this can be discussed on the next office visit. We can discuss different options to quit smoking when ready. (8) Mild intermittent asthma in adult without complication: Code(s): J45.20 - Mild intermittent asthma, uncomplicated Plan: On Advair and uses albuterol inhaler as needed for episodes of wheezing and bronchospasm (9) Bipolar disorder: Comment: Followed by Sylvain Fuentes Code(s): F31.9 - Bipolar disorder, unspecified Qualifiers: Active/Remission status: currently active Current bipolar episode type: mixed Current episode severity: unspecified Qualified Code(s): F31.60 - Bipolar disorder, current episode mixed, unspecified Plan: Followed by psychiatry (Sylvain Fuentes), currently on escitalopram 20 mg daily, divalproex 1000 mg at night, quetiapine ER 300 mg at bedtime and trazodone (10) Chronic GERD: Code(s): K21.9 - Gastro-esophageal reflux disease without esophagitis Plan: Controlled on pantoprazole 40 mg 1 capsule twice a day Orders: Orders Basic Metabolic Panel Fasting 01/06/24 N20.0 - Calculus of kidney, K58.0 - Irritable bowel syndrome with diarrhea, I42.9 - Cardiomyopathy, unspecified, D12.6 - Benign neoplasm of colon, unspecified, I25.10 - Atherosclerotic heart disease of [place] coronary artery without angina pectoris, I25.2 - Old myocardial infarction, E78.5 - Hyperlipidemia, unspecified, E66.01 - Morbid (severe) obesity due to excess calories, Z78.0 - Asymptomatic menopausal state Complete Blood Count Auto Diff 01/06/24 N20.0 - Calculus of kidney, K58.0 - Irritable bowel syndrome with diarrhea, I42.9 - Cardiomyopathy, unspecified, D12.6 - Benign neoplasm of colon, unspecified, I25.10 - Atherosclerotic heart disease of [place] coronary artery without angina pectoris, I25.2 - Old myocardial infarction, E78.5 - Hyperlipidemia, unspecified, E66.01 - Morbid (severe) obesity due to excess calories, Z78.0 - Asymptomatic menopausal state Lipid Panel 01/06/24 N20.0 - Calculus of kidney, K58.0 - Irritable bowel syndrome with diarrhea, I42.9 - Cardiomyopathy, unspecified, D12.6 - Benign neoplasm of colon, unspecified, I25.10 - Atherosclerotic heart disease of [place] coronary artery without angina pectoris, I25.2 - Old myocardial infarction, E78.5 - Hyperlipidemia, unspecified, E66.01 - Morbid (severe) obesity due to excess calories, Z78.0 - Asymptomatic menopausal state Vitamin D 25-OH Total 01/06/24 N20.0 - Calculus of kidney, K58.0 - Irritable bowel syndrome with diarrhea, I42.9 - Cardiomyopathy, unspecified, D12.6 - Benign neoplasm of colon, unspecified, I25.10 - Atherosclerotic heart disease of [place] coronary artery without angina pectoris, I25.2 - Old myocardial infarction, E78.5 - Hyperlipidemia, unspecified, E66.01 - Morbid (severe) obesity due to excess calories, Z78.0 - Asymptomatic menopausal state Free T4 (Free Thyroxine) 01/06/24 E89.0 - Postprocedural hypothyroidism Alanine Aminotransferase 01/06/24 N20.0 - Calculus of kidney, K58.0 - Irritable bowel syndrome with diarrhea, I42.9 - Cardiomyopathy, unspecified, D12.6 - Benign neoplasm of colon, unspecified, I25.10 - Atherosclerotic heart disease of [place] coronary artery without angina pectoris, I25.2 - Old myocardial infarction, E78.5 - Hyperlipidemia, unspecified, E66.01 - Morbid (severe) obesity due to excess calories, Z78.0 - Asymptomatic menopausal state Aspartate Amino Transferase 01/06/24 N20.0 - Calculus of kidney, K58.0 - Irritable bowel syndrome with diarrhea, I42.9 - Cardiomyopathy, unspecified, D12.6 - Benign neoplasm of colon, unspecified, I25.10 - Atherosclerotic heart disease of [place] coronary artery without angina pectoris, I25.2 - Old myocardial infarction, E78.5 - Hyperlipidemia, unspecified, E66.01 - Morbid (severe) obesity due to excess calories, Z78.0 - Asymptomatic menopausal state Thyroid Stimulating Hormone 01/06/24 E89.0 - Postprocedural hypothyroidism Medications: Refilled cetirizine 10 mg PO QAM 28 tabs 5RF metoprolol tartrate 12.5 mg (1/2 x 25 mg) PO QAM 14 tabs 5RF Advair Diskus 250-50 mcg/dose (fluticasone propion-salmeterol) 1 inh inhalation BID 60 ea 5RF NS Coding Level of Care Code Est Pt Level 4 (05027) Diagnoses Preoperative examination Z01.818 Staghorn calculus N20.0 Dyslipidemia E78.5 Postsurgical hypothyroidism E89.0 History of myasthenia gravis Z86.69 Hx of non-ST elevation myocardial infarction (NSTEMI) I25.2 Smoker unmotivated to quit F17.200 Mild intermittent asthma in adult without complication J45.20 Bipolar affective disorder, current episode mixed, current episode severity unspecified F31.60 Active/Remission status: currently active Current bipolar episode type: mixed Current episode severity: unspecified Chronic GERD K21.9 Additional Codes SIMRAN-7 Assessment Billing - SIMRAN-7 Assessment Tool: SIMRAN-7 Assessment 22922 ([id number])
[2024-01-01 11:08] VITALS: BP 108/64; PULSE 62; O2SAT 99; BMI 38.4
== END 2024-01-01 12:41 | disposition home or self-care (01) ==
PROVIDERS: PCP Internal Medicine; Visit Provider Internal Medicine
DX: E78.5 Hyperlipidemia, unspecified (principal); F31.60 Bipolar disorder, current episode mixed, unspecified; E66.01 Morbid (severe) obesity due to excess calories; Z68.38 Body mass index [BMI] 38.0-38.9, adult; N20.0 Calculus of kidney; Z01.818 Encounter for other preprocedural examination; E89.0 Postprocedural hypothyroidism; Z86.69 Personal history of other diseases of the nervous system and sense organs; I25.2 Old myocardial infarction; F17.200 Nicotine dependence, unspecified, uncomplicated; J45.20 Mild intermittent asthma, uncomplicated; K21.9 Gastro-esophageal reflux disease without esophagitis
CPT/HCPCS: 99214

== ENCOUNTER 2024-01-06 08:04 | Outpatient (REF) | payer MEDICARE, MEDICAID, SELFPAY ==
[2024-01-06 11:48] LABS: MANUAL DIFF FLAG NO
[2024-01-06 12:01] LABS: Basophils Percent Auto 0.8 % (0-2); Eosinophils Absolute Auto 0.2 X10*3/uL (0.0-0.4); Eosinophils Percent Auto 4.7 % (0-4); Hematocrit 41.8 % (37.0-47.0); Hemoglobin 13.4 g/dl (12.0-16.0); Imm Gran Abs Auto 0.02 X10*3/uL (0.00-0.03); Imm Gran Pct Auto 0.4 % (0.0-0.4); Lymphocytes Absolute Auto 1.5 X10*3/uL (1.2-4.9); Lymphocytes Percent Auto 32.2 % (20-40); Mean Corpuscular HGB Conc 32.1 g/dl (31.0-35.0); Mean Corpuscular Hemoglobin 29.8 pg (27.0-33.0); Mean Corpuscular Volume 93.1 fL (80.0-98.0); Mean Platelet Volume 11.4 fL (9.4-12.3); Monocytes Absolute Auto 0.3 X10*3/uL (0.1-1.2); Monocytes Percent Auto 6.1 % (2-11); Neutrophils Absolute Auto 2.6 x10*3/uL (2.0-8.3); Neutrophils Percent Auto 55.8 % (45-73); Platelet Count 166 X10*3/uL (160-400); Red Blood Count 4.49 X10*6/uL (4.20-5.50); Red Cell Distribution Width 13.4 % (11.0-16.0); White Blood Count 4.7 X10*3/uL (4.8-10.8)
[2024-01-06 12:38] LABS: Alanine Aminotransferase 15 U/L (0-31); Anion Gap 12 (12-20); Aspartate Amino Transferase 16 U/L (5-31); Blood Urea Nitrogen 27 mg/dL (9-16); Calcium 9.9 mg/dL (8.4-10.2); Carbon Dioxide 29 mmol/L (22-29); Chloride 104 mmol/L (96-108); Cholesterol 165 mg/dL (<200); Estimated Glomerular Filt Rate > 60; Glucose Fasting 92 mg/dL (60-99); HDL Cholesterol 51 mg/dL (>40); LDL Cholesterol Calculated 93 mg/dL (<100); Potassium 5.1 mmol/L (3.3-5.1); Sodium 140 mmol/L (135-145); Triglycerides 106 mg/dL (<150)
[2024-01-06 13:02] LABS: Free T4 (Free Thyroxine) 0.96 ng/dL (0.71-1.85); Thyroid Stimulating Hormone 2.53 uIU/mL (0.32-4.0); Vitamin D 25-OH Total 46.2 ng/mL (>30)
== END 2024-01-06 08:05 | disposition home or self-care (01) ==
LOC: HO.HMGCLDS 08:04
PROVIDERS: PCP Internal Medicine; Visit Provider Internal Medicine
DX: N20.0 Calculus of kidney (principal); K58.0 Irritable bowel syndrome with diarrhea; I42.9 Cardiomyopathy, unspecified; D12.6 Benign neoplasm of colon, unspecified; I25.10 Atherosclerotic heart disease of native coronary artery without angina pectoris; I25.2 Old myocardial infarction; E78.5 Hyperlipidemia, unspecified; E66.01 Morbid (severe) obesity due to excess calories; E89.0 Postprocedural hypothyroidism; Z78.0 Asymptomatic menopausal state
CPT/HCPCS: 36415; 80048; 80061; 82306; 84439; 84443; 84450; 84460; 85025

== ENCOUNTER 2024-01-16 11:26 | Outpatient (AMB) | payer MEDICARE, MEDICAID, SELFPAY ==
--- NOTE | 2024-01-16 11:28 | A.OFFVIS_ITS ---
Intake Intake Visit Reasons: Surgical Consent/H&P Cysto special/Poss stent Intake Note: Patient is Present for Telephone Follow Up For h&p Consent Urology Med: None Antibiotic Allergy: Penicillin Blood Thinner: None Health Proxy will be present for Telephone appointment Almaz Allergies bee pollen [BEE STINGS] Allergy (Severe, Verified 01/16/24 11:30) ANAPHYLAXIS aspirin [ASA] Allergy (Intermediate, Verified 01/16/24 11:30) RASH Penicillins Allergy (Intermediate, Verified 01/16/24 11:30) Rash strawberry [STRAWBERRY] Allergy (Intermediate, Verified 01/16/24 11:30) RASH Compazine Allergy (Unknown, Verified 01/16/24 11:30) unknown iodine [IODINE] Allergy (Unknown, Verified 01/16/24 11:30) UNKNOWN codeine [CODEINE] Adverse Reaction (Intermediate, Verified 01/16/24 11:30) GI upset benztropine [From Cogentin] Adverse Reaction (Unknown, Verified 01/16/24 11:30) Unknown HPI HPI Comments History of Present Illness Details Mayra is a pleasant female. She is a patient of Dr. Rivers. She is seen for the following urologic conditions - large right renal stone Telemedicine Evaluation 15 min Consultation [employer] Video attempted Discussion with Mayra is healthcare proxy Information provided regarding planned procedure Consent signed and stored in chart Plan ureteroscopy. May require staged procedure Nephrolithiasis CT 1.3 cm right renal stone PFSH Medical History Urinary incontinence, mixed Atherosclerotic cardiovascular disease Hx of non-ST elevation myocardial infarction (NSTEMI) Cataract Colon cancer screening Smoker unmotivated to quit Shoulder bursitis Trochanteric bursitis Mitral valve regurgitation Narcotic dependence, in remission Chronic GERD Morbid obesity History of myasthenia gravis Allergic rhinitis Eczema CAD (coronary atherosclerotic disease) Duodenum ulcer Bipolar disorder History of anoxic brain injury Dyslipidemia Mild intermittent asthma in adult without complication Postsurgical hypothyroidism Surgical History H/O colonoscopy Hx of thyroidectomy History of esophagogastroduodenoscopy (~01/2015) History of partial hysterectomy History of thymectomy (~2007) History of thyroidectomy, total Hx of tonsillectomy History of cholecystectomy (Unknown) History of appendectomy (Unknown) Family History Father Stroke Mother Breast cancer, Onset Age: 40 Brother Brain cancer Brother HIV disease Son No problems noted. Maternal Grandmother Glaucoma Paternal Grandmother Lung cancer Ovarian cancer Social History Household Members: Other Household Members Other:: long-term ([employer]) Housing: Other Housing Other:: [employer] agencyGroup home Do you presently have visiting nurse or other home services: Yes (long-term staff) Alcohol intake: never Patient Tobacco Use Status: Current everyday Tobacco user Tobacco use type: Cigarette Cigarette Packs Per Day: 0.5 Cigarettes Per Day: 10 Years Smoked: 40 e-Cigarette/Vaping Use: Never Used Current occupational status: disabled Cognitive needs: No Hearing needs: No Vision needs: Yes Review of Systems Const All systems reviewed & are unremarkable except as noted in HPI and below Reports no additional complaints Resp Reports no additional complaints GI Reports no additional complaints Reports as per HPI Musc Reports no additional complaints Physical Exam Telemedicine evaluation Appropriate responses Regular breathing rate and rhythm HEENT Head: Yes normal to inspection Ears: hearing grossly normal bilaterally Eyes General: appearance normal, both eyes and all related structures Neck Neck: Yes normal visual inspection Chest Chest palpation & inspection: normal inspection of the chest Resp Effort & Inspection: normal respiratory effort and able to speak in complete sentences Assessment & Plan Assessment & Plan (1) Staghorn calculus: Code(s): N20.0 - Calculus of kidney Plan Ureteroscopy We discussed the nature of the decision and reasonable alternatives for performing ureteroscopy. Options such as medical therapy were discussed. Interventions include chemical dissolution, ESWL, ureteroscopy with laser lithotripsy and stent placement, PCNL. The relative uncertainties and benefits related to each alternate procedure were adequately discussed. General surgical risks including, but not limited to - pain, bleeding, infection, myocardial infarction, pulmonary embolus, deep vein thrombosis and cerebrovascular accident which may result in further hospitalization were discussed. Full disclosure of the procedure as well as all major risks, benefits and complications were discussed including but not limited to damage to the urethra, bladder and kidney infection, damage to the ureter, stent migration or malposition, scarring to the renal pelvis, remnant stone fragments, subsequent stone passage with need for secondary procedures. The overall secondary procedure rate is approximately 10-15%. The overall clearance rate is approximately 90-95%. Success of the procedure in the short-term does not necessarily guarantee that long-term success will be maintained. Suitable follow up will need to be maintained. The patient showed understanding of discussion and wishes to proceed with - cystoscopy, retrograde, ureteroscopy, possible lithotripsy/stone basketing and stent on the right side Patient Instructions: Imaging studies, laboratory and physical exam results were discussed and reviewed in detail. No major barriers to patient understanding were identified. An opportunity to ask questions regarding the treatment plan was provided. All questions were answered. The patient expressed understanding and agreement with the above treatment plan. The patient is aware they should contact our office by phone for worsening of their current condition or the appearance of new urologic symptoms. Compliance is encouraged with any medications and followup testing that is ordered. It is a privilege to participate in the urologic care of your patient. If you have any questions or concerns regarding treatment for the above conditions, or other urologic issues, please do not hesitate to contact me. The office telephone contact is [phone]. This note is constructed using voice recognition software. While every effort has been made to ensure accuracy complaint adjuster errors may have been included. Yours sincerely, Dr Rocky Mays MD, [facility] - Urology Providers of Expert, Compassionate Care for the Genitourinary System Telehealth Telehealth Location of provider rendering services: practice address Location of patient: address on file Patient Identification confirmed using: Name, : Yes Telehealth method: video Patient verbally consented to treatment: Yes Patient verbally consented to billing insurance company: Yes Patient informed of any privacy concerns related to visit: Yes Coding Level of Care Code Tele Est Pt Level 4 (64861) Diagnoses Staghorn calculus N20.0
== END 2024-01-16 12:14 | disposition home or self-care (01) ==
LOC: HO.HUSH 11:27
PROVIDERS: PCP Internal Medicine; Visit Provider Urology
DX: N20.0 Calculus of kidney (principal)
CPT/HCPCS: 99214

== ENCOUNTER → 2024-01-16 11:26 | Outpatient (BNVA) | payer MEDICARE, MEDICAID, SELFPAY | PROVIDERS: PCP Internal Medicine; Visit Provider Urology ==

== ENCOUNTER 2024-01-20 07:29 | Day surgery (SDC) | payer MEDICARE, MEDICAID, SELFPAY ==
--- NOTE | 2024-01-17 09:20 | P.CONAN_ITS ---
Documented by User: Jazmin Miller NP 01/17/24 09:27 HPI - Anesthesia Eval Consult details Narrative: 68yo F for Cystoscopy, Ureteroroscopy, Retro, Laser,with poss stent s/p Colonoscopy 07/2023 with TIVA Pt from a halfway Myesthenia Gravis s/p thymectomy Cardiac cleared [facility] Active Problems Active Problems: All Active Problems (Updated 10/29/23 @ 19:06 by Chichi Rivers MD) Staghorn calculus (Acute) Nephrolithiasis (Acute) Osteoarthritis (Acute) Irritable bowel syndrome with diarrhea (Acute) Cardiomyopathy (Acute) Frequent falls (Acute) Difficulty balancing (Acute) Tubular adenoma of colon (Acute) Hemorrhoids, internal, with bleeding (Acute) Diverticulosis (Acute) Menopause (Acute) Urinary incontinence, mixed (Acute) Atherosclerotic cardiovascular disease (Acute) History of myasthenia gravis (Acute) History of anoxic brain injury (Acute) Hx of non-ST elevation myocardial infarction (NSTEMI) (Acute) Smoker unmotivated to quit (Acute) Mitral valve regurgitation (Acute) CAD (coronary atherosclerotic disease) (Acute) Dyslipidemia (Acute) Postsurgical hypothyroidism (Acute) Mild intermittent asthma in adult without complication (Acute) Bipolar disorder (Acute) Chronic GERD (Acute) Allergic rhinitis (Acute) Eczema (Acute) Morbid obesity (Acute) Past Medical History Medical History (Updated 01/17/24 @ 16:19 by Chichi Rivers MD) Urinary incontinence, mixed Atherosclerotic cardiovascular disease Hx of non-ST elevation myocardial infarction (NSTEMI) Cataract Colon cancer screening Smoker unmotivated to quit Shoulder bursitis Trochanteric bursitis Mitral valve regurgitation Narcotic dependence, in remission Chronic GERD Morbid obesity History of myasthenia gravis Allergic rhinitis Eczema Duodenum ulcer Bipolar disorder History of anoxic brain injury Dyslipidemia Mild intermittent asthma in adult without complication Postsurgical hypothyroidism Family History Family History Father Stroke Mother Breast cancer, Onset Age: 40 Brother Brain cancer Brother HIV disease Son No problems noted. Maternal Grandmother Glaucoma Paternal Grandmother Lung cancer Ovarian cancer Surgical History Surgical History H/O colonoscopy Hx of thyroidectomy History of esophagogastroduodenoscopy (~01/2015) History of partial hysterectomy History of thymectomy (~2007) History of thyroidectomy, total Hx of tonsillectomy History of cholecystectomy (Unknown) History of appendectomy (Unknown) History of Problems with Anesthesia: No Social History Social History Household Members: Other Household Members Other:: halfway ([employer]) Housing: Other Housing Other:: [employer] agencyGroup home Do you presently have visiting nurse or other home services: Yes (halfway staff) Alcohol intake: never Patient Tobacco Use Status: Current everyday Tobacco user Tobacco use type: Cigarette Cigarette Packs Per Day: 0.5 Cigarettes Per Day: 12 Years Smoked: 40 e-Cigarette/Vaping Use: Never Used Use of substances other than those prescribed or required for medical reasons: No Are you DNR?: No Advance Directives: No Advance Directives Information Provided: Yes Current occupational status: disabled Cognitive needs: No Hearing needs: No Vision needs: Yes Meds Allergies Allergy/AdvReac Type Severity Reaction Status Date / Time bee pollen [BEE STINGS] Allergy Severe ANAPHYLAXIS Verified 01/17/24 15:58 aspirin [ASA] Allergy Intermediate RASH Verified 01/17/24 15:58 Penicillins Allergy Intermediate Rash Verified 01/17/24 15:58 strawberry [STRAWBERRY] Allergy Intermediate RASH Verified 01/17/24 15:58 Compazine Allergy Unknown unknown Verified 01/17/24 15:58 iodine [IODINE] Allergy Unknown UNKNOWN Verified 01/17/24 15:58 codeine [CODEINE] AdvReac Intermediate GI upset Verified 01/17/24 15:58 benztropine [From Cogentin] AdvReac Unknown Unknown Verified 01/17/24 15:58 Home Medications Medication Instructions Recorded Confirmed Last Taken Type escitalopram oxalate 20 mg tablet 20 mg PO DAILY 08/24/20 12/26/23 10/28/20 History (Lexapro) trazodone 100 mg tablet 100 mg PO BEDTIME 08/25/20 12/26/23 Unknown History escitalopram oxalate 10 mg tablet 10 mg PO DAILY 03/22/21 12/26/23 Unknown History quetiapine 300 mg tablet,extended 300 mg PO BEDTIME 09/19/21 12/26/23 Unknown History release 24 hr trazodone 50 mg tablet 50 mg PO BEDTIME 12/04/22 12/26/23 Unknown History divalproex 500 mg tablet,delayed 1,000 mg PO .every evening 09/05/23 12/26/23 Unknown History release dorzolamide 2 % eye drops drp ophthalmic (eye) 12/26/23 12/26/23 Unknown History latanoprost 0.005 % eye drops drp ophthalmic (eye) 12/26/23 12/26/23 Unknown History sulfamethoxazole 400 1 tab PO DAILY 12/26/23 12/26/23 Unknown History mg-trimethoprim 80 mg tablet (Bactrim) Exam Pertinent Lab Results Pertinent Lab Results: Laboratory Tests 01/06/24 08:14 WBC 4.7 L Hgb 13.4 Hct 41.8 Plt Count 166 Sodium 140 Potassium 5.1 Chloride 104 Carbon Dioxide 29 BUN 27 H Creatinine 0.88 Narrative Narrative: EKG 12/2023 sinus rhythm at 65/Min; right bundle-branch block pattern ECHO 2021 Conclusions: - The left ventricular systolic function is normal. The visually estimated ejection fraction is between 55-60%. - No obvious valvular pathology seen on this study. Per 12/2023 cardiology office visit note: Vague history of coronary artery bypass in 2008 but cardiac catheterization 2010 rather shows telida coronaries only. There was 30% mid right coronary artery stenosis but no significant obstructive disease overall. There is an echocardiogram from 2009 that describes EF of 30-40%; inferior septal infarction. A more recent echocardiogram from 2021 shows LVEF of 55-60% and otherwise unremarkable. Hence overall suspect that the question of CABG was likely incorrect and she probably just had [thymus] surgery leading to the sternotomy scar. Assessment and Plan Assessment Anesthesia Assessment: Chart Reviewed Final Anesthetic Review History of Problems with Anesthesia: No Documented by User: Tejas Powell MD 01/20/24 09:43 [facility] Past Medical History Medical History (Updated 01/17/24 @ 16:19 by Chichi Rivers MD) Urinary incontinence, mixed Atherosclerotic cardiovascular disease Hx of non-ST elevation myocardial infarction (NSTEMI) Cataract Colon cancer screening Smoker unmotivated to quit Shoulder bursitis Trochanteric bursitis Mitral valve regurgitation Narcotic dependence, in remission Chronic GERD Morbid obesity History of myasthenia gravis Allergic rhinitis Eczema Duodenum ulcer Bipolar disorder History of anoxic brain injury Dyslipidemia Mild intermittent asthma in adult without complication Postsurgical hypothyroidism Functional capacity: uses cane/walker Family History Family History Father Stroke Mother Breast cancer, Onset Age: 40 Brother Brain cancer Brother HIV disease Son No problems noted. Maternal Grandmother Glaucoma Paternal Grandmother Lung cancer Ovarian cancer Family history of problems with anesthesia: Unobtainable Surgical History Surgical History H/O colonoscopy Hx of thyroidectomy History of esophagogastroduodenoscopy (~01/2015) History of partial hysterectomy History of thymectomy (~2007) History of thyroidectomy, total Hx of tonsillectomy History of cholecystectomy (Unknown) History of appendectomy (Unknown) Social History Social History Household Members: Other Household Members Other:: halfway ([employer]) Housing: Other Housing Other:: [employer] agencyGroup home Do you presently have visiting nurse or other home services: Yes (halfway staff) Alcohol intake: never Patient Tobacco Use Status: Current everyday Tobacco user Tobacco use type: Cigarette Cigarette Packs Per Day: 0.5 Cigarettes Per Day: 12 Years Smoked: 40 e-Cigarette/Vaping Use: Never Used Use of substances other than those prescribed or required for medical reasons: No Are you DNR?: No Advance Directives: No Advance Directives Information Provided: Yes Current occupational status: disabled Cognitive needs: No Hearing needs: No Vision needs: Yes Meds Allergies Allergy/AdvReac Type Severity Reaction Status Date / Time bee pollen [BEE STINGS] Allergy Severe ANAPHYLAXIS Verified 01/17/24 15:58 aspirin [ASA] Allergy Intermediate RASH Verified 01/17/24 15:58 Penicillins Allergy Intermediate Rash Verified 01/17/24 15:58 strawberry [STRAWBERRY] Allergy Intermediate RASH Verified 01/17/24 15:58 Compazine Allergy Unknown unknown Verified 01/17/24 15:58 iodine [IODINE] Allergy Unknown UNKNOWN Verified 01/17/24 15:58 codeine [CODEINE] AdvReac Intermediate GI upset Verified 01/17/24 15:58 benztropine [From Cogentin] AdvReac Unknown Unknown Verified 01/17/24 15:58 Home Medications Medication Instructions Recorded Confirmed Last Taken Type escitalopram oxalate 20 mg tablet 20 mg PO DAILY 08/24/20 12/26/23 10/28/20 History (Lexapro) trazodone 100 mg tablet 100 mg PO BEDTIME 08/25/20 12/26/23 Unknown History escitalopram oxalate 10 mg tablet 10 mg PO DAILY 03/22/21 12/26/23 Unknown History quetiapine 300 mg tablet,extended 300 mg PO BEDTIME 09/19/21 12/26/23 Unknown History release 24 hr trazodone 50 mg tablet 50 mg PO BEDTIME 12/04/22 12/26/23 Unknown History divalproex 500 mg tablet,delayed 1,000 mg PO .every evening 09/05/23 12/26/23 Unknown History release dorzolamide 2 % eye drops drp ophthalmic (eye) 12/26/23 12/26/23 Unknown History latanoprost 0.005 % eye drops drp ophthalmic (eye) 12/26/23 12/26/23 Unknown History sulfamethoxazole 400 1 tab PO DAILY 12/26/23 12/26/23 Unknown History mg-trimethoprim 80 mg tablet (Bactrim) Exam Airway Mallampati Class: I TM Dist: <=3cm Neck ROM: Full Denture: Upper and Lower Heart: ok. see above. Lungs: ok Assessment and Plan Assessment Anesthesia Assessment: Anesthesia Plan Discussed Final Anesthetic Review Family History of Problems with Anesthesia: Unobtainable NPO: Yes ASA Class: IV Final Preanesthetic Review: No Changes in Pt Med Stat, Meds/Allgs Chart Reviewed, Consent Obtained/Reviewed and Anes Risks/Benef Reviewed Patient Risk: High Procedure Risk: Low Anesthetic Plan Anesthetic Plan: GA and Agree w/ Assess. and Plan Disposition: Standard PACU
[2024-01-20] VITALS (9 sets, daily range): BP systolic 112–154; BP diastolic 54–76; PULSE 59–78; RESP 16–18; TEMP 36.1–36.4; O2SAT 91–99; BMI 38.9
--- NOTE | ~2024-01-20 | FL_ITS ---
EXAMINATION: XR FLUOROSCOPY WITH IMAGES CLINICAL INFORMATION: Retrograde urethrogram COMPARISON: CT from 10/10/2023 TECHNIQUE: Fluoroscopy Supervised By: Dr. Rocky Mays. Fluoroscopy Time: 67.5 seconds. Cumulative Dose: 31.15 mGy. Images: 4. FINDINGS: Images obtained during placement of ureteral stent in the right ureter and injection of contrast in right ureter and collecting system by urologist. FL/FL guidance in OR IMPRESSION: Right ureteral stent placement
[2024-01-20] MEDS: Lactated Ringers 1,000 ML 100 ML IVCONT (08:32)
--- NOTE | 2024-01-20 09:40 | P.HPSUR_ITS ---
Pre-Procedural Eval Section A - 24 Hr Update-Section A only Date of Service: 01/20/24 The patient is an INPATIENT: No Changes since office visit: No Cold of Flu in the past 2 weeks, No New Medical Problems, No Changes in Medication and No Patient answered all questions The patient has been examined within 24 hours of the surgical procedure. The History & Physical has been completed within 30 days and I have reviewed it.: Yes Section B - Complete if H&P > 30 days Chief Complaint: Calculus of kidney Details of Present Illness: right renal stone Allergies: Allergies Allergy/AdvReac Type Severity Reaction Status Date / Time bee pollen [BEE STINGS] Allergy Severe ANAPHYLAXIS Verified 01/17/24 15:58 aspirin [ASA] Allergy Intermediate RASH Verified 01/17/24 15:58 Penicillins Allergy Intermediate Rash Verified 01/17/24 15:58 strawberry [STRAWBERRY] Allergy Intermediate RASH Verified 01/17/24 15:58 Compazine Allergy Unknown unknown Verified 01/17/24 15:58 iodine [IODINE] Allergy Unknown UNKNOWN Verified 01/17/24 15:58 codeine [CODEINE] AdvReac Intermediate GI upset Verified 01/17/24 15:58 benztropine [From Cogentin] AdvReac Unknown Unknown Verified 01/17/24 15:58 Review of Systems Sugical H&P ROS: Negative: Constitution, Cardiovascular, Respiratory, Neurologi luis, Psychiatric, Hem-Onc, Allergic/Immunologic, Gastrointestinal, Genitourinary, Musculoskeletal, Integumentary, Endocrine and Eyes/Ears/Nose/Throat Exam Surgical H&P Exam: Normal: HEENT, Normal: Heart, Normal: Lungs, Normal: Extremities, Normal: Abdomen, Normal: Skin and Normal: Neurological Plan Diagnosis/Plan: Unchanged I have reviewed the history and physical and performed a pertinent physical examination on my patient. No changes have occurred unless specified. Time Spent With Patient Time: Total time managing care of this patient today ____ minutes.
--- NOTE | 2024-01-20 11:49 | P.OP_ITS ---
Operative Note Operative Note Date of Service: 01/20/24 Narrative: PreOperative Diagnosis: right renal stone staghorn Post Operative Diagnosis: right renal stone staghorn Procedure: - cystoscopy, right retrograde - right dilatation of ureteric orifice under fluoroscopy - right ureteroscopy, laser lithotripsy - modifier 22 - right stent placement Surgeon: Dr Rocky Mays Anesthesia: General Indications for procedure: right renal stone staghorn Procedure: After informed consent was verified patient was brought to the operating placed in supine position. Anesthesia was administered per protocol. Patient was placed in modified dorsal lithotomy position and prepped and draped in a sterile fashion. Safety pause time-out and side of surgery confirmed. Antibiotics confirmed. 22 Montserratian cystoscope was inserted per urethra. Bladder was normal in its entirety. Both ureteric orifices were in normal position. The right ureteric orifice was cannulated and a retrograde examination was performed. Filling defects seen within right renal pelvis. A Sensor guidewire was placed up to the level of the renal pelvis under fluoroscopy. The rigid cystoscope was removed and the inner cannula of ureteric access sheath was used under fluoroscopy to dilate the ureteric orifice. The suction ureteric access sheath was placed and the inner cannula with access wire removed. The disposable digital flexible ureteral scope was placed. Stone was encountered in upper pole. Kidney itself was rotated. Access was dif ficult secondary to malrotation of kidney. Stone was obtained and broken into small pieces particularly the lower component stone. The upper pole stone we were not able to reach fully. Lasering was performed for approximately 75 minutes. This is 100% longer than typical. At this point decision was made place stent. At the completion of the stone procedure a Sensor wire was placed back into the renal pelvis. The rigid cystoscope was backloaded over the wire and advanced into the bladder. A 6 Montserratian by 24 cm double-J stent was placed into the renal pelvis and bladder under a combination of fluoroscopy and direct visualization. The symphisis pubis was used as a radiographic marker to release the stent and good coil was seen within the bladder confirming position The bladder was emptied. The patient tolerated the procedure well and was extubated in the operating room, and transferred in stable condition to the recovery area. This was a staged procedure and there will be a plan secondary intervention. Pathology: No fragments Drains: As above
[2024-01-20] MEDS: Ketorolac Tromethamine 15 MG/ML VIAL IVPUSH (11:55)
[2024-01-20] MEDS: oxyCODONE HCl Immed Release 5 MG TABLET PO (11:55)
[2024-01-20] MEDS: fentaNYL citrate/PF 100 MCG/2 ML VIAL 25 MCG IVPUSH (12:17)
== END 2024-01-20 13:27 | disposition home or self-care (01) ==
PROVIDERS: PCP Internal Medicine; Visit Provider Urology
PROC: (CPT 52356; principal; 2024-01-20 09:30)
DX: N20.0 Calculus of kidney (principal); Q63.2 Ectopic kidney; N39.46 Mixed incontinence; E78.5 Hyperlipidemia, unspecified; I25.2 Old myocardial infarction; I25.10 Atherosclerotic heart disease of native coronary artery without angina pectoris; G70.00 Myasthenia gravis without (acute) exacerbation; K21.9 Gastro-esophageal reflux disease without esophagitis; G93.1 Anoxic brain damage, not elsewhere classified; J45.20 Mild intermittent asthma, uncomplicated; Z79.51 Long term (current) use of inhaled steroids; Z79.899 Other long term (current) drug therapy; Z88.0 Allergy status to penicillin; Z88.5 Allergy status to narcotic agent; Z88.8 Allergy status to other drugs, medicaments and biological substances; Z91.041 Radiographic dye allergy status; F17.210 Nicotine dependence, cigarettes, uncomplicated
CPT/HCPCS: 52356; C1758; C1769; C2617; J0131; J1885; J1956; J2704; J3010; Q9967

== ENCOUNTER → 2024-01-20 07:29 | Outpatient (BNV) | payer MEDICARE, MEDICAID, SELFPAY | PROVIDERS: PCP Internal Medicine; Visit Provider Urology | DX: N20.0 Calculus of kidney (principal) | CPT/HCPCS: 52356; 74420 ==

== ENCOUNTER 2024-01-28 13:27 | Outpatient (AMB) | payer MEDICARE, MEDICAID, SELFPAY ==
--- NOTE | 2024-01-28 13:29 | A.OFFVIS_ITS ---
Intake Intake Visit Reasons: Discuss next procedure Intake Note: Patient is Present for Telephone Discussion on next procedure Urology Med: Tamsulosin Antibiotic Allergy: Penicillins, Blood Thinner: None Confirmed Pharmacy: [facility] Allergies bee pollen [BEE STINGS] Allergy (Severe, Verified 01/17/24 15:58) ANAPHYLAXIS aspirin [ASA] Allergy (Intermediate, Verified 01/17/24 15:58) RASH Penicillins Allergy (Intermediate, Verified 01/17/24 15:58) Rash strawberry [STRAWBERRY] Allergy (Intermediate, Verified 01/17/24 15:58) RASH Compazine Allergy (Unknown, Verified 01/17/24 15:58) unknown iodine [IODINE] Allergy (Unknown, Verified 01/17/24 15:58) UNKNOWN codeine [CODEINE] Adverse Reaction (Intermediate, Verified 01/17/24 15:58) GI upset benztropine [From Cogentin] Adverse Reaction (Unknown, Verified 01/17/24 15:58) Unknown HPI HPI Comments History of Present Illness Details Mayra is a pleasant female. She is a patient of Dr. Rivers. She is seen for the following urologic conditions - large right renal stone Telemedicine Evaluation 15 min Consultation TagArray Meme Video attempted Had been able to reach 60% of stone with ureteroscopy Plan for ESWL for completion and follow-up imaging Has had some bladder spasm Prescribe OAB medication Nephrolithiasis CT 1.3 cm right renal stone Intervention - 01/18 ureteroscopy with laser lithotrip [facility] Medical History (Updated 01/17/24 @ 16:19 by Chichi Rivers MD) Urinary incontinence, mixed Atherosclerotic cardiovascular disease Hx of non-ST elevation myocardial infarction (NSTEMI) Cataract Colon cancer screening Smoker unmotivated to quit Shoulder bursitis Trochanteric bursitis Mitral valve regurgitation Narcotic dependence, in remission Chronic GERD Morbid obesity History of myasthenia gravis Allergic rhinitis Eczema Duodenum ulcer Bipolar disorder History of anoxic brain injury Dyslipidemia Mild intermittent asthma in adult without complication Postsurgical hypothyroidism Surgical History H/O colonoscopy Hx of thyroidectomy History of esophagogastroduodenoscopy (~01/2015) History of partial hysterectomy History of thymectomy (~2007) History of thyroidectomy, total Hx of tonsillectomy History of cholecystectomy (Unknown) History of appendectomy (Unknown) Family History Father Stroke Mother Breast cancer, Onset Age: 40 Brother Brain cancer Brother HIV disease Son No problems noted. Maternal Grandmother Glaucoma Paternal Grandmother Lung cancer Ovarian cancer Social History Household Members: Other Household Members Other:: [facility] ([employer]) Housing: Other Housing Other:: [employer] agencyGroup home Do you presently have visiting nurse or other home services: Yes ([facility] staff) Alcohol intake: never Patient Tobacco Use Status: Current everyday Tobacco user Tobacco use type: Cigarette Cigarette Packs Per Day: 0.5 Cigarettes Per Day: 12 Years Smoked: 40 e-Cigarette/Vaping Use: Never Used Current occupational status: disabled Cognitive needs: No Hearing needs: No Vision needs: Yes Review of Systems Const All systems reviewed & are unremarkable except as noted in HPI and below Reports no additional complaints Resp Reports no additional complaints GI Reports no additional complaints Reports as per HPI Musc Reports no additional complaints Physical Exam Telemedicine evaluation Appropriate responses Regular breathing rate and rhythm HEENT Head: Yes normal to inspection Ears: hearing grossly normal bilaterally Eyes General: appearance normal, both eyes and all related structures Neck Neck: Yes normal visual inspection Chest Chest palpation & inspection: normal inspection of the chest Resp Effort & Inspection: normal respiratory effort and able to speak in complete sentences Assessment & Plan Assessment & Plan (1) Nephrolithiasis: Code(s): N20.0 - Calculus of kidney Plan OAB medication Plan for ESWL right side Extracorporeal Shock Wave Lithotripsy We discussed the nature of the decision and reasonable alternatives for performing the above surgery. Interventions include chemical dissolution, ESWL, ureteroscopy with laser lithotripsy and stent placement, PCNL. Options such as medical therapy were discussed. The relative uncertainties and benefits related to each alternate procedure were adequately discussed. General surgical risks including, but not limited to, pain, bleeding, infection, myocardial infarction, pulmonary embolus, deep vein thrombosis and cerebrovascular accident which may result in further hospitalization were discussed. Full disclosure of the procedure as well as all major risks, benefits and complications were discussed including but not limited to risks of bleeding, injury to the kidney with hematoma or lynette-hematoma, failure to fragments stone, potential for ureteric obstruction from stone passage and need for secondary procedures. There is a small long-term risk of hypertension and a question alejandro of diabetes. Success rate of fragmentation and passage is approximately 70- 75%. This is compared to the risks and benefits for ureteroscopy which has a higher success rate but is a more invasive procedure. The success rate of the procedure was discussed. Success of the procedure in the short-term does not necessarily guarantee that long-term success will be maintained. Suitable follow up will need to be maintained. The patient showed understanding of the discussion as well as the typical recovery time, and the outpatient nature of this procedure. Opportunity was given for questions. Repeat-back protocol used to confirm understanding. They wish to proceed with right ESWL Medications: New solifenacin 5 mg PO DAILY 30 days 30 tabs 1RF N39.46 - Mixed incontinence Patient Instructions: Imaging studies, laboratory and physical exam results were discussed and reviewed in detail. No major barriers to patient understanding were identified. An opportunity to ask questions regarding the treatment plan was provided. All questions were answered. The patient expressed understanding and agreement with the above treatment plan. The patient is aware they should contact our office by phone for worsening of their current condition or the appearance of new urologic symptoms. Compliance is encouraged with any medications and followup testing that is ordered. It is a privilege to participate in the urologic care of your patient. If you have any questions or concerns regarding treatment for the above conditions, or other urologic issues, please do not hesitate to contact me. The office telephone contact is [phone]. This note is constructed using voice recognition software. While every effort has been made to ensure accuracy environmental sustainability manager errors may have been included. Yours sincerely, Dr Rocky Mays MD, [facility] - Urology Providers of Expert, Compassionate Care for the Genitourinary System Telehealth Telehealth Location of provider rendering services: practice address Location of patient: address on file Patient Identification confirmed using: Name, : Yes Telehealth method: video Patient verbally consented to treatment: Yes Patient verbally consented to billing insurance company: Yes Patient informed of any privacy concerns related to visit: Yes Coding Level of Care Code Tele Est Pt Level 4 (38753) Diagnoses Nephrolithiasis N20.0
== END 2024-01-28 13:58 | disposition home or self-care (01) ==
LOC: HO.HUSH 13:27
PROVIDERS: PCP Internal Medicine; Visit Provider Urology
DX: N20.0 Calculus of kidney (principal)
CPT/HCPCS: 99214

== ENCOUNTER → 2024-01-28 13:27 | Outpatient (BNVA) | payer MEDICARE, MEDICAID, SELFPAY | PROVIDERS: PCP Internal Medicine; Visit Provider Urology ==

== ENCOUNTER 2024-02-12 13:45 | Outpatient (AMB) | payer MEDICARE, MEDICAID, SELFPAY ==
--- NOTE | 2024-02-12 14:38 | MHC.OFFVIS ---
Intake Visit Reasons: Stent Removal Intake Note: Patient presents today for a Cysto Stent Removal Meds- None Allergies to Antibiotic- Penicillins Blood Thinner- None Urinalysis test clear for Cysto? No urine was provided Disposable Uro-G Cystoscope Cannula: Lot: [id number] Exp: 09/19/2026 Patient stated she is allergic to the Betadine swabs, also she stated she is on Bactrim 400. French Pastry Cook Required: No Accompanied by: Cellophane Wrapping Examiner from [facility] Allergies bee pollen [BEE STINGS] Allergy (Severe, Verified 03/11/24 09:38) ANAPHYLAXIS aspirin [ASA] Allergy (Intermediate, Verified 03/11/24 09:38) RASH Penicillins Allergy (Intermediate, Verified 03/11/24 09:38) Rash strawberry [STRAWBERRY] Allergy (Intermediate, Verified 03/11/24 09:38) RASH Compazine Allergy (Unknown, Verified 03/11/24 09:38) unknown iodine [IODINE] Allergy (Unknown, Verified 03/11/24 09:38) UNKNOWN codeine [CODEINE] Adverse Reaction (Intermediate, Verified 03/11/24 09:38) GI upset benztropine [From Cogentin] Adverse Reaction (Unknown, Verified 03/11/24 09:38) Unknown HPI Comments Details: Mayra is a pleasant female. She is a patient of Dr. Rivers. She is seen for the following urologic conditions - large right renal stone Not tolerating stent Here for removal Procedure performed today Had been able to reach 60% of stone with ureteroscopy Plan for ESWL for completion and follow-up imaging Has had some bladder spasm Prescribe OAB medication Nephrolithiasis CT 1.3 cm right renal stone Intervention - 01/18 ureteroscopy with laser lithotripsy [facility] Medical History Urinary incontinence, mixed Atherosclerotic cardiovascular disease Hx of non-ST elevation myocardial infarction (NSTEMI) Cataract Colon cancer screening Smoker unmotivated to quit Shoulder bursitis Trochanteric bursitis Mitral valve regurgitation Narcotic dependence, in remission Chronic GERD Morbid obesity History of myasthenia gravis Allergic rhinitis Eczema Duodenum ulcer Bipolar disorder History of anoxic brain injury Dyslipidemia Mild intermittent asthma in adult without complication Postsurgical hypothyroidism Surgical History Hx of cystoscopy H/O colonoscopy Hx of thyroidectomy History of esophagogastroduodenoscopy (~01/2015) History of partial hysterectomy History of thymectomy (~2007) History of thyroidectomy, total Hx of tonsillectomy History of cholecystectomy (Unknown) History of appendectomy (Unknown) Family History Father Stroke Mother Breast cancer, Onset Age: 40 Brother Brain cancer Brother HIV disease Son No problems noted. Maternal Grandmother Glaucoma Paternal Grandmother Lung cancer Ovarian cancer Social History Household Members: Other [facility] Housing: Other Housing Other:: [employer] agencyGroup home Do you presently have visiting nurse or other home services: Yes ([facility] staff) Alcohol intake: never Patient Tobacco Use Status: Current everyday Tobacco user Tobacco use type: Cigarette Cigarette Packs Per Day: 0.5 Cigarettes Per Day: 10.0 Years Smoked: 40 e-Cigarette/Vaping Use: Never Used Current occupational status: disabled Cognitive needs: No Hearing needs: No Vision needs: Yes Review of Systems Const Denies chills and Denies fever(s) Card Reports no additional complaints and Denies syncope Resp Denies cough GI Denies abdominal pain and Denies heartburn Reports as per HPI and Denies change in libido Neuro Denies syncope Psych Denies change in libido Endo Denies change in libido Physical Exam Const General: cooperative, healthy appearing, comfortable and no acute distress Orientation/consciousness: patient oriented x3 HEENT Face and sinus: Yes normal facial exam Mouth: moist mucous membranes Neck Neck: Yes normal visual inspection, Yes full ROM and Yes trachea midline Chest Chest palpation & inspection: normal inspection of the chest Resp Effort & Inspection: normal respiratory effort, able to speak in complete sentences and no respiratory distress GI Inspection: Yes normal to inspection Back/Spine/Pelvis Cervical Spine: normal cervical lordosis Thoracic/Lumbar Spine: thoracic and lumbar spine normal to inspection Skin General skin exam: no rashes or lesions noted Neuro General: patient oriented x3, gait normal, tone normal and moves all extremities Extrem General: Yes normal to inspection and Yes capillary refill normal Office Procedures Cystoscopy Consent Discussed risk and benefit or proposed procedure with the patient. Information consent for procedure given to the patient. Discussed technical aspects, risks, benefits and alternatives in full. Addressed all of the patient's questions and concerns regarding the procedure. The patient demonstrated knowledge and understanding. They wish to proceed with this procedure. Preparation The patient was prepped in the usual manner. A plate and weld inspector was present and in the room. Genitalia was prepped with betadine solution in a sterile manner. Lidocaine Jelly 2% was placed into the urethra and 16Fr flexible Olympus cystoscope was inserted into the meatus after adequate lubrication. Procedure A well lubricated 16 Wolof cystoscope was placed No abnormality noted of urethra during placement Indwelling stent seen within bladder emerging from right ureteric orifices The stent was grasped with a 3 prong grasper and removed without difficulty The patient tolerated the procedure well [id number] with stent removal DISPOSABLE SCOPE URO-G FLEXIBLE SCOPE Procedure code (CPT) selection complete Office Meds lidocaine HCl 2 % mucosal jelly in applicator Performing Provider: Rocky Mays MD Performing Location: [facility] [place] [facility] Administered by: Aide Palm RN on 02/12/24 15:10 Dose Route Admin Location Dispensed Lot Number Expiration Date NDC Linen Folder 10 mL intra-urethral 10 mL nitrofurantoin monohydrate/macrocrystals 100 mg capsule Performing Provider: Rocky Mays MD Performing Location: [facility] [place] [facility] Administered by: Aide Palm RN on 02/12/24 15:10 Dose Route Admin Location Dispensed Lot Number Expiration Date NDC Linen Folder 100 mg PO 1 cap naproxen 500 mg tablet Performing Provider: Rocky Mays MD Performing Location: [facility] [place] [facility] Administered by: Aide Palm RN on 02/12/24 15:10 Dose Route Admin Location Dispensed Lot Number Expiration Date NDC Linen Folder 500 mg PO 1 tab Assessment & Plan Assessment & Plan (1) Nephrolithiasis: Code(s): N20.0 - Calculus of kidney Category: Medical Plan Planned right side ESWL Orders: Orders AMB Cystoscopy 02/12/24 N20.0 - Calculus of kidney Patient Instructions: Imaging studies, laboratory and physical exam results were discussed and reviewed in detail. No major barriers to patient understanding were identified. An opportunity to ask questions regarding the treatment plan was provided. All questions were answered. The patient expressed understanding and agreement with the above treatment plan. The patient is aware they should contact our office by phone for worsening of their current condition or the appearance of new urologic symptoms. Compliance is encouraged with any medications and followup testing that is ordered. It is a privilege to participate in the urologic care of your patient. If you have any questions or concerns regarding treatment for the above conditions, or other urologic issues, please do not hesitate to contact me. The office telephone contact is [phone]. This note is constructed using voice recognition software. While every effort has been made to ensure accuracy steel sash erector errors may have been included. Yours sincerely, Dr Rocky Mays MD, [facility] - Urology Providers of Expert, Compassionate Care for the Genitourinary System
== END 2024-02-12 15:27 | disposition home or self-care (01) ==
PROVIDERS: PCP Internal Medicine; Visit Provider Urology
DX: N20.0 Calculus of kidney (principal)
CPT/HCPCS: 52310; 99213

== ENCOUNTER → 2024-02-12 13:45 | Outpatient (BNVA) | payer MEDICARE, MEDICAID, SELFPAY | PROVIDERS: PCP Internal Medicine; Visit Provider Urology | DX: N20.0 Calculus of kidney (principal) | CPT/HCPCS: 52310; 99212 ==

== ENCOUNTER 2024-03-11 09:01 | Day surgery (SDC) | payer MEDICARE, MEDICAID, SELFPAY ==
[2024-03-06 10:10] VITALS: BMI 38.9
--- NOTE | ~2024-03-11 | XR_ITS ---
EXAMINATION: XR ABDOMEN KUB CLINICAL INDICATION: Right kidney stones, preop. COMPARISON: CT kidney stone 10/10/2023. TECHNIQUE: 3 AP views of the abdomen. FINDINGS: Surgical clips in the right upper quadrant. Degenerative changes in the imaged spine. Prawflya-se-yvydt amount of stool in the colon. Multiple prominent, nonspecific air-filled loops of bowel predominantly in the left upper quadrant. No definitive left renal calculi appreciated, although visualization is limited due to overlying bowel. Previously identified right renal calculi are not clearly appreciated, although visualization is limited due to overlying bowel. 4 mm calcification along the superior aspect of the right sacroiliac joint, possibly related to the right ureter versus extra ureteral. XR/XR KUB IMPRESSION: Previously identified right renal calculi are not clearly appreciated, although visualization is limited due to overlying bowel. 4 mm calcification along the superior aspect of the right sacroiliac joint, possibly related to the right ureter versus extra ureteral. This study was presented today, 03/11/2024, for interpretation. Stat results provided at this time as requested by referring provider.
[2024-03-11 09:35] VITALS: BMI 37.8
--- NOTE | 2024-03-11 09:46 | P.CONAN_ITS ---
[facility] Active Problems Active Problems: All Active Problems Staghorn calculus (Acute) Nephrolithiasis (Acute) Osteoarthritis (Acute) Irritable bowel syndrome with diarrhea (Acute) Cardiomyopathy (Acute) Frequent falls (Acute) Difficulty balancing (Acute) Tubular adenoma of colon (Acute) Hemorrhoids, internal, with bleeding (Acute) Diverticulosis (Acute) Menopause (Acute) Urinary incontinence, mixed (Acute) Atherosclerotic cardiovascular disease (Acute) History of myasthenia gravis (Acute) History of anoxic brain injury (Acute) Hx of non-ST elevation myocardial infarction (NSTEMI) (Acute) Smoker unmotivated to quit (Acute) Mitral valve regurgitation (Acute) Dyslipidemia (Acute) Postsurgical hypothyroidism (Acute) Mild intermittent asthma in adult without complication (Acute) Bipolar disorder (Acute) Chronic GERD (Acute) Allergic rhinitis (Acute) Eczema (Acute) Morbid obesity (Acute) Past Medical History Medical History Urinary incontinence, mixed Atherosclerotic cardiovascular disease Hx of non-ST elevation myocardial infarction (NSTEMI) Cataract Colon cancer screening Smoker unmotivated to quit Shoulder bursitis Trochanteric bursitis Mitral valve regurgitation Narcotic dependence, in remission Chronic GERD Morbid obesity History of myasthenia gravis Allergic rhinitis Eczema Duodenum ulcer Bipolar disorder History of anoxic brain injury Dyslipidemia Mild intermittent asthma in adult without complication Postsurgical hypothyroidism Family History Family History Father Stroke Mother Breast cancer, Onset Age: 40 Brother Brain cancer Brother HIV disease Son No problems noted. Maternal Grandmother Glaucoma Paternal Grandmother Lung cancer Ovarian cancer Family history of problems with anesthesia: Unobtainable Surgical History Surgical History Hx of cystoscopy H/O colonoscopy Hx of thyroidectomy History of esophagogastroduodenoscopy (~01/2015) History of partial hysterectomy History of thymectomy (~2007) History of thyroidectomy, total Hx of tonsillectomy History of cholecystectomy (Unknown) History of appendectomy (Unknown) History of Problems with Anesthesia: No Social History Social History Household Members: Other Household Members Other:: [facility] Housing: Other Housing Other:: [employer] agencyGroup home Do you presently have visiting nurse or other home services: Yes ([facility] staff) Alcohol intake: never Patient Tobacco Use Status: Current everyday Tobacco user Tobacco use type: Cigarette Cigarette Packs Per Day: 0.5 Cigarettes Per Day: 10.0 Years Smoked: 40 e-Cigarette/Vaping Use: Never Used Use of substances other than those prescribed or required for medical reasons: No Advance Directives: No Advance Directives Information Provided: Yes Current occupational status: disabled Cognitive needs: No Hearing needs: No Vision needs: Yes Meds Allergies Allergy/AdvReac Type Severity Reaction Status Date / Time bee pollen [BEE STINGS] Allergy Severe ANAPHYLAXIS Verified 03/11/24 09:38 aspirin [ASA] Allergy Intermediate RASH Verified 03/11/24 09:38 Penicillins Allergy Intermediate Rash Verified 03/11/24 09:38 strawberry [STRAWBERRY] Allergy Intermediate RASH Verified 03/11/24 09:38 Compazine Allergy Unknown unknown Verified 03/11/24 09:38 iodine [IODINE] Allergy Unknown UNKNOWN Verified 03/11/24 09:38 codeine [CODEINE] AdvReac Intermediate GI upset Verified 03/11/24 09:38 benztropine [From Cogentin] AdvReac Unknown Unknown Verified 03/11/24 09:38 Active Medications: Current Medications Fentanyl (Fentanyl Citrate/Pf 100 Mcg/2 Ml Vial) 25 mcg IVPUSH Q5M PRN; Protocol PRN Reason: Pain, Moderate(Pain Scale 4-6) Stop: 03/11/24 15:22 Home Medications ?Medication ?Instructions ?Recorded ?Confirmed ?Last Taken ?Type escitalopram oxalate 20 mg tablet 20 mg PO DAILY 08/24/20 03/06/24 10/28/20 History (Lexapro) trazodone 100 mg tablet 100 mg PO BEDTIME 08/25/20 03/06/24 Unknown History escitalopram oxalate 10 mg tablet 10 mg PO DAILY 03/22/21 03/06/24 Unknown History quetiapine 300 mg tablet,extended 300 mg PO BEDTIME 09/19/21 03/06/24 Unknown History release 24 hr trazodone 50 mg tablet 50 mg PO BEDTIME 12/04/22 03/06/24 Unknown History divalproex 500 mg tablet,delayed 1,000 mg PO .every evening 09/05/23 03/06/24 Unknown History release dorzolamide 2 % eye drops 1 drp ophthalmic (eye) DAILY 12/26/23 03/06/24 Unknown History latanoprost 0.005 % eye drops 1 drp ophthalmic (eye) DAILY 12/26/23 03/06/24 Unknown History sulfamethoxazole 400 1 tab PO DAILY 12/26/23 12/26/23 Unknown History mg-trimethoprim 80 mg tablet (Bactrim) Exam Height,Weight and Vital Signs: Height 5 ft 7.5 in Weight 111.13 kg Airway Mallampati Class: II TM Dist: >3cm Neck ROM: Full Loose/Missing/Broken Teeth: Yes (edentulous) Heart: rrr Lungs: cta Assessment and Plan Assessment Anesthesia Assessment: Anesthesia Plan Discussed and Chart Reviewed Final Anesthetic Review Family History of Problems with Anesthesia: Unobtainable History of Problems with Anesthesia: No NPO: Yes ASA Class: III Final Preanesthetic Review: No Changes in Pt Med Stat, Meds/Allgs Chart Reviewed, Consent Obtained/Reviewed, Anes Risks/Benef Reviewed and DNR Form (If Appl.) Patient Risk: Intermediate Procedure Risk: Intermediate Anesthetic Plan Anesthetic Plan: MAC: Disposition: Standard PACU
[2024-03-11 09:52] VITALS: BP 155/60; PULSE 65; RESP 18; TEMP 36.3; O2SAT 98
--- NOTE | 2024-03-11 09:57 | P.HPSUR_ITS ---
Pre-Procedural Eval Section A - 24 Hr Update-Section A only Date of Service: 03/11/24 The patient is an INPATIENT: No Changes since office visit: No Cold of Flu in the past 2 weeks, No New Medical Problems, No Changes in Medication and No Patient answered all questions The patient has been examined within 24 hours of the surgical procedure. The History & Physical has been completed within 30 days and I have reviewed it.: Yes Section B - Complete if H&P > 30 days Chief Complaint: Calculus of kidney Details of Present Illness: right eswl Relevant Family History (Specify if Yes): No Relevant Social History: None Present Medications: None Medical History: Significant History History of Previous Operations: Relevant previous surgery/procedure and date(s) Allergies: Allergies Allergy/AdvReac Type Severity Reaction Status Date / Time bee pollen [BEE STINGS] Allergy Severe ANAPHYLAXIS Verified 03/11/24 09:38 aspirin [ASA] Allergy Intermediate RASH Verified 03/11/24 09:38 Penicillins Allergy Intermediate Rash Verified 03/11/24 09:38 strawberry [STRAWBERRY] Allergy Intermediate RASH Verified 03/11/24 09:38 Compazine Allergy Unknown unknown Verified 03/11/24 09:38 iodine [IODINE] Allergy Unknown UNKNOWN Verified 03/11/24 09:38 codeine [CODEINE] AdvReac Intermediate GI upset Verified 03/11/24 09:38 benztropine [From Cogentin] AdvReac Unknown Unknown Verified 03/11/24 09:38 Review of Systems Sugical H&P ROS: Negative: Constitution, Cardiovascular, Respiratory, Neurological, Psychiatric, Hem-Onc, Allergic/Immunologic, Gastrointestinal, Ge nitourinary, Musculoskeletal, Integumentary, Endocrine and Eyes/Ears/Nose/Throat Exam Surgical H&P Exam: Normal: HEENT, Normal: Heart, Normal: Lungs, Normal: Extremities, Normal: Abdomen, Normal: Skin and Normal: Neurological Plan Diagnosis/Plan: Unchanged (right eswl) I have reviewed the history and physical and performed a pertinent physical examination on my patient. No changes have occurred unless specified. Time Spent With Patient Time: Total time managing care of this patient today ____ minutes.
--- NOTE | 2024-03-11 10:38 | W.PM.OPN ---
Operative Note Operative Note Date of Service: 03/11/24 Narrative: PreOperative Diagnosis: right Renal stones Post Operative Diagnosis: right Renal stones Procedure: right ESWL Surgeon: Dr Rocky Mays Anesthesia: mac/sedation Indications for procedure: The patient understands ESWL may be a staged procedure and subsequent intervention may be required based on imaging after ESWL. Quoted stone clearance rates for a solitary procedure are in the 70-80% range based primarily on stone location. They also understand there is a risk of bleeding to the kidney, infection, damage to adjacent organs, and stone migration following the procedure. - Imaging right lower pole 11mm remnant Procedure optimization has been performed with IV acetaminophen given in the holding area and 1 L of lactated Ringer's to be given in order to optimize the fluid-stone interface. 20 mg of IV Lasix will be given in the last 5 minutes of the procedure to optimize stone clearance. Procedure: After informed consent was verified the patient was brought to the operating room and placed in a supine position. Anesthesia was performed per protocol. Safety pause time-out was performed. Imaging was displayed in the room and laterality confirmed. ESWL was performed. The 1st 500 shocks were performed at 60 hertz. These were performed with increasing power. Once maximum power was reached the rate was increased to 180 hertz. A total of 2500 shocks were given. Targeted imaging with ultrasound/fluoroscopy showed stone smudging suggestive of disintegration. The patient tolerated the procedure well and was transferred to the recovery area upon completion. Post procedure imaging will be organized. There was no evidence for flank discoloration.
[2024-03-11 10:51] VITALS: BP 135/57; PULSE 70; RESP 16; TEMP 36.6; O2SAT 99
[2024-03-11] MEDS: oxyCODONE HCl Immed Release 5 MG TABLET PO (11:02)
[2024-03-11 11:06] VITALS: BP 121/61; PULSE 67; RESP 16; O2SAT 96
[2024-03-11 11:21] VITALS: BP 125/63; PULSE 66; RESP 16; TEMP 36.8; O2SAT 96
== END 2024-03-11 12:11 | disposition home or self-care (01) ==
PROVIDERS: PCP Internal Medicine; Visit Provider Urology
PROC: (CPT 50590; principal; 2024-03-11 10:30)
DX: N20.0 Calculus of kidney (principal); N39.46 Mixed incontinence; J45.20 Mild intermittent asthma, uncomplicated; I25.2 Old myocardial infarction; G93.1 Anoxic brain damage, not elsewhere classified; Z66 Do not resuscitate; Z79.899 Other long term (current) drug therapy; Z88.0 Allergy status to penicillin; Z91.041 Radiographic dye allergy status; Z88.8 Allergy status to other drugs, medicaments and biological substances; F17.210 Nicotine dependence, cigarettes, uncomplicated; Z98.890 Other specified postprocedural states
CPT/HCPCS: 50590; 74018; J0131; J1956; J2250; J2405; J2704; J3010

== ENCOUNTER → 2024-03-11 09:01 | Outpatient (BNV) | payer MEDICARE, MEDICAID, SELFPAY | PROVIDERS: PCP Internal Medicine; Visit Provider Urology | DX: N20.0 Calculus of kidney (principal) | CPT/HCPCS: 50590 ==

== ENCOUNTER 2024-04-15 10:24 | Outpatient (REF) | payer MEDICARE, MEDICAID, SELFPAY ==
--- NOTE | ~2024-04-15 | US_ITS ---
EXAMINATION: US RETROPERITONEAL LIMITED (RENAL ONLY) CLINICAL INFORMATION: Calculus of kidney. COMPARISON: X-ray abdomen KUB 03/11/2024. CT abdomen and pelvis without contrast 10/10/2023. Ultrasound kidneys and bladder 05/06/2023. TECHNIQUE: Real-time imaging of the kidneys. Limited visualization due to bowel gas. FINDINGS: RIGHT KIDNEY: 11.5 x 5.4 x 6.5 cm (SAG x AP x TRV). Moderate right hydronephrosis. A 1.9 x 1.6 x 2.0 cm echogenic foci characteristic of cluster of calcification versus calcification in the lateral lower pole of the right kidney. Imaged portion of proximal ureter measures 1.0 cm in diameter. Renal cortical thickness is normal. Limited visualization. LEFT KIDNEY: 10.3 x 4.9 x 4.9 cm (SAG x AP x TRV). No hydronephrosis. No renal calculi. Renal cortical thickness is normal. Limited visualization. US/US renal BI IMPRESSION: Moderate right hydronephrosis. A 1.9 x 1.6 x 2.0 cm echogenic foci characteristic of cluster of calcification versus calcification in the lateral lower pole of the right kidney. Imaged portion of proximal ureter measures 1.0 cm in diameter.
== END 2024-04-15 10:25 | disposition home or self-care (01) ==
LOC: HO.US 10:24
PROVIDERS: PCP Internal Medicine; Visit Provider Urology
DX: N20.0 Calculus of kidney (principal)
CPT/HCPCS: 76775

== ENCOUNTER 2024-04-24 11:44 | Outpatient (AMB) | payer MEDICARE, MEDICAID, SELFPAY ==
--- NOTE | 2024-04-24 11:50 | MHC.OFFVIS ---
Intake Visit Reasons: ESWL follow up/US(04/15) Intake Note: Patient is Present for Follow Up Urology Medication: None Antibiotic Allergies: Penicillins, Blood Thinners:none Allergies bee pollen [BEE STINGS] Allergy (Severe, Verified 04/24/24 11:53) ANAPHYLAXIS aspirin [ASA] Allergy (Intermediate, Verified 04/24/24 11:53) RASH Penicillins Allergy (Intermediate, Verified 04/24/24 11:53) Rash strawberry [STRAWBERRY] Allergy (Intermediate, Verified 04/24/24 11:53) RASH Compazine Allergy (Unknown, Verified 04/24/24 11:53) unknown iodine [IODINE] Allergy (Unknown, Verified 04/24/24 11:53) UNKNOWN codeine [CODEINE] Adverse Reaction (Intermediate, Verified 04/24/24 11:53) GI upset benztropine [From Cogentin] Adverse Reaction (Unknown, Verified 04/24/24 11:53) Unknown HPI Comments Details: Mayra is a pleasant female. She is a patient of Dr. Rivers. She is seen for the following urologic conditions - large right renal stone Fragments within renal pelvis Has had some bladder spasm Prescribe OAB medication Imaging - renal ultrasound stone cluster right side Nephrolithiasis CT 1.3 cm right renal stone Intervention - 01/18 ureteroscopy with laser lithotripsy - 03/18 ESWL [facility] Medical History Urinary incontinence, mixed Atherosclerotic cardiovascular disease Hx of non-ST elevation myocardial infarction (NSTEMI) Cataract Colon cancer screening Smoker unmotivated to quit Shoulder bursitis Trochanteric bursitis Mitral valve regurgitation Narcotic dependence, in remission Chronic GERD Morbid obesity History of myasthenia gravis Allergic rhinitis Eczema Duodenum ulcer Bipolar disorder History of anoxic brain injury Dyslipidemia Mild intermittent asthma in adult without complication Postsurgical hypothyroidism Surgical History Hx of cystoscopy H/O colonoscopy Hx of thyroidectomy History of esophagogastroduodenoscopy (~01/2015) History of partial hysterectomy History of thymectomy (~2007) History of thyroidectomy, total Hx of tonsillectomy History of cholecystectomy (Unknown) History of appendectomy (Unknown) Family History Father Stroke Mother Breast cancer, Onset Age: 40 Brother Brain cancer Brother HIV disease Son No problems noted. 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[employer]) Housing: Other Housing Other:: [employer] agencyGroup home Do you presently have visiting nurse or other home services: Yes (skilled nursing staff) Alcohol intake: never Patient Tobacco Use Status: Current everyday Tobacco user Tobacco use type: Cigarette Cigarette Packs Per Day: 0.5 Cigarettes Per Day: 10.0 Years Smoked: 40 e-Cigarette/Vaping Use: Never Used Current occupational status: disabled Cognitive needs: No Hearing needs: No Vision needs: Yes Review of Systems Const Denies chills and Denies fever(s) Card Reports no additional complaints and Denies syncope Resp Denies cough GI Denies abdominal pain and Denies heartburn Reports as per HPI and Denies change in libido Neuro Denies syncope Psych Denies change in libido Endo Denies change in libido Physical Exam Const General: cooperative, healthy appearing, comfortable and no acute distress Orientation/consciousness: patient oriented x3 HEENT Face and sinus: Yes normal facial exam Mouth: moist mucous membranes Neck Neck: Yes normal visual inspection, Yes full ROM and Yes trachea midline Chest Chest palpation & inspection: normal inspection of the chest Resp Effort & Inspection: normal respiratory effort, able to speak in complete sentences and no respiratory distress GI Inspection: Yes normal to inspection Back/Spine/Pelvis Cervical Spine: normal cervical lordosis Thoracic/Lumbar Spine: thoracic and lumbar spine normal to inspection Skin General skin exam: no rashes or lesions noted Neuro General: patient oriented x3, gait normal, tone normal and moves all extremities Extrem General: Yes normal to inspection and Yes capillary refill normal Assessment & Plan Assessment & Plan (1) Nephrolithiasis: Code(s): N20.0 - Calculus of kidney Category: Medical (2) Urinary incontinence, mixed: Code(s): N39.46 - Mixed incontinence Category: Medical Plan Six week follow-up renal ultrasound Orders: Orders US renal BI 6 Months N20.0 - Calculus of kidney Patient Instructions: Imaging studies, laboratory and physical exam results were discussed and reviewed in detail. No major barriers to patient understanding were identified. An opportunity to ask questions regarding the treatment plan was provided. All questions were answered. The patient expressed understanding and agreement with the above treatment plan. The patient is aware they should contact our office by phone for worsening of their current condition or the appearance of new urologic symptoms. Compliance is encouraged with any medications and followup testing that is ordered. It is a privilege to participate in the urologic care of your patient. If you have any questions or concerns regarding treatment for the above conditions, or other urologic issues, please do not hesitate to contact me. The office telephone contact is [phone]. This note is constructed using voice recognition software. While every effort has been made to ensure accuracy tool engine lathe set up operator errors may have been included. Yours sincerely, Dr Rocky Mays MD, [facility] - Urology Providers of Expert, Compassionate Care for the Genitourinary System Coding Level of Care Code Est Pt Level 3 (19702) Diagnoses Nephrolithiasis N20.0 Urinary incontinence, mixed N39.46
== END 2024-04-24 12:45 | disposition home or self-care (01) ==
PROVIDERS: PCP Internal Medicine; Visit Provider Urology
DX: N20.0 Calculus of kidney (principal); N39.46 Mixed incontinence
CPT/HCPCS: 99024

== ENCOUNTER → 2024-04-24 11:44 | Outpatient (BNVA) | payer MEDICARE, MEDICAID, SELFPAY | PROVIDERS: PCP Internal Medicine; Visit Provider Urology | DX: N20.0 Calculus of kidney (principal); N39.46 Mixed incontinence | CPT/HCPCS: 99212 ==

== ENCOUNTER 2024-07-07 09:38 | Outpatient (REF) | payer MEDICARE, MEDICAID, SELFPAY ==
[2024-07-07 13:53] LABS: Alanine Aminotransferase 11 U/L (0-31); Albumin Level 3.4 g/dL (3.5-5.0); Alkaline Phosphatase 81 U/L (39-117); Aspartate Amino Transferase 10 U/L (5-31); Bilirubin Direct < 0.2 mg/dL (0.0-0.5); Bilirubin Total 0.2 mg/dL (0.0-1.0); Total Protein 6.5 g/dL (6.5-8.0)
[2024-07-07 14:31] LABS: Valproate 28.2 mcg/mL (50.0-100.0)
== END 2024-07-07 09:39 | disposition home or self-care (01) ==
LOC: HO.HMGCLDS 09:38
PROVIDERS: PCP Internal Medicine; Visit Provider General Practice
DX: F33.1 Major depressive disorder, recurrent, moderate (principal); Z79.899 Other long term (current) drug therapy
CPT/HCPCS: 36415; 80076; 80164

== ENCOUNTER → 2024-09-01 11:15 | Outpatient (BNVA) | payer MEDICARE, MEDICAID, SELFPAY | PROVIDERS: PCP Internal Medicine; Visit Provider Nurse Practitioner | DX: K21.9 Gastro-esophageal reflux disease without esophagitis (principal); K59.00 Constipation, unspecified; K64.8 Other hemorrhoids | CPT/HCPCS: 99212 ==

== ENCOUNTER 2024-09-01 11:16 | Outpatient (AMB) | payer MEDICARE, MEDICAID, SELFPAY ==
[2024-09-01 11:25] VITALS: BP 123/61; PULSE 80; BMI 38.1
--- NOTE | 2024-09-01 11:25 | A.OFFVIS_ITS ---
Vital Signs 09/01/24 11:25 Height 5 ft 7.5 in Weight 247 lb BMI 38.1 BP 123/61 Blood Pressure Location Lt brachial Position Sitting Pulse 80 Intake Visit Reasons: Follow up Intake Note: Mayra presents to in office follow up of IBS. CC: Patient reports doing well but states that she had kidney stones and is seeing urology. Denies having any GI concerns today. 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 Accompanied by: home staff Allergies bee pollen [BEE STINGS] Allergy (Severe, Verified 09/01/24 11:39) ANAPHYLAXIS aspirin [ASA] Allergy (Intermediate, Verified 09/01/24 11:39) RASH Penicillins Allergy (Intermediate, Verified 09/01/24 11:39) Rash strawberry [STRAWBERRY] Allergy (Intermediate, Verified 09/01/24 11:39) RASH Compazine Allergy (Unknown, Verified 09/01/24 11:39) unknown iodine [IODINE] Allergy (Unknown, Verified 09/01/24 11:39) UNKNOWN codeine [CODEINE] Adverse Reaction (Intermediate, Verified 09/01/24 11:39) GI upset benztropine [From Cogentin] Adverse Reaction (Unknown, Verified 09/01/24 11:39) Unknown Medication List - Last Reconciled 09/01/24 by TOMAS Jim acetaminophen 650 mg (2 x 325 mg) PO BID PRN albuterol sulfate 90 mcg/actuation (Ventolin HFA) 2 puffs inhalation Q4H PRN atorvastatin 10 mg PO DAILY 90 days cetirizine 10 mg PO QAM cholecalciferol (vitamin D3) 50 mcg PO QAM dextromethorphan-guaifenesin 10-100 mg/5 mL (Tussin DM) 10 mL PO Q4H PRN diclofenac sodium 1% (Voltaren Arthritis Pain) 2 grams topical QID divalproex 1,000 mg PO .every evening dorzolamide 2% 1 drp ophthalmic (eye) DAILY escitalopram oxalate (Lexapro) 20 mg PO DAILY escitalopram oxalate 10 mg PO DAILY fluticasone furoate-vilanterol 100-25 mcg/dose (Breo Ellipta) 1 inh inhalation Q24H hydrocortisone 2.5% (Proctosol HC) 1 appl NE BID PRN latanoprost 0.005% 1 drp ophthalmic (eye) DAILY levothyroxine (Levoxyl) 50 mcg PO DAILY lidocaine 4% (AsperFlex (lidocaine)) 1 patch topical DAILY PRN lubiprostone (Amitiza) 24 mcg PO BID 30 days metoprolol tartrate 12.5 mg (1/2 x 25 mg) PO QAM montelukast 10 mg PO DAILY omega 1-vuk-efh-fish oil 1,200 (144-216) mg (Fish Oil) 1 cap PO BID 30 days pantoprazole 40 mg PO BID quetiapine ER 300 mg PO BEDTIME trazodone 100 mg PO BEDTIME trazodone 200 mg PO DAILY HPI HPI Follow up: Details: Assessment & Plan (1) Tubular adenoma of colon: Comment: 2022= 3 POLYPS REPEAT IN 3 YEARS; 10/2020 scope repeat in 3 years related to large size Code(s): D12.6 - Benign neoplasm of colon, unspecified Plan: She is here today with Di jaquez who is a residential counsellor. THE PROCEDURE NEEDS TO BE REPEATED IN 3 YEARS TO THE FINDING OF 3 LARGE TUBULAR ADENOMAS. The procedure was well tolerated. The results were explained and the patient is agreeable to the follow-up interval as stated. The bowel pattern has returned to normal. Education was provided to tell any 1st degree relatives about their findings to be sure that they are screened by age 45. Educated that they will be put on a recall list when it is time for their repeat scope but should they move out of state or away from the hospital they will need to remember along with their primary to repeat the procedure in a timely fashion to avoid any adverse complications. She continues to have diarrhea which is her baseline. She is only eating 1 meal a day because she was counseled to lose weight and she has lost over 40 lb any year. However she is concerned that she is not getting proper nutrition because she has frequent diarrhea that tends to manifest mostly overnight. As the past we discussed that she needs to take at least 1 Imodium a day but I do not think she has remembered to do this, she also was concerned about her total pill burden. Now that she has someone with her to help her I think we can try this and then titrate the medication to affect her side effect. Return office visit in 4 weeks (2) Irritable bowel syndrome with diarrhea: Code(s): K58.0 - Irritable bowel syndrome with diarrhea (3) Chronic GERD: Code(s): K21.9 - Gastro-esophageal reflux disease without esophagitis Laboratory Tests 08/13/22 09/21/22 10/24/22 10:50 09:10 10:10 WBC Hgb Hct Plt Count Estimated GFR Total Bilirubin 0.5 Direct Bilirubin AST 23 ALT 25 Alkaline Phosphatase 65 TSH 2.12 Valproic Acid 74.1 01/06/24 07/07/24 08:14 09:45 WBC 4.7 L Hgb 13.4 Hct 41.8 Plt Count 166 Estimated GFR > 60 Total Bilirubin 0.2 Direct Bilirubin < 0.2 AST 10 ALT 11 Alkaline Phosphatase 81 TSH Valproic Acid TODAY'S VISIT She had a scope in 2022 She has been struggling with renal stones! She had a couple of complex lithotripsies, several courses of antibiotics and was temporarily on Flomax for awhile. She was very ill with this but hopefully she is past the worst. She is no longer having diarrhea, now CIC not moving bowels for 4 days. She can not point to any particular medication changes although the constipation did seem to start her on the same time as the kidney stones. They did increase her Seroquel and her trazodone but otherwise her medications are all the same. There have been no major diet changes to explain this either. She is on lev othyroxine urge that her thyroid is being monitored. Start trial Amitiza 8mcg bid and titrate and send miralax. In the meantime she continues on her omeprazole twice a day and we will also refill her hemorrhoid cream. ROV 8 weeks. [facility] Medical History (Updated 09/01/24 @ 16:57 by TOMAS Jim) Irritable bowel syndrome with diarrhea Osteoarthritis Staghorn calculus Diverticulosis Urinary incontinence, mixed Atherosclerotic cardiovascular disease Hx of non-ST elevation myocardial infarction (NSTEMI) Cataract Colon cancer screening Smoker unmotivated to quit Shoulder bursitis Trochanteric bursitis Mitral valve regurgitation Narcotic dependence, in remission Chronic GERD Morbid obesity History of myasthenia gravis Allergic rhinitis Eczema Duodenum ulcer Bipolar disorder History of anoxic brain injury Dyslipidemia Mild intermittent asthma in adult without complication Postsurgical hypothyroidism Surgical History Hx of cystoscopy H/O colonoscopy Hx of thyroidectomy History of esophagogastroduodenoscopy (~01/2015) History of partial hysterectomy History of thymectomy (~2007) History of thyroidectomy, total Hx of tonsillectomy History of cholecystectomy (Unknown) History of appendectomy (Unknown) Family History Father Stroke Mother Breast cancer, Onset Age: 40 Brother Brain cancer Brother HIV disease Son No problems noted. 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[employer]) Housing: Other Housing Other:: [employer] agencyGroup home Do you presently have visiting nurse or other home services: Yes (nursing home staff) Alcohol intake: never Patient Tobacco Use Status: Current everyday Tobacco user Tobacco use type: Cigarette Cigarette Packs Per Day: 0.5 Cigarettes Per Day: 10.0 Years Smoked: 40 e-Cigarette/Vaping Use: Never Used Current occupational status: disabled Cognitive needs: No Hearing needs: No Vision needs: Yes Review of Systems Const Denies fatigue, Denies fever(s), Denies night sweats, Denies poor appetite and Denies weight loss ENT Reports Normal hearing present, Denies dysphagia, Denies odynophagia, Denies throat swelling and Denies tongue swelling Card Reports no additional complaints and Reports dyspnea on exertion Resp Reports dyspnea on exertion GI Details: Denies abdominal pain, Denies melena, Denies bloating, Denies hematochezia, Reports constipation, Denies GI cramping, Denies dysphagia, Denies excessive flatus, Denies early satiety, Reports heartburn, Denies diarrhea, Denies nausea, Denies odynophagia, Denies vomiting and Denies hematemesis Reports flank pain Musc Reports abnormal gait, Reports back pain and Reports arthralgias Skin/Breast Denies pruritus, Denies lesions, Denies rash and Denies jaundice Neuro Reports Normal hearing present, Denies Abnormal speech present and Reports abnormal gait Endo Denies fatigue Aller/Immun Denies throat swelling and Denies tongue swelling Physical Exam Vital Signs: Last Vital Signs Pulse 80 09/01/24 11:25 BP 123/61 09/01/24 11:25 BMI result Body Mass Index 38.1 Const General: cooperative, no acute distress, well developed and well groomed Nutritional Appearance: well nourished and obese Orientation/consciousness: oriented to person, oriented to place and oriented to time Limitations: No language barrier, wheelchair and other limitations HEENT Head: Yes normocephalic and Yes atraumatic Eyes General: appearance normal, both eyes and all related structures Pupils: Equal, round and reactive pupils present Neck Neck: Yes normal visual inspection and Yes no lymphadenopathy Thyroid: Thyroid normal Resp Effort & Inspection: normal respiratory effort and able to speak in complete sentences Auscultation: clear to auscultation bilaterally Cardio Rate: regular rate Rhythm: regular rhythm Heart sounds: Normal, physiologic split S2 sound present Peripheral pulses: radial pulses present and posterior tibial pulses present GI Inspection: No distended, Yes Abdominal panniculus present and Yes obesity Palpation (GI): Soft to palpation, nontender, no guarding, not rigid and No hepatosplenomegaly present Percussion: Yes normal to percussion Auscultation: normal bowel sounds Rectal Exam - Female: deferred Skin General skin exam: no rashes or lesions noted, turgor normal, skin not dry, no jaundice, No spider nevi and no striae Rashes: no rashes Nails: normal Neuro General: oriented to person, oriented to place and oriented to time Cranial nerves: Yes Equal, round and reactive pupils present and Yes Normal hearing present Speech: No Abnormal speech present Extrem General: Yes normal to inspection, No clubbing, No cyanosis and No edema Psych Appearance: grossly normal and well kempt Mental Status: mental status grossly normal Speech and movement: Normal speech and movement present Affect: normal affect Attitude: cooperative Thought process: Normal thought process present and not confabulating Thought content: Normal thought content present Insight: Limited insight present (Psych) Judgement: Limited judgement present (Psych) Assessment & Plan Assessment & Plan (1) Constipation: Code(s): K59.00 - Constipation, unspecified Category: Medical (2) Chronic GERD: Code(s): K21.9 - Gastro-esophageal reflux disease without esophagitis Category: Medical (3) Hemorrhoids, internal, with bleeding: Code(s): K64.8 - Other hemorrhoids Category: Medical Plan She had a scope in 2022 She has been struggling with renal stones! She had a couple of complex lithotripsies, several courses of antibiotics and was temporarily on Flomax for awhile. She was very ill with this but hopefully she is past the worst. She is no longer having diarrhea, now CIC not moving bowels for 4 days. She can not point to any particular medication changes although the constipation did seem to start her on the same time as the kidney stones. They did increase her Seroquel and her trazodone but otherwise her medications are all the same. There have been no major diet changes to explain this either. She is on levothyroxine urge that her thyroid is being monitored. Start trial Amitiza 8mcg bid and titrate and send miralax. In the meantime she continues on her omeprazole twice a day and we will also refill her hemorrhoid cream. ROV 8 weeks. Medications: New lubiprostone (Amitiza) 24 mcg PO BID 60 caps 1RF 30 days Refilled pantoprazole 40 mg PO BID 60 tabs 6RF K21.9 - Gastro-esophageal reflux disease without esophagitis Discontinued oxycodone-acetaminophen 5-325 mg Partial Fill upon patient request. Discontinued Reason: Patient Completed Course 1 tab PO Q4H 7 days PRN 14 tabs 0RF pain (scale score 4-6) tamsulosin Discontinued Reason: Patient Completed Course 0.4 mg PO BEDTIME 14 days 14 caps 0RF sulfamethoxazole-trimethoprim 800-160 mg (Bactrim DS) Discontinued Reason: Patient Completed Course 1 tab PO BID 3 days 6 tabs 0RF oxycodone-acetaminophen 5-325 mg Partial Fill upon patient request. Discontinued Reason: Patient Completed Course 1 tab PO Q4H 7 days PRN 14 tabs 0RF pain (scale score 4-6) tamsulosin Discontinued Reason: Patient Completed Course 0.4 mg PO BEDTIME 14 days 14 caps 0RF sulfamethoxazole-trimethoprim 400-80 mg (Bactrim) Discontinued Reason: Patient Completed Course 1 tab PO DAILY 90 days 90 tabs 1RF UTI suppression N39.0 - Urinary tract infection, site not specified Coding Level of Care Code Est Pt Level 3 (09816) Diagnoses Constipation K59.00 Chronic GERD K21.9 Hemorrhoids, internal, with bleeding K64.8
== END 2024-09-01 13:08 | disposition home or self-care (01) ==
PROVIDERS: PCP Internal Medicine; Visit Provider Nurse Practitioner
DX: K59.00 Constipation, unspecified (principal); K21.9 Gastro-esophageal reflux disease without esophagitis; K64.8 Other hemorrhoids
CPT/HCPCS: 99213

== ENCOUNTER 2024-09-28 09:57 | Outpatient (REF) | payer MEDICARE, MEDICAID, SELFPAY ==
[2024-09-28 13:35] LABS: MANUAL DIFF FLAG NO
[2024-09-28 13:54] LABS: Basophils Percent Auto 0.8 % (0-2); Eosinophils Absolute Auto 0.2 X10*3/uL (0.0-0.4); Eosinophils Percent Auto 3.5 % (0-4); Hematocrit 38.8 % (37.0-47.0); Hemoglobin 12.3 g/dl (12.0-16.0); Imm Gran Abs Auto 0.02 X10*3/uL (0.00-0.03); Imm Gran Pct Auto 0.4 % (0.0-0.4); Lymphocytes Absolute Auto 1.1 X10*3/uL (1.2-4.9); Lymphocytes Percent Auto 22.2 % (20-40); Mean Corpuscular HGB Conc 31.7 g/dl (31.0-35.0); Mean Corpuscular Hemoglobin 30.1 pg (27.0-33.0); Mean Corpuscular Volume 94.9 fL (80.0-98.0); Mean Platelet Volume 11.6 fL (9.4-12.3); Monocytes Absolute Auto 0.4 X10*3/uL (0.1-1.2); Neutrophils Absolute Auto 3.2 x10*3/uL (2.0-8.3); Neutrophils Percent Auto 65.1 % (45-73); Platelet Count 182 X10*3/uL (160-400); Red Blood Count 4.09 X10*6/uL (4.20-5.50); Red Cell Distribution Width 13.5 % (11.0-16.0); White Blood Count 4.9 X10*3/uL (4.8-10.8)
[2024-09-28 14:22] LABS: Alanine Aminotransferase 8 U/L (0-31); Albumin Level 3.5 g/dL (3.5-5.0); Alkaline Phosphatase 69 U/L (39-117); Anion Gap 13 (12-20); Aspartate Amino Transferase 15 U/L (5-31); Bilirubin Total 0.2 mg/dL (0.0-1.0); Blood Urea Nitrogen 27 mg/dL (9-16); Calcium 9.8 mg/dL (8.4-10.2); Carbon Dioxide 29 mmol/L (22-29); Chloride 105 mmol/L (96-108); Cholesterol 162 mg/dL (<200); Estimated Glomerular Filt Rate 40; Glucose Fasting 78 mg/dL (60-99); HDL Cholesterol 45 mg/dL (>40); LDL Cholesterol Calculated 91 mg/dL (<100); Potassium 4.5 mmol/L (3.3-5.1); Sodium 142 mmol/L (135-145); Total Protein 6.7 g/dL (6.5-8.0); Triglycerides 134 mg/dL (<150)
[2024-09-28 14:39] LABS: TSH reflex Free T4 2.02 uIU/mL (0.32-4.0); Vitamin D 25-OH Total 50.7 ng/mL (>30)
== END 2024-09-28 09:58 | disposition home or self-care (01) ==
LOC: HO.HMGCLDS 09:57
PROVIDERS: PCP Internal Medicine; Visit Provider Nurse Practitioner Family
DX: E78.5 Hyperlipidemia, unspecified (principal); Z78.0 Asymptomatic menopausal state; M19.90 Unspecified osteoarthritis, unspecified site; R29.6 Repeated falls
CPT/HCPCS: 36415; 80053; 80061; 82306; 84443; 85025

== ENCOUNTER 2024-10-01 09:28 | Outpatient (AMB) | payer MEDICARE, MEDICAID, SELFPAY ==
--- NOTE | 2024-10-01 09:35 | MHC.PC.OV ---
Vital Signs 10/01/24 09:42 Height 5 ft 7.5 in Weight 255 lb BMI 39.3 BP 126/62 Blood Pressure Location Rt brachial Position Sitting Pulse 66 Pulse Source Pulse Oximeter Pulse Oximetry (%) 96 Oxygen Delivery Method Room Air Intake Visit Reasons: PE/SECONDARY Intake Note: Pt is here today for her PE: Last mammogram 01/02/23, bone density scan 05/30/21, colonoscopy 08/22/23 Allergies bee pollen [BEE STINGS] Allergy (Severe, Verified 10/01/24 09:55) ANAPHYLAXIS aspirin [ASA] Allergy (Intermediate, Verified 10/01/24 09:55) RASH Penicillins Allergy (Intermediate, Verified 10/01/24 09:55) Rash strawberry [STRAWBERRY] Allergy (Intermediate, Verified 10/01/24 09:55) RASH Compazine Allergy (Unknown, Verified 10/01/24 09:55) unknown iodine [IODINE] Allergy (Unknown, Verified 10/01/24 09:55) UNKNOWN codeine [CODEINE] Adverse Reaction (Intermediate, Verified 10/01/24 09:55) GI upset benztropine [From Cogentin] Adverse Reaction (Unknown, Verified 10/01/24 09:55) Unknown Medication List - Last Reconciled 10/01/24 by Chichi Rivers MD acetaminophen 650 mg (2 x 325 mg) PO BID PRN albuterol sulfate 90 mcg/actuation (Ventolin HFA) 2 puffs inhalation Q4H PRN atorvastatin 10 mg PO DAILY 90 days brinzolamide 1% (Azopt) drps ophthalmic (eye) cetirizine 10 mg PO QAM cholecalciferol (vitamin D3) 50 mcg PO QAM dextromethorphan-guaifenesin 10-100 mg/5 mL (Tussin DM) 10 mL PO Q4H PRN diclofenac sodium 1% (Voltaren Arthritis Pain) 2 grams topical QID divalproex 1,000 mg PO .every evening escitalopram oxalate (Lexapro) 20 mg PO DAILY escitalopram oxalate 10 mg PO DAILY fluticasone furoate-vilanterol 100-25 mcg/dose (Breo Ellipta) 1 inh inhalation Q24H hydrocortisone 2.5% (Proctosol HC) 1 appl NM BID PRN latanoprost 0.005% 1 drp ophthalmic (eye) DAILY levothyroxine (Levoxyl) 50 mcg PO DAILY lubiprostone (Amitiza) 8 mcg PO BID PRN metoprolol tartrate 12.5 mg (1/2 x 25 mg) PO QAM montelukast 10 mg PO DAILY omega 5-lyk-dac-fish oil 1,200 (144-216) mg (Fish Oil) 1 cap PO BID 30 days pantoprazole 40 mg PO BID quetiapine ER 200 mg PO BEDTIME quetiapine ER mg PO trazodone 200 mg PO DAILY Tobacco use date assessed: 10/01/24 Fall risk assessment: 1 Fall in past year Last assessed Fall Risk: 10/01/24 Dental Screening Dental Screen Date: 10/01/24 Did you have a dental visit in the last 12 months?: Yes Did you have a dental problem in the last 6 months where you did not have access to dental care?: No Was dental information given to patient?: Patient has dentist HPI PE/SECONDARY HPI Details 68 year lady with history of myasthenia gravies , history of non STEMI, has mitral valve regurgitation, dyslipidemia, postsurgical hypothyroidism , bipolar disorder followed by Dr. Fuentes, mild intermittent asthma , history of tubular adenoma of colon, IBS, and chronic GERD followed by the GI clinic at [facility], renal calculi , and morbid obesity, here today for her physical exam. She is overdue to get her screening mammogram, last done 01/14/2023, due for her repeat bone density scan which was last done 05/30/2021 Up-to-date with her screening colonoscopy, last done 08/22/23 with removal of a tubular adenoma, repeat colonoscopy due again in 2027 Currently goes to [facility], followed for her glaucoma. [facility] Medical History (Updated 10/01/24 @ 10:23 by Chichi Rivers MD) Glaucoma Osteopenia of multiple sites Irritable bowel syndrome with diarrhea Osteoarthritis Staghorn calculus Diverticulosis Urinary incontinence, mixed Atherosclerotic cardiovascular disease Colon cancer screening Smoker unmotivated to quit Shoulder bursitis Trochanteric bursitis Mitral valve regurgitation Narcotic dependence, in remission Chronic GERD Morbid obesity History of myasthenia gravis Allergic rhinitis Eczema Duodenum ulcer Bipolar disorder History of anoxic brain injury Dyslipidemia Mild intermittent asthma in adult without complication Postsurgical hypothyroidism Surgical History (Updated 10/01/24 @ 10:12 by Chichi Rivers MD) History of cataract surgery Hx of cystoscopy H/O colonoscopy Hx of thyroidectomy History of esophagogastroduodenoscopy (~01/2015) History of partial hysterectomy History of thymectomy (~2007) History of thyroidectomy, total Hx of tonsillectomy History of cholecystectomy (Unknown) History of appendectomy (Unknown) Family History Father Stroke Mother Breast cancer, Onset Age: 40 Brother Brain cancer Brother HIV disease Son No problems noted. Maternal Grandmother Glaucoma Paternal Grandmother Lung cancer Ovarian cancer Social History Household Members: Other Household Members Other:: senior care ([employer]) Housing: Other Housing Other:: [employer] agencyGroup home Do you presently have visiting nurse or other home services: Yes (senior care staff) Alcohol intake: never Patient Tobacco Use Status: Current everyday Tobacco user Tobacco use type: Cigarette Cigarette Packs Per Day: 0.5 Cigarettes Per Day: 10.0 Years Smoked: 40 e-Cigarette/Vaping Use: Never Used Current occupational status: disabled Cognitive needs: No Hearing needs: No Vision needs: Yes Questionnaire PHQ-9 Over the last 2 weeks, how often have you been bothered by any of the following problems? 1. Little interest or pleasure in doing things: not at all 2. Feeling down, depressed, or hopeless: not at all 3. Trouble falling or staying asleep, or sleeping too much: several days 4. Feeling tired or having little energy: not at all 5. Poor appetite or overeating: not at all 6. Feeling bad about yourself - or that you are a failure or have let yourself or your family down: not at all 7. Trouble concentrating on things, such as reading the newspaper or watching television: not at all 8. Moving or speaking so slowly that other people could have noticed. Or the opposite - being so fidgety or restless that you have been moving around a lot more than usual: not at all 9. Thoughts that you would be better off or of hurting yourself in some way: not at all Total score: 1 Depression Screening Interpretation: Negative Depression Screening Done: Yes 37228 - PHQ-9 Billing: Yes Source: Developed by Drs. Maxi Powers, Gorge Montero and colleagues, with an educational jon from [employer]. Thrive Questionnaire Date Thrive assessed: 10/01/24 I am a: Patient What is your living situation today?: I have a steady place to live Within the past 12 months, did the food you bought not last and you didn't have the money to get more?: Never true Within the past 12 months, did you worry whether your food would run out before you got money to buy more?: Never true Do you have trouble paying for medicines?: No Do you have trouble getting transportation to medical appointments?: No Do you have trouble paying your heating and electricity bill?: No Do you have trouble taking care of your child, family member or friend?: No Do you have trouble with day-to-day activities such as bathing, preparing meals, shopping, managing finances, etc.?: No Are you currently unemployed and looking for a job?: No Are you interested in more education?: No Please select the resources that you would like help with: None Currently or been in a relationship where the following occur: No concerns reported THRIVE Score: 0 AUDIT C Alcohol Use Questionnaire (AUDIT-C) 1. How often do you have a drink containing alcohol?: Never Total Score: 0 SIMRAN-7 AMB Questionnaire SIMRAN-7 Date SIMRAN - 7 assessed: 10/01/24 Feeling nervous, anxious, or on edge: 0 = Not at all Not being able to stop or control worryin = Not at all Worrying too much about different things: 0 = Not at all Trouble relaxin = Not at all Being so restless that it is hard to sit still: 0 = Not at all Becoming easily annoyed or irritable: 0 = Not at all Feeling afraid as if something awful might happen: 0 = Not at all Total SIMRAN-7 score (0-4 normal; 5-9 mild; 10-14 moderate; 15-21 severe): 0 Source: Developed by Drs. Maxi Powers, Gorge Montero and colleagues, with an educational jon from [employer]. SIMRAN-7 Assessment Billing SIMRAN-7 Assessment Tool: SIMRAN-7 Assessment 74063 Review of Systems Const Denies fatigue and Denies headache(s) Eyes Details: Up-to-date with her eye exam, sees [facility] Denies change in vision ENT Reports Normal hearing present, Denies dizziness, Denies headache(s) and Denies nasal congestion Card Denies chest pain, Denies chest pain with activity, Denies syncope, Denies rapid heart rate, Denies edema, Denies lightheadedness, Denies palpitations, Denies dyspnea and Denies dyspnea on exertion Resp Denies cough, Denies dyspnea and Denies dyspnea on exertion GI Denies abdominal pain, Denies melena, Denies hematochezia, Denies change in bowel habits and Denies heartburn Reports as per HPI Musc Denies muscle cramps, Denies numbness, Denies radiating pain into limb and Denies tingling Skin/Breast Details: sees Dr Martinez for raised erythematous rash on right anterior chest Denies unusual bruising Neuro Reports Normal hearing present, Denies Abnormal speech present, Denies dizziness, Denies syncope, Denies headache(s), Denies numbness and Denies tingling Psych Details: Followed by psychiatry Reports no additional complaints Endo Denies fatigue, Denies polydipsia, Denies polyuria and Denies palpitations Ned/Lymph Denies easy bleeding and Denies easy bruising Aller/Immun Reports no additional complaints Physical exam (Primary Care) Vital Signs: Last Vital Signs Pulse 66 10/01/24 09:42 BP 126/62 10/01/24 09:42 Pulse Ox 96 10/01/24 09:42 Oxygen Delivery Method Room Air 10/01/24 09:42 BMI result Body Mass Index 39.3 Tobacco/Smoking Status: Tobacco use Status Tobacco use date assessed 10/01/24 10/01/24 09:37 Patient Tobacco Use Status Current everyday Tobacco 10/01/24 09:37 Tobacco use type Cigarette 10/01/24 09:37 e-Cigarette/Vaping Use Never Used 10/01/24 09:37 Are you ready to quit: No PHQ-9: PHQ-9 Score PHQ-9: Total score 1 10/03/24 02:53 Depression Screening Interpretation: Negative Thrive Assessment: Date of Thrive Assessment Date Thrive assessed 10/01/24 10/01/24 09:50 Currently or been in a relationship where the following occur: No concerns reported Const Other: Accompanied by caregiver General: no acute distress and alert Nutritional Appearance: obese Orientation/consciousness: patient oriented x3 Limitations: ambulation with walker HENMT Mouth: Normal oral and palatal mucosa present, oropharynx normal and moist mucous membranes Teeth and gingiva: edentulous Eyes General: appearance normal, both eyes and all related structures Neck Neck: Yes full ROM, Yes no lymphadenopathy and Yes supple Chest Breast/axilla palpation: normal palpation of the breasts Resp Auscultation: clear to auscultation bilaterally Cardio Other: S1-S2 present regular rate and rhythm GI Palpation (GI): Soft to palpation, nontender and no guarding Auscultation: normal bowel sounds General: Yes no CVA tenderness Back/Spine/Pelvis Back: no CVA tenderness and No back tenderness Skin Other: Slightly scaly Erythematous patch on right anterior chest General skin exam: no rashes or lesions noted Neuro General: patient oriented x3, moves all extremities, Normal light touch and pain sensation, no focal motor deficits and CN's II-XI intact bilaterally Cranial nerves: Yes Normal hearing present Speech: No Abnormal speech present Gait exam (Neuro): Shuffling gait present and Assisted gait required Gait assisted method: walker Extrem General: Yes full ROM, Yes no joint enlargement, Yes no pedal edema and Yes no calf tenderness Psych Appearance: grossly normal and well kempt Speech and movement: Normal speech and movement present Affect: normal affect Attitude: cooperative Thought process: Normal thought process present Thought content: Normal thought content present Results Reviewed Results Reviewed: Name: Mayra Osorio Age/Sex: 68/F : 1955 Unit#: [id number] Attend Dr: Wilner Gonzalez [facility] Re09/28/24 Status: DEP [facility] Disch: SPEC : [id number] ANITA: 09/28/24 STATUS: COMP REQ : [id number] RECD: 09/28/[address]: Wilner Gonzalez [facility] COMP: 09/28/24 ENTERED: 09/28/[address]: Chichi Rivers MD ORDERED: CBC Auto Diff Test Result Flag Reference WBC 4.9 4.8-10.8 X10*3/uL RBC 4.09 L 4.20-5.50 X10*6/uL HGB 12.3 12.0-16.0 g/dl HCT 38.8 37.0-47.0 % MCV 94.9 80.0-98.0 fL MCH 30.1 27.0-33.0 pg MCHC 31.7 31.0-35.0 g/dl RDW 13.5 11.0-16.0 % PLT 182 160-400 X10*3/uL MPV 11.6 9.4-12.3 fL Neut Pct Auto 65.1 45-73 % ImGran Pct Auto 0.4 0.0-0.4 % Lymp Pct Auto 22.2 20-40 % [place] Pct Auto 8.0 2-11 % Eos Pct Auto 3.5 0-4 % Baso Pct Auto 0.8 0-2 % NRBC Pct Auto 0.0 0.0-0.2 /100WBC ANC Neut Abs # 3.2 2.0-8.3 x10*3/uL ImGran Abs Auto 0.02 0.00-0.03 X10*3/uL Lymph Abs Auto 1.1 L 1.2-4.9 X10*3/uL [place] Abs Auto 0.4 0.1-1.2 X10*3/uL Eos Abs Auto 0.2 0.0-0.4 X10*3/uL Baso Abs Auto 0.0 0.0-0.2 X10*3/uL NRBC Abs Auto 0.000 0.0-0.012 X10*3/uL Name: Mayra Osorio Age/Sex: 68/F : 1955 Unit#: [id number] Attend Dr: Wilner Gonzalez Re09/28/24 Status: DEP REF [facility] Disch: SPEC : [id number] ANITA: 09/28/24 STATUS: COMP REQ : [id number] RECD: 09/28/24-[address]: Wilner Gonzalez COMP: 09/28/24-1439 ENTERED: 09/28/24-1020 [facility]: Chichi Rivers MD ORDERED: CMP Fast, Lipid Panel, Vitamin D 25-OH, TSH Rflx Test Result Flag Reference Sodium 142 135-145 mmol/L Potassium 4.5 3.3-5.1 mmol/L CL 105 96-108 mmol/L CO2 29 22-29 mmol/L Gap 13 12-20 BUN 27 H 9-16 mg/dL Creat 1.31 0.5-1.4 mg/dL EGFR 40 NOTE: For -[place] individuals, multiply the result by 1.210. Chronic Kidney Disease: Estimated GFR < 60 mL/min/1.73m2 Severe Kidney Disease: Estimated GFR < 15 mL/min/1.73m2 FBS 78 60-99 mg/dL CA 9.8 8.4-10.2 mg/dL Total Bili 0.2 0.0-1.0 mg/dL AST (GOT) 15 5-31 U/L ALT (GPT) 8 0-31 U/L Protein, Total 6.7 6.5-8.0 g/dL Alb 3.5 3.5-5.0 g/dL Triglyceride 134 <150 mg/dL Desirable Triglyceride: less than 150 mg/dL Borderline High Triglyceride 150-199 mg/dL High Triglyceride: 200-499 mg/dL Very High Triglyceride: greater than or equal to 5OO mg/dL Cholesterol 162 <200 mg/dL Desirable Cholesterol: less than 200 mg/dL Borderline High Cholesterol: 200-239 mg/dL High Cholesterol: greater than 239 mg/dL LDL Calculated 91 <100 mg/dL Desirable LDL: less than 100 mg/dL Near Optimal/Above Optimal LDL: 110-129 mg/dL Borderline High LDL: 130-159 mg/dL High LDL: 160-189 mg/dL Very High LDL: greater than or equal to 190 mg/dL HDL 45 >40 mg/dL Desirable HDL: greater than 40 mg/dL Note: This HDL assay may give artificially low results in patients with liver disease. Alk Phos 69 39-117 U/L Vit D 25-OH Tot 50.7 >30 ng/mL Health Based Reference Values* < 20 ng/mL Deficient 20-30 ng/mL Insufficient > 30 ng/mL Sufficient *Romeo BLAKE. N Engl J Med. 2007;357:266-280 Care must be taken in interpreting Vitamin D results from different laboratories and methodologies. Published data demonstrated that results from patients undergoing hemodialysis may show a negative bias when tested with various automated 25-OH vitamin D assays when compared to LC-MS/MS. When testing samples from patients whose predominant form of Vitamin D is Vitamin D2, such as patients receiving Vitamin D2 supplementation, results that are subtherapeutic should be confirmed with another method such as LC-MS/MS. TSH 2.02 0.32-4.0 uIU/mL Coding Level of Care Code Est Pt Prev Care >65y(58208) Diagnoses Annual visit for general adult medical examination with abnormal findings Z00.01 Osteopenia of multiple sites M85.89 Chronic GERD K21.9 Mild intermittent asthma in adult without complication J45.20 Bipolar affective disorder, current episode mixed, current episode severity unspecified F31.60 Active/Remission status: currently active Current bipolar episode type: mixed Current episode severity: unspecified Postsurgical hypothyroidism E89.0 Dyslipidemia E78.5 Eczema L30.9 Morbid obesity E66.01 Smoker unmotivated to quit F17.200 Constipation K59.00 Glaucoma H40.9 Abnormal kidney function N28.9 Urinary incontinence, mixed N39.46 Additional Codes SIMRAN-7 Assessment Billing - SIMRAN-7 Assessment Tool: SIMRAN-7 Assessment 75395 ([id number]) PHQ-9 - 32288 - PHQ-9 Billing: Yes ([id number]) Assessment & Plan Assessment & Plan (1) Annual visit for general adult medical examination with abnormal findings: Code(s): Z00.01 - Encounter for general adult medical examination with abnormal findings Plan: Reviewed recent fasting lab results with patient.. Advised to continue with regular eye exams, goes to [facility]. Take adequate calcium in diet and vitamin-D 3 at 2000 IU per cap once a day, in addition to weight-bearing exercises to help maintain good muscle tone and weight control. Instructed to do self-breast exam, and recommended to get yearly mammogram, ordered today. She is up-to-date with her screening colonoscopy done by Dr. Sunshine last year, with tubular adenoma polyp removed, repeat again in 2027 (2) Osteopenia of multiple sites: Code(s): M85.89 - Other specified disorders of bone density and structure, multiple sites Category: Medical Plan: Repeat bone density scan ordered, continue taking adequate calcium from dietary sources, take vitamin-D 3 2000 units daily, and regular weight-bearing exercise (3) Chronic GERD: Code(s): K21.9 - Gastro-esophageal reflux disease without esophagitis Category: Medical Plan: Followed by GI clinic, currently on pantoprazole 40 mg 1 capsule twice a day (4) Mild intermittent asthma in adult without complication: Code(s): J45.20 - Mild intermittent asthma, uncomplicated Category: Medical Plan: Controlled with present treatment (5) Bipolar disorder: Comment: Followed by Sylvain Fuentes Code(s): F31.9 - Bipolar disorder, unspecified Category: Medical Qualifiers: Active/Remission status: currently active Current bipolar episode type: mixed Current episode severity: unspecified Qualified Code(s): F31.60 - Bipolar disorder, current episode mixed, unspecified Plan: Followed by psychiatry (6) Postsurgical hypothyroidism: Code(s): E89.0 - Postprocedural hypothyroidism Category: Medical Plan: Continued on levothyroxine 50 mcg daily in a.m. (7) Dyslipidemia: Code(s): E78.5 - Hyperlipidemia, unspecified Category: Medical Plan: Fasting lipid panel ordered, continue atorvastatin 10 mg daily and [place] 3 fatty acid supplements twice a day (8) Eczema: Code(s): L30.9 - Dermatitis, unspecified Category: Medical Plan: Referred to [facility] (9) Morbid obesity: Code(s): E66.01 - Morbid (severe) obesity due to excess calories Category: Medical Plan: Discussed need to increase activity and weight reduction. Recommended focusing on improving health instead of dieting. Mediterranean diet is a healthy diet that helps, limit food high in fat, sugar, and calories. Eat slowly, pay attention to portion sizes, plan your meals ahead of time, start regular physical activity, at least 150 minutes of moderate intensity exercise, or 90 minutes per week of vigorous exercise. Keeping a food diary, tracking what you eat and your physical activity can help assess what improvements you can make. There are many health problems associated with being overweight/obese, so it is important to improve your diet and exercise. There are medications and surgical options available, but Lifestyle changes are the 1st step. (10) Smoker unmotivated to quit: Code(s): F17.200 - Nicotine dependence, unspecified, uncomplicated Category: Social Hx Plan: Patient strongly advised to stop smoking, as smoking damages blood vessels, degenerative of joints and spine, damage to lungs and heart., predisposes to developing certain cancers like lung, breast, bladder, colon. Recommended to try decreasing cigarette use by 1-2 cigarettes a day. Advised to monitor what triggers are for smoking so that this can be discussed on the next office visit. We can discuss different options to quit smoking when ready. (11) Constipation: Code(s): K59.00 - Constipation, unspecified Category: Medical Plan: Followed by GI, currently has Amitiza which he takes only as needed (12) Glaucoma: Comment: Followed by Dr. Blakely, [facility] Code(s): H40.9 - Unspecified glaucoma Category: Medical Plan: Followed at [facility] (13) Abnormal kidney function: Code(s): N28.9 - Disorder of kidney and ureter, unspecified Plan: Advised to stay well-hydrated, avoid NSAIDs, basic metabolic panel ordered today. Repeat basic metabolic panel ordered (14) Urinary incontinence, mixed: Code(s): N39.46 - Mixed incontinence Category: Medical Plan: Followed by Urology Orders: Orders MM tomosynthesis screening BI 10/01/24 M85.89 - Other specified disorders of bone density and structure, multiple sites, Z12.31 - Encounter for screening mammogram for malignant neoplasm of breast Basic Metabolic Panel 10/25/24 N28.9 - Disorder of kidney and ureter, unspecified Free T4 (Free Thyroxine) 03/25/25 E66.01 - Morbid (severe) obesity due to excess calories, E78.5 - Hyperlipidemia, unspecified, E89.0 - Postprocedural hypothyroidism, M85.89 - Other specified disorders of bone density and structure, multiple sites XR DEXA axial skeleton 10/01/24 M85.89 - Other specified disorders of bone density and structure, multiple sites, Z12.31 - Encounter for screening mammogram for malignant neoplasm of breast Lipid Panel 03/25/25 E66.01 - Morbid (severe) obesity due to excess calories, E78.5 - Hyperlipidemia, unspecified, E89.0 - Postprocedural hypothyroidism, M85.89 - Other specified disorders of bone density and structure, multiple sites Vitamin D 25-OH Total 03/25/25 E66.01 - Morbid (severe) obesity due to excess calories, E78.5 - Hyperlipidemia, unspecified, E89.0 - Postprocedural hypothyroidism, M85.89 - Other specified disorders of bone density and structure, multiple sites Alanine Aminotransferase 03/25/25 E66.01 - Morbid (severe) obesity due to excess calories, E78.5 - Hyperlipidemia, unspecified, E89.0 - Postprocedural hypothyroidism, M85.89 - Other specified disorders of bone density and structure, multiple sites Aspartate Amino Transferase 03/25/25 E66.01 - Morbid (severe) obesity due to excess calories, E78.5 - Hyperlipidemia, unspecified, E89.0 - Postprocedural hypothyroidism, M85.89 - Other specified disorders of bone density and structure, multiple sites Basic Metabolic Panel Fasting 03/25/25 E66.01 - Morbid (severe) obesity due to excess calories, E78.5 - Hyperlipidemia, unspecified, E89.0 - Postprocedural hypothyroidism, M85.89 - Other specified disorders of bone density and structure, multiple sites Thyroid Stimulating Hormone 03/25/25 E66.01 - Morbid (severe) obesity due to excess calories, E78.5 - Hyperlipidemia, unspecified, E89.0 - Postprocedural hypothyroidism, M85.89 - Other specified disorders of bone density and structure, multiple sites Referrals Dermatology Referral L30.9 - Dermatitis, unspecified Medications: Changed From metoprolol tartrate 12.5 mg (1/2 x 25 mg) PO QAM 14 tabs 1RF To metoprolol tartrate 12.5 mg (1/2 x 25 mg) PO QAM 45 tabs 2RF 3 months From omega 5-exl-vcz-fish oil 1,200 (144-216) mg (Fish Oil) Take 1 capsule p.o. b.i.d. at 06:00 and 18:00 1 cap PO BID 30 days 180 caps 3RF E78.5 - Hyperlipidemia, unspecified To omega 3-lxd-pjo-fish oil 1,200 (144-216) mg (Fish Oil) Take 1 capsule p.o. b.i.d. at 06:00 and 18:00 1 cap PO BID 180 caps 3RF 3 months E78.5 - Hyperlipidemia, unspecified Refilled cholecalciferol (vitamin D3) 50 mcg PO QAM 90 caps 2RF levothyroxine (Levoxyl) 50 mcg PO DAILY 90 tabs 3RF atorvastatin 10 mg PO DAILY 90 tabs 3RF 90 days E78.5 - Hyperlipidemia, unspecified dextromethorphan-guaifenesin 10-100 mg/5 mL (Carlinein DM) 10 mL PO Q4H PRN 500 mL 2RF Cough montelukast 10 mg PO DAILY 90 tabs 2RF J30.89 - Other allergic rhinitis cetirizine 10 mg PO QAM 90 tabs 2RF acetaminophen 650 mg (2 x 325 mg) PO BID PRN 60 tabs 5RF fever or pain
[2024-10-01 09:42] VITALS: BP 126/62; PULSE 66; O2SAT 96; BMI 39.3
== END 2024-10-01 10:40 | disposition home or self-care (01) ==
LOC: HO.HMCC 09:29
PROVIDERS: PCP Internal Medicine; Visit Provider Internal Medicine
DX: Z00.00 Encounter for general adult medical examination without abnormal findings (principal); F31.60 Bipolar disorder, current episode mixed, unspecified; Z68.39 Body mass index [BMI] 39.0-39.9, adult; E66.01 Morbid (severe) obesity due to excess calories; M85.89 Other specified disorders of bone density and structure, multiple sites; K21.9 Gastro-esophageal reflux disease without esophagitis; J45.20 Mild intermittent asthma, uncomplicated; E89.0 Postprocedural hypothyroidism; E78.5 Hyperlipidemia, unspecified; L30.9 Dermatitis, unspecified; F17.210 Nicotine dependence, cigarettes, uncomplicated; K59.00 Constipation, unspecified

== ENCOUNTER → 2024-10-01 09:28 | Outpatient (BNVA) | payer MEDICARE, MEDICAID, SELFPAY | PROVIDERS: PCP Internal Medicine; Visit Provider Internal Medicine | DX: Z00.01 Encounter for general adult medical examination with abnormal findings (principal); M85.89 Other specified disorders of bone density and structure, multiple sites; K21.9 Gastro-esophageal reflux disease without esophagitis; J45.20 Mild intermittent asthma, uncomplicated; F31.60 Bipolar disorder, current episode mixed, unspecified; E89.0 Postprocedural hypothyroidism; E78.5 Hyperlipidemia, unspecified; L30.9 Dermatitis, unspecified; E66.01 Morbid (severe) obesity due to excess calories; K59.00 Constipation, unspecified; H40.9 Unspecified glaucoma; N28.9 Disorder of kidney and ureter, unspecified; N39.46 Mixed incontinence; F17.200 Nicotine dependence, unspecified, uncomplicated; Z71.6 Tobacco abuse counseling | CPT/HCPCS: 96127; 99397 ==

== ENCOUNTER 2024-10-05 10:03 | Outpatient (REF) | payer MEDICARE, MEDICAID, SELFPAY | END 2024-10-05 10:04 | disposition home or self-care (01) | LOC: HO.HMGCX 10:03 | PROVIDERS: PCP Internal Medicine; Visit Provider Urology | DX: N20.0 Calculus of kidney (principal) | CPT/HCPCS: 76775 ==

== ENCOUNTER 2024-10-12 09:17 | Outpatient (AMB) | payer MEDICARE, MEDICAID, SELFPAY ==
[2024-10-12 09:33] VITALS: BP 134/78; PULSE 71; TEMP 36.1; O2SAT 98; BMI 39.4
--- NOTE | 2024-10-12 09:33 | AM.OFFWIN_ITS ---
Intake Vital Signs 10/12/24 09:33 Height 5 ft 7.5 in Weight 255 lb 8 oz BMI 39.4 BP 134/78 Blood Pressure Location Lt brachial Position Sitting Pulse 71 Pulse Source Pulse Oximeter Temp 97.0 F Temp Source Temporal Artery Scan Pulse Oximetry (%) 98 Oxygen Delivery Method Room Air Intake Visit Reasons: EP neck pain over a week ago Intake Note: Pt presents to the office todaay for neck pain x9 days with no known injury. Patient Tobacco Use Status: Current everyday Tobacco user Allergies bee pollen [BEE STINGS] Allergy (Severe, Verified 10/12/24 09:38) ANAPHYLAXIS aspirin [ASA] Allergy (Intermediate, Verified 10/12/24 09:38) RASH Penicillins Allergy (Intermediate, Verified 10/12/24 09:38) Rash strawberry [STRAWBERRY] Allergy (Intermediate, Verified 10/12/24 09:38) RASH Compazine Allergy (Unknown, Verified 10/12/24 09:38) unknown iodine [IODINE] Allergy (Unknown, Verified 10/12/24 09:38) UNKNOWN codeine [CODEINE] Adverse Reaction (Intermediate, Verified 10/12/24 09:38) GI upset benztropine [From Cogentin] Adverse Reaction (Unknown, Verified 10/12/24 09:38) Unknown HPI EP neck pain over a week ago HPI Details This note is constructed using voice recognition software. While every effort has been made to ensure accuracy, internet database specialist errors may have been included. The patient is a 68 year old female who presents to the clinic today with left- sided cervical pain for the past 9 days. She reports that she woke up with this 1 day, and has been working with it since. She has been trying Tylenol, heat, and has been working with occupational therapy as she was already in occupational therapy to do stretches to help the pain. She reports that it hurts to turn her neck. She denies any previous injury or surgery to the area. She denies numbness and tingling in the hands. FORMERLY [facility], [facility] Medical History (Updated 10/01/24 @ 10:23 by Chichi Rivers MD) Glaucoma Osteopenia of multiple sites Irritable bowel syndrome with diarrhea Osteoarthritis Staghorn calculus Diverticulosis Urinary incontinence, mixed Atherosclerotic cardiovascular disease Colon cancer screening Smoker unmotivated to quit Shoulder bursitis Trochanteric bursitis Mitral valve regurgitation Narcotic dependence, in remission Chronic GERD Morbid obesity History of myasthenia gravis Allergic rhinitis Eczema Duodenum ulcer Bipolar disorder History of anoxic brain injury Dyslipidemia Mild intermittent asthma in adult without complication Postsurgical hypothyroidism Surgical History (Updated 10/01/24 @ 10:12 by Chichi Rivers MD) History of cataract surgery Hx of cystoscopy H/O colonoscopy Hx of thyroidectomy History of esophagogastroduodenoscopy (~01/2015) History of partial hysterectomy History of thymectomy (~2007) History of thyroidectomy, total Hx of tonsillectomy History of cholecystectomy (Unknown) History of appendectomy (Unknown) Family History Father Stroke Mother Breast cancer, Onset Age: 40 Brother Brain cancer Brother HIV disease Son No problems noted. Maternal Grandmother Glaucoma Paternal Grandmother Lung cancer Ovarian cancer Social History Household Members: Other Household Members Other:: shelter ([employer]) Housing: Other Housing Other:: [employer] agencyGroup home Do you presently have visiting nurse or other home services: Yes (shelter staff) Alcohol intake: never Patient Tobacco Use Status: Current everyday Tobacco user Tobacco use type: Cigarette Cigarette Packs Per Day: 0.5 Cigarettes Per Day: 10.0 Years Smoked: 40 e-Cigarette/Vaping Use: Never Used Current occupational status: disabled Cognitive needs: No Hearing needs: No Vision needs: Yes Review of Systems Const All systems reviewed & are unremarkable except as noted in HPI and below Physical Exam Vital Signs: Last Vital Signs Temp 97.0 F 10/12/24 09:33 Pulse 71 10/12/24 09:33 BP 134/78 10/12/24 09:33 Pulse Ox 98 10/12/24 09:33 Oxygen Delivery Method Room Air 10/12/24 09:33 BMI result Body Mass Index 39.4 Const General: cooperative, healthy appearing, comfortable, no acute distress and well developed Orientation/consciousness: patient oriented x3 Limitations: no limitations Neck Neck: Yes normal visual inspection Resp Effort & Inspection: normal respiratory effort and able to speak in complete sentences Back/Spine/Pelvis Other: Left cervical tenderness to palpation with increased muscle bulging into the trapezius region. Right lateral rotation impaired by pain. Left lateral rotation appears normal. Flexion and extension normal. Arm strength equal bilaterally 5/5, distal neurovascular exam intact. Skin General skin exam: no rashes or lesions noted Neuro General: patient oriented x3 Extrem General: Yes normal to inspection Assessment & Plan Assessment & Plan (1) Cervicalgia: Code(s): M54.2 - Cervicalgia Plan: Appears muscular in origin. Discussed treatment options, declined prednisone due to history of myasthenia gravis. We will try a short duration of muscle relaxer as needed. Advised continuation of at-home methods that she is already using. Advised follow up with PCP with worsening or failure to resolve. Plan See above for full details and plan. Medications: New cyclobenzaprine 5 mg PO BEDTIME 3 days PRN 3 tabs 0RF Muscle Spasm Coding Level of Care Code Est Pt Level 3 (86067) Diagnoses Cervicalgia M54.2
== END 2024-10-12 10:18 | disposition home or self-care (01) ==
PROVIDERS: PCP Internal Medicine; Visit Provider Registered Nurse
DX: M54.2 Cervicalgia (principal)

== ENCOUNTER → 2024-10-12 09:17 | Outpatient (BNVA) | payer MEDICARE, MEDICAID, SELFPAY | PROVIDERS: PCP Internal Medicine; Visit Provider Registered Nurse | DX: M54.2 Cervicalgia (principal) | CPT/HCPCS: 99212 ==

== ENCOUNTER 2024-10-21 10:35 | Outpatient (AMB) | payer MEDICARE, MEDICAID, SELFPAY ==
--- NOTE | 2024-10-21 10:39 | A.OFFVIS_ITS ---
Intake Visit Reasons: 6m/US(set) Intake Note: Patient presents today for follow up on: incontinence, nephrolithiasis, and ultrasound results Imaging Completed: 10/05/24 Urology Medication: None Antibiotic Allergies: Penicillins Blood Thinners:none PVR: 17ml's Stage Builder Required: No Accompanied by: Self / Same As Patient Allergies bee pollen [BEE STINGS] Allergy (Severe, Verified 10/21/24 11:20) ANAPHYLAXIS aspirin [ASA] Allergy (Intermediate, Verified 10/21/24 11:20) RASH Penicillins Allergy (Intermediate, Verified 10/21/24 11:20) Rash strawberry [STRAWBERRY] Allergy (Intermediate, Verified 10/21/24 11:20) RASH Compazine Allergy (Unknown, Verified 10/21/24 11:20) unknown iodine [IODINE] Allergy (Unknown, Verified 10/21/24 11:20) UNKNOWN codeine [CODEINE] Adverse Reaction (Intermediate, Verified 10/21/24 11:20) GI upset benztropine [From Cogentin] Adverse Reaction (Unknown, Verified 10/21/24 11:20) Unknown Medication List - Last Reconciled 10/21/24 by BRADY Zuniga acetaminophen 650 mg (2 x 325 mg) PO BID PRN albuterol sulfate 90 mcg/actuation (Ventolin HFA) 2 puffs inhalation Q4H PRN atorvastatin 10 mg PO DAILY 90 days brinzolamide 1% (Azopt) drps ophthalmic (eye) cetirizine 10 mg PO QAM cholecalciferol (vitamin D3) 50 mcg PO QAM cyclobenzaprine 5 mg PO BEDTIME PRN 3 days dextromethorphan-guaifenesin 10-100 mg/5 mL (Tussin DM) 10 mL PO Q4H PRN diclofenac sodium 1% (Voltaren Arthritis Pain) 2 grams topical QID divalproex 1,000 mg PO .every evening escitalopram oxalate (Lexapro) 20 mg PO DAILY escitalopram oxalate 10 mg PO DAILY fluticasone furoate-vilanterol 100-25 mcg/dose (Breo Ellipta) 1 inh inhalation Q24H hydrocortisone 2.5% (Proctosol HC) 1 appl NE BID PRN latanoprost 0.005% 1 drp ophthalmic (eye) DAILY levothyroxine (Levoxyl) 50 mcg PO DAILY lubiprostone (Amitiza) 8 mcg PO BID PRN metoprolol tartrate 12.5 mg (1/2 x 25 mg) PO QAM 3 months montelukast 10 mg PO DAILY omega 1-mfe-zie-fish oil 1,200 (144-216) mg (Fish Oil) 1 cap PO BID 3 months pantoprazole 40 mg PO BID quetiapine ER 200 mg PO BEDTIME quetiapine ER mg PO trazodone 200 mg PO DAILY HPI Comments Details: Mayra is a very pleasant 68-year-old female patient of who was accompanied by her water meter reader/group therapist. She has a PMH of mixed urinary incontinence, atherosclerotic cardiovascular disease, NSTEMI, cataracts, smoker, shoulder bursitis, trochanter bursitis, mitral valve regurgitation, GERD, obesity, myasthenia gravis, allergic rhinitis, eczema, bi polar disorder, dyslipidemia, asthma, hypothyroidism, and history of anoxic brain injury. She presents to the office today for follow-up of her large right renal stone. Recent renal imaging results reviewed with the patient today..... In discussion with the patient today she reports noting cloudy urine over the last 1-2 weeks. She reports having completed low-dose Bactrim as prescribed by Dr. Mays since her last office visit. She has a previous surgical history for large right renal stone 2/ ureteroscopy with laser lithotripsy followed by right ESWL4/. In office urinalysis results reviewed with the patient today 3+ leukocytes negative nitrates. Discussed obtaining urine culture for further assessment evaluation as patient was reporting cloudy urine. PVR 17 mL. She continues to report intermittent episodes of right-sided flank pain. We discussed stone burden on recent imaging will obtain CT KUB for further assessment evaluation. We discussed potential for near future repeat surgical intervention of large right renal stone. She does report noting urinary frequency however relates this to her increased water consumption given diagnosis of nephrolithiasis. She otherwise denies incontinence, nocturia, hematuria, dysuria, foul smelling urine, changes to urinary stream, flank pain, fever, and or chills. She otherwise offers no other issues or concerns at this time. [facility] Medical History Glaucoma Osteopenia of multiple sites Irritable bowel syndrome with diarrhea Osteoarthritis Staghorn calculus Diverticulosis Urinary incontinence, mixed Atherosclerotic cardiovascular disease Colon cancer screening Smoker unmotivated to quit Shoulder bursitis Trochanteric bursitis Mitral valve regurgitation Narcotic dependence, in remission Chronic GERD Morbid obesity History of myasthenia gravis Allergic rhinitis Eczema Duodenum ulcer Bipolar disorder History of anoxic brain injury Dyslipidemia Mild intermittent asthma in adult without complication Postsurgical hypothyroidism Surgical History History of cataract surgery Hx of cystoscopy H/O colonoscopy Hx of thyroidectomy History of esophagogastroduodenoscopy (~01/2015) History of partial hysterectomy History of thymectomy (~2007) History of thyroidectomy, total Hx of tonsillectomy History of cholecystectomy (Unknown) History of appendectomy (Unknown) Family History Father Stroke Mother Breast cancer, Onset Age: 40 Brother Brain cancer Brother HIV disease Son No problems noted. Maternal Grandmother Glaucoma Paternal Grandmother Lung cancer Ovarian cancer Social History Household Members: Other Household Members Other:: [facility] ([employer]) Housing: Other Housing Other:: [employer] agencyGroup home Do you presently have visiting nurse or other home services: Yes ([facility] staff) Alcohol intake: never Patient Tobacco Use Status: Current everyday Tobacco user Tobacco use type: Cigarette Cigarette Packs Per Day: 0.5 Cigarettes Per Day: 10.0 Years Smoked: 40 e-Cigarette/Vaping Use: Never Used Current occupational status: disabled Cognitive needs: No Hearing needs: No Vision needs: Yes Review of Systems Const Reports as per HPI Eyes Reports no additional complaints ENT Reports no additional complaints Card Reports as per HPI Resp Reports no additional complaints GI Reports as per HPI Reports as per HPI Neuro Reports as per HPI Psych Reports as per HPI Physical Exam Const General: cooperative, healthy appearing, comfortable, no acute distress, well developed, alert and awake Orientation/consciousness: patient oriented x3 Limitations: ambulation with walker HEENT Head: Yes normal to inspection, Yes normocephalic and Yes atraumatic Ears: hearing grossly normal bilaterally Eyes General: appearance normal, both eyes and all related structures Neck Neck: Yes normal visual inspection and Yes trachea midline Chest Chest palpation & inspection: normal inspection of the chest Resp Effort & Inspection: normal respiratory effort and able to speak in complete sentences Cardio Rate: regular rate GI Inspection: Yes normal to inspection General: Yes no CVA tenderness Back/Spine/Pelvis Back: no CVA tenderness Skin General skin exam: no rashes or lesions noted Neuro General: patient oriented x3 Extrem General: Yes normal to inspection Psych Appearance: grossly normal and well kempt Mental Status: mental status grossly normal Speech and movement: Normal speech and movement present and Clear speech present Affect: normal affect Attitude: cooperative Thought process: Normal thought process present Thought content: Normal thought content present Insight: Fair insight present (Psych) Judgement: Fair judgement present (Psych) Office Procedures Post Void Residual Post Residual Void Post Void Residual (PVR): 17 88609-[id number] Void Residual by ultrasound Results AMB Urinalysis, Automated UA Leukoctes 500 Pasquale/uL Last Edit by [facility] on 10/21/24 11:18 UA Nitrite Last Edit by [facility] on 10/21/24 11:18 UA Urobilinogen 0.2 mg/dL Last Edit by [facility] on 10/21/24 11:18 UA Protein 15 mg/dL Last Edit by [facility] on 10/21/24 11:18 UA pH 6.5 Last Edit by [facility] on 10/21/24 11:18 UA Blood 10 Gregorio/uL Last Edit by [facility] on 10/21/24 11:18 UA Specific [place] 1.015 Last Edit by [facility] on 10/21/24 11:18 UA Ketone Last Edit by [facility] on 10/21/24 11:18 UA Bilirubin 0 mg/dL Last Edit by [facility] on 10/21/24 11:18 UA Glucose 0 mg/dL Last Edit by [facility] on 10/21/24 11:18 Results Reviewed Results Reviewed: Laboratory Last Values Urine pH (Auto) 6.5 10/21/24 11:11 Specific [place] (Auto) 1.015 10/21/24 11:11 Urine Protein (Auto) 15 mg/dL 10/21/24 11:11 Glucose (UA)(Auto) 0 mg/dL 10/21/24 11:11 Urine Blood (Auto) 10 Gregorio/uL 10/21/24 11:11 Urine Bilirubin (Auto) 0 mg/dL 10/21/24 11:11 Urine Urobilinogen (Auto) 0.2 mg/dL 10/21/24 11:11 Leukocyte Esterase (Auto) 500 Pasquale/uL 10/21/24 11:11 Assessment & Plan Assessment & Plan (1) Cloudy urine: Code(s): R82.90 - Unspecified abnormal findings in urine Category: Medical (2) Nephrolithiasis: Code(s): N20.0 - Calculus of kidney Category: Medical (3) Flank pain: Code(s): R10.9 - Unspecified abdominal pain Category: Medical Plan In office urinalysis results reviewed with the patient today; as noted above; will send for urine culture; will await results for potential treatment. PVR 17 mL Recent renal imaging results reviewed with the patient today; as noted above. Will obtain CT KUB for further assessment evaluation. Discussed, educated, and stressed the importance of adequate hydration relation to nephrolithiasis as well as overall health and well-being. Follow-up in 1-3 months with imaging to be completed prior; or sooner with any issues, concerns, and or questions. Orders: Orders AMB Post Void Residual by ultrasound Today N39.46 - Mixed incontinence AMB Urinalysis Automated Today Z13.9 - Encounter for screening, unspecified CT kidney stone Today N20.0 - Calculus of kidney Patient Instructions: The patient had an opportunity to ask questions regarding the treatment plan. All questions were answered. Physical exam, labs, and imaging were discussed and reviewed in detail. As well as risks, benefits, and discussion of treatment choices. No major barriers to understanding were identified. The patient expressed understanding and agreement with the above treatment plan. The patient was made aware they should contact our office by phone for worsening of their current condition, the appearance of new symptoms, or with any questions or concerns. Compliance is encouraged with any medications and follow up testing that is ordered. It is a privilege to be allowed the opportunity to participate in? your urological care.? Again, if you have any questions or concerns If you have any questions or concerns please do not hesitate to contact me. The office is [phone]. This note is constructed using voice recognition software. While every effort has been made to ensure accuracy slat grader errors may have been included. Yours sincerely, BRADY Zuniga Coding Level of Care Code Est Pt Level 4 (63271) Complex EM visit Add On G2211 Diagnoses Cloudy urine R82.90 Nephrolithiasis N20.0 Flank pain R10.9 CPT Codes Post Residual Void - PVR CPT Code: 10478-Mcer Void Residual by ultrasound ([id number])
== END 2024-10-21 11:22 | disposition home or self-care (01) ==
PROVIDERS: PCP Internal Medicine; Visit Provider Nurse Practitioner Family
DX: Z13.9 Encounter for screening, unspecified (principal)

== ENCOUNTER 2024-10-21 10:35 | Outpatient (REF) | payer MEDICARE, MEDICAID, SELFPAY | END 2024-10-21 10:36 | disposition home or self-care (01) | LOC: HO.LNP 10:35 | PROVIDERS: PCP Internal Medicine; Visit Provider Nurse Practitioner Family | DX: R82.90 Unspecified abnormal findings in urine (principal); R10.9 Unspecified abdominal pain | CPT/HCPCS: 51798; 81003; 87086; 99212 ==

== ENCOUNTER 2024-11-16 08:34 | Outpatient (REF) | payer MEDICARE, MEDICAID, SELFPAY ==
[2024-11-16 11:08] LABS: Anion Gap 10 (12-20); Blood Urea Nitrogen 30 mg/dL (9-16); Calcium 9.5 mg/dL (8.4-10.2); Carbon Dioxide 30 mmol/L (22-29); Chloride 105 mmol/L (96-108); Estimated Glomerular Filt Rate 44; Glucose Random 68 mg/dL (60-115); Potassium 4.3 mmol/L (3.3-5.1); Sodium 141 mmol/L (135-145)
== END 2024-11-16 08:35 | disposition home or self-care (01) ==
LOC: HO.HMGCLDS 08:34
PROVIDERS: PCP Internal Medicine; Visit Provider Internal Medicine
DX: N28.9 Disorder of kidney and ureter, unspecified (principal)
CPT/HCPCS: 36415; 80048

== ENCOUNTER 2024-11-26 09:29 | Outpatient (AMB) | payer MEDICARE, MEDICAID, SELFPAY ==
[2024-11-26 09:30] VITALS: BP 124/70; PULSE 68; O2SAT 95; BMI 39.3
--- NOTE | 2024-11-26 09:30 | A.OFFVIS_ITS ---
Intake Vital Signs 11/26/24 09:30 Height 5 ft 7.5 in Weight 255 lb BMI 39.3 BP 124/70 Blood Pressure Location Lt brachial Position Sitting Pulse 68 Pulse Source Pulse Oximeter Pulse Oximetry (%) 95 Oxygen Delivery Method Room Air Intake Visit Reasons: VANDANA [id number] Intake Note: Pt is here today for her SWV: Last mammogram 01/02/23, bone density scan 05/30/21, colonoscopy 08/22/23 Allergies bee pollen [BEE STINGS] Allergy (Severe, Verified 11/26/24 10:09) ANAPHYLAXIS aspirin [ASA] Allergy (Intermediate, Verified 11/26/24 10:09) RASH Penicillins Allergy (Intermediate, Verified 11/26/24 10:09) Rash strawberry [STRAWBERRY] Allergy (Intermediate, Verified 11/26/24 10:09) RASH Compazine Allergy (Unknown, Verified 11/26/24 10:09) unknown iodine [IODINE] Allergy (Unknown, Verified 11/26/24 10:09) UNKNOWN codeine [CODEINE] Adverse Reaction (Intermediate, Verified 11/26/24 10:09) GI upset benztropine [From Cogentin] Adverse Reaction (Unknown, Verified 11/26/24 10:09) Unknown Medication List - Last Reconciled 11/26/24 by Chichi Rivers MD acetaminophen 650 mg (2 x 325 mg) PO BID PRN albuterol sulfate 90 mcg/actuation (Ventolin HFA) 2 puffs inhalation Q4H PRN atorvastatin 10 mg PO DAILY 90 days brinzolamide 1% (Azopt) drps ophthalmic (eye) cetirizine 10 mg PO QAM cholecalciferol (vitamin D3) 50 mcg PO QAM dextromethorphan-guaifenesin 10-100 mg/5 mL (Tussin DM) 10 mL PO Q4H PRN divalproex 1,000 mg PO .every evening escitalopram oxalate (Lexapro) 20 mg PO DAILY escitalopram oxalate 10 mg PO DAILY fluticasone furoate-vilanterol 100-25 mcg/dose (Breo Ellipta) 1 inh inhalation Q24H hydrocortisone 2.5% (Proctosol HC) 1 appl NC BID PRN latanoprost 0.005% 1 drp ophthalmic (eye) DAILY levothyroxine (Levoxyl) 50 mcg PO DAILY lubiprostone (Amitiza) 8 mcg PO BID PRN metoprolol tartrate 12.5 mg (1/2 x 25 mg) PO QAM 3 months montelukast 10 mg PO DAILY omega 1-kjp-rov-fish oil 1,200 (144-216) mg (Fish Oil) 1 cap PO BID 3 months pantoprazole 40 mg PO BID quetiapine ER 200 mg PO BEDTIME quetiapine ER mg PO trazodone 200 mg PO DAILY HPI SWV [id number] HPI Details SWV 67-year-old lady with history of myasthenia gravis, atherosclerotic cardiovascular disease status post non STEMI, has mitral valve regurgitation, dyslipidemia, postsurgical hypothyroidism, mild intermittent asthma, bipolar disorder, chronic GERD, allergic rhinitis, eczema and morbid obesity, here today for her initial annual wellness visit. She is up-to-date with her cholesterol and glucose screening, done 09/28/2024 and 11/21/2024, both with normal results. Up-to-date with her screening mammogr am done 01/02/2023, does not get Paps as she has had a hysterectomy due to uterine fibroids, up-to-date with her colonoscopy done 08/22/[address] Sunshine, to be repeated again in 5 years due to removal of a tubular adenoma in the transverse colon. Up-to-date with recommended adult vaccinations. She has osteopenia in her left femoral neck and left femur, normal in lumbar spine, seen on bone density scan done 05/30/2021. ? Medical / Social History Reviewed? Past Medical History ?Yes . ? [place] of Care / Care Team list updated ?Yes . ? Surgical/Hospitalization History ?Yes . ? Current Medications (including OTC and supplements) ?Yes . ? Family History ?Yes . ? Tobacco Control form ?Yes . ? AUDIT-C (Alcohol use) form ?Yes . ? Illicit drug use in Social History ?Yes . ? Current diagnosis of depression? ?No ? Appropriate PHQ2/PHQ9 completed ?Yes . ? Data entered by ?[employer] and reviewed by provider ? Fall Risk ? Fall History? Have you had any falls with injury in the past year? ?No . ? Have you had two or more falls in the past year? ?No . ? Fall Risk Assessment: ?No falls in the past year . ? HRA filled out by the patient, reviewed by Provider and scanned. ? SWV ? Balance? Romberg ?negative ? Tandem walk unable . ? Walk and Turn ?Yes . ? Rise from sit to stand ?Yes . ?Vision? Corrective lens ?Yes ? Vision screen ? Up-to-date, goes to [facility] in [place], where she is being followed for her glaucoma ?Hearing? Whisper test ?pass . ?Written Plan?Completed. See Patient Documents.? [facility] Medical History (Updated 11/29/24 @ 12:47 by Chichi Rivers MD) Hx of adenomatous polyp of colon Glaucoma Osteopenia of multiple sites Irritable bowel syndrome with diarrhea Osteoarthritis Staghorn calculus Diverticulosis Urinary incontinence, mixed Atherosclerotic cardiovascular disease Colon cancer screening Smoker unmotivated to quit Shoulder bursitis Trochanteric bursitis Mitral valve regurgitation Narcotic dependence, in remission Chronic GERD Morbid obesity History of myasthenia gravis Allergic rhinitis Eczema Duodenum ulcer Bipolar disorder History of anoxic brain injury Dyslipidemia Mild intermittent asthma in adult without complication Postsurgical hypothyroidism Surgical History History of cataract surgery Hx of cystoscopy H/O colonoscopy Hx of thyroidectomy History of esophagogastroduodenoscopy (~01/2015) History of partial hysterectomy History of thymectomy (~2007) History of thyroidectomy, total Hx of tonsillectomy History of cholecystectomy (Unknown) History of appendectomy (Unknown) Family History Father Stroke Mother Breast cancer, Onset Age: 40 Brother Brain cancer Brother HIV disease Son No problems noted. Maternal Grandmother Glaucoma Paternal Grandmother Lung cancer Ovarian cancer Social History Household Members: Other Household Members Other:: intermediate ([employer]) Housing: Other Housing Other:: [employer] agencyGroup home Do you presently have visiting nurse or other home services: Yes (intermediate staff) Alcohol intake: never Patient Tobacco Use Status: Current everyday Tobacco user Tobacco use type: Cigarette Cigarette Packs Per Day: 0.5 Cigarettes Per Day: 10.0 Years Smoked: 40 e-Cigarette/Vaping Use: Never Used Current occupational status: disabled Cognitive needs: No Hearing needs: No Vision needs: Yes Questionnaire Medicare Wellness Checkup What [age] 65-69 What gender do you identify with?: female During the past 4 weeks, how much have you been bothered by emotional problems such as feeling anxious, depressed, irritable, sad or downhearted, and blue?: moderately During the past 4 weeks, has your physical & emotional health limited your social activities with family, friends, neighbors, or groups?: not at all During the past 4 weeks, how much bodily pain have you generally had?: mild pain During the past 4 weeks, was someone available to help you if you needed & wanted help?: yes, as much as I wanted During the past 4 weeks, what was the hardest physical activity you could do for at least 2 minutes?: light Can you get to places out of walking distance without help? (For eg., can you travel alone on buses, taxis or drive your car?): No Can you go shopping for groceries or clothes without someone's help?: No Can you prepare your own meals?: Yes Can you do your housework without help?: No Because of any health problems, do you need the help of another person with your personal care needs such as eating, bathing, dressing or getting around the house?: No Can you handle your own money without help?: No During the past 4 weeks, how would you rate your health in general?: fair During the past 4 weeks how have things been going for you?: pretty well Are you having difficulties driving your car?: not applicable, I don't use a car Do you always fasten your seat belt when you are in a car?: yes, usually During past 4 weeks, have you been bothered by the following: never: Falling or dizzy when standing up, Sexual problems?, Trouble eating well?, Teeth or denture problems? and Problems using the telephone? and sometimes: Tiredness or fatigue? Have you fallen 2 or more times in the past year?: No Are you afraid of falling?: Yes Are you a smoker?: yes, but I'm not ready to quit During the past 4 weeks, how many drinks of wine, beer, or other alcoholic beverages did you have?: no alcohol at all Do you exercise for about 20 minutes 3 or more times a week?: no, I usually do not exercise this much Have you been given information to help with the following?: yes: Hazards in your house that might hurt you? and yes: Keeping track of your medications? How often do you have trouble taking medicines the way you have been told to take them?: sometimes I take medicine as prescribed How confident are you that you can control & manage most of your health problems?: somewhat confident What is your race?: White Mini Mental State Exam (MMSE) Orientation What is the (year) (season) (date) (day) (month)?: year (2024), season (winter), date (11/26/2024), day (?) and month (November) Where are we (state) (county) (town or city) (hospital) (floor)?: state ([place]), county ([place]), town or city ([place]) and hospital/clinic ([facility]) Score Score: 9 Activity of Daily Living Bathing - sponge bath, tub bath or shower: receives help in bathing only one body part (such as back or leg) Transfer: moves in & out of bed or chair with help Continence: supervision helps urination/bowel control; catheter use; incontinent Feeding: feeds self without help Total Score: 1 Information obtained from: patient Using telephone: independent Traveling: dependent Shopping: dependent Preparing meals: dependent Housework: needs assistance Taking medicine: dependent Managing money: dependent PHQ-9 Over the last 2 weeks, how often have you been bothered by any of the following problems? 1. Little interest or pleasure in doing things: several days 2. Feeling down, depressed, or hopeless: several days 3. Trouble falling or staying asleep, or sleeping too much: not at all 4. Feeling tired or having little energy: not at all 5. Poor appetite or overeating: not at all 6. Feeling bad about yourself - or that you are a failure or have let yourself or your family down: not at all 7. Trouble concentrating on things, such as reading the newspaper or watching television: not at all 8. Moving or speaking so slowly that other people could have noticed. Or the opposite - being so fidgety or restless that you have been moving around a lot more than usual: not at all 9. Thoughts that you would be better off or of hurting yourself in some way: not at all Total score: 2 Depression Screening Interpretation: Positive (Has been diagnosed with bipolar disorder, followed bypsychiatrist, Dr Sylvain Fuentes) Depression Screening Follow- up: Existing condition, In treatment and Community Mental Health Worker F/U Depression Screening Done: Yes 10407 - PHQ-9 Billing: Yes Source: Developed by Drs. Maxi Powers, Palak Brown, Gorge Lund and colleagues, with an educational jon from [employer]. Physical Exam Vital Signs: Last Vital Signs Pulse 68 11/26/24 09:30 BP 124/70 11/26/24 09:30 Pulse Ox 95 11/26/24 09:30 Oxygen Delivery Method Room Air 11/26/24 09:30 BMI result Body Mass Index 39.3 Assessment & Plan Assessment & Plan (1) Encounter for subsequent annual wellness visit (AWV) in Medicare patient: Code(s): Z00.00 - Encounter for general adult medical examination without abnormal findings Plan: Medical wellness checklist reviewed, discussed with patient and updated. Copy given. Up-to-date with her vaccinations and screening mammogram and colonoscopy (2) Eczema: Code(s): L30.9 - Dermatitis, unspecified Qualifiers: Eczema type: unspecified Qualified Code(s): L30.9 - Dermatitis, unsp ecified Plan: Currently on triamcinolone acetonide 0.1% cream applied sparingly to affected area once a day for no more than 10 days at a time. (3) Morbid obesity: Code(s): E66.01 - Morbid (severe) obesity due to excess calories Plan: Reinforced importance of following a healthy diet and getting regular exercise (4) Allergic rhinitis: Code(s): J30.9 - Allergic rhinitis, unspecified Qualifiers: Allergic rhinitis seasonality: seasonal Allergic rhinitis trigger: uns pecified Qualified Code(s): J30.2 - Other seasonal allergic rhinitis Plan: Takes cetirizine 10 mg daily and montelukast 10 mg once a day (5) Chronic GERD: Code(s): K21.9 - Gastro-esophageal reflux disease without esophagitis Plan: Followed by GI clinic, currently on pantoprazole mg 1 capsule twice a day (6) Bipolar disorder: Comment: Followed by Sylvain Fuentes Code(s): F31.9 - Bipolar disorder, unspecified Qualifiers: Active/Remission status: currently active Current bipolar episode type: mixed Current episode severity: unspecified Qualified Code(s): F31.60 - Bipolar disorder, current episode mixed, unspecified Plan: Followed by psychiatrist, Dr. Sylvain Fuentes. On quetiapine, trazodone, escitalopram, and Depakote (7) Mild intermittent asthma in adult without complication: Code(s): J45.20 - Mild intermittent asthma, uncomplicated Plan: Currently on Breo 1 inhalation once a day, rarely needing to use her rescue inhaler, Ventolin . (8) Postsurgical hypothyroidism: Code(s): E89.0 - Postprocedural hypothyroidism Plan: Taking levothyroxine 50 mcg once a day in a.m. (9) Dyslipidemia: Code(s): E78.5 - Hyperlipidemia, unspecified Plan: On atorvastatin 10 mg once a day (10) Smoker unmotivated to quit: Code(s): F17.200 - Nicotine dependence, unspecified, uncomplicated Plan: Patient strongly advised to stop smoking, as smoking damages blood vessels, degenerative of joints and spine, damage to lungs and heart., predisposes to developing certain cancers like lung, breast, bladder, colon. Recommended to try decreasing cigarette use by 1-2 cigarettes a day. Advised to monitor what triggers are for smoking so that this can be discussed on the next office visit. We can discuss different options to quit smoking when ready. (11) Glaucoma: Comment: Followed by Dr. Blakely, [facility] Code(s): H40.9 - Unspecified glaucoma Qualifiers: Glaucoma type: unspecified Plan: Followed by Dr. Blakely at [facility], currently on latanoprost 0.005% 1 drop at bedtime in both eyes and Azopt % 1 drop in each eye twice a day (12) Hx of adenomatous polyp of colon: Code(s): Z86.0101 - Personal history of adenomatous and serrated colon polyps Plan: Done by Dr. Lund a repeat colonoscopy due again in 2027 (13) Osteopenia of multiple sites: Code(s): M85.89 - Other specified disorders of bone density and structure, multiple sites Plan: Has an appointment already scheduled for her bone density scan on 01/01/2025 together with her screening mammogram (14) Nephrolithiasis: Code(s): N20.0 - Calculus of kidney Plan: Followed by Urology Medications: New triamcinolone acetonide 0.1% 1 appl topical DAILY PRN 30 grams 0RF rash Refilled fluticasone furoate-vilanterol 100-25 mcg/dose (Breo Ellipta) 1 inh inhalation Q24H 60 ea 5RF J45.20 - Mild intermittent asthma, uncomplicated Quality Reporting (2019) Depression/Bipolar (159/160/161/177) PHQ-9: Total score: 2 Coding Level of Care Code Medicare Subsequent (G0439) Diagnoses Encounter for subsequent annual wellness visit (AWV) in Medicare patient Z00.00 Eczema, unspecified type L30.9 Eczema type: unspecified Morbid obesity E66.01 Seasonal allergic rhinitis, unspecified trigger J30.2 Allergic rhinitis seasonality: seasonal Allergic rhinitis trigger: unspecified Chronic GERD K21.9 Bipolar affective disorder, current episode mixed, current episode severity unspecified F31.60 Active/Remission status: currently active Current bipolar episode type: mixed Current episode severity: unspecified Mild intermittent asthma in adult without complication J45.20 Postsurgical hypothyroidism E89.0 Dyslipidemia E78.5 Smoker unmotivated to quit F17.200 Glaucoma H40.9 Glaucoma type: unspecified Hx of adenomatous polyp of colon Z86.0101 Osteopenia of multiple sites M85.89 Nephrolithiasis N20.0 CPT Codes Advance Care Planning - Advance Care Planning discussion: On file, no changes ([id number]) Advance Care Planning - Time spent: 1-15 minutes, on File ([id number]) Additional Codes PHQ-9 - 67612 - PHQ-9 Billing: Yes ([id number]) Advance Care Planning Advance Care Planning discussion: On file, no changes Date of discussion: 11/26/24 Who was present: Patient and caregiver Forms completed: MOLST and Comfort care/DNR Time spent: 1-15 minutes, on File Actual minutes spent: 1
== END 2024-11-26 10:44 | disposition home or self-care (01) ==
PROVIDERS: PCP Internal Medicine; Visit Provider Internal Medicine
DX: Z00.00 Encounter for general adult medical examination without abnormal findings (principal); E66.01 Morbid (severe) obesity due to excess calories; F31.60 Bipolar disorder, current episode mixed, unspecified; Z68.39 Body mass index [BMI] 39.0-39.9, adult; L30.9 Dermatitis, unspecified; J30.2 Other seasonal allergic rhinitis; K21.9 Gastro-esophageal reflux disease without esophagitis; J45.20 Mild intermittent asthma, uncomplicated; E89.0 Postprocedural hypothyroidism; E78.5 Hyperlipidemia, unspecified; F17.200 Nicotine dependence, unspecified, uncomplicated; N20.0 Calculus of kidney

== ENCOUNTER → 2024-11-26 09:29 | Outpatient (BNVA) | payer MEDICARE, MEDICAID, SELFPAY | PROVIDERS: PCP Internal Medicine; Visit Provider Internal Medicine | DX: Z00.00 Encounter for general adult medical examination without abnormal findings (principal); I25.2 Old myocardial infarction; E78.5 Hyperlipidemia, unspecified; E89.0 Postprocedural hypothyroidism; K21.9 Gastro-esophageal reflux disease without esophagitis; E66.01 Morbid (severe) obesity due to excess calories; F17.210 Nicotine dependence, cigarettes, uncomplicated; L30.9 Dermatitis, unspecified | CPT/HCPCS: 96127 ==

== ENCOUNTER 2024-12-07 08:01 | Outpatient (REF) | payer MEDICARE, MEDICAID, SELFPAY ==
--- NOTE | ~2024-12-07 | CT_ITS ---
EXAMINATION: CT ABDOMEN AND PELVIS WITHOUT CONTRAST CLINICAL INFORMATION: Calculus of the kidney COMPARISON: CT dated October 10, 2023 reported 3.3 cm staghorn calculus without hydronephrosis, right kidney. TECHNIQUE: Multidetector volumetric imaging was performed from the superior aspect of the liver through the pubic symphysis. Sagittal and coronal reformatted images were obtained on the technologist's workstation. This CT examination was performed using dose optimization techniques as appropriate, variously including the following: *Automated exposure control *Adjustment of mA and/or kV according to patient size (this includes techniques or standardized protocols for targeted exams where dose is matched to indication/reason for exam; i.e. extremities or head) *Use of iterative reconstruction technique. DLP: 754 mGy centimeter. FINDINGS: Limited evaluation of the intra-abdominal organs and vascular structures due to lack of IV contrast. LUNG BASES: Linear attenuation abnormality, lingula and right lung base. LIVER, GALLBLADDER, AND BILIARY TREE: Liver measures 17 cm. Status post cholecystectomy. No intrahepatic or extrahepatic biliary ductal dilatation. PANCREAS: No peripancreatic fluid collections. No main pancreatic ductal dilatation. SPLEEN: 10 cm. ADRENAL GLANDS: No nodular lesions. KIDNEYS AND URETERS: Right kidney: Moderate dilatation of the pelvicalyceal system, proximal right ureter. 2 mm calcifications which appeared to be outside the trajectory of the right ureter. 2 cm lobulated and irregular calcific abnormality in the posterior midportion lower pole with decreased attenuation. Focal renal cortical thinning involving the upper pole in the posterior midportion. 2 mm calcification in the pelvicalyceal system lower pole. Left kidney: No hydronephrosis. No nephrolithiasis. BLADDER: Fluid-filled nearly collapsed. GASTROINTESTINAL TRACT: Abundant stool within the large intestine. No intestinal obstruction pattern. Scattered diverticula, sigmoid colon. I do not see the appendix. No ascites. No pneumoperitoneum. No pneumatosis intestinalis. ABDOMINAL WALL: Diastases abdominal rectus muscles in the periumbilical region. Focal dystrophic calcification in the right properitoneal fat just beneath the mid to distal abdominal rectus muscle. LYMPH NODES: Nonspecific prominent lymph nodes in the retroperitoneum. VASCULAR: Throughout the abdominal aorta wall and iliac arteries without gross aneurysm. PELVIC VISCERA: I do not see the uterus or the ovaries. OSSEOUS STRUCTURES: Multilevel thoracolumbar spondylosis more conspicuous at L3-4, L4-5 and L5-S1 levels resulting in bilateral neuroforamina stenosis. Subchondral cyst formation with the sclerosis and focal volume loss centered in the right femoral head.. CT/CT kidney stone IMPRESSION: Post treatment changes with persistent less calcified staghorn calculus, lower pole right kidney. Moderate hydronephrosis, right kidney.. Consider avascular necrosis, right femoral head. Multilevel lumbar spondylosis, L3 S1.. Fleischner guidelines were followed. Electronically signed by: Sea Gómez MD 12/07/2024 08:53 AM EVERARDO NIXON
== END 2024-12-07 08:02 | disposition home or self-care (01) ==
LOC: HO.CT 08:01
PROVIDERS: PCP Internal Medicine; Visit Provider Nurse Practitioner Family
DX: N20.0 Calculus of kidney (principal)
CPT/HCPCS: 74176

== ENCOUNTER → 2024-12-07 08:04 | Outpatient (BNV) | payer MEDICARE, MEDICAID, SELFPAY | PROVIDERS: PCP Internal Medicine; Visit Provider Radiology Diagnostic Radiology | DX: N20.0 Calculus of kidney (principal) | CPT/HCPCS: 74176 ==

== ENCOUNTER 2025-03-11 11:37 | Outpatient (AMB) | payer MEDICARE, MEDICAID, SELFPAY ==
--- NOTE | 2025-03-11 11:41 | A.OFFVIS_ITS ---
Vital Signs 03/11/25 11:43 Height 5 ft 7.5 in Weight 267 lb 3.204 oz BMI 41.2 BP 119/67 Blood Pressure Location Lt brachial Position Sitting Pulse 75 Intake Visit Reasons: Follow up GERD Intake Note: Patient in office today in follow up of GERD. CC: Patient c/o abdominal pain and diarrhea. Denies having any GI symptoms today. Allergies bee pollen [BEE STINGS] Allergy (Severe, Verified 11/26/24 10:09) ANAPHYLAXIS aspirin [ASA] Allergy (Intermediate, Verified 11/26/24 10:09) RASH Penicillins Allergy (Intermediate, Verified 11/26/24 10:09) Rash strawberry [STRAWBERRY] Allergy (Intermediate, Verified 11/26/24 10:09) RASH buspirone Allergy (Unknown, Verified 03/11/25 11:48) Unknown Compazine Allergy (Unknown, Verified 11/26/24 10:09) unknown iodine [IODINE] Allergy (Unknown, Verified 11/26/24 10:09) UNKNOWN methadone Allergy (Unknown, Verified 03/11/25 11:48) none Opioids - Morphine Analogues Allergy (Unknown, Verified 03/11/25 11:48) Unknown codeine [CODEINE] Adverse Reaction (Intermediate, Verified 11/26/24 10:09) GI upset benztropine [From Cogentin] Adverse Reaction (Unknown, Verified 11/26/24 10:09) Unknown HPI HPI Follow up GERD: Details: Assessment & Plan (1) Constipation: Code(s): K59.00 - Constipation, unspecified Category: Medical (2) Chronic GERD: Code(s): K21.9 - Gastro-esophageal reflux disease without esophagitis Category: Medical (3) Hemorrhoids, internal, with bleeding: Code(s): K64.8 - Other hemorrhoids Category: Medical Plan She had a scope in 2022 She has been struggling with renal stones! She had a couple of complex lithotripsies, several courses of antibiotics and was temporarily on Flomax for awhile. She was very ill with this but hopefully she is past the worst. She is no longer having diarrhea, now CIC not moving bowels for 4 days. She can not point to any particular medication changes although the constipation did seem to start her on the same time as the kidney stones. They did increase her Seroquel and her trazodone but otherwise her medications are all the same. There have been no major diet changes to explain this either. She is on levothyroxine urge that her thyroid is being monitored. Start trial Amitiza 8mcg bid and titrate and send miralax. In the meantime she continues on her omeprazole twice a day and we will also refill her hemorrhoid cream. ROV 8 weeks. Medications: New lubiprostone (Amitiza) 24 mcg PO BID 60 caps 1RF 30 days Refilled pantoprazole 40 mg PO BID 60 tabs 6RF K21.9 - Gastro-esophageal reflux disease without esophagitis Discontinued oxycodone-acetaminophen 5-325 mg Partial Fill upon patient request. Discontinued Reason: Patient Completed Course 1 tab PO Q4H 7 days PRN 14 tabs 0RF pain (scale score 4-6) tamsulosin Discontinued Reason: Patient Completed Course 0.4 mg PO BEDTIME 14 days 14 caps 0RF sulfamethoxazole-trimethoprim 800-160 mg (Bactrim DS) Discontinued Reason: Patient Completed Course 1 tab PO BID 3 days 6 tabs 0RF oxycodone-acetaminophen 5-325 mg Partial Fill upon patient request. Discontinued Reason: Patient Completed Course 1 tab PO Q4H 7 days PRN 14 tabs 0RF pain (scale score 4-6) tamsulosin Discontinued Reason: Patient Completed Course 0.4 mg PO BEDTIME 14 days 14 caps 0RF sulfamethoxazole-trimethoprim 400-80 mg (Bactrim) Discontinued Reason: Patient Completed Course 1 tab PO DAILY 90 days 90 tabs TODAY'S VISIT She is here today with a staff member who is supportive. She is doing very well! She continues on her pantprazole with good GERD control, and she is using the hemorrhoid cream and Amitiza prn for CIC. She is satisfied with her GI regimen. She will be due for a colonoscopy screening in 2025 related to tubular adenomas. Return office visit in 6 months. [facility] Medical History (Updated 03/11/25 @ 12:02 by TOMAS Jim) Tubular adenoma of colon Hx of adenomatous polyp of colon Glaucoma Osteopenia of multiple sites Irritable bowel syndrome with diarrhea Osteoarthritis Staghorn calculus Diverticulosis Urinary incontinence, mixed Atherosclerotic cardiovascular disease Colon cancer screening Smoker unmotivated to quit Shoulder bursitis Trochanteric bursitis Mitral valve regurgitation Narcotic dependence, in remission Chronic GERD Morbid obesity History of myasthenia gravis Allergic rhinitis Eczema Duodenum ulcer Bipolar disorder History of anoxic brain injury Dyslipidemia Mild intermittent asthma in adult without complication Postsurgical hypothyroidism Surgical History (Updated 03/11/25 @ 12:02 by TOMAS Jim) History of cataract surgery Hx of cystoscopy H/O colonoscopy Hx of thyroidectomy History of esophagogastroduodenoscopy (~01/2015) History of partial hysterectomy History of thymectomy (~2007) History of thyroidectomy, total Hx of tonsillectomy History of cholecystectomy (Unknown) History of appendectomy (Unknown) Family History Father Stroke Mother Breast cancer, Onset Age: 40 Brother Brain cancer Brother HIV disease Son No problems noted. Maternal Grandmother Glaucoma Paternal Grandmother Lung cancer Ovarian cancer Social History Household Members: Other Household Members Other:: custodial ([employer]) Housing: Other Housing Other:: Service Net agencyGroup home Do you presently have visiting nurse or other home services: Yes (custodial staff) Alcohol intake: never Patient Tobacco Use Status: Current everyday Tobacco user Tobacco use type: Cigarette Cigarette Packs Per Day: 0.5 Cigarettes Per Day: 10.0 Years Smoked: 40 e-Cigarette/Vaping Use: Never Used Current occupational status: disabled Cognitive needs: No Hearing needs: No Vision needs: Yes Review of Systems Const Denies fatigue, Denies fever(s), Denies night sweats, Denies poor appetite, Reports weight gain and Denies weight loss ENT Reports Normal hearing present, Denies dental pain, Denies dysphagia, Denies hearing loss, Denies mouth pain, Denies odynophagia, Denies throat swelling, Denies tongue swelling and Reports other (Dentition adequate) Card Reports no additional complaints Resp Reports no additional complaints GI Details: Denies abdominal pain, Denies melena, Denies bloating, Denies hematochezia, Reports constipation, Denies GI cramping, Denies dysphagia, Denies excessive flatus, Denies early satiety, Reports heartburn, Reports diarrhea, Denies nausea, Denies odynophagia, Denies vomiting and Denies hematemesis Skin/Breast Denies pruritus, Denies lesions, Denies rash and Denies jaundice Neuro Reports Normal hearing present and Denies Abnormal speech present Endo Denies fatigue Aller/Immun Denies throat swelling and Denies tongue swelling Physical Exam Vital Signs: Last Vital Signs Pulse 75 03/11/25 11:43 BP 119/67 03/11/25 11:43 BMI result Body Mass Index 41.2 Const General: cooperative, no acute distress, well developed and well groomed Nutritional Appearance: well nourished and obese Orientation/consciousness: oriented to person, oriented to place and oriented to time Limitations: No language barrier and other limitations HEENT Head: Yes normocephalic and Yes atraumatic Eyes General: appearance normal, both eyes and all related structures Pupils: Equal, round and reactive pupils present Neck Neck: Yes normal visual inspection and Yes no lymphadenopathy Thyroid: Thyroid normal Resp Effort & Inspection: normal respiratory effort and able to speak in complete sentences Auscultation: clear to auscultation bilaterally Cardio Rate: regular rate Rhythm: regular rhythm Heart sounds: Normal, physiologic split S2 sound present Peripheral pulses: radial pulses present and posterior tibial pulses present GI Inspection: No distended, Yes Abdominal panniculus present and Yes obesity Palpation (GI): Soft to palpation, nontender, no guarding, not rigid and No h epatosplenomegaly present Percussion: Yes normal to percussion Auscultation: normal bowel sounds Rectal Exam - Female: deferred Skin General skin exam: no rashes or lesions noted, turgor normal, skin not dry, no jaundice, No spider nevi and no striae Rashes: no rashes Nails: normal Neuro General: oriented to person, oriented to place and oriented to time Cranial nerves: Yes Equal, round and reactive pupils present and Yes Normal hearing present Speech: No Abnormal speech present Extrem General: Yes normal to inspection, No clubbing, No cyanosis and No edema Psych Appearance: grossly normal and well kempt Mental Status: mental status grossly normal Speech and movement: Normal speech and movement present Affect: normal affect Attitude: cooperative Thought process: Normal thought process present and not confabulating Thought content: Normal thought content present Insight: Poor insight present (Psych) Judgement: Poor judgement present (Psych) Assessment & Plan Assessment & Plan (1) Chronic GERD: Code(s): K21.9 - Gastro-esophageal reflux disease without esophagitis Category: Medical (2) Irritable bowel syndrome with both constipation and diarrhea: Code(s): K58.2 - Mixed irritable bowel syndrome Category: Medical Plan She is here today with a staff member who is supportive. She is doing very well! She continues on her pantprazole with good GERD control, and she is using the hemorrhoid cream and Amitiza prn for CIC. She is satisfied with her GI regimen. She will be due for a colonoscopy screening in 2025 related to tubular adenomas. Return office visit in 6 months. Medications: Refilled pantoprazole 40 mg PO BID 60 tabs 6RF K21.9 - Gastro-esophageal reflux disease without esophagitis hydrocortisone 2.5% (Proctosol HC) 1 appl MI BID PRN 30 grams 12RF hemorrhoids Coding Level of Care Code Est Pt Level 3 (78892) Diagnoses Chronic GERD K21.9 Irritable bowel syndrome with both constipation and diarrhea K58.2
[2025-03-11 11:43] VITALS: BP 119/67; PULSE 75; BMI 41.2
== END 2025-03-11 12:09 | disposition home or self-care (01) ==
LOC: HO.HGI 11:38
PROVIDERS: PCP Internal Medicine; Visit Provider Nurse Practitioner
DX: K21.9 Gastro-esophageal reflux disease without esophagitis (principal); K58.2 Mixed irritable bowel syndrome
CPT/HCPCS: 99213

== ENCOUNTER → 2025-03-11 11:37 | Outpatient (BNVA) | payer MEDICARE, MEDICAID, SELFPAY | PROVIDERS: PCP Internal Medicine; Visit Provider Nurse Practitioner | DX: K21.9 Gastro-esophageal reflux disease without esophagitis (principal); K64.8 Other hemorrhoids; K58.2 Mixed irritable bowel syndrome | CPT/HCPCS: 99212 ==

== ENCOUNTER 2025-03-29 09:43 | Outpatient (REF) | payer MEDICARE, MEDICAID, SELFPAY ==
[2025-03-29 13:50] LABS: Alanine Aminotransferase 7 U/L (0-31); Anion Gap 11 (12-20); Aspartate Amino Transferase 17 U/L (5-31); Blood Urea Nitrogen 35 mg/dL (9-16); Calcium 9.6 mg/dL (8.4-10.2); Carbon Dioxide 32 mmol/L (22-29); Chloride 101 mmol/L (96-108); Cholesterol 185 mg/dL (<200); Estimated Glomerular Filt Rate 40; Glucose Fasting 91 mg/dL (60-99); HDL Cholesterol 43 mg/dL (>40); LDL Cholesterol Calculated 101 mg/dL (<100); Potassium 5.1 mmol/L (3.3-5.1); Sodium 139 mmol/L (135-145); Triglycerides 205 mg/dL (<150)
[2025-03-29 14:10] LABS: Free T4 (Free Thyroxine) 1.08 ng/dL (0.71-1.85); Thyroid Stimulating Hormone 2.92 uIU/mL (0.32-4.0); Vitamin D 25-OH Total 51.9 ng/mL (>30)
== END 2025-03-29 09:44 | disposition home or self-care (01) ==
LOC: HO.HMGCLDS 09:43
PROVIDERS: PCP Internal Medicine; Visit Provider Internal Medicine
DX: M85.89 Other specified disorders of bone density and structure, multiple sites (principal); E78.5 Hyperlipidemia, unspecified; E89.0 Postprocedural hypothyroidism; E66.01 Morbid (severe) obesity due to excess calories
CPT/HCPCS: 36415; 80048; 80061; 82306; 84439; 84443; 84450; 84460

== ENCOUNTER 2025-04-01 10:01 | Outpatient (REF) | payer MEDICARE, MEDICAID, SELFPAY ==
--- NOTE | ~2025-04-01 | MM_ITS ---
EXAMINATION: DXA BONE DENSITY AXIAL HISTORY: Z12.31 - Encounter for screening mammogram for malignant neoplasm of breast TECHNIQUE: SnapYeti Dual energy absorptiometry (DEXA) of the lumbar spine, total left hip, and femoral neck was performed. COMPARISON: Comparison is made with the prior examination dated 05/30/2021. FINDINGS: The bone mineral density of the lumbar spine is 0.968 with a T-score of -1.6, and a Z-score of -1.1. This is indicative of osteopenia. This represents a BMD change of -11.0% compared to the prior exam. This is statistically significant. The bone mineral density of the left total hip is 0.814 with a T-score of -1.5, and a Z-score of -0.9. This is indicative of osteopenia. This represents a BMD change of -6.3% compared to the prior exam. This is statistically significant. The bone mineral density of the left femoral neck is 0.799 with a T-score of -1.7, and a Z-score of -0.8. This is indicative of osteopenia. This represents a BMD change of -2.0% compared to the prior exam. FRACTURE RISK: The FRAX index suggests a ten year probability of major osteoporotic fracture of 14.6%, and of hip fracture 3.3%. MM/XR DEXA axial skeleton IMPRESSION: Based on bone mineral density, and according to World Health Organization (WHO) criteria, the diagnosis is consistent with osteopenia. All bone density values are in grams per centimeter squared (g/cm2). Statistically, 68% of repeat scans fall within 1 SD (+/- 0.010 g/cm2 for AP spine L1-L4) and 1 SD (+/- 0.012 g/cm2 for femur total) FRAX is a trademark of the [employer]'s [employer] Metabolic Bone Disease, a World Health Organization (WHO) Collaborating Center. Electronically signed by: Maxi Casiano MD 04/01/2025 11:12 AM EDT
--- OUTSIDE RECORDS SUMMARY | 2025-04-01 11:05 | XMS_ITS | Encounter Summary ---
Author Organization [facility] Address [address] [place] [address] Care Team Providers Care Screen Examiner Name Role Phone Jil Lebron MD Primary Care Provider Paradise Blair MD Primary Care Provider Danelle Georges MD Primary Care Provider [facility], Pcp Primary Care Provider Perez haddad Encounter Details Date Type Department Care Team Description 06/16/2015 Business Doc Medical Records [address] [place] [id number] Abstract, Provider Social History Tobacco Use Types Packs/Day Years Used Date Smoking Tobacco: Former Cigarettes 1 33 Q uit: 11/25/2007 Smokeless Tobacco: Never Comments:quit 5 years ago, u se to smoke 1 ppd Alcohol Use Standard Drinks/Week Comments No 0 (1 standard drink = 0.6 oz pur e alcohol) Sex Assigned at Date Recorded Not on file documented as of this encounter Plan of Treatment Not on file documented as of this encounter Visit Diagnoses Not on filedocumented in this encounter Care Teams Screen Examiner Relationship Specialty Start Date End Date Jil Lebron MD PCP - General Internal Medicine 10/25/14 09/14/15 Paradise Haas MD PCP - General Internal Medicine 09/15/15 03/12/18 Danelle Rosales MD PCP - General Internal Medicine 03/13/1804/15 [facility], Pcp PCP - General Internal Medicine 04/16/19 documented as of this encounter
--- OUTSIDE RECORDS SUMMARY | 2025-04-01 11:05 | XMS_ITS | Encounter Summary ---
Author Organization [facility] Address [address] [place] [address] Care Team Providers Care Features Reporter Name Role Phone Paradise Haas MD Primary Care Provider Unavaila Danelle Casillas MD Primary Care Provider [facility], Pcp Primary Care Provider Unavailabl e Reason for Referral * EXTERNAL (Routine) - Authorized/Booked Specialty Diagnoses / Procedures Referred By Contvivian calloway Referred To Contact Physical Therapy Diagnoses Lumbar radiculitis Procedures [place]ERR[place] [address] [place] [id number] External Phys Thrpy Referral ID Status Reason Start Date Expiration Date V isits Requested Visits Authorized SEE NOTE Authorized/B ooked 09/19/2017 11/20/2017 1 1 Reason for Visit * Reason Onset Date Comments Provider Call Back 09/18/2017 Encounter Details Date Type Department Care Team Description 09/18/2017 Telephone Physiatry - [address] [address] Jack Rosenthal DO Provider Call Back Social History Tobacco Use Types Packs/Day Years Used Date Smoking Tobacco: Former Cigarettes 1 33 1 12/22/1970 - 11/25/2007 Smokeless Tobacco: Never Comments:quit 5 years ago, u se to smoke 1 ppd Alcohol Use Standard Drinks/Week Comments No 0 (1 standard drink = 0.6 oz pur e alcohol) Sex Assigned at Date Recorded Not on file documented as of this encounter Miscellaneous Notes * Telephone Encounter - Mary Ramon M.A. - 09/18/2017 1:[address] Rosenthal, All you need to do for this message is renew her PT * Telephone Encounter - Mary Ramon M.A. - 09/18/2017 1:10 PM EDT Spoke with Carin, [facility] is going to bring a medication list over and they would like you to just sign that the Meloxicam has been discontinued. Patient ran out of medication and is no longer wanting to take it. She is also going to make a follow up when the patient is available so they can coordinate there schedules. * Telephone Encounter - Julio Duvall - 09/18/2017 1:02 PM EDT Carin, coordinator from [facility] called stating patient is out of meloxicam (MOBIC) 15 MG tabletmedication. She is asking if Dr wants patient to continue medication, if so, they need a new order send to [facility] pharmacy. Please advise. * Telephone Encounter - Julio Duvall - 09/18/2017 12:28 PM EDT Franci, counselor, called asking if patient needs a follow up for injection 09/18/2017. Also patient needs a new referral to physical therapy, old one . Please advise. documented in this encounter Plan of Treatment Not on file documented as of this encounter Visit Diagnoses Diagnosis Lumbar radiculitis- Primary Thoracic or lumbosacral neuritis or radiculitis, unspecified documented in this encounter Care Teams Features Reporter Relationship Specialty Start Date End Date Paradise Haas MD PCP - General Internal Medicine 09/15/15 03/12/18 Danelle Rosales MD PCP - General Internal Medicine 03/13/1804/15 [facility], Pcp PCP - General Internal Medicine 04/16/19 documented as of this encounter
--- OUTSIDE RECORDS SUMMARY | 2025-04-01 11:05 | XMS_ITS | Encounter Summary ---
Author Organization [facility] Address [address] [place] [address] Care Team Providers Care Band Tier Name Role Phone Paradise Haas MD Primary Care Provider Unavaila Danelle Casillas MD [facility] Primary Care Provider Unavailabl e Encounter Details Date Type Department Care Team Description 12/16/2017 PNO Controlled Substance Contract Medical Records [address] [place] [address] Abstract, Provider Social History Tobacco Use Types [...] on filedocumented in this encounter Care Teams Band Tier Relationship Specialty Start Date End Date Paradise Haas MD PCP - General Internal Medicine 09/15/15 03/12/18 Danelle Rosales MD PCP - General Internal Medicine 03/13/1804/15 [facility], Pcp PCP - General Internal Medicine 04/16/19 documented as of this encounter
--- OUTSIDE RECORDS SUMMARY | 2025-04-01 11:05 | XMS_ITS | Encounter Summary ---
Author Organization [facility] Address [address] [place] [address] Care Team Providers Care Interceptor Operator Name Role Phone Paradise Haas MD Primary Care Provider Danelle Georges MD Primary Care Provider U francine [facility], Pcp Primary Care Provider Unavailabl e Encounter Details Date Type Department Care Team Description 03/05/2017 Business Doc Medical Records [address] [place] [id number] Abstract, Provider Social History Tobacco Use Types [...] on filedocumented in this encounter Care Teams Interceptor Operator Relationship Specialty Start Date End Date Paradise Haas MD PCP - General Internal Medicine 09/15/15 03/12/18 Danelle Rosales MD PCP - General Internal Medicine 03/13/1804/15 [facility], Pcp PCP - General Internal Medicine 04/16/19 documented as of this encounter
--- OUTSIDE RECORDS SUMMARY | 2025-04-01 11:05 | XMS_ITS | Encounter Summary ---
Author Organization [facility] Address [address] [place] [address] Care Team Providers Care Asp Net C Developer Name Role Phone Paradise Haas MD Primary Care Provider Danelle Georges MD Primary Care Provider U francine [facility], Pcp Primary Care Provider Unavailabl e Encounter Details Date Type Department Care Team Description 05/01/2017 Business Doc Medical Records [address] [place] [id number] Abstract, Provider Social History Tobacco Use Types [...] on filedocumented in this encounter Care Teams Asp Net C Developer Relationship Specialty Start Date End Date Paradise Haas MD PCP - General Internal Medicine 09/15/15 03/12/18 Danelle Rosales MD PCP - General Internal Medicine 03/13/1804/15 [facility], Pcp PCP - General Internal Medicine 04/16/19 documented as of this encounter
--- OUTSIDE RECORDS SUMMARY | 2025-04-01 11:05 | XMS_ITS | Encounter Summary ---
Author Organization [facility] Address [address] [place] [address] Care Team Providers Care Industrial Relations Worker Name Role Phone Paradise Haas MD Primary Care Provider Danelle Georges MD Primary Care Provider U francine [facility], Pcp Primary Care Provider Unavailabl e Encounter Details Date Type Department Care Team Description 06/11/2016 Release of Information Medical Records [address] [place] [id number] Abstract, Provider Social History Tobacco Use Types [...] on filedocumented in this encounter Care Teams Industrial Relations Worker Relationship Specialty Start Date End Date Paradise Haas MD PCP - General Internal Medicine 09/15/15 03/12/18 Danelle Rosales MD PCP - General Internal Medicine 03/13/1804/15 [facility], Pcp PCP - General Internal Medicine 04/16/19 documented as of this encounter
--- OUTSIDE RECORDS SUMMARY | 2025-04-01 11:05 | XMS_ITS | Encounter Summary ---
Author Organization [facility] Address [address] [place] [address] Care Team Providers Care Equipment Maint Tech Name Role Phone Paradise Haas MD Primary Care Provider Unavaila Danelle Casillas MD Primary Care Provider U francine [facility], Pcp Primary Care Provider Unavailabl e Encounter Details Date Type Department Care Team Description 02/22/2017 Orders Only Medicine/Pediatrics - [address] [phone] Zay Horton PA-C Social History Tobacco Use Types Packs/Day Years [...] on filedocumented in this encounter Care Teams Equipment Maint Tech Relationship Specialty Start Date End Date Paradise Haas MD PCP - General Internal Medicine 09/15/15 03/12/18 Danelle Rosales MD PCP - General Internal Medicine 03/13/1804/15 [facility], Pcp PCP - General Internal Medicine 04/16/19 documented as of this encounter
--- OUTSIDE RECORDS SUMMARY | 2025-04-01 11:05 | XMS_ITS | Encounter Summary ---
Author Organization [facility] Address [address] [place] [address] Care Team Providers Care Technology Development Intern Name Role Phone Tyrone Torrez MD Primary Care Provider Jil Jackson MD Primary Care Provider Paradise Blair MD Primary Care Provider Danelle Georges MD Primary Care Provider [facility], Pcp Primary Care Provider Unavailabl e Encounter Details Date Type Department Care Team Description 09/22/2010 Hospital Medical Records [address] [place] [address] Larissa Ceballos MD [address] [place] [id number] Social History Tobacco Use Types Packs/Day Years [...] on filedocumented in this encounter Care Teams Technology Development Intern Relationship Specialty Start Date End Date Tyrone Torrez MD PCP - General 07/17/11 10/24/14 Jil Lebron MD PCP - General Internal Medicine 10/25/14 09/14/15 Paradise Haas MD PCP - General Internal Medicine 09/15/15 03/12/18 Danelle Rosales MD PCP - General Internal Medicine 03/13/1804/15 [facility], Pcp PCP - General Internal Medicine 04/16/19 documented as of this encounter
--- OUTSIDE RECORDS SUMMARY | 2025-04-01 11:05 | XMS_ITS | Encounter Summary ---
Author Organization [facility] Address [address] [place] [address] Care Team Providers Care Lacquer Maker Name Role Phone Danelle Rosales MD Primary Care Provider [facility], Pcp Primary Care Provider Unavailabl e Reason for Visit * Reason Comments E-prescribe Rx Request Encounter Details Date Type Department Care Team Description 04/07/2019 Refill Adult Medicine - [address] [address] Danelle Rosales MD E-prescribe Rx Request Social History Tobacco Use Types Packs/Day Years [...] encounter Miscellaneous Notes * Telephone Encounter - Danelle Rosado MD - 04/07/2019 2:24 PM EDT PLEASE CALL THE PHARMACY TO STOP CALLING US FOR REFILLS. This patient is now receiving care from a different PCP * Telephone Encounter - Cheko Hughes M.A. - 04/07/2019 2:08 PM EDT Last office visit 6.20.18 Lab Results Component Value Date CHOL 202 10/15/2017 LDL 104 10/15/2017 HDL 51 10/15/2017 TRIG 237 10/15/2017 * Telephone Encounter - Carlalorenza Flores - 04/07/2019 11:49 AM EDT Patient would like script to be: E-PRESCRIBED/FAXED TO PHARMACY WHEN WAS THE PATIENT'S LAST APPOINTMENT IN ADULT MEDICINE? 05/14/2018 WHEN WAS THE LAST TIME THE PATIENT SAW THEIR PCP? Same as above Does patient have an upcoming appointment? No (THE MEDICATION REQUESTED IS ON THE MED LIST ABOVE) All of the medications requested were on the CURRENT MEDS list Did you check the Pharmacy information above?: YES Patient wants: 30 -day supply Is this a mail order prescription request ? NO If the refill is from a FAXED refill request what is the RX # listed on the fax? N/A Patients current insurance carrier is: [place] / Product Type: MED[place]ARE [id number] documented in this encounter Plan of Treatment Not on file documented as of this encounter Visit Diagnoses Not on filedocumented in this encounter Care Teams Lacquer Maker Relationship Specialty Start Date End Date Danelle Rosales MD PCP - General Internal Medicine 03/13/1804/15 [facility], Pcp PCP - General Internal Medicine 04/16/19 documented as of this encounter
--- OUTSIDE RECORDS SUMMARY | 2025-04-01 11:05 | XMS_ITS | Encounter Summary ---
Author Organization [facility] Address [address] [place] [address] Care Team Providers Care Vaccine Specialist Name Role Phone Paradise Haas MD Primary Care Provider Unavaila Danelle Casillas MD [facility] Primary Care Provider Unavailabl e Encounter Details Date Type Department Care Team Description 02/24/2017 Controlled Substance Contract with Plan Medical Records [address] [place] [address] Abstract, Provider Social History Tobacco Use Types [...] on filedocumented in this encounter Care Teams Vaccine Specialist Relationship Specialty Start Date End Date Paradise Haas MD PCP - General Internal Medicine 09/15/15 03/12/18 Danelle Rosales MD PCP - General Internal Medicine 03/13/1804/15 [facility], Pcp PCP - General Internal Medicine 04/16/19 documented as of this encounter
--- OUTSIDE RECORDS SUMMARY | 2025-04-01 11:05 | XMS_ITS | Encounter Summary ---
Author Organization [facility] Address [address] [place] [address] Care Team Providers Care Firer Automatic Stoker Name Role Phone Paradise Haas MD Primary Care Provider Danelle Georges MD Primary Care Provider U francine [facility], Pcp Primary Care Provider Unavailabl e Encounter Details Date Type Department Care Team Description 12/19/2015 Controlled Substance Contract with Plan Medical Records [address] [place] [address] Abstract, Provider Social History Tobacco Use Types [...] on filedocumented in this encounter Care Teams Firer Automatic Stoker Relationship Specialty Start Date End Date Paradise Haas MD PCP - General Internal Medicine 09/15/15 03/12/18 Danelle Rosales MD PCP - General Internal Medicine 03/13/1804/15 [facility], Pcp PCP - General Internal Medicine 04/16/19 documented as of this encounter
--- OUTSIDE RECORDS SUMMARY | 2025-04-01 11:05 | XMS_ITS | Encounter Summary ---
Author Organization [facility] Address [address] [place] [address] Care Team Providers Care Triage Register Nurse Name Role Phone Paradise Haas MD Primary Care Provider Oria Danelle Casillas MD Primary Care Provider [facility], Pcp Primary Care Provider Unavailabl e Reason for Visit * Reason Comments E-prescribe Rx Request Encounter Details Date Type Department Care Team Description 08/01/2017 Refill Physiatry - [address] [address] Jack Rosenthal DO E-prescribe Rx Request Social History Tobacco Use [...] Telephone Encounter - Mary Ramon M.A. - 08/01/2017 3:36 PM EDT Last ov 06/12/17 Last refill 05/23/17 Next ov 09/10/17 documented in this encounter Plan of Treatment Not on file documented as of this encounter Visit Diagnoses Diagnosis Chronic left-sided low back pain with left-sided sciatica Sacroiliac pain Disorders of sacrum documented in this encounter Care Teams Triage Register Nurse Relationship Specialty Start Date End Date Paradise Haas MD PCP - General Internal Medicine 09/15/15 03/12/18 Danelle Rosales MD PCP - General Internal Medicine 03/13/1804/15 [facility], Pcp PCP - General Internal Medicine 04/16/19 documented as of this encounter
--- OUTSIDE RECORDS SUMMARY | 2025-04-01 11:05 | XMS_ITS | Encounter Summary ---
Author Organization [facility] Address [address] [place] [address] Care Team Providers Care Airplane Patroller Name Role Phone Paradise Haas MD Primary Care Provider Danelle Georges MD Primary Care Provider [facility], Pcp Primary Care Provider Unavailabl e Encounter Details Date Type Department Care Team Description 04/24/2016 Orders Only Medicine/Pediatrics - [address] [phone] Zay Horton PA-C Routine general medical examination at a health care facility (Primary Dx) Social History Tobacco Use Types Packs/Day Years [...] on file documented as of this encounter Results * (ABNORMAL) HEMOGLOBIN A1C (04/26/2016 12:14 PM EDT) Glycosylated Hemoglobin A1C 6.1(H) 4.0 - 6.0 % 04/26/2016 3:15 PM EDT [facility] Comment: HbA1C VALUES MAY NOT ACCURATELY REFLECT MEAN BLOOD GLUCOSE IN PATIENTS WITH HEMOGLOBIN VARIANTS SUCH HbF, HbS. 04/26/2016 12:1 4 PM EDT 04/26/2016 12:15 PM EDT Zay Horton PA-C LAB [address] * THYROID PROFILE W/TSH (04/26/2016 12:14 PM EDT) TSH CASCADE 2.36 0.40 - 4.00 uIU/ml 04/26/2016 4:30 PM EDT [facility] 04/26/2016 12:1 4 PM EDT 04/26/2016 12:15 PM EDT Zay Horton PA-C LAB Performing Organization Address City/[facility]/ZIP Co de Phone Number [address] * (ABNORMAL) LIPID PROFILE (04/26/2016 12:14 PM EDT) Cholesterol 162 0 - 200 mg/dL 04/26/2016 4:30 PM EDT [facility] TRIGLYCERIDES 266(H) 0 - 150 mg/dL 04/26/2016 4:30 PM EDT [facility] HDL CHOLESTEROL 47 >40 mg/dL 6 4:30 PM EDT [facility] LDL CALCULATED 62 0 - 100 mg/dL 04/26/2016 4:30 PM EDT [facility] TC-HDLC RATIO 3 0.0 - 4.4 mg/dL 04/26/2016 4:30 PM EDT [facility] 04/26/2016 12:1 4 PM EDT 04/26/2016 12:15 PM EDT Zay Horton PA-C LAB Performing Organization Address City/[facility]/ZIP Co de Phone Number [address] * (ABNORMAL) BASIC METABOLIC PANEL (04/26/2016 12:14 PM EDT) GLUCOSE 102(H) 70 - 100 mg/dL 04/26/2016 4:30 PM EDT [facility] Comment: Reference range applicable to fasting specimens only Based on recommendations from the ADA and AACE, the fasting glucose reference range has been changed to 70-100 mg/dL. ??This change is effective April 10, 2010 BUN 30(H) 5 - 25 mg/dL 04/26/2016 4:30 PM EDT [facility] CREAT 1.1 0.7 - 1.5 mg/dL 04/26/2016 4:30 PM EDT [facility] GFR 54(L) >60 04/26/2016 4:30 PM EDT [facility] Comment: If patient is -Maced[place], multiply result by 1.21 Chronic Kidney Disease: < 60 ml/min/1.73 square meters Kidney Failure: < 15 ml/min/1.73 square meters Sodium 140 133 - 145 mEq/L 04/26/2016 4:30 PM EDT [facility] Potassium 4.5 3.5 - 5.5 mEq/L 04/26/2016 4:30 PM EDT [facility] Chloride 99 96 - 108 mEq/L 04/26/2016 4:30 PM EDT [facility] CO2 24.7 21.0 - 32.0 mEq/L 04/26/2016 4:30 PM EDT [facility] CALCIUM 9.3 8.5 - 10.5 mg/dL 04/26/2016 4:30 PM EDT [facility] 04/26/2016 12:1 4 PM EDT 04/26/2016 12:15 PM EDT Zay Horton PA-C LAB Performing Organization Address City/State/[facility] de Phone Number [facility] [address] [facility] documented in this encounter Visit Diagnoses Diagnosis Routine general medical examination at a health care facility- Primary documented in this encounter Care Teams Airplane Patroller Relationship Specialty Start Date End Date Paradise Haas MD PCP - General Internal Medicine 09/15/15 03/12/18 Danelle Rosales MD PCP - General Internal Medicine 03/13/1804/15 [facility], Pcp PCP - General Internal Medicine 04/16/19 documented as of this encounter
--- OUTSIDE RECORDS SUMMARY | 2025-04-01 11:05 | XMS_ITS | Encounter Summary ---
Author Organization [facility] Address [address] [place] [address] Care Team Providers Care Hazardous Material Technician Name Role Phone Tyrone Torrez MD Primary Care Provider Jil Jackson MD Primary Care Provider Paradise Blair MD Primary Care Provider Oria Danelle Casillas MD Primary Care Provider [facility], Pcp Primary Care Provider Unavailabl e Encounter Details Date Type Department Care Team Description 01/26/2011 [facility] Medical Records [address] [place] [address] Luisana Maloney Social History Tobacco Use Types Packs/Day Years [...] on filedocumented in this encounter Care Teams Hazardous Material Technician Relationship Specialty Start Date End Date Tyrone Torrez MD PCP - General 07/17/11 10/24/14 Jil Lebron MD PCP - General Internal Medicine 10/25/14 09/14/15 Paradise Haas MD PCP - General Internal Medicine 09/15/15 03/12/18 Danelle Rosales MD PCP - General Internal Medicine 03/13/1804/15 [facility], Pcp PCP - General Internal Medicine 04/16/19 documented as of this encounter
--- OUTSIDE RECORDS SUMMARY | 2025-04-01 11:05 | XMS_ITS | Encounter Summary ---
Author Organization [facility] Address [address] [place] [address] Care Team Providers Care Cashier Host/Hostess Name Role Phone Paradise Haas MD Primary Care Provider Danelle Georges MD Primary Care Provider [facility], Pcp Primary Care Provider Unavailgill e Encounter Details Date Type Department Care Team Description 07/09/2016 Orders Only Adult Medicine [address] [address] Paradise Haas MD Colon cancer screening; Special screening for malignant neoplasms, colon Social History Tobacco Use Types Packs/Day Years [...] on file documented as of this encounter Procedures Procedure Name Priority Date/Time Associated Diagnosis Comments CHG BLOOD OCCULT FECAL HGB DETER IA QUAL FECES 1-3 Routine 07/09/2016 Special screening for malignant neoplasms, colon documented in this encounter Results * BLOOD OCCULT QUAL FECAL HEMGLBN (07/09/2016) OCCULT BLOOD, STOOL neg INTERNAL CONTROL VALID yes Stool 07/09/2016 Paradise Haas MD LAB documented in this encounter Visit Diagnoses Diagnosis Colon cancer screening Special screening for malignant neoplasms, colon Special screening for malignant neoplasms, colon documented in this encounter Care Teams Cashier Host/Hostess Relationship Specialty Start Date End Date Paradise Haas MD PCP - General Internal Medicine 09/15/15 03/12/18 Danelle Rosales MD PCP - General Internal Medicine 03/13/1804/15 [facility], Pcp PCP - General Internal Medicine 04/16/19 documented as of this encounter
--- OUTSIDE RECORDS SUMMARY | 2025-04-01 11:05 | XMS_ITS | Encounter Summary ---
Author Organization [facility] Address [address] [place] [address] Care Team Providers Care Bridge Repair Crew Person Name Role Phone Jil Lebron MD Primary Care Provider Paradise Blair MD Primary Care Provider Danelle Georges MD Primary Care Provider [facility], Pcp Primary Care Provider Unavailabl e Reason for Visit * Reason Onset Date Comments Call From Home Care 08/11/2015 Encounter Details Date Type Department Care Team Description 08/11/2015 Telephone Medicine/Pediatrics - [address] [phone] Zay Horton PA-C Call From Home Care Social History Tobacco Use Types Packs/Day Years [...] encounter Miscellaneous Notes * Telephone Encounter - Juju Garcia L.P.N. - 08/15/2015 3:37 PM EDT Called back Jayde Not in today , they ask that we call her back tomorrow Did not receive release * Telephone Encounter - Cortney De M.A. - 08/11/2015 2:36 PM EDT Waiting for consent * Telephone Encounter - Sudha Musaadenike - 08/11/2015 2:29 PM EDT Jayde calling from [facility] regarding patient's medications. She needs to clarify the atarax rx, whether patient is still taking and if she has refills. She is sending up a copy of consent from the patient. She is faxing to [facility] fax number. documented in this encounter Plan of Treatment Not on file documented as of this encounter Visit Diagnoses Not on filedocumented in this encounter Care Teams Bridge Repair Crew Person Relationship Specialty Start Date End Date Jil Lebron MD PCP - General Internal Medicine 10/25/14 09/14/15 Paradise Haas MD PCP - General Internal Medicine 09/15/15 03/12/18 Danelle Rosales MD PCP - General Internal Medicine 03/13/1804/15 [facility], Pcp PCP - General Internal Medicine 04/16/19 documented as of this encounter
--- OUTSIDE RECORDS SUMMARY | 2025-04-01 11:06 | XMS_ITS | Encounter Summary ---
Author Organization [facility] Address [address] [place] [address] Care Team Providers Care Health Services Coordinator Name Role Phone Jil Lebron MD Primary Care Provider Paradise Blair MD Primary Care Provider Danelle Georges MD Primary Care Provider [facility], Pcp Primary Care Provider Perez haddad Encounter Details Date Type Department Care Team Description 01/26/2015 Business Doc Medical Records [address] [place] [id number] Abstract, Provider Social History Tobacco Use Types [...] on filedocumented in this encounter Care Teams Health Services Coordinator Relationship Specialty Start Date End Date Jil Lebron MD PCP - General Internal Medicine 10/25/14 09/14/15 Paradise Haas MD PCP - General Internal Medicine 09/15/15 03/12/18 Danelle Rosales MD PCP - General Internal Medicine 03/13/1804/15 [facility], Pcp PCP - General Internal Medicine 04/16/19 documented as of this encounter
--- OUTSIDE RECORDS SUMMARY | 2025-04-01 11:06 | XMS_ITS | Encounter Summary ---
Author Organization [facility] Address [address] [place] [address] Care Team Providers Care Knitter Machine Name Role Phone Paradise Haas MD Primary Care Provider Danelle Georges MD Primary Care Provider [facility], Pcp Primary Care Provider Unavailabl e Reason for Visit * Reason Comments E-prescribe Rx Request Encounter Details Date Type Department Care Team Description 10/24/2015 Refill Medicine/Pediatrics - [address] [phone] Zay Horton PA-C E-prescribe Rx Request Social History Tobacco Use [...] encounter Miscellaneous Notes * Telephone Encounter - Adry Londono - 10/24/2015 2:23 PM EST Patient would like script to be: E-PRESCRIBED/FAXED TO PHARMACY WHEN WAS THE PATIENT'S LAST APPOINTMENT IN ADULT MEDICINE? \10/17/15 WHEN WAS THE LAST TIME THE PATIENT SAW THEIR PCP? never Does patient have an upcoming appointment? Yes 10/31/15 (THE MEDICATION REQUESTED IS ON THE MED LIST ABOVE) All of the medications requested were on the CURRENT MEDS list Did you check the Pharmacy information above?: YES Patient wants: 30 -day supply Is this a mail order prescription request ? NO Patients current insurance carrier is: [place] / Plan: MEDICARE-[employer] / Product Type: MEDICARE [id number] documented in this encounter Plan of Treatment Not on file documented as of this encounter Visit Diagnoses Not on filedocumented in this encounter Care Teams Knitter Machine Relationship Specialty Start Date End Date Paradise Haas MD PCP - General Internal Medicine 09/15/15 03/12/18 Danelle Rosales MD PCP - General Internal Medicine 03/13/1804/15 [facility] PCP - General Internal Medicine 04/16/19 documented as of this encounter
--- OUTSIDE RECORDS SUMMARY | 2025-04-01 11:06 | XMS_ITS | Encounter Summary ---
Author Organization [facility] Address [address] [place] [address] Care Team Providers Care Wind Science And Planning Name Role Phone Jil Lebron MD Primary Care Provider Paradise Blair MD Primary Care Provider Danelle Georges MD Primary Care Provider [facility], Pcp Primary Care Provider Unavailgill haddad Encounter Details Date Type Department Care Team Description 01/26/2015 Telephone Podiatry - [place] [address] [place] [address] Peterson Muhammad DPM Social History Tobacco Use Types Packs/Day Years [...] encounter Miscellaneous Notes * Telephone Encounter - Carla Pleitez L.P.N. - 01/27/2015 11:04 AM EST Hi, You may want to call and discuss this with her insurance company but there is a good chance shemay have to pay out of pocket. Sincerely, Carla Abdi LPN * Telephone Encounter - Anahi Wilburn - 01/26/2015 1:08 PM EST Insurance won't cover the orthopedic shoe because she is not a diabetic. Please advise. [phone] Catrachito Kar- website admin documented in this encounter Plan of Treatment Not on file documented as of this encounter Visit Diagnoses Not on filedocumented in this encounter Care Teams Wind Science And Planning Relationship Specialty Start Date End Date Jil Lebron MD PCP - General Internal Medicine 10/25/14 09/14/15 Paradise Haas MD PCP - General Internal Medicine 09/15/15 03/12/18 Danelle Rosales MD PCP - General Internal Medicine 03/13/1804/15 [facility], Pcp PCP - General Internal Medicine 04/16/19 documented as of this encounter
--- OUTSIDE RECORDS SUMMARY | 2025-04-01 11:06 | XMS_ITS | Encounter Summary ---
Author Organization [facility] Address [address] [place] [address] Care Team Providers Care Executive Chef Name Role Phone Jil Lebron MD Primary Care Provider Paradise Blair MD Primary Care Provider Danelle Georges MD Primary Care Provider [facility], Pcp Primary Care Provider Unavailabl e Reason for Visit * Reason Onset Date Comments Form 04/27/2015 Encounter Details Date Type Department Care Team Description 04/27/2015 Telephone Adult Medicine [address] [address] Jil Lebron MD Form Social History Tobacco Use Types Packs/Day Years [...] encounter Miscellaneous Notes * Telephone Encounter - Briana Romero - 04/27/2015 3:55 PM EDT Prescriber response form in call center documented in this encounter Plan of Treatment Not on file documented as of this encounter Visit Diagnoses Not on filedocumented in this encounter Care Teams Executive Chef Relationship Specialty Start Date End Date Jil Lebron MD PCP - General Internal Medicine 10/25/14 09/14/15 Paradise Haas MD PCP - General Internal Medicine 09/15/15 03/12/18 Danelle Rosales MD PCP - General Internal Medicine 03/13/1804/15 [facility], Pcp PCP - General Internal Medicine 04/16/19 documented as of this encounter
--- OUTSIDE RECORDS SUMMARY | 2025-04-01 11:06 | XMS_ITS | Encounter Summary ---
Author Organization [facility] Address [address] [place] [address] Care Team Providers Care Associate Application Developer Name Role Phone Jil Lebron MD Primary Care Provider Paradise Blair MD Primary Care Provider Danelle Georges MD Primary Care Provider [facility], Pcp Primary Care Provider Perez haddad Encounter Details Date Type Department Care Team Description 02/15/2015 Business Doc Medical Records [address] [place] [id number] Abstract, Provider Social History Tobacco Use Types Packs/Day Years Used Date Smoking Tobacco: Former Cigarettes 1 33 Q uit: 11/25/2007 Smokeless Tobacco: Former Comments:quit 5 years ago, u se to smoke 1 ppd Alcohol Use Standard Drinks/Week Comments No 0 (1 standard drink = 0.6 oz pur e alcohol) Sex Assigned at Date Recorded Not on file documented as of this encounter Plan of Treatment Not on file documented as of this encounter Visit Diagnoses Not on filedocumented in this encounter Care Teams Associate Application Developer Relationship Specialty Start Date End Date Jil Lebron MD PCP - General Internal Medicine 10/25/14 09/14/15 Paradise Haas MD PCP - General Internal Medicine 09/15/15 03/12/18 Danelle Rosales MD PCP - General Internal Medicine 03/13/1804/15 [facility], Pcp PCP - General Internal Medicine 04/16/19 documented as of this encounter
--- OUTSIDE RECORDS SUMMARY | 2025-04-01 11:06 | XMS_ITS | Encounter Summary ---
Author Organization [facility] Address [address] [place] [address] Care Team Providers Care Multimedia Developer Name Role Phone Paradise Haas MD Primary Care Provider Danelle Georges MD Primary Care Provider [facility], Pcp Primary Care Provider Unavailabl e Reason for Visit * Reason Onset Date Comments Faxed Order 10/19/2015 Encounter Details Date Type Department Care Team Description 10/19/2015 Telephone Medicine/Pediatrics - [address] [phone] Paradise Haas MD Faxed Order Social History Tobacco Use Types Packs/Day Years [...] encounter Miscellaneous Notes * Telephone Encounter - Sofia Kitchen M.A. - 10/19/2015 11:20 AM EST Please sign and return. Thank You. * Telephone Encounter - Adry Londono - 10/19/2015 10:56 AM EST [employer] needs a signature from Paradise Mcfadden for orders. See fax in bin in call center documented in this encounter Plan of Treatment Not on file documented as of this encounter Visit Diagnoses Not on filedocumented in this encounter Care Teams Multimedia Developer Relationship Specialty Start Date End Date Paradise Haas MD PCP - General Internal Medicine 09/15/15 03/12/18 Danelle Rosales MD PCP - General Internal Medicine 03/13/1804/15 [facility], Pcp PCP - General Internal Medicine 04/16/19 documented as of this encounter
--- OUTSIDE RECORDS SUMMARY | 2025-04-01 11:06 | XMS_ITS | Encounter Summary ---
Author Organization [facility] Address [address] [place] [address] Care Team Providers Care Certified Welding Inspector Name Role Phone Paradise Haas MD Primary Care Provider Danelle Georges MD Primary Care Provider [facility], Pcp Primary Care Provider Unavailabl e Reason for Visit * Reason Onset Date Comments APPOINTMENT 02/27/2018 Encounter Details Date Type Department Care Team Description 02/27/2018 Telephone Medicine/Pediatrics - [address] [phone] Paradise Haas MD APPOINTMENT Social History Tobacco Use Types Packs/Day Years [...] encounter Miscellaneous Notes * Telephone Encounter - Viktoria Garcia L.P.N. - 02/27/2018 10:58 AM EDT reschedule apt please * Telephone Encounter - Nasra Banks - 02/27/2018 10:56 AM EDT carin from [facility] [employer] calling states that the patient had an appt today for [address] haas. However the patient is refusing to go. Carin would like to reschedule for a . In the morning documented in this encounter Plan of Treatment Not on file documented as of this encounter Visit Diagnoses Not on filedocumented in this encounter Care Teams Certified Welding Inspector Relationship Specialty Start Date End Date Paradise Haas MD PCP - General Internal Medicine 09/15/15 03/12/18 Danelle Rosales MD PCP - General Internal Medicine 03/13/1804/15 [facility], Pcp PCP - General Internal Medicine 04/16/19 documented as of this encounter
--- OUTSIDE RECORDS SUMMARY | 2025-04-01 11:06 | XMS_ITS | Encounter Summary ---
Author Organization [facility] Address [address] [place] [address] Care Team Providers Care Die Set Up Worker Name Role Phone Danelle Rosales MD Primary Care Provider [facility], Pcp Primary Care Provider Unavailabl e Encounter Details Date Type Department Care Team Description 05/21/2018 Business Doc Medical Records [address] [place] [id number] Abstract, Provider Social History Tobacco Use Types [...] on filedocumented in this encounter Care Teams Die Set Up Worker Relationship Specialty Start Date End Date Danelle Rosales MD PCP - General Internal Medicine 03/13/1804/15 [facility], Pcp PCP - General Internal Medicine 04/16/19 documented as of this encounter
--- OUTSIDE RECORDS SUMMARY | 2025-04-01 11:06 | XMS_ITS | Encounter Summary ---
Author Organization [facility] Address [address] [place] [address] Care Team Providers Care Slip Tender Name Role Phone Danelle Rosales MD Primary Care Provider [facility], Pcp Primary Care Provider Unavailabl e Reason for Visit * Reason Comments E-prescribe Rx Request Encounter Details Date Type Department Care Team Description 07/25/2018 Refill Medicine/Pediatrics - [address] [phone] Lala Roach PA-C E-prescribe Rx Request Social History Tobacco [...] Telephone Encounter - Danelle Rosado MD - 07/25/2018 3:02 PM EDT Signed, thank you * Telephone Encounter - Cheko Hughes M.A. - 07/25/2018 11:41 AM EDT Last office visit 01.21.18 * Telephone Encounter - Korina Morales - 07/25/2018 10:20 AM EDT Patient would like script to be: E-PRESCRIBED/FAXED TO PHARMACY WHEN WAS THE PATIENT'S LAST APPOINTMENT IN ADULT MEDICINE? [id number] WHEN WAS THE LAST TIME THE PATIENT SAW THEIR PCP? Same as above Does patient have an upcoming appointment? no (THE MEDICATION REQUESTED IS ON THE MED LIST ABOVE) All of the medications requested were on the CURRENT MEDS list Did you check the Pharmacy information above?: YES Patient wants: 30 -day supply Is this a mail order prescription request ? YES If the refill is from a FAXED refill request what is the RX # listed on the fax? N/A Patients current insurance carrier is: [place] / [place] / Product Type: MEDICARE [id number] documented in this encounter Plan of Treatment Not on file documented as of this encounter Visit Diagnoses Not on filedocumented in this encounter Care Teams Slip Tender Relationship Specialty Start Date End Date Danelle Rosales MD PCP - General Internal Medicine 03/13/1804/15 [facility] PCP - General Internal Medicine 04/16/19 documented as of this encounter
--- OUTSIDE RECORDS SUMMARY | 2025-04-01 11:06 | XMS_ITS | Encounter Summary ---
Author Organization [facility] Address [address] [place] [address] Care Team Providers Care Vice President Quality Improvement Name Role Phone Jil Lebron MD Primary Care Provider Paradise Blair MD Primary Care Provider Danelle Georges MD Primary Care Provider [facility], Pcp Primary Care Provider Unavailabl e Reason for Referral * Specialist (Urgent) - Authorized/Booked Specialty Diagnoses / Procedures Referred By Shay calloway Referred To Contact ORTHOPEDICS / Orthopedic Procedures REFERRAL TO ORTHOPEDICS Zay Horton PA-C [address] [place] [address] [facility] [address] [place] [id number] Referral ID Status Reason Start Date Expiration Date V isits Requested Visits Authorized NOT REQUIRED Authorized/ Booked 04/27/2015 04/26/2016 1 1 Encounter Details Date Type Department Care Team Description 04/27/2015 Orders Only Medicine/Pediatrics - [address] [phone] Zay Horton PA-C Social History Tobacco Use [...] on filedocumented in this encounter Care Teams Vice President Quality Improvement Relationship Specialty Start Date End Date Jil Lebron MD PCP - General Internal Medicine 10/25/14 09/14/15 Paradise Haas MD PCP - General Internal Medicine 09/15/15 03/12/18 Danelle Rosales MD PCP - General Internal Medicine 03/13/1804/15 [facility], Pcp PCP - General Internal Medicine 04/16/19 documented as of this encounter
--- OUTSIDE RECORDS SUMMARY | 2025-04-01 11:06 | XMS_ITS | Encounter Summary ---
Author Organization [facility] Address [address] [place] [address] Care Team Providers Care Broadcast Program Director Name Role Phone Danelle Rosales MD Primary Care Provider [facility], Pcp Primary Care Provider Unavailabl e Reason for Visit * Reason Comments E-prescribe Rx Request Encounter Details Date Type Department Care Team Description 11/17/2018 Refill Medicine/Pediatrics - [address] [phone] Danelle Rosales MD E-prescribe Rx Request Social [...] Telephone Encounter - Danelle Rosado MD - 11/17/2018 12:32 PM EST Signed, thank you * Telephone Encounter - Cheko Hughes M.A. - 11/17/2018 11:56 AM EST Last office visit 05.14.18 Lab Results Component Value Date NA 137 06/05/2017 K 4.8 06/05/2017 CO2 23.4 06/05/2017 CL 96 06/05/2017 BUN 18 06/05/2017 CREAT 1.0 06/05/2017 GLU 91 06/05/2017 CA 9.0 06/05/2017 GFR 60 06/05/2017 * Telephone Encounter - Shelbydante Corley - 11/17/2018 11:27 AM EST Patient would like script to be: E-PRESCRIBED/FAXED TO PHARMACY WHEN WAS THE PATIENT'S LAST APPOINTMENT IN ADULT MEDICINE? 05/14/18 WHEN WAS THE LAST TIME THE PATIENT SAW THEIR PCP? Same as above Does patient have an upcoming appointment? No-[facility] due to refill request. Appt due (THE MEDICATION REQUESTED IS ON THE MED [...] / Plan: [place] / Product Type: MEDICARE [id number] documented in this encounter Plan of Treatment Not on file documented as of this encounter Visit Diagnoses Not on filedocumented in this encounter Care Teams Broadcast Program Director Relationship Specialty Start Date End Date Danelle Rosales MD PCP - General Internal Medicine 03/13/1804/15 [facility], Pcp PCP - General Internal Medicine 04/16/19 documented as of this encounter
--- OUTSIDE RECORDS SUMMARY | 2025-04-01 11:06 | XMS_ITS | Encounter Summary ---
Author Organization [facility] Address [address] [place] [address] Care Team Providers Care Tailor'S Aide Name Role Phone Paradise Haas MD Primary Care Provider Unavaila Danelle Casillas MD Primary Care Provider [facility], Pcp Primary Care Provider Unavailabl e Reason for Visit * Reason Onset Date Comments VNA Call 10/09/2015 Encounter Details Date Type Department Care Team Description 10/09/2015 Telephone Pediatrics Urgent Care [address] [place] [address] Paradise Haas MD VNA Call Social History Tobacco Use Types Packs/Day Years [...] encounter Miscellaneous Notes * Telephone Encounter - Shiv DavisPDexNDex - 10/09/2015 10:45 AM EST Med list and problem list faxed to [facility] att: Dominique [phone] * Telephone Encounter - Nela Hickey - 10/09/2015 10:23 AM EST VNA CALL Which [facility]NA office is calling? [facility] Full name of caller: dominique The caller is A nurse Is the caller at the patients home?: NO Reason for call: asking for med list Does caller need an urgent call back? NO Was CONTACT Telephone # obtained above?: YES Fax #: documented in this encounter Plan of Treatment Not on file documented as of this encounter Visit Diagnoses Not on filedocumented in this encounter Care Teams Tailor'S Aide Relationship Specialty Start Date End Date Paradise Haas MD PCP - General Internal Medicine 09/15/15 03/12/18 Danelle Rosales MD PCP - General Internal Medicine 03/13/1804/15 [facility], Pcp PCP - General Internal Medicine 04/16/19 documented as of this encounter
--- OUTSIDE RECORDS SUMMARY | 2025-04-01 11:06 | XMS_ITS | Encounter Summary ---
Author Organization [facility] Address [address] [place] [address] Care Team Providers Care Professor Of Geography Name Role Phone Paradise Haas MD Primary Care Provider Oria Danelle Casillas MD Primary Care Provider [facility], Pcp Primary Care Provider Unavailabl e Reason for Visit * Reason Onset Date Comments Form 10/06/2015 Encounter Details Date Type Department Care Team Description 10/06/2015 Telephone Medicine/Pediatrics - [address] [phone] Paradise Haas MD Form Social History Tobacco Use Types [...] encounter Miscellaneous Notes * Telephone Encounter - Paradise Haas MD - 10/06/2015 2:28 PM EST Ok thanks * Telephone Encounter - Sofia Kitchen M.A. - 10/06/2015 2:21 PM EST Please review the pending face to face that was done by Zay on 09/30/2015, if you agree please print and sign. Unfortunately only an MD's signature is acceptable. Thank you. * Telephone Encounter - Lynette Pierce - 10/06/2015 2:02 PM EST Received form from [facility] requesting more information on the pt in order to process a referral, including a diagnosis, the services needed, and a face to face form, placed in Voxlis bin in call center. documented in this encounter Plan of Treatment Not on file documented as of this encounter Visit Diagnoses Not on filedocumented in this encounter Care Teams Professor Of Geography Relationship Specialty Start Date End Date Paradise Haas MD PCP - General Internal Medicine 09/15/15 03/12/18 Danelle Rosales MD PCP - General Internal Medicine 03/13/1804/15 [facility], Pcp PCP - General Internal Medicine 04/16/19 documented as of this encounter
--- OUTSIDE RECORDS SUMMARY | 2025-04-01 11:06 | XMS_ITS | Encounter Summary ---
Author Organization [facility] Address [address] [place] [address] Care Team Providers Care Magnetic Resonance Technologist Name Role Phone [facility], Pcp Primary Care Provider Unavailabl e Reason for Visit * Reason Onset Date Comments Prior Authorization 01/13/2020 Encounter Details Date Type Department Care Team Description 01/13/2020 Telephone Adult Medicine - [address] [address] [facility], Pcp Prior Authorization Social History Tobacco Use Types Packs/Day Years [...] encounter Miscellaneous Notes * Telephone Encounter - Lisa Walker M.A. - 01/14/2020 3:07 PM EST Prior authorization for the nexium was approved Approved from 11/25/2019 until 01/13/2021 Approval faxed to [facility] at [phone] * Telephone Encounter - Lisa Walker M.A. - 01/14/2020 10:40 AM EST Prior authorization for the nexium was completed today on cover my meds for the nexium 20 mg Dx code K26.9 Duodenal ulcer Continuation of therapy 11/17/2014 Alternatives would be less effective * Telephone Encounter - Lisa Walker M.A. - 01/13/2020 10:18 AM EST Pre Authorization for Medication-do not complete and send this encounter unless you have the fax from the pharmacy. ? Is this a Cover My Meds request: Yes -- Vera Code [id number] Name of Medication Nexium dr Capsules ?? Dose of Medication 20 mg ?? What is the RX # from the faxed refill? ?? How does patient take this med? ?? What Pharmacy did the fax come from: ?? Pharmacy fax #: ?? Third [employer] Party Information from fax: ?? What Prescription Plan does the patient have? ?? BIN/PCN if applicable: ?? Cardholder ID: ?? Person Code: ?? Relationship Code: ?? Help desk phone: ?? documented in this encounter Plan of Treatment Not on file documented as of this encounter Visit Diagnoses Not on filedocumented in this encounter Care Teams Magnetic Resonance Technologist Relationship Specialty Start Date End Date [facility], Pcp PCP - General Internal Medicine 04/16/19 documented as of this encounter
--- OUTSIDE RECORDS SUMMARY | 2025-04-01 11:06 | XMS_ITS | Encounter Summary ---
Author Organization [facility] Address [address] [place] [address] Care Team Providers Care Airport Maintenance Chief Name Role Phone Paradise Haas MD Primary Care Provider Danelle Georges MD Primary Care Provider [facility], Pcp Primary Care Provider Unavailabl e Encounter Details Date Type Department Care Team Description 02/23/2016 Business Doc Medical Records [address] [place] [id number] Abstract, Provider Social History Tobacco Use Types [...] on filedocumented in this encounter Care Teams Airport Maintenance Chief Relationship Specialty Start Date End Date Paradise Haas MD PCP - General Internal Medicine 09/15/15 03/12/18 Danelle Rosales MD PCP - General Internal Medicine 03/13/1804/15 [facility], Pcp PCP - General Internal Medicine 04/16/19 documented as of this encounter
--- OUTSIDE RECORDS SUMMARY | 2025-04-01 11:06 | XMS_ITS | Encounter Summary ---
Author Organization [facility] Address [address] [place] [address] Care Team Providers Care Stringer Up Soldering Machine Name Role Phone Jil Lebron MD Primary Care Provider Paradise Blair MD Primary Care Provider Danelle Georges MD Primary Care Provider [facility], Pcp Primary Care Provider Perez haddad Encounter Details Date Type Department Care Team Description 12/26/2014 Transfer Records Medical Records [address] [place] [address] Abstract, Provider Social History Tobacco Use Types [...] on filedocumented in this encounter Care Teams Stringer Up Soldering Machine Relationship Specialty Start Date End Date Jil Lebron MD PCP - General Internal Medicine 10/25/14 09/14/15 Paradise Haas MD PCP - General Internal Medicine 09/15/15 03/12/18 Danelle Rosales MD PCP - General Internal Medicine 03/13/1804/15 [facility], Pcp PCP - General Internal Medicine 04/16/19 documented as of this encounter
== END 2025-04-01 10:02 | disposition home or self-care (01) ==
LOC: HO.MAMMO 10:01
PROVIDERS: PCP Internal Medicine; Visit Provider Internal Medicine
DX: Z12.31 Encounter for screening mammogram for malignant neoplasm of breast (principal); Z13.820 Encounter for screening for osteoporosis; M85.89 Other specified disorders of bone density and structure, multiple sites
CPT/HCPCS: 77063; 77067; 77080

== ENCOUNTER → 2025-04-01 10:30 | Outpatient (BNV) | payer MEDICARE, MEDICAID, SELFPAY | PROVIDERS: PCP Internal Medicine; Visit Provider Radiology Diagnostic Radiology | DX: Z12.31 Encounter for screening mammogram for malignant neoplasm of breast (principal) | CPT/HCPCS: 77063; 77067 ==

== ENCOUNTER 2025-04-06 09:08 | Outpatient (AMB) | payer MEDICARE, MEDICAID, SELFPAY ==
--- OUTSIDE RECORDS SUMMARY | 2025-04-06 09:37 | XMS_ITS | Encounter Summary ---
Author Organization [facility] Address [address] [place] [address] Care Team Providers Care Pediatric Sports Medicine Specialist Name Role Phone Paradise Haas MD Primary Care Provider Unavaila Danelle Casillas MD Primary Care Provider [facility], Pcp Primary Care Provider Unavailabl e Encounter Details Date Type Department Care Team Description 01/14/2018 Telephone Medicine/Pediatrics - [address] [phone] Paradise Haas MD Social History Tobacco Use Types Packs/Day Years [...] on filedocumented in this encounter Care Teams Pediatric Sports Medicine Specialist Relationship Specialty Start Date End Date Paradise Haas MD PCP - General Internal Medicine 09/15/15 03/12/18 Danelle Rosales MD PCP - General Internal Medicine 03/13/1804/15 [facility], Pcp PCP - General Internal Medicine 04/16/19 documented as of this encounter
--- OUTSIDE RECORDS SUMMARY | 2025-04-06 09:37 | XMS_ITS | Encounter Summary ---
Author Organization [facility] Address [address] [place] [address] Care Team Providers Care Rescue Instructor Name Role Phone Danelle Rosales MD Primary Care Provider [facility], Pcp Primary Care Provider Unavailabl e Reason for Visit * Reason Comments E-prescribe Rx Request Encounter Details Date Type Department Care Team Description 11/17/2018 Refill Medicine/Pediatrics - [address] [phone] Danelle Rosales MD E-prescribe Rx Request Social [...] an upcoming appointment? No-unable to reach left [facility] to call for appointment due to refill [...] / Plan: [place] / Product Type: MEDICARE [id number] documented in this encounter Plan of Treatment Not on file documented as of this encounter Visit Diagnoses Not on filedocumented in this encounter Care Teams Rescue Instructor Relationship Specialty Start Date End Date Danelle Rosales MD PCP - General Internal Medicine 03/13/1804/15 [facility], Pcp PCP - General Internal Medicine 04/16/19 documented as of this encounter
--- OUTSIDE RECORDS SUMMARY | 2025-04-06 09:37 | XMS_ITS | Encounter Summary ---
Author Organization [facility] Address [address] [place] [address] Care Team Providers Care Rubber Washer Name Role Phone Paradise Haas MD Primary Care Provider Danelle Georges MD Primary Care Provider [facility], Pcp Primary Care Provider Unavailabl e Reason for Visit * Reason Onset Date Comments APPOINTMENT 02/27/2018 Encounter Details Date Type Department Care Team Description 02/27/2018 Telephone Medicine/Pediatrics - [address] [phone] Paradise Haas MD APPOINTMENT Social History Tobacco [...] on filedocumented in this encounter Care Teams Rubber Washer Relationship Specialty Start Date End Date Paradise Haas MD PCP - General Internal Medicine 09/15/15 03/12/18 Danelle Rosales MD PCP - General Internal Medicine 03/13/1804/15 [facility], Pcp PCP - General Internal Medicine 04/16/19 documented as of this encounter
--- OUTSIDE RECORDS SUMMARY | 2025-04-06 09:37 | XMS_ITS | Encounter Summary ---
Author Organization [facility] Address [address] [place] [address] Care Team Providers Care Imaging Tech Name Role Phone Paradise Haas MD Primary Care Provider Danelle Georges MD Primary Care Provider [facility], Pcp Primary Care Provider Unavailabl e Reason for Visit * Reason Onset Date Comments medication problems 01/08/2018 Encounter Details Date Type Department Care Team Description 01/08/2018 Telephone Medicine/Pediatrics - [address] [phone] Paradise Haas MD medication problems Social History Tobacco Use Types Packs/Day Years [...] Telephone Encounter - Paradise Haas MD - 01/08/2018 4:09 PM EST Thanks, signed * Telephone Encounter - Humera Emery R.N. - 01/08/2018 3:22 PM EST See below Order pended * Telephone Encounter - Nasra Banks - 01/08/2018 3:04 PM EST Who is calling? Other: Name of caller: carin Relationship to patient: service net Name of the medication benzonatate (TESSALON PERLES) 100 MG capsule What is the specific problem or interaction? Carin states's that the pharmacy never received this medication. Could we resend this medication If the patient is having a problem with taking the med - how long has the problem been going on? N/A documented in this encounter Plan of Treatment Not on file documented as of this encounter Visit Diagnoses Not on filedocumented in this encounter Care Teams Imaging Tech Relationship Specialty Start Date End Date Paradise Haas MD PCP - General Internal Medicine 09/15/15 03/12/18 Danelle Rosales MD PCP - General Internal Medicine 03/13/1804/15 [facility], Pcp PCP - General Internal Medicine 04/16/19 documented as of this encounter
--- OUTSIDE RECORDS SUMMARY | 2025-04-06 09:37 | XMS_ITS | Encounter Summary ---
Author Organization [facility] Address [address] [place] [address] Care Team Providers Care Molding Utility Worker Name Role Phone Paradise Haas MD Primary Care Provider Danelle Georges MD Primary Care Provider [facility], Pcp Primary Care Provider Unavailabl e Reason for Visit * Reason Onset Date Comments Faxed Order 10/19/2015 Encounter Details Date Type Department Care Team Description 10/19/2015 Telephone Medicine/Pediatrics - [address] [phone] Paradise Haas MD Faxed Order Social History [...] on filedocumented in this encounter Care Teams Molding Utility Worker Relationship Specialty Start Date End Date Paradise Haas MD PCP - General Internal Medicine 09/15/15 03/12/18 Danelle Rosales MD PCP - General Internal Medicine 03/13/1804/15 [facility], Pcp PCP - General Internal Medicine 04/16/19 documented as of this encounter
--- OUTSIDE RECORDS SUMMARY | 2025-04-06 09:37 | XMS_ITS | Encounter Summary ---
Author Organization [facility] Address [address] [place] [address] Care Team Providers Care Medical Associate Name Role Phone Tyrone Torrez MD Primary Care Provider Jil Jackson MD Primary Care Provider Paradise Blair MD Primary Care Provider Oria Danelle Casillas MD Primary Care Provider [facility], Pcp Primary Care Provider Unavailabl e Encounter Details Date Type Department Care Team Description 01/26/2011 [facility] Medical Records [address] [place] [address] Luisana Maloney Social History Tobacco Use Types [...] on filedocumented in this encounter Care Teams Medical Associate Relationship Specialty Start Date End Date Tyrone Torrez MD PCP - General 07/17/11 10/24/14 Jil Lebron MD PCP - General Internal Medicine 10/25/14 09/14/15 Paradise Haas MD PCP - General Internal Medicine 09/15/15 03/12/18 Danelle Rosales MD PCP - General Internal Medicine 03/13/1804/15 [facility], Pcp PCP - General Internal Medicine 04/16/19 documented as of this encounter
--- OUTSIDE RECORDS SUMMARY | 2025-04-06 09:37 | XMS_ITS | Encounter Summary ---
Author Organization [facility] Address [address] [place] [address] Care Team Providers Care Support Services Coordinator Name Role Phone Danelle Rosales MD Primary Care Provider [facility], Pcp Primary Care Provider Unavailabl e Encounter Details Date Type Department Care Team Description 04/29/2018 Telephone Adult Medicine [address] [address] Danelle Rosales MD Social History Tobacco Use Types Packs/Day [...] on filedocumented in this encounter Care Teams Support Services Coordinator Relationship Specialty Start Date End Date Danelle Rosales MD PCP - General Internal Medicine 03/13/1804/15 [facility], Pcp PCP - General Internal Medicine 04/16/19 documented as of this encounter
--- OUTSIDE RECORDS SUMMARY | 2025-04-06 09:37 | XMS_ITS | Encounter Summary ---
Author Organization [facility] Address [address] [place] [address] Care Team Providers Care Staffing Assistant Name Role Phone Paradise Haas MD Primary Care Provider Danelle Georges MD Primary Care Provider [facility], Pcp Primary Care Provider Unavailabl e Reason for Visit * Reason Comments E-prescribe Rx Request Encounter Details Date Type Department Care Team Description 10/24/2015 Refill Medicine/Pediatrics - [address] [phone] Zay Horton PA-C E-prescribe Rx Request Social [...] insurance carrier is: [place] / Plan: [place] / Product Type: MEDICARE [id number] documented in this encounter Plan of Treatment Not on file documented as of this encounter Visit Diagnoses Not on filedocumented in this encounter Care Teams Staffing Assistant Relationship Specialty Start Date End Date Paradise Haas MD PCP - General Internal Medicine 09/15/15 03/12/18 Danelle Rosales MD PCP - General Internal Medicine 03/13/1804/15 [facility] PCP - General Internal Medicine 04/16/19 documented as of this encounter
--- OUTSIDE RECORDS SUMMARY | 2025-04-06 09:37 | XMS_ITS | Encounter Summary ---
Author Organization [facility] Address [address] [place] [address] Care Team Providers Care Physician Credentialing Specialist Name Role Phone Tyrone Torrez MD Primary Care Provider Jil Jackson MD Primary Care Provider Paradise Blair MD Primary Care Provider Danelle Georges MD Primary Care Provider [facility], Pcp Primary Care Provider Unavailabl e Encounter Details Date Type Department Care Team Description 02/01/2011 Hospital Medical Records [address] [place] [address] [place] [address] [address] [place] [address] Social History Tobacco Use Types Packs/Day Years [...] on filedocumented in this encounter Care Teams Physician Credentialing Specialist Relationship Specialty Start Date End Date Tyrone [...]
--- OUTSIDE RECORDS SUMMARY | 2025-04-06 09:37 | XMS_ITS | Encounter Summary ---
Author Organization [facility] Address [address] [place] [address] Care Team Providers Care Customer Engagement Representative Name Role Phone Paradise Haas MD Primary Care Provider Oria Danelle Casillas MD Primary Care Provider [facility], Pcp Primary Care Provider Unavailabl e Encounter Details Date Type Department Care Team Description 02/23/2016 Business Doc Medical Records [address] [place] [address] Abstract, Provider Social History Tobacco Use Types [...] on filedocumented in this encounter Care Teams Customer Engagement Representative Relationship Specialty Start Date End Date Paradise Haas MD PCP - General Internal Medicine 09/15/15 03/12/18 Danelle Rosales MD PCP - General Internal Medicine 03/13/1804/15 [facility], Pcp PCP - General Internal Medicine 04/16/19 documented as of this encounter
--- OUTSIDE RECORDS SUMMARY | 2025-04-06 09:37 | XMS_ITS | Encounter Summary ---
Author Organization [facility] Address [address] [place] [address] Care Team Providers Care Deli Cutter Slicer Name Role Phone Jil Lebron MD Primary Care Provider Paradise Blair MD Primary Care Provider Danelle Georges MD Primary Care Provider [facility], Pcp Primary Care Provider Unavailgill haddad Encounter Details Date Type Department Care Team Description 01/26/2015 Telephone Podiatry - [place] [address] [place] [address] Peterson Muhammad DPM Social History Tobacco Use [...] she is not a diabetic. Please advise. [phone] Catrachito Kar- web site designer documented in this encounter Plan of Treatment Not on file documented as of this encounter Visit Diagnoses Not on filedocumented in this encounter Care Teams Deli Cutter Slicer Relationship Specialty Start Date End Date Jil Lebron MD PCP - General Internal Medicine 10/25/14 09/14/15 Paradise Haas MD PCP - General Internal Medicine 09/15/15 03/12/18 Danelle Rosales MD PCP - General Internal Medicine 03/13/1804/15 [facility], Pcp PCP - General Internal Medicine 04/16/19 documented as of this encounter
--- OUTSIDE RECORDS SUMMARY | 2025-04-06 09:37 | XMS_ITS | Encounter Summary ---
Author Organization [facility] Address [address] [place] [address] Care Team Providers Care Engraving Supervisor Name Role Phone Paradise Haas MD Primary Care Provider Oria Danelle Casillas MD Primary Care Provider U francine [facility], Pcp Primary Care Provider Unavailabl e Encounter Details Date Type Department Care Team Description 09/21/2016 Release of Information Medical Records [address] [place] [id number] Abstract, Provider Social History Tobacco Use Types [...] on filedocumented in this encounter Care Teams Engraving Supervisor Relationship Specialty Start Date End Date Paradise Haas MD PCP - General Internal Medicine 09/15/15 03/12/18 Danelle Rosales MD PCP - General Internal Medicine 03/13/1804/15 [facility], Pcp PCP - General Internal Medicine 04/16/19 documented as of this encounter
--- OUTSIDE RECORDS SUMMARY | 2025-04-06 09:37 | XMS_ITS | Encounter Summary ---
Author Organization [facility] Address [address] [place] [address] Care Team Providers Care Geospatial Scientist Name Role Phone Danelle Rosales MD Primary Care Provider U francine [facility], Pcp Primary Care Provider Unavailabl e Encounter Details Date Type Department Care Team Description 12/16/2018 Orders Only Adult Medicine B - [address] [address] Danelle Rosales MD Social History Tobacco Use [...] on filedocumented in this encounter Care Teams Geospatial Scientist Relationship Specialty Start Date End Date Danelle Rosales MD PCP - General Internal Medicine 03/13/1804/15 [facility], Pcp PCP - General Internal Medicine 04/16/19 documented as of this encounter
--- OUTSIDE RECORDS SUMMARY | 2025-04-06 09:37 | XMS_ITS | Encounter Summary ---
Author Organization [facility] Address [address] [place] [address] Care Team Providers Care Head Of Physics Name Role Phone Paradise Haas MD Primary Care Provider Danelle Georges MD Primary Care Provider [facility], Pcp Primary Care Provider Unavailabl e Encounter Details Date Type Department Care Team Description 10/21/2017 Telephone Dermatology - [address] [phone] Edgardo Degroot PA-C Social History Tobacco Use Types Packs/Day [...] encounter Miscellaneous Notes * Telephone Encounter - Edgardo Degroot PA-C - 11/22/2017 10:30 AM EST Please inform this patient's insurance company that the mometasone is used for atopic dermatitis that has been a problem on and off since she was a teenager. This will more than likely resurface in the future and she will continue to use this if it meets their approval. Thanks * Telephone Encounter - Delia Raphael MA - 10/21/2017 3:30 PM EST Pts insurance is requesting discontinuation of the mometasone 0.1% ointment because pt hasnt requested it in more than 30 days documented in this encounter Plan of Treatment Not on file documented as of this encounter Visit Diagnoses Not on filedocumented in this encounter Care Teams Head Of Physics Relationship Specialty Start Date End Date Paradise Haas MD PCP - General Internal Medicine 09/15/15 03/12/18 Danelle Rosales MD PCP - General Internal Medicine 03/13/1804/15 Count Includes [facility], Pcp PCP - General Internal Medicine 04/16/19 documented as of this encounter
--- OUTSIDE RECORDS SUMMARY | 2025-04-06 09:37 | XMS_ITS | Encounter Summary ---
Author Organization [facility] Address [address] [place] [address] Care Team Providers Care Ip Paralegal Name Role Phone Danelle Rosales MD Primary Care Provider U francine [facility], Pcp Primary Care Provider Unavailabl e Encounter Details Date Type Department Care Team Description 05/21/2018 Business Doc Medical Records [address] [place] [address] Abstract, Provider Social History Tobacco Use Types [...] on filedocumented in this encounter Care Teams Ip Paralegal Relationship Specialty Start Date End Date Danelle Rosales MD PCP - General Internal Medicine 03/13/1804/15 [facility], Pcp PCP - General Internal Medicine 04/16/19 documented as of this encounter
--- OUTSIDE RECORDS SUMMARY | 2025-04-06 09:37 | XMS_ITS | Encounter Summary ---
Author Organization [facility] Address [address] [place] [address] Care Team Providers Care Social Media Campaign Manager Name Role Phone Jil Lebron MD Primary Care Provider Paradise Blair MD Primary Care Provider Danelle Georges MD Primary Care Provider [facility], Pcp Primary Care Provider Perez haddad Encounter Details Date Type Department Care Team Description 06/16/2015 Business Doc Medical Records [address] [place] [id number] Abstract, Provider Social History Tobacco Use Types [...] on filedocumented in this encounter Care Teams Social Media Campaign Manager Relationship Specialty Start Date End Date Jil Lebron MD PCP - General Internal Medicine 10/25/14 09/14/15 Paradise Haas MD PCP - General Internal Medicine 09/15/15 03/12/18 Danelle Rosales MD PCP - General Internal Medicine 03/13/1804/15 [facility], Pcp PCP - General Internal Medicine 04/16/19 documented as of this encounter
--- OUTSIDE RECORDS SUMMARY | 2025-04-06 09:37 | XMS_ITS | Encounter Summary ---
Author Organization [facility] Address [address] [place] [address] Care Team Providers Care Business Development Recruiter Name Role Phone Paradise Haas MD Primary Care Provider Danelle Georges MD Primary Care Provider [facility], Pcp Primary Care Provider Unavailgill e Encounter Details Date Type Department Care Team Description 07/09/2016 Orders Only Adult Medicine [address] [address] Paradise Haas MD Colon cancer screening; Special [...] colon documented in this encounter Care Teams Business Development Recruiter Relationship Specialty Start Date End Date Paradise Haas MD PCP - General Internal Medicine 09/15/15 03/12/18 Danelle Rosales MD PCP - General Internal Medicine 03/13/1804/15 [facility], Pcp PCP - General Internal Medicine 04/16/19 documented as of this encounter
--- OUTSIDE RECORDS SUMMARY | 2025-04-06 09:37 | XMS_ITS | Encounter Summary ---
Author Organization [facility] Address [address] [place] [address] Care Team Providers Care Receiving Manager Name Role Phone Paradise Haas MD Primary Care Provider Oria Danelle Casillas MD Primary Care Provider U francine [facility], Pcp Primary Care Provider Unavailabl e Encounter Details Date Type Department Care Team Description 11/24/2015 Business Doc Medical Records [address] [place] [address] Abstract, Provider Social History Tobacco Use Types [...] on filedocumented in this encounter Care Teams Receiving Manager Relationship Specialty Start Date End Date Paradise Haas MD PCP - General Internal Medicine 09/15/15 03/12/18 Danelle Rosales MD PCP - General Internal Medicine 03/13/1804/15 [facility], Pcp PCP - General Internal Medicine 04/16/19 documented as of this encounter
--- OUTSIDE RECORDS SUMMARY | 2025-04-06 09:37 | XMS_ITS | Encounter Summary ---
Author Organization [facility] Address [address] [place] [address] Care Team Providers Care Tmr Teacher Name Role Phone Jil Lebron MD Primary Care Provider Paradise Blair MD Primary Care Provider Danelle Georges MD Primary Care Provider [facility], Pcp Primary Care Provider Unavailabl e Reason for Visit * Reason Onset Date Comments Call From Home Care 08/11/2015 Encounter Details Date Type Department Care Team Description 08/11/2015 Telephone Medicine/Pediatrics - [address] [phone] Zay Horton PA-C Call From Home Care [...] 08/11/2015 2:29 PM EDT Jayde calling from [employer] regarding patient's medications. She needs to clarify the atarax rx, whether patient is still taking and if she has refills. She is sending up a copy of consent from the patient. She is faxing to [employer] fax number. documented in this encounter Plan of Treatment Not on file documented as of this encounter Visit Diagnoses Not on filedocumented in this encounter Care Teams Tmr Teacher Relationship Specialty Start Date End Date Jil Lebron MD PCP - General Internal Medicine 10/25/14 09/14/15 Paradise Haas MD PCP - General Internal Medicine 09/15/15 03/12/18 Danelle Rosales MD PCP - General Internal Medicine 03/13/1804/15 [facility], Pcp PCP - General Internal Medicine 04/16/19 documented as of this encounter
--- OUTSIDE RECORDS SUMMARY | 2025-04-06 09:37 | XMS_ITS | Encounter Summary ---
Author Organization [facility] Address [address] [place] [address] Care Team Providers Care Waterproofer Helper Name Role Phone Jil Lebron MD Primary Care Provider Paradise Blair MD Primary Care Provider Danelle Georges MD Primary Care Provider [facility], Pcp Primary Care Provider Unavailabl e Reason for Visit * Reason Onset Date Comments TEST RESULTS 02/18/2015 Encounter Details Date Type Department Care Team Description 02/18/2015 Telephone [facility] - [email or web address] [address] [place] [address] Rick Gonzalez MD TEST RESULTS Social History Tobacco Use Types Packs/Day Years [...] encounter Miscellaneous Notes * Telephone Encounter - Nina Pedro R.N. - 02/18/2015 1:33 PM EDT Letter sent. * Telephone Encounter - Nina Pedro R.N. - 02/18/2015 1:30 PM EDT Message copied by NINA PEDRO R.N. on SatFeb 18, 2015 1:30 PM ------ Message from: RICK GONZALEZ MD: SatFeb 18, 2015 1:14 PM Please have patient take the Macrobid I ordered for her and then have another urine culture taken. Thank you, RICK GONZALEZ MD ------ documented in this encounter Plan of Treatment Not on file documented as of this encounter Visit Diagnoses Not on filedocumented in this encounter Care Teams Waterproofer Helper Relationship Specialty Start Date End Date Jil Lebron MD PCP - General Internal Medicine 10/25/14 09/14/15 Paradise Haas MD PCP - General Internal Medicine 09/15/15 03/12/18 Danelle Rosales MD PCP - General Internal Medicine 03/13/1804/15 [facility], Pcp PCP - General Internal Medicine 04/16/19 documented as of this encounter
--- OUTSIDE RECORDS SUMMARY | 2025-04-06 09:37 | XMS_ITS | Encounter Summary ---
Author Organization [facility] Address [address] [place] [address] Care Team Providers Care Staffing Manager Name Role Phone Jil Lebron MD Primary Care Provider Paradise Blair MD Primary Care Provider Danelle Georges MD Primary Care Provider [facility], Pcp Primary Care Provider Perez haddad Encounter Details Date Type Department Care Team Description 12/26/2014 Transfer Records Medical Records [address] [place] [address] Abstract, Provider Social History Tobacco Use Types [...] filedocumented in this encounter Care Teams Staffing Manager Relationship Specialty Start Date End Date Jil Lebron MD PCP - General Internal Medicine 10/25/14 09/14/15 Paradise Haas MD PCP - General Internal Medicine 09/15/15 03/12/18 Danelle Rosales MD PCP - General Internal Medicine 03/13/1804/15 [facility], Pcp PCP - General Internal Medicine 04/16/19 documented as of this encounter
--- OUTSIDE RECORDS SUMMARY | 2025-04-06 09:37 | XMS_ITS | Encounter Summary ---
Author Organization [facility] Address [address] [place] [address] Care Team Providers Care Steel Melter Name Role Phone Jil Lebron MD Primary Care Provider Paradise Blair MD Primary Care Provider Danelle Georges MD Primary Care Provider [facility], Pcp Primary Care Provider Perez e Encounter Details Date Type Department Care Team Description 11/17/2014 SERVICE DESK MANAGER/[employer] Report Medical Records [address] [place] [address] Abstract, Provider Social History Tobacco Use Types [...] on filedocumented in this encounter Care Teams Steel Melter Relationship Specialty Start Date End Date Jil Lebron MD PCP - General Internal Medicine 10/25/14 09/14/15 Paradise Haas MD PCP - General Internal Medicine 09/15/15 03/12/18 Danelle Rosales MD PCP - General Internal Medicine 03/13/1804/15 [facility], Pcp PCP - General Internal Medicine 04/16/19 documented as of this encounter
--- OUTSIDE RECORDS SUMMARY | 2025-04-06 09:37 | XMS_ITS | Encounter Summary ---
Author Organization [facility] Address [address] [place] [address] Care Team Providers Care Book Cutter Name Role Phone Paradise Haas MD Primary Care Provider Danelle Georges MD Primary Care Provider [facility], Pcp Primary Care Provider Unavailabl e Encounter Details Date Type Department Care Team Description 12/19/2015 Controlled Substance Contract with Plan Medical Records [address] [place] [address] Abstract, Provider Social History Tobacco Use Types [...] on filedocumented in this encounter Care Teams Book Cutter Relationship Specialty Start Date End Date Paradise Haas MD PCP - General Internal Medicine 09/15/15 03/12/18 Danelle Rosales MD PCP - General Internal Medicine 03/13/1804/15 [facility], Pcp PCP - General Internal Medicine 04/16/19 documented as of this encounter
--- OUTSIDE RECORDS SUMMARY | 2025-04-06 09:37 | XMS_ITS | Encounter Summary ---
Author Organization [facility] Address [address] [place] [address] Care Team Providers Care Rn Tele Name Role Phone Jil Lebron MD Primary Care Provider Paradise Blair MD Primary Care Provider Danelle Georges MD Primary Care Provider [facility], Pcp Primary Care Provider Unavailabl e Reason for Visit * Reason Onset Date Comments Form 04/27/2015 Encounter Details Date Type Department Care Team Description 04/27/2015 Telephone Adult Medicine [address] [address] Jil Lebron MD Form Social History Tobacco [...] on filedocumented in this encounter Care Teams Rn Tele Relationship Specialty Start Date End Date Jil Lebron MD PCP - General Internal Medicine 10/25/14 09/14/15 Paradise Haas MD PCP - General Internal Medicine 09/15/15 03/12/18 Danelle Rosales MD PCP - General Internal Medicine 03/13/1804/15 [facility], Pcp PCP - General Internal Medicine 04/16/19 documented as of this encounter
--- OUTSIDE RECORDS SUMMARY | 2025-04-06 09:37 | XMS_ITS | Encounter Summary ---
Author Organization [facility] Address [address] [place] [address] Care Team Providers Care Exterminator Termite Name Role Phone Paradise Haas MD Primary Care Provider Unavaila Danelle Casillas MD Primary Care Provider [facility], Pcp Primary Care Provider Unavailabl e Encounter Details Date Type Department Care Team Description 02/15/2016 Orders Only Medicine/Pediatrics - [address] [phone] Zay Horton PA-C Social History Tobacco Use [...] on filedocumented in this encounter Care Teams Exterminator Termite Relationship Specialty Start Date End Date Paradise Haas MD PCP - General Internal Medicine 09/15/15 03/12/18 Danelle Rosales MD PCP - General Internal Medicine 03/13/1804/15 [facility], Pcp PCP - General Internal Medicine 04/16/19 documented as of this encounter
--- OUTSIDE RECORDS SUMMARY | 2025-04-06 09:37 | XMS_ITS | Encounter Summary ---
Author Organization [facility] Address [address] [place] [address] Care Team Providers Care Esl Instructional Assistant Name Role Phone Paradise Haas MD Primary Care Provider Danelle Georges MD Primary Care Provider [facility], Pcp Primary Care Provider Unavailabl e Reason for Visit * Reason Onset Date Comments Medication 08/13/2017 incoming fax Encounter Details Date Type Department Care Team Description 08/13/2017 Telephone Medicine/Pediatrics - [address] [phone] Paradise Haas MD Medication (incoming fax) Social History Tobacco Use Types Packs/Day Years [...] encounter Miscellaneous Notes * Telephone Encounter - Itzel Patel RN - 08/13/2017 2:56 PM EDT To provider for signature * Telephone Encounter - Korina Morales - 08/13/2017 2:40 PM EDT Fax rec'd for patient from [employer] . Form to be signed to [facility] Butch. Fax placed in triage bin in call center. documented in this encounter Plan of Treatment Not on file documented as of this encounter Visit Diagnoses Not on filedocumented in this encounter Care Teams Esl Instructional Assistant Relationship Specialty Start Date End Date Paradise Haas MD PCP - General Internal Medicine 09/15/15 03/12/18 Danelle Rosales MD PCP - General Internal Medicine 03/13/1804/15 [facility], Pcp PCP - General Internal Medicine 04/16/19 documented as of this encounter
--- OUTSIDE RECORDS SUMMARY | 2025-04-06 09:37 | XMS_ITS | Encounter Summary ---
Author Organization [facility] Address [address] [place] [address] Care Team Providers Care Installation Coordinator Name Role Phone Paradise Haas MD Primary Care Provider Unavaila Danelle Casillas MD Primary Care Provider [facility], Pcp Primary Care Provider Unavailabl e Reason for Visit * Reason Comments E-prescribe Rx Request Encounter Details Date Type Department Care Team Description 03/22/2016 Refill Medicine/Pediatrics - [address] [phone] Zay Horton PA-C E-prescribe Rx Request Social [...] Telephone Encounter - Viktoria Garcia L.P.N. - 03/22/2016 1:11 PM EDT UTD please review and sign Component Value Date NA 144 02/14/2016 K 5.0 02/14/2016 CO2 26.8 02/14/2016 CL 100 02/14/2016 BUN 21 02/14/2016 CREAT 0.9 02/14/2016 GLU 93 02/14/2016 CA 9.4 02/14/2016 GFR > 60 02/14/2016 * Telephone Encounter - Lynette Pierce - 03/22/2016 12:35 PM EDT Patient would like script to be: E-PRESCRIBED/FAXED TO PHARMACY WHEN WAS THE PATIENT'S LAST APPOINTMENT IN ADULT MEDICINE? 02/14/16 WHEN WAS THE LAST TIME THE PATIENT SAW THEIR PCP? 12/19/15 Does patient have an upcoming appointment? 04/16/16 (THE MEDICATION REQUESTED IS ON THE MED LIST ABOVE) All of the medications requested were on the CURRENT MEDS list Did you check the Pharmacy information above?: YES Patient wants: 30 -day supply Is this a mail order prescription request ? NO Patients current insurance carrier is: [place] / [place] / Product Type: MEDICARE [id number] documented in this encounter Plan of Treatment Not on file documented as of this encounter Visit Diagnoses Not on filedocumented in this encounter Care Teams Installation Coordinator Relationship Specialty Start Date End Date Paradise Haas MD PCP - General Internal Medicine 09/15/15 03/12/18 Danelle Rosales MD PCP - General Internal Medicine [facility] 04/16/19 documented as of this encounter
--- OUTSIDE RECORDS SUMMARY | 2025-04-06 09:37 | XMS_ITS | Encounter Summary ---
Author Organization [facility] Address [address] [place] [address] Care Team Providers Care Dramatic Critic Name Role Phone Paradise Haas MD Primary Care Provider Unavaila Danelle Casillas MD Primary Care Provider [facility], Pcp Primary Care Provider Unavailabl e Reason for Visit * Reason Comments E-prescribe Rx Request Encounter Details Date Type Department Care Team Description 09/05/2017 Refill Physiatry - [place] [address] Jack Rosenthal DO E-prescribe Rx Request Social [...] Telephone Encounter - Mary Ramon M.A. - 09/05/2017 2:49 PM EDT Last ov 06/12/17 Last refill 08/13/17 Next ov 09/10/17 documented in this encounter Plan of Treatment Not on file documented as of this encounter Visit Diagnoses Diagnosis Chronic left-sided low back pain with left-sided sciatica Sacroiliac pain Disorders of sacrum documented in this encounter Care Teams Dramatic Critic Relationship Specialty Start Date End Date Paradise Haas MD PCP - General Internal Medicine 09/15/15 03/12/18 Danelle Rosales MD PCP - General Internal Medicine 03/13/1804/15 [facility], Pcp PCP - General Internal Medicine 04/16/19 documented as of this encounter
--- OUTSIDE RECORDS SUMMARY | 2025-04-06 09:37 | XMS_ITS | Clinical Summary ---
Author Organization [facility] Address [address] [place] [address] Care Team Providers Care Records Technician Name Role Phone Community, Pcp Primary Care Provider Unavailabl e Allergies Active Allergy Reactions Severity Noted Date Comments Aspirin Rash/Dermatitis 11/08/2014 Bee Anaphylaxis 03/17/2015 Codeine 05/17/2016 Benzyl Cjt-Hozzcfxwbdenetxu-Ajzgdatdg 05/17/2016 Iodine 05/17/2016 Penicillin G Rash/Dermatitis 11/08/2014 Prospect Rash/Dermatitis 11/08/2014 Medications Medication Sig Dispensed Refills Start Date End Date Status quetiapine (SEROQUEL XR) 300 MG 24 hr tablet Take 300 mg by mouth daily. 0 Active divalproex (DEPAKOTE) 125 MG EC tablet Take 125 mg by mouth daily. 0 Active divalproex (DEPAKOTE ER) 500 MG 24 hr tablet Take 1,000 mg by mouth every evening. 0 Active quetiapine (SEROQUEL) 50 MG tablet Take 50 mg by mouth at bedtime. 0 Active trazodone (DESYREL) 100 MG tablet Take 100 mg by mouth at bedtime. 0 Active escitalopram (LEXAPRO) 20 MG tablet Take 20 mg by mouth daily. 0 Active ALBUTEROL SULFATE 108 (90 BASE) MCG/ACT Aero Soln Inhale 2 Puffs into the lungs every 6 hours. (except when sleeping) for 3 days 1 Inhaler 0 01/02/2018 Active acetaminophen (TYLENOL 8 HOUR) 650 MG CR tablet Take 1 Tab by mouth every 8 hours as needed for Pain for up to 30 days. 90 tablet 0 05/14/2018 Active levothyroxine (SYNTHROID, LEVOTHROID) 50 MCG tablet Take 1 Tab by mouth daily. 30 Tab 5 06/10/2018 Active escitalopram (LEXAPRO) 10 MG tablet Take 10 mg by mouth daily. 0 Active triamcinolone (KENALOG) 0.1 % cream Apply sparingly twice a day to affected areas on arms, stomach, and back of scalp 320 g 5 06/27/2018 Active loratadine (CLARITIN) 10 MG tablet TAKE 1 TABLET BY MOUTH DAILY IN THE EVENING 28 Tab 0 07/25/2018 Active EXTRA ACTION COUGH 100-10 MG/5ML Syrup TAKE 10ML BY MOUTH EVERY 8 HOURS NEEDED FOR COUGH AND CONGESTION 118 mL 0 08/04/2018 Active NON-ASPIRIN PAIN RELIEF 325 MG tablet TAKE 2 TABLETS BY MOUTH THREE TIMES A DAY 168 Tab 2 10/20/2018 Active simvastatin (ZOCOR) 40 MG tablet TAKE 1 TABLET BY MOUTH EVERY NIGHT AT BEDTIME 28 Tab 5 10/20/2018 Active fluticasone-salmete rol (ADVAIR DISKUS) 250-50 MCG/DOSE diskus inhaler Inhale 1 Puff into the lungs 2 times daily. 1 Inhaler 5 10/23/2018 Active divalproex (DEPAKOTE) 125 MG EC tablet Take 125 mg by mouth. 0 Active loperamide (IMODIUM A-D) 2 MG capsule Take 1 Cap by mouth 2 times daily for 30 days. Take as needed for diarrhea. 20 Cap 2 10/29/2018 Active NEXIUM 20 MG capsule Take 1 Cap by mouth 2 times daily. 56 Cap 0 12/16/2018 Active Cholecalciferol (D3 SUPER STRENGTH) 2000 UNITS Cap Take 1 Cap by mouth daily. In the morning. 28 Cap 0 12/16/2018 Active Sennosides (SENNA) 8.6 MG Tab Take 1 Tab by mouth daily. 28 Tab 0 12/16/2018 Active metoprolol (LOPRESSOR) 25 MG tablet Take 0.5 Tabs by mouth daily. In the morning. 14 Tab 0 12/16/2018 Active Pyridoxine HCl (VITAMIN B-6) 100 MG tablet Take 1 Tab by mouth daily. 28 Tab 0 12/16/2018 Active montelukast (SINGULAIR) 10 MG tablet Take 1 Tab by mouth at bedtime. 28 Tab 0 12/16/2018 Active ROBAFEN DM CGH/CHEST CONGEST 10-100 MG/5ML syrup TAKE 10ML BY MOUTH EVERY FOUR HOURS NEEDED FOR COUGH AND CONGESTION 118 mL 0 03/12/2019 Active Active Problems Problem Noted Date Tobacco abuse 05/01/2017 Onychomycosis 02/23/2016 Trochanteric bursitis 05/11/2015 Shoulder bursitis 05/11/2015 Eczema 02/15/2015 Morbid obesity 02/04/2015 PTSD (post-traumatic stress disorder) Mitral valve regurgitation 12/29/2014 Overview: Mild regurg/ 2009 echo [address] Spangler MG (myasthenia gravis) 11/08/2014 Overview: His thymectomy Hypothyroidism 10/29/2014 Vitamin D deficiency 10/29/2014 Anoxic brain injury 10/29/2014 Bipolar affective disorder 10/29/2014 Mixed hyperlipidemia 10/29/2014 Duodenal ulcer 10/29/2014 Old NM (myocardial infarction) 4 Overview: Non-ST NM historic, 2008, [facility] Borderline personality disorder 10/29/20 14 Narcotic dependence 10/29/2014 Overview: Historic Immunizations Name Administration Dates Next Due Influenza Flu (PT Reported) 10/04/2014 TD (STATE SUPPLIED FOR ADULTS AND CHILDREN) 12/27 Family History Medical History Relation Name Comments Stroke Father Cataract Maternal Grandmother Glaucoma Maternal Grandmother CA Breast Mother 40s CA Breast Paternal Grandmother Cancer, Other Paternal Grandmother ovaria n Blindness Negative Hx Macular Degeneration Negative Hx Strabismus Negative Hx Relation Name Status Comments Brother 1 (Age 51) brain canc er Brother 2 (Age 48) HIV Father Alive ENT cancer Maternal Grandmother Mother Alive breast cancer Paternal Grandfather (Age 48) paul ng cancer Paternal Grandmother breast cancer and ovarian cancer Son Alive healthy Social History Tobacco Use Types Packs/Day Years Used Date Smoking Tobacco: Former Cigarettes 1 33 1 12/22/1970 - 11/25/2007 Smokeless Tobacco: Never Comments:quit 5 years ago, u se to smoke 1 ppd Alcohol Use Standard Drinks/Week Comments No 0 (1 standard drink = 0.6 oz pur e alcohol) Sex Assigned at Date Recorded Not on file Last Filed Vital Signs Vital Sign Reading Time Taken Comments Blood Pressure 98/64 10/29/2018 9:58 AM EST Pulse 100 10/29/2018 9:58 AM EST Temperature 36.6 ??C (97.8 ??F) 01/21/2018 9:47 AM ES T Respiratory Rate 16 05/14/2018 9:32 AM EDT Oxygen Saturation 96% 01/02/2018 1:38 PM EST Inhaled Oxygen Concentration - - Weight 133.8 kg (295 lb) 10/29/2018 9:58 AM EST Height 171.5 cm (5' 7.5 ) 10/29/2018 9:58 AM EST Body Mass Index 45.52 10/29/2018 9:58 AM EST Plan of Treatment Health Maintenance Due Date Last Done Comments Covid-19 Vaccine (#1) 04/21/1956 SHINGLES VACCINE (1 of 2) 2005 MAMMOGRAM 06/16/2016 06/16/2015 COLON CANCER SCREEN WITH STO OL CARD 07/09/2017 07/09/2016 DTAP/TDAP/TD (1 - Tdap) 01/22/2018 01/21/2018 DEPRESSION SCREEN 06/05/2018 06/05/2017, , 11/08/2014 Lung Cancer Screening (Low D ose CT) 07/02/2018 07/02/2017 BONE DENSITY SCREENING 2020 PNEUMOCOCCAL VACCINE (1 - PCV) 2020 CHOLESTEROL SCREENING 10/15/2022 10/15/2017 , 06/05/2017, 04/26/2016, Additional history exists BMI CHECK/ADVISE 11/25/2024 06/27/2018, , 05/14/2018, Additional history exists INFLUENZA (Season Ended) 2025 10/04/2014 HEPATITIS C SCREENING Completed 06/05/2017 Care Teams Records Technician Relationship Specialty Start Date End Date Community, Pcp PCP - General Internal Medicine 04/16/19
--- OUTSIDE RECORDS SUMMARY | 2025-04-06 09:37 | XMS_ITS | Encounter Summary ---
Author Organization [facility] Address [address] [place] [address] Care Team Providers Care Nursing Surgical Services Director Name Role Phone Community, Pcp Primary Care Provider Unavailabl e Reason for Visit * Reason Onset Date Comments Prior Authorization 01/13/2020 Encounter Details Date Type Department Care Team Description 01/13/2020 Telephone Adult Medicine - [address] [address] Community, Pcp Prior Authorization Social History Tobacco [...] from 11/25/2019 until 01/13/2021 Approval faxed to [facility] at [phone] * Telephone Encounter - Lisa Walker M.A. [...] from: ?? Pharmacy fax #: ?? [employer] Information from fax: ?? What Prescription Plan does the patient have? ?? BIN/PCN if applicable: ?? Cardholder ID: ?? Person Code: ?? Relationship Code: ?? Help desk phone: ?? documented in this encounter Plan of Treatment Not on file documented as of this encounter Visit Diagnoses Not on filedocumented in this encounter Care Teams Nursing Surgical Services Director Relationship Specialty Start Date End Date Community, Pcp PCP - General Internal Medicine 04/16/19 documented as of this encounter
--- OUTSIDE RECORDS SUMMARY | 2025-04-06 09:37 | XMS_ITS | Encounter Summary ---
Author Organization [facility] Address [address] [place] [address] Care Team Providers Care Horticulture Professor Name Role Phone Paradise Haas MD Primary Care Provider Oria Danelle Casillas MD [facility] Primary Care Provider Unavailabl e Encounter Details Date Type Department Care Team Description 12/18/2016 [facility] Medical Records [address] [place] [address] Abstract, Provider Social History Tobacco Use Types [...] on filedocumented in this encounter Care Teams Horticulture Professor Relationship Specialty Start Date End Date Paradise Haas MD PCP - General Internal Medicine 09/15/15 03/12/18 Danelle Rosales MD PCP - General Internal Medicine 03/13/1804/15 [facility], Pcp PCP - General Internal Medicine 04/16/19 documented as of this encounter
--- OUTSIDE RECORDS SUMMARY | 2025-04-06 09:37 | XMS_ITS | Encounter Summary ---
Author Organization [facility] Address [address] [place] [address] Care Team Providers Care Target Man Name Role Phone Danelle Rosales MD [facility], Pcp Primary Care Provider Unavailabl e Reason for Visit * Reason Onset Date Comments REFERRAL 06/09/2018 gastro Encounter Details Date Type Department Care Team Description 06/09/2018 Telephone Gastroenterology - [address] [address] Danelle Rosales MD REFERRAL (gastro) Social History Tobacco Use Types Packs/Day Years [...] encounter Miscellaneous Notes * Telephone Encounter - Isa Prabhakar - 06/09/2018 8:01 AM EDT All attempts have been exhausted to reach the patient to schedule a consultation appointment in Gastro Department. Taking off from the referral report. documented in this encounter Plan of Treatment Not on file documented as of this encounter Visit Diagnoses Not on filedocumented in this encounter Care Teams Target Man Relationship Specialty Start Date End Date Danelle Rosales MD PCP - General Internal Medicine 03/13/1804/15 [facility], Pcp PCP - General Internal Medicine 04/16/19 documented as of this encounter
--- OUTSIDE RECORDS SUMMARY | 2025-04-06 09:37 | XMS_ITS | Encounter Summary ---
Author Organization [facility] Address [address] [place] [address] Care Team Providers Care Assistant Men'S Soccer Coach Name Role Phone Paradise Haas MD Primary Care Provider Oria Danelle Casillas MD Primary Care Provider [facility], Pcp Primary Care Provider Unavailabl e Reason for Visit * Reason Onset Date Comments Form 10/06/2015 Encounter Details Date Type Department Care Team Description 10/06/2015 Telephone Medicine/Pediatrics - [address] [phone] Paradise Haas MD Form Social History Tobacco [...] 10/06/2015 2:02 PM EST Received form from [facility] requesting more information on the pt in order to process a referral, including a diagnosis, the services needed, and a face to face form, placed in [employer] bin in call center. documented in this encounter Plan of Treatment Not on file documented as of this encounter Visit Diagnoses Not on filedocumented in this encounter Care Teams Assistant Men'S Soccer Coach Relationship Specialty Start Date End Date Paradise Haas MD PCP - General Internal Medicine 09/15/15 03/12/18 Danelle Rosales MD PCP - General Internal Medicine 03/13/1804/15 [facility], Pcp PCP - General Internal Medicine 04/16/19 documented as of this encounter
--- OUTSIDE RECORDS SUMMARY | 2025-04-06 09:37 | XMS_ITS | Encounter Summary ---
Author Organization [facility] Address [address] [place] [address] Care Team Providers Care Senior Project Manager Name Role Phone Jil Lebron MD Primary Care Provider Paradise Blair MD Primary Care Provider Danelle Georges MD Primary Care Provider [facility], Pcp Primary Care Provider Unavailgill haddad Encounter Details Date Type Department Care Team Description 04/26/2015 Orders Only Medicine/Pediatrics - [address] [phone] Zay Horton PA-C Abnormal x-ray of lower extremity (Primary Dx) Social History Tobacco Use Types [...] documented as of this encounter Results * X-RAY EXAM OF HIP, COMPLETE (04/27/2015 10:24 AM EDT) 04/27/2015 10:2 6 AM EDT Narrative [place] OTHER EXTERNAL - 04/27/2015 10:26 AM EDT History: Pain. Right hip, 2 views: Please refer to the combined AP pelvis and hip report from the same day. Procedure Note Kj Avilez MD - 04/27/2015 History: Pain. Right hip, 2 views: Please refer to the combined AP pelvis and hip reportfrom the same day. Zay Horton PA-C RADIOLOGY [place] OTHER EXTERNAL documented in this encounter Visit Diagnoses Diagnosis Abnormal x-ray of lower extremity- Primary Abnormal x-ray of lower extremity documented in this encounter Care Teams Senior Project Manager Relationship Specialty Start Date End Date Jil Lebron MD PCP - General Internal Medicine 10/25/14 09/14/15 Paradise Haas MD PCP - General Internal Medicine 09/15/15 03/12/18 Danelle Rosales MD PCP - General Internal Medicine 03/13/1804/15 [facility] PCP - General Internal Medicine 04/16/19 documented as of this encounter
--- OUTSIDE RECORDS SUMMARY | 2025-04-06 09:37 | XMS_ITS | Encounter Summary ---
Author Organization [facility] Address [address] [place] [address] Care Team Providers Care Legal Activity Adjudicator Name Role Phone Paradise Haas MD Primary Care Provider Danelle Georges MD Primary Care Provider [facility], Pcp Primary Care Provider Unavailabl e Reason for Visit * Reason Comments E-prescribe Rx Request Encounter Details Date Type Department Care Team Description 10/11/2015 Refill Adult Medicine - [place] [address] [place] [address] Jil Lebron MD E-prescribe Rx Request Social History Tobacco [...] encounter Miscellaneous Notes * Telephone Encounter - Giovana Huerta MA - 10/12/2015 9:30 AM EST Rx faxed * Telephone Encounter - Franci Santo Rn - 10/11/2015 3:06 PM EST Component Value Date TSH 2.91 11/17/2014 Component Value Date NA 141 09/30/2015 K 5.1 09/30/2015 CO2 24.3 09/30/2015 CL 104 09/30/2015 BUN 18 09/30/2015 CREAT 0.9 09/30/2015 GLU 98 09/30/2015 ALB 3.9 09/30/2015 SGOT 15 09/30/2015 SGPT 12 09/30/2015 TBILI 0.2 09/30/2015 ALKPHOS 79 09/30/2015 TP 6.2 09/30/2015 CA 9.3 09/30/2015 GFR > 60 09/30/2015 BP Readings from Last 5 Encounters: 10/10/15 124/70 09/30/15 118/66 08/04/15 114/72 07/25/15 124/82 07/04/15 132/80 Folllow up appt booked with pcp in November * Telephone Encounter - Jenna Pena - 10/11/2015 2:51 PM EST Patient would like script to be: E-PRESCRIBED/FAXED TO PHARMACY WHEN WAS THE PATIENT'S LAST APPOINTMENT IN ADULT MEDICINE? 10/10/15 WHEN WAS THE LAST TIME THE PATIENT SAW THEIR PCP? Hasnt seen new pcp yet Does patient have an upcoming appointment? Yes 10/17/15 (THE MEDICATION REQUESTED IS ON THE MED LIST ABOVE) All of the medications requested were on the CURRENT MEDS list Did you check the Pharmacy information above?: YES Patient wants: 30 -day supply Is this a mail order prescription request ? NO Patients current insurance carrier is: [place] / [place] / Product Type: [place]ARE [id number] * Telephone Encounter - Katherine Engel - 10/11/2015 2:46 PM EST documented in this encounter Plan of Treatment Not on file documented as of this encounter Visit Diagnoses Not on filedocumented in this encounter Care Teams Legal Activity Adjudicator Relationship Specialty Start Date End Date Paradise Haas MD PCP - General Internal Medicine 09/15/15 03/12/18 Danelle Rosales MD PCP - General Internal Medicine 03/13/1804/15 [facility], Pcp PCP - General Internal Medicine 04/16/19 documented as of this encounter
--- OUTSIDE RECORDS SUMMARY | 2025-04-06 09:37 | XMS_ITS | Encounter Summary ---
Author Organization [facility] Address [address] [place] [address] Care Team Providers Care Weed Inspector Name Role Phone Paradise Haas MD Primary Care Provider Unavaila Danelle Casillas MD Primary Care Provider [facility], Pcp Primary Care Provider Unavailabl e Reason for Referral * EXTERNAL (Routine) - Authorized/Booked Specialty Diagnoses / Procedures Referred By Contvivian calloway Referred To Contact Physical Therapy Diagnoses Lumbar radiculitis Procedures [place]FERRAL [place] [address] [place] [id number] External Phys Thrpy Referral ID Status Reason Start Date Expiration Date V isits Requested Visits Authorized SEE NOTE Authorized/B ooked 09/19/2017 11/20/2017 1 1 Reason for Visit * Reason Onset Date Comments Provider Call Back 09/18/2017 Encounter Details Date Type Department Care Team Description 09/18/2017 Telephone Physiatry - [address] [address] Jack Rosenthal DO Provider Call Back Social [...] 09/18/2017 1:10 PM EDT Spoke with Carin, [facility] is going to bring a medication list [...] 09/18/2017 1:02 PM EDT Carin, coordinator from [facility] called stating patient is out of meloxicam (MOBIC) 15 MG tabletmedication. She is asking if Dr wants patient to continue medication, if so, they need a new order send to [facility] pharmacy. Please advise. * Telephone Encounter - [...] unspecified documented in this encounter Care Teams Weed Inspector Relationship Specialty Start Date End Date Paradise Haas MD PCP - General Internal Medicine 09/15/15 03/12/18 Danelle Rosales MD PCP - General Internal Medicine 03/13/1804/15 [facility], Pcp PCP - General Internal Medicine 04/16/19 documented as of this encounter
--- OUTSIDE RECORDS SUMMARY | 2025-04-06 09:37 | XMS_ITS | Encounter Summary ---
Author Organization [facility] Address [address] [place] [address] Care Team Providers Care Flotation Operator Name Role Phone Paradise Haas MD Primary Care Provider Danelle Georges MD Primary Care Provider [facility], Pcp Primary Care Provider Unavailabl e Encounter Details Date Type Department Care Team Description 06/11/2016 Release of Information Medical Records [address] [place] [id number] Abstract, Provider Social History Tobacco Use Types [...] on filedocumented in this encounter Care Teams Flotation Operator Relationship Specialty Start Date End Date Paradise Haas MD PCP - General Internal Medicine 09/15/15 03/12/18 Danelle Rosales MD PCP - General Internal Medicine 03/13/1804/15 [facility], Pcp PCP - General Internal Medicine 04/16/19 documented as of this encounter
--- OUTSIDE RECORDS SUMMARY | 2025-04-06 09:37 | XMS_ITS | Encounter Summary ---
Author Organization [facility] Address [address] [place] [address] Care Team Providers Care Silk Screen Repairer Name Role Phone Paradise Haas MD Primary Care Provider Danelle Georges MD Primary Care Provider [facility], Pcp Primary Care Provider Unavailabl e Reason for Visit * Reason Onset Date Comments Prior Authorization 01/15/2018 nexlum Encounter Details Date Type Department Care Team Description 01/15/2018 Telephone Medicine/Pediatrics - [address] [phone] Paradise Haas MD Prior Authorization (nexlum) Social History Tobacco Use Types Packs/Day Years [...] Telephone Encounter - Lisa Walker M.A. - 01/16/2018 9:00 AM EST Prior auth done today on cover my meds. Dx code : k26.9 * Telephone Encounter - Marge Garcia - 01/15/2018 9:29 AM EST Pre Authorization for Medication-do not complete and send this encounter unless you have the fax from the pharmacy. Is this a Cover My Meds request: Yes -- Vera Code [id number] Name of Medication NEXIUM Dose of Medication How does patient take this med? What Pharmacy did the fax come from: [facility] fax #: [phone] [employer] Information from fax: What Prescription Plan does the patient have? BIN/PCN if applicable: Cardholder ID: Person Code: Relationship Code: Help desk phone: *FAXED TO PRIOR AUTH documented in this encounter Plan of Treatment Not on file documented as of this encounter Visit Diagnoses Not on filedocumented in this encounter Care Teams Silk Screen Repairer Relationship Specialty Start Date End Date Paradise Haas MD PCP - General Internal Medicine 09/15/15 03/12/18 Danelle Rosales MD PCP - General Internal Medicine 03/13/1804/15 [facility], Pcp PCP - General Internal Medicine 04/16/19 documented as of this encounter
[2025-04-06 09:45] VITALS: BP 100/68; PULSE 64; RESP 16; TEMP 36.4; O2SAT 96; BMI 41.0
--- NOTE | 2025-04-06 09:45 | MHC.PC.OV ---
Vital Signs 04/06/25 09:45 Height 5 ft 7.5 in Weight 266 lb BMI 41.0 BP 100/68 Blood Pressure Location Rt brachial Position Sitting Respiration 16 Pulse 64 Pulse Source Pulse Oximeter Temp 97.6 F Temp Source Oral Pulse Oximetry (%) 96 Oxygen Delivery Method Room Air Intake Visit Reasons: 6 months follow up Intake Note: Pt is here today for her 6mo. f/u Allergies bee pollen [BEE STINGS] Allergy (Severe, Verified 04/06/25 10:16) ANAPHYLAXIS aspirin [ASA] Allergy (Intermediate, Verified 04/06/25 10:16) RASH Penicillins Allergy (Intermediate, Verified 04/06/25 10:16) Rash strawberry [STRAWBERRY] Allergy (Intermediate, Verified 04/06/25 10:16) RASH buspirone Allergy (Unknown, Verified 04/06/25 10:16) Unknown Compazine Allergy (Unknown, Verified 04/06/25 10:16) unknown iodine [IODINE] Allergy (Unknown, Verified 04/06/25 10:16) UNKNOWN methadone Allergy (Unknown, Verified 04/06/25 10:16) none Opioids - Morphine Analogues Allergy (Unknown, Verified 04/06/25 10:16) Unknown codeine [CODEINE] Adverse Reaction (Intermediate, Verified 04/06/25 10:16) GI upset benztropine [From Cogentin] Adverse Reaction (Unknown, Verified 04/06/25 10:16) Unknown Medication List - Last Reconciled 04/06/25 by Chichi Rivers MD acetaminophen 650 mg (2 x 325 mg) PO BID PRN albuterol sulfate 90 mcg/actuation (Ventolin HFA) 2 puffs inhalation Q4H PRN atorvastatin 10 mg PO DAILY 90 days brinzolamide 1% (Azopt) drps ophthalmic (eye) cetirizine 10 mg PO QAM cholecalciferol (vitamin D3) 50 mcg PO QAM dextromethorphan-guaifenesin 10-100 mg/5 mL (Tussin DM) 10 mL PO Q4H PRN divalproex 1,000 mg PO .every evening escitalopram oxalate (Lexapro) 20 mg PO DAILY escitalopram oxalate 10 mg PO DAILY fluticasone furoate-vilanterol 100-25 mcg/dose (Breo Ellipta) 1 inh inhalation Q24H hydrocortisone 2.5% (Proctosol HC) 1 appl IA BID PRN latanoprost 0.005% 1 drp ophthalmic (eye) DAILY levothyroxine (Levoxyl) 50 mcg PO DAILY loperamide 2 mg PO Q12H PRN lubiprostone 8 mcg PO BID PRN metoprolol tartrate 12.5 mg (1/2 x 25 mg) PO QAM 3 months montelukast 10 mg PO DAILY omega 9-cyl-onh-fish oil 1,200 (144-216) mg (Fish Oil) 1 cap PO BID 3 months pantoprazole 40 mg PO BID quetiapine ER 200 mg PO BEDTIME quetiapine ER mg PO trazodone 200 mg PO DAILY Tobacco use date assessed: 04/06/25 Fall risk assessment: 2 + Falls in past year Last assessed Fall Risk: 04/06/25 Dental Screening Dental Screen Date: 04/06/25 Did you have a dental visit in the last 12 months?: No Did you have a dental problem in the last 6 months where you did not have access to dental care?: No Was dental information given to patient?: No HPI 6 months follow up HPI Details -69 year-old lady with history of myasthenia gravis, atherosclerotic cardiovascular disease status post non STEMI, has mitral valve regurgitation, dyslipidemia, postsurgical hypothyroidism, mild intermittent asthma, bipolar disorder, chronic GERD, allergic rhinitis, eczema and morbid obesity, here today for her follow-up on her lipids, asthma, thyroid and hypertension. She is accompanied today by her caregiver, has no new complaints at present time. Recent fasting labs showed elevated triglycerides, but thyroid levels are within normal limits, renal function however has been declining especially since 2023. Continues to smoke cigarettes, with no desire to quit at present time [facility] Medical History (Updated 04/06/25 @ 10:38 by Chichi Rivers MD) Mixed dyslipidemia Elevated serum creatinine Tubular adenoma of colon Hx of adenomatous polyp of colon Glaucoma Osteopenia of multiple sites Irritable bowel syndrome with diarrhea Osteoarthritis Staghorn calculus Diverticulosis Urinary incontinence, mixed Atherosclerotic cardiovascular disease Colon cancer screening Smoker unmotivated to quit Shoulder bursitis Trochanteric bursitis Mitral valve regurgitation Narcotic dependence, in remission Chronic GERD Morbid obesity History of myasthenia gravis Allergic rhinitis Eczema Duodenum ulcer Bipolar disorder History of anoxic brain injury Mild intermittent asthma in adult without complication Postsurgical hypothyroidism Surgical History History of cataract surgery Hx of cystoscopy H/O colonoscopy Hx of thyroidectomy History of esophagogastroduodenoscopy (~01/2015) History of partial hysterectomy History of thymectomy (~2007) History of thyroidectomy, total Hx of tonsillectomy History of cholecystectomy (Unknown) History of appendectomy (Unknown) Family History Father Stroke Mother Breast cancer, Onset Age: 40 Brother Brain cancer Brother HIV disease Son No problems noted. 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[facility]) Housing: Other Housing Other:: [facility] agency[facility] home Do you presently have visiting nurse or other home services: Yes (nursing home staff) Alcohol intake: never Patient Tobacco Use Status: Current everyday Tobacco user Tobacco use type: Cigarette Cigarette Packs Per Day: 0.5 Cigarettes Per Day: 10.0 Years Smoked: 40 e-Cigarette/Vaping Use: Never Used Current occupational status: disabled Cognitive needs: No Hearing needs: No Vision needs: Yes Questionnaire PHQ-9 Over the last 2 weeks, how often have you been bothered by any of the following problems? Depression Screening Interpretation: Negative Depression Screening Done: Yes Source: Developed by Drs. Maxi Powers, Palak Brown, Gorge Lund and colleagues, with an educational jon from [employer]. Thrive Questionnaire Date Thrive assessed: 03/30/25 I am a: Patient What is your living situation today?: I have a steady place to live Within the past 12 months, did the food you bought not last and you didn't have the money to get more?: Never true Within the past 12 months, did you worry whether your food would run out before you got money to buy more?: Never true Do you have trouble paying for medicines?: No Do you have trouble getting transportation to medical appointments?: No Do you have trouble paying your heating and electricity bill?: No Do you have trouble taking care of your child, family member or friend?: No Do you have trouble with day-to-day activities such as bathing, preparing meals, shopping, managing finances, etc.?: No Are you currently unemployed and looking for a job?: No Are you interested in more education?: No Please select the resources that you would like help with: None Currently or been in a relationship where the following occur: No concerns reported THRIVE Score: 0 AUDIT C Alcohol Use Questionnaire (AUDIT-C) 1. How often do you have a drink containing alcohol?: Never Total Score: 0 SIMRAN-7 AMB Questionnaire SIMRAN-7 Date SIMRAN - 7 assessed: 10/01/24 Feeling nervous, anxious, or on edge: 1 = Several days Not being able to stop or control worryin = Not at all Worrying too much about different things: 0 = Not at all Trouble relaxin = Not at all Being so restless that it is hard to sit still: 0 = Not at all Becoming easily annoyed or irritable: 0 = Not at all Feeling afraid as if something awful might happen: 0 = Not at all Total SIMRAN-7 score (0-4 normal; 5-9 mild; 10-14 moderate; 15-21 severe): 1 Source: Developed by Drs. Maxi Powers, Palak Brown, Gorge Lund and colleagues, with an educational jon from [employer]. Review of Systems ENT Reports Normal hearing present Neuro Reports Normal hearing present and Denies Abnormal speech present Physical exam (Primary Care) Vital Signs: Last Vital Signs Temp 97.6 F 04/06/25 09:45 Pulse 64 04/06/25 09:45 Resp 16 04/06/25 09:45 BP 100/68 04/06/25 09:45 Pulse Ox 96 04/06/25 09:45 Oxygen Delivery Method Room Air 04/06/25 09:45 BMI result Body Mass Index 41.0 Tobacco/Smoking Status: Tobacco use Status Tobacco use date assessed 04/06/25 04/06/25 09:47 Patient Tobacco Use Status Current everyday Tobacco 04/06/25 09:47 Tobacco use type Cigarette 04/06/25 09:47 e-Cigarette/Vaping Use Never Used 04/06/25 09:47 Are you ready to quit: No Depression Screening Interpretation: Negative Thrive Assessment: Date of Thrive Assessment Date Thrive assessed 03/30/25 04/06/25 09:47 Currently or been in a relationship where the following occur: No concerns reported Const Other: Accompanied by caregiver General: no acute distress and alert Nutritional Appearance: obese Orientation/consciousness: patient oriented x3 Limitations: ambulation with walker HENMT Mouth: Normal oral and palatal mucosa present, oropharynx normal and moist mucous membranes Teeth and gingiva: edentulous Eyes General: appearance normal, both eyes and all related structures Neck Neck: Yes full ROM, Yes no lymphadenopathy and Yes supple Chest Breast/axilla palpation: normal palpation of the breasts Resp Auscultation: clear to auscultation bilaterally Cardio Other: S1-S2 present regular rate and rhythm GI Palpation (GI): Soft to palpation, nontender and no guarding Auscultation: normal bowel sounds General: Yes no CVA tenderness Back/Spine/Pelvis Back: no CVA tenderness and No back tenderness Skin Other: ERYTHEMATOUS PATCH ON RIGHT UPPER CHEST, HAS APPOINTMENT ALREADY SCHEDULED WITH DERMATOLOGY Neuro General: patient oriented x3, moves all extremities, Normal light touch and pain sensation, no focal motor deficits and CN's II-XI intact bilaterally Cranial nerves: Yes Normal hearing present Speech: No Abnormal speech present Gait exam (Neuro): Shuffling gait present and Assisted gait required Gait assisted method: walker Extrem General: Yes full ROM, Yes no joint enlargement, Yes no pedal edema and Yes no calf tenderness Psych Appearance: grossly normal and well kempt Speech and movement: Normal speech and movement present Affect: normal affect Attitude: cooperative Thought process: Normal thought process present Thought content: Normal thought content present Results Reviewed Results Reviewed: Name: Mayra Osorio Age/Sex: 69/F : 1955 Unit#: [id number] Attend Dr: Chichi Rivers MD Re03/29/25 Status: DEP REF Location: [facility] Disch: SPEC : [id number] ANITA: 03/29/25 STATUS: COMP REQ : [id number] RECD: 03/29/[address]: Chichi Rivers MD COMP: 03/29/25 ENTERED: 03/29/[address]: ORDERED: Met Prof Fast, AST, ALT, Lipid Panel, Vitamin D 25-OH, Free T4, TSH Test Result Flag Reference Sodium 139 135-145 mmol/L Potassium 5.1 3.3-5.1 mmol/L CL 101 96-108 mmol/L CO2 32 H 22-29 mmol/L Gap 11 L 12-20 BUN 35 H 9-16 mg/dL Creat 1.33 0.5-1.4 mg/dL eGFR 40 Chronic Kidney Disease: Estimated GFR < 60 mL/min/1.73m2 Severe Kidney Disease: Estimated GFR < 15 mL/min/1.73m2 FBS 91 60-99 mg/dL CA 9.6 8.4-10.2 mg/dL AST (GOT) 17 5-31 U/L ALT (GPT) 7 0-31 U/L Triglyceride 205 H <150 mg/dL Desirable Triglyceride: less than 150 mg/dL Borderline High Triglyceride 150-199 mg/dL High Triglyceride: 200-499 mg/dL Very High Triglyceride: greater than or equal to 5OO mg/dL Cholesterol 185 <200 mg/dL Desirable Cholesterol: less than 200 mg/dL Borderline High Cholesterol: 200-239 mg/dL High Cholesterol: greater than 239 mg/dL LDL Calculated 101 H <100 mg/dL Desirable LDL: less than 100 mg/dL Near Optimal/Above Optimal LDL: 110-129 mg/dL Borderline High LDL: 130-159 mg/dL High LDL: 160-189 mg/dL Very High LDL: greater than or equal to 190 mg/dL HDL 43 >40 mg/dL Desirable HDL: greater than 40 mg/dL Note: This HDL assay may give artificially low results in patients with liver disease. Vitamin D 25-OH 51.9 >30 ng/mL Health Based Reference Values* < 20 ng/mL Deficient 20-30 ng/mL Insufficient > 30 ng/mL Sufficient *Romeo BLAKE. N Engl J Med. 2007;357:266-280 There is no well-established upper level of normal vitamin D levels. Some laboratories use 50 ng/mL as an upper limit of normal. However, toxicity is patient-dependent and may occur at any level. Careful correlation with the patient's presentation is necessary and, if there is concern for vitamin D toxicity, treatment should be considered irrespective of the serum level. Care must be taken in interpreting Vitamin D results from different laboratories and methodologies. Published data demonstrated that results from patients undergoing hemodialysis may show a negative bias when tested with various automated 25-OH vitamin D assays when compared to LC-MS/MS. When testing samples from patients whose predominant form of Vitamin D is Vitamin D2, such as patients receiving Vitamin D2 supplementation, results that are subtherapeutic should be confirmed with another method such as LC-MS/MS. Free T4 1.08 0.71-1.85 ng/dL TSH 3rd Gen. 2.92 0.32-4.0 uIU/mL Note: A sustained TSH level above 2.5 uIU/mL may warrant further investigation. Coding Level of Care Code Est Pt Level 4 (27163) Complex EM visit Add On G2211 Diagnoses Mixed dyslipidemia E78.2 Elevated serum creatinine R79.89 Smoker unmotivated to quit F17.200 Mild intermittent asthma in adult without complication J45.20 Postsurgical hypothyroidism E89.0 Assessment & Plan Assessment & Plan (1) Mixed dyslipidemia: Code(s): E78.2 - Mixed hyperlipidemia Category: Medical Plan: Reviewed recent fasting lipids results with patient. Advised to increase [place] 3 fatty acid supplements to take 2 capsules twice a day, continue atorvastatin 10 mg daily and reinforced importance of following a low-cholesterol diet. (2) Elevated serum creatinine: Code(s): R79.89 - Other specified abnormal findings of blood chemistry Category: Medical Plan: Referred to nephrology for further evaluation (3) Smoker unmotivated to quit: Code(s): F17.200 - Nicotine dependence, unspecified, uncomplicated Category: Social Hx Plan: Patient strongly advised to stop smoking, as smoking damages blood vessels, degenerative of joints and spine, damage to lungs and heart., predisposes to developing certain cancers like lung, breast, bladder, colon. Recommended to try decreasing cigarette use by 1-2 cigarettes a day. Advised to monitor what triggers are for smoking so that this can be discussed on the next office visit. We can discuss different options to quit smoking when ready. (4) Mild intermittent asthma in adult without complication: Code(s): J45.20 - Mild intermittent asthma, uncomplicated Category: Medical Plan: Currently on albuterol inhaler taken as needed , smoking cessation strongly advised (5) Postsurgical hypothyroidism: Code(s): E89.0 - Postprocedural hypothyroidism Category: Medical Plan: Thyroid levels are within normal limits, continued on current dose of levothyroxine 50 mcg daily Orders: Referrals Nephrology Referral R79.89 - Other specified abnormal findings of blood chemistry Medications: Changed From omega 3-bza-zsg-fish oil 1,200 (144-216) mg (Fish Oil) Take 1 capsule p.o. b.i.d. at 06:00 and 18:00 1 cap PO BID 3 months 180 caps 3RF E78.5 - Hyperlipidemia, unspecified To omega 4-zwk-meu-fish oil 1,200 (144-216) mg (Fish Oil) Take 1 capsule p.o. b.i.d. at 06:00 and 18:00 2 caps PO BID 3 months 360 caps 3RF E78.5 - Hyperlipidemia, unspecified Refilled cholecalciferol (vitamin D3) 50 mcg PO QAM 90 caps 2RF metoprolol tartrate 12.5 mg (1/2 x 25 mg) PO QAM 3 months 45 tabs 2RF cetirizine 10 mg PO QAM 90 tabs 2RF montelukast 10 mg PO DAILY 90 tabs 2RF J30.89 - Other allergic rhinitis
== END 2025-04-06 12:00 | disposition home or self-care (01) ==
LOC: HO.HMCC 09:08
PROVIDERS: PCP Internal Medicine; Visit Provider Internal Medicine
DX: E78.2 Mixed hyperlipidemia (principal); R79.89 Other specified abnormal findings of blood chemistry; F17.200 Nicotine dependence, unspecified, uncomplicated; J45.20 Mild intermittent asthma, uncomplicated; E89.0 Postprocedural hypothyroidism

== ENCOUNTER → 2025-04-06 09:08 | Outpatient (BNVA) | payer MEDICARE, MEDICAID, SELFPAY | PROVIDERS: PCP Internal Medicine; Visit Provider Internal Medicine | DX: E78.2 Mixed hyperlipidemia (principal); R79.89 Other specified abnormal findings of blood chemistry; J45.20 Mild intermittent asthma, uncomplicated; E89.0 Postprocedural hypothyroidism; F17.200 Nicotine dependence, unspecified, uncomplicated; Z71.6 Tobacco abuse counseling | CPT/HCPCS: 99212 ==

== ENCOUNTER 2025-04-22 08:20 | Outpatient (AMB) | payer MEDICARE, MEDICAID, SELFPAY ==
--- NOTE | 2025-04-22 08:27 | A.OFFVIS_ITS ---
Intake Visit Reasons: 6 month/US Intake Note: pt here today for:6 Month/US Capsule Filler Required: No Allergies bee pollen [BEE STINGS] Allergy (Severe, Verified 04/22/25 20:40) ANAPHYLAXIS aspirin [ASA] Allergy (Intermediate, Verified 04/22/25 20:40) RASH Penicillins Allergy (Intermediate, Verified 04/22/25 20:40) Rash strawberry [STRAWBERRY] Allergy (Intermediate, Verified 04/22/25 20:40) RASH buspirone Allergy (Unknown, Verified 04/22/25 20:40) Unknown Compazine Allergy (Unknown, Verified 04/22/25 20:40) unknown iodine [IODINE] Allergy (Unknown, Verified 04/22/25 20:40) UNKNOWN methadone Allergy (Unknown, Verified 04/22/25 20:40) none Opioids - Morphine Analogues Allergy (Unknown, Verified 04/22/25 20:40) Unknown codeine [CODEINE] Adverse Reaction (Intermediate, Verified 04/22/25 20:40) GI upset benztropine [From Cogentin] Adverse Reaction (Unknown, Verified 04/22/25 20:40) Unknown Medication List - Last Reconciled 04/22/25 by LJ Zuniga-KATYA acetaminophen 650 mg (2 x 325 mg) PO BID PRN albuterol sulfate 90 mcg/actuation (Ventolin HFA) 2 puffs inhalation Q4H PRN atorvastatin 10 mg PO DAILY 90 days brinzolamide 1% (Azopt) drps ophthalmic (eye) cetirizine 10 mg PO QAM cholecalciferol (vitamin D3) 50 mcg PO QAM dextromethorphan-guaifenesin 10-100 mg/5 mL (Tussin DM) 10 mL PO Q4H PRN divalproex 1,000 mg PO .every evening escitalopram oxalate (Lexapro) 20 mg PO DAILY escitalopram oxalate 10 mg PO DAILY fluticasone furoate-vilanterol 100-25 mcg/dose (Breo Ellipta) 1 inh inhalation Q24H hydrocortisone 2.5% (Proctosol HC) 1 appl ND BID PRN latanoprost 0.005% 1 drp ophthalmic (eye) DAILY levothyroxine (Levoxyl) 50 mcg PO DAILY loperamide 2 mg PO Q12H PRN lubiprostone 8 mcg PO BID PRN metoprolol tartrate 12.5 mg (1/2 x 25 mg) PO QAM 3 months montelukast 10 mg PO DAILY omega 1-sgt-cii-fish oil 1,200 (144-216) mg (Fish Oil) 2 caps PO BID 3 months pantoprazole 40 mg PO BID quetiapine ER 200 mg PO BEDTIME quetiapine ER mg PO trazodone 200 mg PO DAILY HPI Comments Details: Mayra is a very pleasant 69-year-old female patient of Dr. Hagerwho was accompanied by her dinkey operator/ceramic worker. She has a PMH of mixed urinary incontinence, atherosclerotic cardiovascular disease, NSTEMI, cataracts, smoker, shoulder bursitis, trochanter bursitis, mitral valve regurgitation, GERD, obesity, myasthenia gravis, allergic rhinitis, eczema, bipolar disorder, dyslipidemia, asthma, hypothyroidism, and history of anoxic brain injury. She presents to the office today for follow-up of her large right renal stone. Most recent CT kidney stone results reviewed with the patient today 12/19 posttreatment changes with persistent less calcified staghorn calculus in the lower pole of the right kidney. Moderate right hydronephrosis. We discussed obtaining nuclear renal scan for further assessment evaluation of moderate right hydronephrosis. Unable to obtain urine for urinalysis as patient unable to void however patient currently denies any UTI like symptoms. She does report continued right-sided flank pain however on exam today no CVA tenderness noted bilaterally. Patient with previous surgical history for large right renal stone 01/18 ureteroscopy with laser lithotripsy followed by right ESWL 03/18. We discussed potential for near future repeat surgical intervention of large right renal stone however will further assess moderate hydronephrosis with nuclear renal scan. All questions were answered. She does continue to report drinking excessive amounts of coffee daily. We did discussed the importance of adequate hydration with water in relation to nephrolithiasis as well as overall health and well-being. She otherwise denies incontinence, nocturia, hematuria, dysuria, foul smelling urine, changes to urinary stream,fever, and or chills. She otherwise offers no other issues or concerns at this time. BUN: 03/17 25, 09/16 20, 01/18 27, 10/18 27, 11/17 30, 04/18 35 Creatinine: 4/23 0.84, 09/16 0.76, 01/18 0.88, 10/18 1.31, 11/17 1.21, 04/18 1.33 [facility] Medical History (Updated 04/22/25 @ 09:11 by Kimberley Fox [facility]) Mixed dyslipidemia Elevated serum creatinine Tubular adenoma of colon Hx of adenomatous polyp of colon Glaucoma Osteopenia of multiple sites Irritable bowel syndrome with diarrhea Osteoarthritis Staghorn calculus Diverticulosis Urinary incontinence, mixed Atherosclerotic cardiovascular disease Colon cancer screening Smoker unmotivated to quit Shoulder bursitis Trochanteric bursitis Mitral valve regurgitation Narcotic dependence, in remission Chronic GERD Morbid obesity History of myasthenia gravis Allergic rhinitis Eczema Duodenum ulcer Bipolar disorder History of anoxic brain injury Mild intermittent asthma in adult without complication Postsurgical hypothyroidism Surgical History History of cataract surgery Hx of cystoscopy H/O colonoscopy Hx of thyroidectomy History of esophagogastroduodenoscopy (~01/2015) History of partial hysterectomy History of thymectomy (~2007) History of thyroidectomy, total Hx of tonsillectomy History of cholecystectomy (Unknown) History of appendectomy (Unknown) Family History Father Stroke Mother Breast cancer, Onset Age: 40 Brother Brain cancer Brother HIV disease Son No problems noted. 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[facility]) Housing: Other Housing Other:: [facility] agency[facility] home Do you presently have visiting nurse or other home services: Yes (nursing home staff) Alcohol intake: never Patient Tobacco Use Status: Current everyday Tobacco user Tobacco use type: Cigarette Cigarette Packs Per Day: 0.5 Cigarettes Per Day: 10.0 Years Smoked: 40 e-Cigarette/Vaping Use: Never Used Current occupational status: disabled Cognitive needs: No Hearing needs: No Vision needs: Yes Review of Systems Const Reports as per HPI Eyes Reports no additional complaints ENT Reports no additional complaints Card Reports as per HPI Resp Reports no additional complaints GI Reports as per HPI Reports as per HPI Neuro Reports as per HPI Psych Reports as per HPI Physical Exam Const General: cooperative, healthy appearing, comfortable, no acute distress, well developed, alert and awake Orientation/consciousness: patient oriented x3 Limitations: ambulation with walker HEENT Head: Yes normal to inspection, Yes normocephalic and Yes atraumatic Ears: hearing grossly normal bilaterally Eyes General: appearance normal, both eyes and all related structures Neck Neck: Yes normal visual inspection and Yes trachea midline Chest Chest palpation & inspection: normal inspection of the chest Resp Effort & Inspection: normal respiratory effort and able to speak in complete sentences Cardio Rate: regular rate GI Inspection: Yes normal to inspection General: Yes no CVA tenderness Back/Spine/Pelvis Back: no CVA tenderness Skin General skin exam: no rashes or lesions noted Neuro General: patient oriented x3 Extrem General: Yes normal to inspection Psych Appearance: grossly normal and well kempt Mental Status: mental status grossly normal Speech and movement: Normal speech and movement present and Clear speech present Affect: normal affect Attitude: cooperative Thought process: Normal thought process present Thought content: Normal thought content present Insight: Fair insight present (Psych) Judgement: Fair judgement present (Psych) Results Reviewed Results Reviewed: Date of Service: 12/07/24 Procedure(s): CT kidney stone FINDINGS: Limited evaluation of the intra-abdominal organs and vascular structures due to lack of IV contrast. LUNG BASES: Linear attenuation abnormality, lingula and right lung base. LIVER, GALLBLADDER, AND BILIARY TREE: Liver measures 17 cm. Status post cholecystectomy. No intrahepatic or extrahepatic biliary ductal dilatation. PANCREAS: No peripancreatic fluid collections. No main pancreatic ductal dilatation. SPLEEN: 10 cm. ADRENAL GLANDS: No nodular lesions. KIDNEYS AND URETERS: Right kidney: Moderate dilatation of the pelvicalyceal system, proximal right ureter. 2 mm calcifications which appeared to be outside the trajectory of the right ureter. 2 cm lobulated and irregular calcific abnormality in the posterior midportion lower pole with decreased attenuation. Focal renal cortical thinning involving the upper pole in the posterior midportion. 2 mm calcification in the pelvicalyceal system lower pole. Left kidney: No hydronephrosis. No nephrolithiasis. BLADDER: Fluid-filled nearly collapsed. GASTROINTESTINAL TRACT: Abundant stool within the large intestine. No intestinal obstruction pattern. Scattered diverticula, sigmoid colon. I do not see the appendix. No ascites. No pneumoperitoneum. No pneumatosis intestinalis. ABDOMINAL WALL: Diastases abdominal rectus muscles in the periumbilical region. Focal dystrophic calcification in the right properitoneal fat just beneath the mid to distal abdominal rectus muscle. LYMPH NODES: Nonspecific prominent lymph nodes in the retroperitoneum. VASCULAR: Throughout the abdominal aorta wall and iliac arteries without gross aneurysm. PELVIC VISCERA: I do not see the uterus or the ovaries. OSSEOUS STRUCTURES: Multilevel thoracolumbar spondylosis more conspicuous at L3-4, L4-5 and L5-S1 levels resulting in bilateral neuroforamina stenosis. Subchondral cyst formation with the sclerosis and focal volume loss centered in the right femoral head.. IMPRESSION: Post treatment changes with persistent less calcified staghorn calculus, lower pole right kidney. Moderate hydronephrosis, right kidney.. Consider avascular necrosis, right femoral head. Multilevel lumbar spondylosis, L3 S1. Assessment & Plan Assessment & Plan (1) Nephrolithiasis: Code(s): N20.0 - Calculus of kidney Category: Medical (2) Hydronephrosis: Code(s): N13.30 - Unspecified hydronephrosis Category: Medical Plan Recent CT results reviewed with the patient today; as noted above. BUN and creatinine results were reviewed. We discussed potential causes of hydronephrosis as well as further workup in risks and benefits of these interventions. Unable to obtain urine for urinalysis as patient unable to void. Will obtain nuclear renal scan for further assessment evaluation. BUN and creatinine ordered. We discussed the importance of adequate hydration relation to nephrolithiasis as well as overall health and well-being. We also discussed near future metabolic workup with 24 hour urine collection and labs. Follow-up in 1-2 months with imaging and labs to be completed prior; or sooner with any issues, concerns, and or questions. Orders: Orders AMB Urinalysis Automated Today N20.0 - Calculus of kidney NM renal flow w pharm int Today N13.30 - Unspecified hydronephrosis Blood Urea Nitrogen Today R39.15 - Urgency of urination Creatinine Today R39.15 - Urgency of urination Patient Instructions: The patient had an opportunity to ask questions regarding the treatment plan. All questions were answered. Physical exam, labs, and imaging were discussed and reviewed in detail. As well as risks, benefits, and discussion of treatment choices. No major barriers to understanding were identified. The patient expressed understanding and agreement with the above treatment plan. The patient was made aware they should contact our office by phone for worsening of their current condition, the appearance of new symptoms, or with any qu estions or concerns. Compliance is encouraged with any medications and follow up testing that is ordered. It is a privilege to be allowed the opportunity to participate in? your urological care.? Again, if you have any questions or concerns If you have any questions or concerns please do not hesitate to contact me. The office is [phone]. This note is constructed using voice recognition software. While every effort has been made to ensure accuracy director television errors may have been included. Yours sincerely, BRADY Zuniga Coding Level of Care Code Est Pt Level 3 (16922) Complex EM visit Add On G2211 Diagnoses Nephrolithiasis N20.0 Hydronephrosis N13.30
== END 2025-04-22 09:19 | disposition home or self-care (01) ==
LOC: HO.HUSH 08:21
PROVIDERS: PCP Internal Medicine; Visit Provider Nurse Practitioner Family
DX: N20.0 Calculus of kidney (principal); N13.30 Unspecified hydronephrosis
CPT/HCPCS: 99213; G2211

== ENCOUNTER → 2025-04-22 08:20 | Outpatient (BNVA) | payer MEDICARE, MEDICAID, SELFPAY | PROVIDERS: PCP Internal Medicine; Visit Provider Nurse Practitioner Family | DX: N20.0 Calculus of kidney (principal); N13.30 Unspecified hydronephrosis; R39.15 Urgency of urination | CPT/HCPCS: 99212 ==

== ENCOUNTER 2025-04-27 11:00 | Outpatient (AMB) | payer MEDICARE, MEDICAID, SELFPAY ==
--- NOTE | 2025-04-27 11:56 | HO.NEPHOV_ITS ---
Vital Signs 04/27/25 11:59 Height 5 ft 7.5 in Weight 265 lb 8 oz BMI 41.0 BP 102/64 Blood Pressure Location Lt brachial Position Sitting Pulse 70 Pulse Source Pulse Oximeter Pulse Oximetry (%) 96 Oxygen Delivery Method Room Air Intake Visit Reasons: INP:Other abnormal findings of blood chemistry Window Glazier Helper Required: No Accompanied by: Other Relationship Allergies bee pollen (BEE STINGS) Allergy (Severe, Verified 04/27/25 11:58) ANAPHYLAXIS aspirin (ASA) Allergy (Intermediate, Verified 04/27/25 11:58) RASH Penicillins Allergy (Intermediate, Verified 04/27/25 11:58) Rash strawberry (STRAWBERRY) Allergy (Intermediate, Verified 04/27/25 11:58) RASH buspirone Allergy (Unknown, Verified 04/27/25 11:58) Unknown Compazine Allergy (Unknown, Verified 04/27/25 11:58) unknown iodine (IODINE) Allergy (Unknown, Verified 04/27/25 11:58) UNKNOWN methadone Allergy (Unknown, Verified 04/27/25 11:58) none Opioids - Morphine Analogues Allergy (Unknown, Verified 04/27/25 11:58) Unknown codeine (CODEINE) Adverse Reaction (Intermediate, Verified 04/27/25 11:58) GI upset benztropine (From Cogentin) Adverse Reaction (Unknown, Verified 04/27/25 11:58) Unknown HPI Comments Details: 69 year-old lady with multiple medical issues including myasthenia gravis, atherosclerotic cardiovascular disease status post non STEMI, mitral valve regurgitation, dyslipidemia, hypertension, postsurgical hypothyroidism, bipolar disorder, and morbid obesity, was seen today in consultation for her CKD. She was accompanied today by her caregiver and had no new complaints at present time. She has proteinuria but denied retinopathy. She has H/O stag horn calculus and hydronephrosis on the right. She has no H/O hypercalcemia , new bone or back pain. She denies taking lithium, having epistaxis, photosensitivity, new skin rashes , edema, hematuria, deafness . She takes PPI for a long time. Her recent serum creatinine has been 1.33 [facility] Medical History (Updated 04/27/25 @ 12:15 by Zeferino Watson MD) Mixed dyslipidemia Elevated serum creatinine Tubular adenoma of colon Hx of adenomatous polyp of colon Glaucoma Osteopenia of multiple sites Irritable bowel syndrome with diarrhea Osteoarthritis Staghorn calculus Diverticulosis Urinary incontinence, mixed Atherosclerotic cardiovascular disease Colon cancer screening Smoker unmotivated to quit Shoulder bursitis Trochanteric bursitis Mitral valve regurgitation Narcotic dependence, in remission Chronic GERD Morbid obesity History of myasthenia gravis Allergic rhinitis Eczema Duodenum ulcer Bipolar disorder History of anoxic brain injury Mild intermittent asthma in adult without complication Postsurgical hypothyroidism Surgical History History of cataract surgery Hx of cystoscopy H/O colonoscopy Hx of thyroidectomy History of esophagogastroduodenoscopy (~01/2015) History of partial hysterectomy History of thymectomy (~2007) History of thyroidectomy, total Hx of tonsillectomy History of cholecystectomy (Unknown) History of appendectomy (Unknown) Family History Father Stroke Mother Breast cancer, Onset Age: 40 Brother Brain cancer Brother HIV disease Son No problems noted. 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[facility]) Housing: Other Housing Other:: [facility] agencyGroup home Do you presently have visiting nurse or other home services: Yes (skilled nursing staff) Alcohol intake: never Patient Tobacco Use Status: Current everyday Tobacco user Tobacco use type: Cigarette Cigarette Packs Per Day: 0.5 Cigarettes Per Day: 10.0 Years Smoked: 40 e-Cigarette/Vaping Use: Never Used Current occupational status: disabled Cognitive needs: No Hearing needs: No Vision needs: Yes Physical Exam Vital Signs: Last Vital Signs Pulse 70 04/27/25 11:59 BP 102/64 04/27/25 11:59 Pulse Ox 96 04/27/25 11:59 Oxygen Delivery Method Room Air 04/27/25 11:59 BMI result Body Mass Index 41.0 Const General: comfortable and no acute distress Orientation/consciousness: patient oriented x3 HEENT Head: Yes normocephalic Mouth: Normal oral and palatal mucosa present Eyes EOM: EOMs intact bilaterally Neck Neck: Yes supple Resp Auscultation: clear to auscultation bilaterally Cardio Jugular venous distension: no JVD Rate: regular rate GI Palpation (GI): Soft to palpation Auscultation: normal bowel sounds General: Yes no CVA tenderness Back/Spine/Pelvis Back: no CVA tenderness Skin General skin exam: no rashes or lesions noted Neuro General: patient oriented x3 and moves all extremities Extrem General: Yes no pedal edema Results Reviewed Nephrology Results: Sodium, (135-145) 139 mmol/L 03/29/25 Potassium, (3.3-5.1) 5.1 mmol/L 03/29/25 Chloride, (96-108) 101 mmol/L 03/29/25 Carbon Dioxide, (22-29) 32 mmol/L H 03/29/25 BUN, (9-16) 35 mg/dL H 03/29/25 Creatinine, (0.5-1.4) 1.33 mg/dL 03/29/25 Calcium, (8.4-10.2) 9.6 mg/dL 03/29/25 Renal US 10/05/24 Assessment & Plan Assessment & Plan (1) CKD stage 3a, GFR 45-59 ml/min: Code(s): N18.31 - Chronic kidney disease, stage 3a Category: Medical (2) Nephrolithiasis: Code(s): N20.0 - Calculus of kidney Category: Medical (3) Hypertension: Code(s): I10 - Essential (primary) hypertension Category: Medical Qualifiers: Hypertension type: primary hypertension Qualified Code(s): I10 - Essential (primary) hypertension Plan Mayra has CKD 3 likely due to multifactorial etiology. She has H/O pr oteinuria. She has H/O right stag horn calculus with obstruction causing hydronephrosis on the right. She also has atherosclerotic cardiovascular disease putting her at risk for pam vascular disease. Her BP is at goal. I have ordered CKD W/U. She will be a candidate for SGLT2i and may be ACEI if her hemodynamics , serum K and renal functions permit. She should maintain good hydration and avoid NSAID's. I also plan to do a split function study of her kidneys with time. Further management is pending evolving data Orders: Orders Creatinine 3 Months I10 - Essential (primary) hypertension, N18.31 - Chronic kidney disease, stage 3a, N20.0 - Calculus of kidney Immunofixation Pnl, Serum 3 Months I10 - Essential (primary) hypertension, N18.31 - Chronic kidney disease, stage 3a, N20.0 - Calculus of kidney Complete Blood Count Auto Diff 3 Months I10 - Essential (primary) hypertension, N18.31 - Chronic kidney disease, stage 3a, N20.0 - Calculus of kidney Protein Creatinine Ratio, Ur 3 Months I10 - Essential (primary) hypertension, N18.31 - Chronic kidney disease, stage 3a, N20.0 - Calculus of kidney Blood Urea Nitrogen 3 Months I10 - Essential (primary) hypertension, N18.31 - Chronic kidney disease, stage 3a, N20.0 - Calculus of kidney Electrolytes 3 Months I10 - Essential (primary) hypertension, N18.31 - Chronic kidney disease, stage 3a, N20.0 - Calculus of kidney Calcium 3 Months I10 - Essential (primary) hypertension, N18.31 - Chronic kidney disease, stage 3a, N20.0 - Calculus of kidney Parathyroid Hormone Intact 3 Months I10 - Essential (primary) hypertension, N18.31 - Chronic kidney disease, stage 3a, N20.0 - Calculus of kidney Vitamin D 25-OH Total 3 Months I10 - Essential (primary) hypertension, N18.31 - Chronic kidney disease, stage 3a, N20.0 - Calculus of kidney Coding Level of Care Code New Pt Level 4 (38280) Diagnoses CKD stage 3a, GFR 45-59 ml/min N18.31 Nephrolithiasis N20.0 Primary hypertension I10 Hypertension type: primary hypertension
[2025-04-27 11:59] VITALS: BP 102/64; PULSE 70; O2SAT 96; BMI 41.0
== END 2025-04-27 12:23 | disposition home or self-care (01) ==
LOC: HO.HKAS 11:01
PROVIDERS: PCP Internal Medicine; Referring Provider Internal Medicine; Visit Provider Internal Medicine Nephrology
DX: N18.31 Chronic kidney disease, stage 3a (principal); N20.0 Calculus of kidney; I10 Essential (primary) hypertension
CPT/HCPCS: 99204

== ENCOUNTER → 2025-04-27 11:00 | Outpatient (BNVA) | payer MEDICARE, MEDICAID, SELFPAY | PROVIDERS: PCP Internal Medicine; Referring Provider Internal Medicine; Visit Provider Internal Medicine Nephrology | DX: I12.9 Hypertensive chronic kidney disease with stage 1 through stage 4 chronic kidney disease, or unspecified chronic kidney disease (principal); N18.31 Chronic kidney disease, stage 3a; N20.0 Calculus of kidney | CPT/HCPCS: 99202 ==

== ENCOUNTER 2025-07-19 08:52 | Outpatient (REF) | payer MEDICARE, MEDICAID, SELFPAY ==
[2025-07-19 10:24] LABS: MANUAL DIFF FLAG NO
[2025-07-19 10:35] LABS: Hematocrit 41.0 % (37.0-47.0); Hemoglobin 12.8 g/dl (12.0-16.0); Imm Gran Abs Auto 0.04 X10*3/uL (0.00-0.03); Imm Gran Pct Auto 0.8 % (0.0-0.4); Lymphocytes Absolute Auto 1.0 X10*3/uL (1.2-4.9); Mean Corpuscular HGB Conc 31.2 g/dl (31.0-35.0); Mean Corpuscular Hemoglobin 29.3 pg (27.0-33.0); Mean Corpuscular Volume 93.8 fL (80.0-98.0); NRBC Abs Auto 0.000 X10*3/uL (0.0-0.012); NRBC Pct Auto 0.0 /100WBC (0.0-0.2); Platelet Count 145 X10*3/uL (160-400); Red Blood Count 4.37 X10*6/uL (4.20-5.50); White Blood Count 4.8 X10*3/uL (4.8-10.8)
[2025-07-19 11:17] LABS: Parathyroid Hormone Intact 123.2 pg/mL (8.7-77.1)
[2025-07-19 11:23] LABS: Anion Gap 15 (12-20); Blood Urea Nitrogen 28 mg/dL (9-16); Calcium 9.6 mg/dL (8.4-10.2); Carbon Dioxide 28 mmol/L (22-29); Chloride 102 mmol/L (96-108); Estimated Glomerular Filt Rate 42; Potassium 4.9 mmol/L (3.3-5.1); Sodium 140 mmol/L (135-145)
== END 2025-07-19 08:53 | disposition home or self-care (01) ==
LOC: HO.HMGCLDS 08:52
PROVIDERS: PCP Internal Medicine; Visit Provider Internal Medicine Nephrology
DX: N20.0 Calculus of kidney (principal); I12.9 Hypertensive chronic kidney disease with stage 1 through stage 4 chronic kidney disease, or unspecified chronic kidney disease; N18.31 Chronic kidney disease, stage 3a
CPT/HCPCS: 36415; 80051; 82306; 82310; 82565; 82784; 83970; 84520; 85025; 86334

== ENCOUNTER → 2025-07-22 09:42 | Outpatient (REF) | payer MEDICARE, MEDICAID, SELFPAY | LOC: HO.NUCMED 09:42 | PROVIDERS: PCP Internal Medicine; Visit Provider Nurse Practitioner Family | DX: N13.30 Unspecified hydronephrosis (principal) | CPT/HCPCS: J1938 ==

== ENCOUNTER 2025-07-27 10:21 | Outpatient (AMB) | payer MEDICARE, MEDICAID, SELFPAY ==
--- NOTE | 2025-07-27 10:42 | HO.NEPHOV ---
Vital Signs 07/27/25 10:44 Height 5 ft 7.5 in Weight 274 lb BMI 42.3 BP 94/62 Blood Pressure Location Rt brachial Position Sitting Pulse 66 Pulse Source Pulse Oximeter Pulse Oximetry (%) 99 Oxygen Delivery Method Room Air Intake Visit Reasons: 3mon follow-up w/labs-Conf w/health program specialist Arranger Assembler Required: No Accompanied by: Other Relationship Allergies bee pollen (BEE STINGS) Allergy (Severe, Verified 07/27/25 10:44) ANAPHYLAXIS aspirin (ASA) Allergy (Intermediate, Verified 07/27/25 10:44) RASH Penicillins Allergy (Intermediate, Verified 07/27/25 10:44) Rash strawberry (STRAWBERRY) Allergy (Intermediate, Verified 07/27/25 10:44) RASH buspirone Allergy (Unknown, Verified 07/27/25 10:44) Unknown Compazine Allergy (Unknown, Verified 07/27/25 10:44) unknown iodine (IODINE) Allergy (Unknown, Verified 07/27/25 10:44) UNKNOWN methadone Allergy (Unknown, Verified 07/27/25 10:44) none Opioids - Morphine Analogues Allergy (Unknown, Verified 07/27/25 10:44) Unknown codeine (CODEINE) Adverse Reaction (Intermediate, Verified 07/27/25 10:44) GI upset benztropine (From Cogentin) Adverse Reaction (Unknown, Verified 07/27/25 10:44) Unknown HPI Comments Details: 69 year-old lady with multiple medical issues including myasthenia gravis, atherosclerotic cardiovascular disease status post non STEMI, mitral valve regurgitation, dyslipidemia, hypertension, postsurgical hypothyroidism, bipolar disorder, and morbid obesity, was seen today in consultation for her CKD. She was accompanied today by her caregiver and had no new complaints at present time. She has proteinuria but denied retinopathy. She has H/O stag horn calculus and hydronephrosis on the right. She has no H/O hypercalcemia , new bone or back pain. She denies taking lithium, having epistaxis, photosensitivity, new skin rashes , edema, hematuria, deafness . She takes PPI for a long time. Her recent serum creatinine has been 1.26 [facility] Medical History (Updated 04/27/25 @ 12:15 by Zeferino Watson MD) Mixed dyslipidemia Elevated serum creatinine Tubular adenoma of colon Hx of adenomatous polyp of colon Glaucoma Osteopenia of multiple sites Irritable bowel syndrome with diarrhea Osteoarthritis Staghorn calculus Diverticulosis Urinary incontinence, mixed Atherosclerotic cardiovascular disease Colon cancer screening Smoker unmotivated to quit Shoulder bursitis Trochanteric bursitis Mitral valve regurgitation Narcotic dependence, in remission Chronic GERD Morbid obesity History of myasthenia gravis Allergic rhinitis Eczema Duodenum ulcer Bipolar disorder History of anoxic brain injury Mild intermittent asthma in adult without complication Postsurgical hypothyroidism Surgical History History of cataract surgery Hx of cystoscopy H/O colonoscopy Hx of thyroidectomy History of esophagogastroduodenoscopy (~01/2015) History of partial hysterectomy History of thymectomy (~2007) History of thyroidectomy, total Hx of tonsillectomy History of cholecystectomy (Unknown) History of appendectomy (Unknown) Family History Father Stroke Mother Breast cancer, Onset Age: 40 Brother Brain cancer Brother HIV disease Son No problems noted. Maternal Grandmother Glaucoma Paternal Grandmother Lung cancer Ovarian cancer Social History Household Members: Other Household Members Other:: long-term ([employer]) Housing: Other Housing Other:: [employer] agencyGroup home Do you presently have visiting nurse or other home services: Yes (long-term staff) Alcohol intake: never Patient Tobacco Use Status: Current everyday Tobacco user Tobacco use type: Cigarette Cigarette Packs Per Day: 0.5 Cigarettes Per Day: 10.0 Years Smoked: 40 e-Cigarette/Vaping Use: Never Used Current occupational status: disabled Cognitive needs: No Hearing needs: No Vision needs: Yes Review of Systems Const All systems reviewed & are unremarkable except as noted in HPI and below Physical Exam Vital Signs: Last Vital Signs BP 94/62 07/27/25 10:44 BMI result Body Mass Index 42.3 Const General: comfortable and no acute distress Orientation/consciousness: patient oriented x3 HEENT Head: Yes normocephalic Mouth: Normal oral and palatal mucosa present Eyes EOM: EOMs intact bilaterally Neck Neck: Yes supple Resp Auscultation: clear to auscultation bilaterally Cardio Jugular venous distension: no JVD Rate: regular rate GI Palpation (GI): Soft to palpation Auscultation: normal bowel sounds General: Yes no CVA tenderness Back/Spine/Pelvis Back: no CVA tenderness Skin General skin exam: no rashes or lesions noted Neuro General: patient oriented x3 and moves all extremities Extrem General: Yes no pedal edema Results Reviewed Nephrology Results: Hgb, (12.0-16.0) 12.8 g/dl 07/19/25 WBC, (4.8-10.8) 4.8 X10*3/uL 07/19/25 Plt Count, (160-400) 145 X10*3/uL L 07/19/25 Sodium, (135-145) 140 mmol/L 07/19/25 Potassium, (3.3-5.1) 4.9 mmol/L 07/19/25 Chloride, (96-108) 102 mmol/L 07/19/25 Carbon Dioxide, (22-29) 28 mmol/L 07/19/25 BUN, (9-16) 28 mg/dL H 07/19/25 Creatinine, (0.5-1.4) 1.26 mg/dL 07/19/25 Calcium, (8.4-10.2) 9.6 mg/dL 07/19/25 PTH Intact, (8.7-77.1) 123.2 pg/mL H 07/19/25 Renal US 10/05/24 Assessment & Plan Assessment & Plan (1) Hypertension: Code(s): I10 - Essential (primary) hypertension Category: Medical Qualifiers: Hypertension type: primary hypertension Qualified Code(s): I10 - Essential (primary) hypertension (2) Nephrolithiasis: Code(s): N20.0 - Calculus of kidney Category: Medical (3) CKD stage 3a, GFR 45-59 ml/min: Code(s): N18.31 - Chronic kidney disease, stage 3a Category: Medical Plan Mayra has CKD 3 likely due to multifactorial etiology. She has H/O proteinuria. She has H/O right stag horn calculus with obstruction causing hydronephrosis on the right. She also has atherosclerotic cardiovascular disease putting her at risk for pam vascular disease. Her BP is at goal. She will be a candidate for SGLT2i and may be ACEI if her hemodynamics , serum K and renal functions permit. She should maintain good hydration and avoid NSAID's. I also plan to do a split function study of her kidneys with time. Further management is pending evolving data Orders: Orders Calcium 6 Months I10 - Essential (primary) hypertension, N18.31 - Chronic kidney disease, stage 3a, N20.0 - Calculus of kidney Protein Creatinine Ratio, Ur 6 Months I10 - Essential (primary) hypertension, N18.31 - Chronic kidney disease, stage 3a, N20.0 - Calculus of kidney Creatinine 6 Months I10 - Essential (primary) hypertension, N18.31 - Chronic kidney disease, stage 3a, N20.0 - Calculus of kidney Blood Urea Nitrogen 6 Months I10 - Essential (primary) hypertension, N18.31 - Chronic kidney disease, stage 3a, N20.0 - Calculus of kidney Electrolytes 6 Months I10 - Essential (primary) hypertension, N18.31 - Chronic kidney disease, stage 3a, N20.0 - Calculus of kidney Coding Level of Care Code Est Pt Level 4 (05782) Diagnoses Primary hypertension I10 Hypertension type: primary hypertension Nephrolithiasis N20.0 CKD stage 3a, GFR 45-59 ml/min N18.31
[2025-07-27 10:44] VITALS: BP 94/62; PULSE 66; O2SAT 99; BMI 42.3
--- OUTSIDE RECORDS SUMMARY | 2025-07-27 11:52 | XMS_ITS | Encounter Summary ---
Author Organization [facility] Address [address] [place] [address] Care Team Providers Care Hat Mender Name Role Phone Jil Lebron MD Primary Care Provider Paradise Blair MD Primary Care Provider Danelle Georges MD Primary Care Provider [facility], Pcp Primary Care Provider Perez haddad Encounter Details Date Type Department Care Team Description 06/16/2015 Business Doc Medical Records [address] [place] [id number] Abstract, Provider Social History Tobacco Use Types [...] on filedocumented in this encounter Care Teams Hat Mender Relationship Specialty Start Date End Date Jil Lebron MD PCP - General Internal Medicine 10/25/14 09/14/15 Paradise Haas MD PCP - General Internal Medicine 09/15/15 03/12/18 Danelle Rosales MD PCP - General Internal Medicine 03/13/1804/15 [facility], Pcp PCP - General Internal Medicine 04/16/19 documented as of this encounter
--- OUTSIDE RECORDS SUMMARY | 2025-07-27 11:52 | XMS_ITS | Encounter Summary ---
Author Organization [facility] Address [address] [place] [address] Care Team Providers Care Creative Consultant Name Role Phone Paradise Haas MD Primary Care Provider Unavaila Danelle Casillas MD [facility] Primary Care Provider Unavailabl e Encounter Details Date Type Department Care Team Description 12/16/2017 [facility] Controlled Substance Contract Medical Records [address] [place] [address] Abstract, Provider Social History Tobacco Use Types [...] on filedocumented in this encounter Care Teams Creative Consultant Relationship Specialty Start Date End Date Paradise Haas MD PCP - General Internal Medicine 09/15/15 03/12/18 Danelle Rosales MD PCP - General Internal Medicine 03/13/1804/15 [facility], Pcp PCP - General Internal Medicine 04/16/19 documented as of this encounter
--- OUTSIDE RECORDS SUMMARY | 2025-07-27 11:52 | XMS_ITS | Encounter Summary ---
Author Organization [facility] Address [address] [place] [address] Care Team Providers Care Mobile Application Tester Name Role Phone Tyrone Torrez MD Primary Care Provider Jil Jackson MD Primary Care Provider Paradise Blair MD Primary Care Provider Oria Danelle Casillas MD Primary Care Provider [facility], Pcp Primary Care Provider Unavailabl e Encounter Details Date Type Department Care Team Description 01/26/2011 [facility] Medical Records [address] [place] [address] Luisana Maloney Social History Tobacco Use Types [...] on filedocumented in this encounter Care Teams Mobile Application Tester Relationship Specialty Start Date End Date Tyrone Torrez MD PCP - General 07/17/11 10/24/14 Jil Lebron MD PCP - General Internal Medicine 10/25/14 09/14/15 Paradise Haas MD PCP - General Internal Medicine 09/15/15 03/12/18 Danelle Rosales MD PCP - General Internal Medicine 03/13/1804/15 [facility], Pcp PCP - General Internal Medicine 04/16/19 documented as of this encounter
--- OUTSIDE RECORDS SUMMARY | 2025-07-27 11:53 | XMS_ITS | Encounter Summary ---
Author Organization [facility] Address [address] [place] [address] Care Team Providers Care Hide Inspector Name Role Phone Paradise Haas MD Primary Care Provider Unavaila Danelle Casillas MD Primary Care Provider [facility], Pcp Primary Care Provider Unavailabl e Encounter Details Date Type Department Care Team Description 01/14/2018 Telephone Medicine/Pediatrics - [address] [phone] Paradise Haas MD Social History Tobacco Use [...] on filedocumented in this encounter Care Teams Hide Inspector Relationship Specialty Start Date End Date Paradise Haas MD PCP - General Internal Medicine 09/15/15 03/12/18 Danelle Rosales MD PCP - General Internal Medicine 03/13/1804/15 [facility], Pcp PCP - General Internal Medicine 04/16/19 documented as of this encounter
--- OUTSIDE RECORDS SUMMARY | 2025-07-27 11:53 | XMS_ITS | Encounter Summary ---
Author Organization [facility] Address [address] [place] [address] Care Team Providers Care Esthetics Instructor Name Role Phone Jil Lebron MD Primary Care Provider Paradise Blair MD Primary Care Provider Danelle Georges MD Primary Care Provider [facility], Pcp Primary Care Provider Unavailabl e Reason for Visit * Reason Onset Date Comments Form 04/27/2015 Encounter Details Date Type Department Care Team Description 04/27/2015 Telephone Adult Medicine [address] [address] Jil Lebron MD Form Social History Tobacco [...] on filedocumented in this encounter Care Teams Esthetics Instructor Relationship Specialty Start Date End Date Jil Lebron MD PCP - General Internal Medicine 10/25/14 09/14/15 Paradise Haas MD PCP - General Internal Medicine 09/15/15 03/12/18 Danelle Rosales MD PCP - General Internal Medicine 03/13/1804/15 [facility], Pcp PCP - General Internal Medicine 04/16/19 documented as of this encounter
--- OUTSIDE RECORDS SUMMARY | 2025-07-27 11:53 | XMS_ITS | Encounter Summary ---
Author Organization [facility] Address [address] [place] [address] Care Team Providers Care Masking Machine Operator Name Role Phone Paradise Haas MD Primary Care Provider Danelle Georges MD Primary Care Provider [facility], Pcp Primary Care Provider Unavailabl e Reason for Visit * Reason Comments E-prescribe Rx Request Encounter Details Date Type Department Care Team Description 10/24/2015 Refill Medicine/Pediatrics - [address] [phone] Zay Horton PA-C E-prescribe Rx Request Social [...] insurance carrier is: [place] / Plan: [place] / Product Type: MEDICARE [id number] documented in this encounter Plan of Treatment Not on file documented as of this encounter Visit Diagnoses Not on filedocumented in this encounter Care Teams Masking Machine Operator Relationship Specialty Start Date End Date Paradise Haas MD PCP - General Internal Medicine 09/15/15 03/12/18 Danelle Rosales MD PCP - General Internal Medicine 03/13/1804/15 [facility] PCP - General Internal Medicine 04/16/19 documented as of this encounter
--- OUTSIDE RECORDS SUMMARY | 2025-07-27 11:53 | XMS_ITS | Encounter Summary ---
Author Organization [facility] Address [address] [place] [address] Care Team Providers Care Pillow Filler Name Role Phone Danelle Rosales MD Primary Care Provider [facility], Pcp Primary Care Provider Unavailabl e Encounter Details Date Type Department Care Team Description 04/29/2018 Telephone Adult Medicine [address] [address] Danelle Rosales MD Social History Tobacco Use [...] on filedocumented in this encounter Care Teams Pillow Filler Relationship Specialty Start Date End Date Danelle Rosales MD PCP - General Internal Medicine 03/13/1804/15 [facility], Pcp PCP - General Internal Medicine 04/16/19 documented as of this encounter
--- OUTSIDE RECORDS SUMMARY | 2025-07-27 11:53 | XMS_ITS | Encounter Summary ---
Author Organization [facility] Address [address] [place] [address] Care Team Providers Care Rooming House Operator Name Role Phone Jil Lebron MD Primary Care Provider Paradise Blair MD Primary Care Provider Danelle Georges MD Primary Care Provider [facility], Pcp Primary Care Provider Perez e Encounter Details Date Type Department Care Team Description 11/17/2014 Controlled Substance Contract with Plan Medical Records [address] [place] [address] Abstract, Provider Social History Tobacco Use Types [...] on filedocumented in this encounter Care Teams Rooming House Operator Relationship Specialty Start Date End Date Jil Lebron MD PCP - General Internal Medicine 10/25/14 09/14/15 Paradise Haas MD PCP - General Internal Medicine 09/15/15 03/12/18 Danelle Rosales MD PCP - General Internal Medicine 03/13/1804/15 [facility], Pcp PCP - General Internal Medicine 04/16/19 documented as of this encounter
--- OUTSIDE RECORDS SUMMARY | 2025-07-27 11:53 | XMS_ITS | Encounter Summary ---
Author Organization [facility] Address [address] [place] [address] Care Team Providers Care Personnel Recruiter Name Role Phone Paradise Haas MD Primary Care Provider Oria Danelle Casillas MD Primary Care Provider [facility], Pcp Primary Care Provider Unavailabl e Encounter Details Date Type Department Care Team Description 07/02/2017 Boat Laborer Report Medical Records [address] [place] [address] Chemo Lopez PA [address] [place] [address] Social History Tobacco Use Types Packs/Day Years [...] on filedocumented in this encounter Care Teams Personnel Recruiter Relationship Specialty Start Date End Date Paradise Haas MD PCP - General Internal Medicine 09/15/15 03/12/18 Danelle Rosales MD PCP - General Internal Medicine 03/13/1804/15 [facility], Pcp PCP - General Internal Medicine 04/16/19 documented as of this encounter
--- OUTSIDE RECORDS SUMMARY | 2025-07-27 11:53 | XMS_ITS | Encounter Summary ---
Author Organization [facility] Address [address] [place] [address] Care Team Providers Care Senior Clinical Consultant Name Role Phone Paradise Haas MD Primary Care Provider Oria Danelle Casillas MD [facility] Primary Care Provider Unavailabl e Encounter Details Date Type Department Care Team Description 02/26/2018 Release of Information Medical Records [address] [place] [address] Abstract, Provider Social History Tobacco Use Types [...] on filedocumented in this encounter Care Teams Senior Clinical Consultant Relationship Specialty Start Date End Date Paradise Haas MD PCP - General Internal Medicine 09/15/15 03/12/18 Danelle Rosales MD PCP - General Internal Medicine 03/13/1804/15 [facility], Pcp PCP - General Internal Medicine 04/16/19 documented as of this encounter
--- OUTSIDE RECORDS SUMMARY | 2025-07-27 11:53 | XMS_ITS | Encounter Summary ---
Author Organization [facility] Address [address] [place] [address] Care Team Providers Care Film Librarian Name Role Phone Paradise Haas MD Primary Care Provider Unavaila Danelle Casillas MD Primary Care Provider [facility], Pcp Primary Care Provider Unavailabl e Encounter Details Date Type Department Care Team Description 06/12/2016 Telephone [facility] [address] [address] Dillon Keith OD Social History Tobacco Use Types Packs/Day Years [...] encounter Miscellaneous Notes * Telephone Encounter - Dillon Keith OD - 06/12/2016 8:50 PM EDT PLEASE write transfer of care letter documented in this encounter Plan of Treatment Not on file documented as of this encounter Visit Diagnoses Not on filedocumented in this encounter Care Teams Film Librarian Relationship Specialty Start Date End Date Paradise Haas MD PCP - General Internal Medicine 09/15/15 03/12/18 Danelle Rosales MD PCP - General Internal Medicine 03/13/1804/15 [facility], Pcp PCP - General Internal Medicine 04/16/19 documented as of this encounter
--- OUTSIDE RECORDS SUMMARY | 2025-07-27 11:53 | XMS_ITS | Encounter Summary ---
Author Organization [facility] Address [address] [place] [address] Care Team Providers Care Neurosurgery Spine Physician Name Role Phone Jil Lebron MD Primary Care Provider Paradise Blair MD Primary Care Provider Danelle Georges MD Primary Care Provider [facility], Pcp Primary Care Provider Perez haddad Encounter Details Date Type Department Care Team Description 01/26/2015 Business Doc Medical Records [address] [place] [address] Abstract, Provider Social History Tobacco Use Types [...] on filedocumented in this encounter Care Teams Neurosurgery Spine Physician Relationship Specialty Start Date End Date Jil Lebron MD PCP - General Internal Medicine 10/25/14 09/14/15 Paradise Haas MD PCP - General Internal Medicine 09/15/15 03/12/18 Danelle Rosales MD PCP - General Internal Medicine 03/13/1804/15 [facility], Pcp PCP - General Internal Medicine 04/16/19 documented as of this encounter
--- OUTSIDE RECORDS SUMMARY | 2025-07-27 11:53 | XMS_ITS | Encounter Summary ---
Author Organization [facility] Address [address] [place] [address] Care Team Providers Care Cafe Worker Name Role Phone Paradise Haas MD Primary Care Provider Danelle Georges MD Primary Care Provider [facility], Pcp Primary Care Provider Unavailabl e Encounter Details Date Type Department Care Team Description 12/19/2015 Controlled Substance Plan Medical Records [address] [place] [address] Abstract, Provider Social History Tobacco Use Types [...] on filedocumented in this encounter Care Teams Cafe Worker Relationship Specialty Start Date End Date Paradise Haas MD PCP - General Internal Medicine 09/15/15 03/12/18 Danelle Rosales MD PCP - General Internal Medicine 03/13/1804/15 [facility], Pcp PCP - General Internal Medicine 04/16/19 documented as of this encounter
--- OUTSIDE RECORDS SUMMARY | 2025-07-27 11:53 | XMS_ITS | Encounter Summary ---
Author Organization [facility] Address [address] [place] [address] Care Team Providers Care Special Education Assistant Name Role Phone Paradise Haas MD Primary Care Provider Danelle Georges MD Primary Care Provider [facility], Pcp Primary Care Provider Unavailabl e Reason for Visit * Reason Onset Date Comments Medication 06/29/2016 Encounter Details Date Type Department Care Team Description 06/29/2016 Telephone Podiatry - [place] [address] [place] [address] Rad Rebolledo, DPAnup Medication Social History Tobacco Use Types Packs/Day Years [...] encounter Miscellaneous Notes * Telephone Encounter - Yamile Eduardo - 06/29/2016 3:18 PM EDT Received fax from [employer] stating they need new RX faxed over for the ammonium lactate with it saying apply topically to bottom of feet at night and cover with socks documented in this encounter Plan of Treatment Not on file documented as of this encounter Visit Diagnoses Not on filedocumented in this encounter Care Teams Special Education Assistant Relationship Specialty Start Date End Date Paradise Haas MD PCP - General Internal Medicine 09/15/15 03/12/18 Danelle Rosales MD PCP - General Internal Medicine 03/13/1804/15 [facility], Pcp PCP - General Internal Medicine 04/16/19 documented as of this encounter
--- OUTSIDE RECORDS SUMMARY | 2025-07-27 11:53 | XMS_ITS | Encounter Summary ---
Author Organization [facility] Address [address] [place] [address] Care Team Providers Care Creative/Art Director Name Role Phone Jil Lebron MD Primary Care Provider Paradise Blair MD Primary Care Provider Danelle Georges MD Primary Care Provider [facility], Pcp Primary Care Provider Perez e Encounter Details Date Type Department Care Team Description 01/13/2015 Supervisor Instrument Repair Report Medical Records [address] [place] [address] Michael Hudson MD Social History Tobacco Use Types Packs/Day [...] on filedocumented in this encounter Care Teams Creative/Art Director Relationship Specialty Start Date End Date Jil Lebron MD PCP - General Internal Medicine 10/25/14 09/14/15 Paradise Haas MD PCP - General Internal Medicine 09/15/15 03/12/18 Danelle Rosales MD PCP - General Internal Medicine 03/13/1804/15 [facility], Pcp PCP - General Internal Medicine 04/16/19 documented as of this encounter
--- OUTSIDE RECORDS SUMMARY | 2025-07-27 11:53 | XMS_ITS | Encounter Summary ---
Author Organization [facility] Address [address] [place] [address] Care Team Providers Care Recovery Collector Name Role Phone Danelle Rosales MD Primary Care Provider [facility], Pcp Primary Care Provider Unavailabl e Reason for Visit * Reason Comments E-prescribe Rx Request Encounter Details Date Type Department Care Team Description 04/07/2019 Refill Adult Medicine - [address] [address] Danelle Rosales MD E-prescribe Rx Request Social [...] / Plan: [place] / Product Type: MEDICARE [id number] documented in this encounter Plan of Treatment Not on file documented as of this encounter Visit Diagnoses Not on filedocumented in this encounter Care Teams Recovery Collector Relationship Specialty Start Date End Date Danelle Rosales MD PCP - General Internal Medicine 03/13/1804/15 [facility], Pcp PCP - General Internal Medicine 04/16/19 documented as of this encounter
--- OUTSIDE RECORDS SUMMARY | 2025-07-27 11:53 | XMS_ITS | Encounter Summary ---
Author Organization [facility] Address [address] [place] [address] Care Team Providers Care Preload Supervisor Name Role Phone Community, Pcp Primary Care Provider Unavailabl e Reason for Visit * Reason Onset Date Comments Prior Authorization 01/13/2020 Encounter Details Date Type Department Care Team Description 01/13/2020 Telephone Adult Medicine - [address] [address] Community, Pcp Prior Authorization Social History Tobacco [...] from 11/25/2019 until 01/13/2021 Approval faxed to [facility] at [phone] * Telephone Encounter - Lisa Walker M.A. [...] from: ?? Pharmacy fax #: ?? [employer] Information from fax: ?? What Prescription Plan does the patient have? ?? BIN/PCN if applicable: ?? Cardholder ID: ?? Person Code: ?? Relationship Code: ?? Help desk phone: ?? documented in this encounter Plan of Treatment Not on file documented as of this encounter Visit Diagnoses Not on filedocumented in this encounter Care Teams Preload Supervisor Relationship Specialty Start Date End Date Community, Pcp PCP - General Internal Medicine 04/16/19 documented as of this encounter
--- OUTSIDE RECORDS SUMMARY | 2025-07-27 11:53 | XMS_ITS | Encounter Summary ---
Author Organization [facility] Address [address] [place] [address] Care Team Providers Care Policy Specialist Name Role Phone Paradise Haas MD Primary Care Provider Danelle Georges MD Primary Care Provider [facility], Pcp Primary Care Provider Unavailabl e Reason for Visit * Reason Onset Date Comments Prior Authorization 01/15/2018 nexlum Encounter Details Date Type Department Care Team Description 01/15/2018 Telephone Medicine/Pediatrics - [address] [phone] Paradise Haas MD Prior Authorization (nexlum) Social [...] What Pharmacy did the fax come from: [email or web address] fax #: [phone] [employer] Party Information from fax: What Prescription Plan does the patient have? BIN/PCN if applicable: Cardholder ID: Person Code: Relationship Code: Help desk phone: *FAXED TO PRIOR AUTH documented in this encounter Plan of Treatment Not on file documented as of this encounter Visit Diagnoses Not on filedocumented in this encounter Care Teams Policy Specialist Relationship Specialty Start Date End Date Paradise Haas MD PCP - General Internal Medicine 09/15/15 03/12/18 Danelle Rosales MD PCP - General Internal Medicine 03/13/1804/15 [facility], Pcp PCP - General Internal Medicine 04/16/19 documented as of this encounter
--- OUTSIDE RECORDS SUMMARY | 2025-07-27 11:53 | XMS_ITS | Encounter Summary ---
Author Organization [facility] Address [address] [place] [address] Care Team Providers Care Chief Orthoptist Name Role Phone Jil Lebron MD Primary Care Provider Paradise Blair MD Primary Care Provider Danelle Georges MD Primary Care Provider [facility], Pcp Primary Care Provider Perez haddad Encounter Details Date Type Department Care Team Description 02/15/2015 Business Doc Medical Records [address] [place] [id number] Abstract, Provider Social History Tobacco Use Types [...] on filedocumented in this encounter Care Teams Chief Orthoptist Relationship Specialty Start Date End Date Jil Lebron MD PCP - General Internal Medicine 10/25/14 09/14/15 Paradise Haas MD PCP - General Internal Medicine 09/15/15 03/12/18 Danelle Rosales MD PCP - General Internal Medicine 03/13/1804/15 [facility], Pcp PCP - General Internal Medicine 04/16/19 documented as of this encounter
--- OUTSIDE RECORDS SUMMARY | 2025-07-27 11:53 | XMS_ITS | Encounter Summary ---
Author Organization [facility] Address [address] [place] [address] Care Team Providers Care Bariatric Nurse Name Role Phone Paradise Haas MD Primary Care Provider Danelle Georges MD Primary Care Provider [facility], Pcp Primary Care Provider Unavailabl e Reason for Visit * Reason Onset Date Comments APPOINTMENT 02/27/2018 Encounter Details Date Type Department Care Team Description 02/27/2018 Telephone Medicine/Pediatrics - [address] [phone] Paradise Haas MD APPOINTMENT Social History Tobacco [...] on filedocumented in this encounter Care Teams Bariatric Nurse Relationship Specialty Start Date End Date Paradise Haas MD PCP - General Internal Medicine 09/15/15 03/12/18 Danelle Rosales MD PCP - General Internal Medicine 03/13/1804/15 [facility], Pcp PCP - General Internal Medicine 04/16/19 documented as of this encounter
--- OUTSIDE RECORDS SUMMARY | 2025-07-27 11:53 | XMS_ITS | Encounter Summary ---
Author Organization [facility] Address [address] [place] [address] Care Team Providers Care Moving Van Driver Name Role Phone Paradise Haas MD Primary Care Provider Unavaila Danelle Casillas MD Primary Care Provider [facility], Pcp Primary Care Provider Unavailabl e Encounter Details Date Type Department Care Team Description 02/22/2017 Orders Only Medicine/Pediatrics - [address] [phone] Zay Horton PA-C Social History Tobacco Use [...] on filedocumented in this encounter Care Teams Moving Van Driver Relationship Specialty Start Date End Date Paradise Haas MD PCP - General Internal Medicine 09/15/15 03/12/18 Danelle Rosales MD PCP - General Internal Medicine 03/13/1804/15 [facility], Pcp PCP - General Internal Medicine 04/16/19 documented as of this encounter
--- OUTSIDE RECORDS SUMMARY | 2025-07-27 11:53 | XMS_ITS | Encounter Summary ---
Author Organization [facility] Address [address] [place] [address] Care Team Providers Care Automation Mechanic Name Role Phone Paradise Haas MD Primary Care Provider Unavaila Danelle Casillas MD [facility] Primary Care Provider Unavailabl e Encounter Details Date Type Department Care Team Description 02/24/2017 Controlled Substance Contract with Plan Medical Records [address] [place] [address] Abstract, Provider Social History Tobacco Use Types [...] on filedocumented in this encounter Care Teams Automation Mechanic Relationship Specialty Start Date End Date Paradise Haas MD PCP - General Internal Medicine 09/15/15 03/12/18 Danelle Rosales MD PCP - General Internal Medicine 03/13/1804/15 [facility], Pcp PCP - General Internal Medicine 04/16/19 documented as of this encounter
--- OUTSIDE RECORDS SUMMARY | 2025-07-27 11:53 | XMS_ITS | Encounter Summary ---
Author Organization [facility] Address [address] [place] [address] Care Team Providers Care Sweat Band Sewer Name Role Phone Paradise Haas MD Primary Care Provider Unavaila Danelle Casillas MD Primary Care Provider [facility], Pcp Primary Care Provider Unavailabl e Encounter Details Date Type Department Care Team Description 02/15/2016 Orders Only Medicine/Pediatrics - [address] [address] Zay Horton PA-C Social History Tobacco Use [...] on filedocumented in this encounter Care Teams Sweat Band Sewer Relationship Specialty Start Date End Date Paradise Haas MD PCP - General Internal Medicine 09/15/15 03/12/18 Danelle Rosales MD PCP - General Internal Medicine 03/13/1804/15 [facility], Pcp PCP - General Internal Medicine 04/16/19 documented as of this encounter
--- OUTSIDE RECORDS SUMMARY | 2025-07-27 11:53 | XMS_ITS | Encounter Summary ---
Author Organization [facility] Address [address] [place] [address] Care Team Providers Care Ordnance Engineering Technician Name Role Phone Jil Lebron MD Primary Care Provider Paradise Blair MD Primary Care Provider Danelle Georges MD Primary Care Provider [facility], Pcp Primary Care Provider Unavailgill haddad Encounter Details Date Type Department Care Team Description 04/26/2015 Orders Only Medicine/Pediatrics - [address] [phone] Zay Horton PA-C Abnormal x-ray of lower [...] extremity documented in this encounter Care Teams Ordnance Engineering Technician Relationship Specialty Start Date End Date Jil Lebron MD PCP - General Internal Medicine 10/25/14 09/14/15 Paradise Haas MD PCP - General Internal Medicine 09/15/15 03/12/18 Danelle Rosales MD PCP - General Internal Medicine 03/13/1804/15 [facility] PCP - General Internal Medicine 04/16/19 documented as of this encounter
--- OUTSIDE RECORDS SUMMARY | 2025-07-27 11:53 | XMS_ITS | Encounter Summary ---
Author Organization [facility] Address [address] [place] [address] Care Team Providers Care Gum Mixer Name Role Phone Paradise Haas MD Primary Care Provider Danelle Georges MD Primary Care Provider [facility], Pcp Primary Care Provider Unavailabl e Encounter Details Date Type Department Care Team Description 09/29/2015 Release of Information Medical Records [address] [place] [address] Abstract, Provider Social History Tobacco Use Types [...] on filedocumented in this encounter Care Teams Gum Mixer Relationship Specialty Start Date End Date Paradise Haas MD PCP - General Internal Medicine 09/15/15 03/12/18 Danelle Rosales MD PCP - General Internal Medicine 03/13/1804/15 [facility], Pcp PCP - General Internal Medicine 04/16/19 documented as of this encounter
--- OUTSIDE RECORDS SUMMARY | 2025-07-27 11:53 | XMS_ITS | Encounter Summary ---
Author Organization [facility] Address [address] [place] [address] Care Team Providers Care Greek Professor Name Role Phone Danelle Rosales MD Primary Care Provider [facility], Pcp Primary Care Provider Unavailabl e Reason for Visit * Reason Onset Date Comments Knee Pain 06/03/2018 knee pain Encounter Details Date Type Department Care Team Description 06/03/2018 Telephone Adult Medicine [address] [address] Danelle Rosales MD Knee Pain (knee pain) Social History Tobacco Use Types Packs/Day Years [...] encounter Miscellaneous Notes * Telephone Encounter - Toshia Mckeon R.N. - 06/03/2018 3:28 PM EDT Spoke with Carolee, Reports pt c/o bilateral knee pain and wants to see Ortho. Reports previously received Cortisone Injections, which helped. Advised would need appt to evaluate her for this reason.Pt declines to come in and understands that this is the way she can be provided with a referral. Will FYI pcp that pt declined appt . * Telephone Encounter - Renuka Serrano - 06/03/2018 2:04 PM EDT Symptoms patient is presenting: Has pain in both knees. States she had a cortisone shot several years ago in each knee. Carolee from [facility] wonders if she can be referred to orthopedics again or does she need to see Dr Rosado first. If pain or injury related was it due to an accident at work or from a motor vehicle accident? NO If yes, gather 3rd democrat insurance information Date of accident/Injury: x How long has patient had these symptoms?: several years PCP: Danelle Rosado [place] / [place] / Product Type: MEDICARE [id number] documented in this encounter Plan of Treatment Not on file documented as of this encounter Visit Diagnoses Not on filedocumented in this encounter Care Teams Greek Professor Relationship Specialty Start Date End Date Danelle Rosales MD PCP - General Internal Medicine 03/13/1804/15 [facility], Pcp PCP - General Internal Medicine 04/16/19 documented as of this encounter
--- OUTSIDE RECORDS SUMMARY | 2025-07-27 11:53 | XMS_ITS | Encounter Summary ---
Author Organization [facility] Address [address] [place] [address] Care Team Providers Care Medical Secretary Teacher Name Role Phone Paradise Haas MD Primary Care Provider Danelle Georges MD Primary Care Provider [facility], Pcp Primary Care Provider Unavailabl e Reason for Visit * Reason Comments E-prescribe Rx Request Encounter Details Date Type Department Care Team Description 10/11/2015 Refill Adult Medicine - [address] [place] [address] Jil Lebron MD E-prescribe Rx Request Social [...] / Plan[place] / Product Type: MEDICARE [id number] * Telephone Encounter - Katherine Engel - 10/11/2015 2:46 PM EST documented in this encounter Plan of Treatment Not on file documented as of this encounter Visit Diagnoses Not on filedocumented in this encounter Care Teams Medical Secretary Teacher Relationship Specialty Start Date End Date Paradise Haas MD PCP - General Internal Medicine 09/15/15 03/12/18 Danelle Rosales MD PCP - General Internal Medicine 03/13/1804/15 [facility], Pcp PCP - General Internal Medicine 04/16/19 documented as of this encounter
--- OUTSIDE RECORDS SUMMARY | 2025-07-27 11:53 | XMS_ITS | Encounter Summary ---
Author Organization [facility] Address [address] [place] [address] Care Team Providers Care Supervisor Sterile Processing Name Role Phone Paradise Haas MD Primary Care Provider Danelle Georges MD Primary Care Provider [facility], Pcp Primary Care Provider Unavailabl e Encounter Details Date Type Department Care Team Description 03/05/2017 Business Doc Medical Records [address] [place] [address] Abstract, Provider Social History Tobacco Use Types [...] on filedocumented in this encounter Care Teams Supervisor Sterile Processing Relationship Specialty Start Date End Date Paradise Haas MD PCP - General Internal Medicine 09/15/15 03/12/18 Danelle Rosales MD PCP - General Internal Medicine 03/13/1804/15 [facility], Pcp PCP - General Internal Medicine 04/16/19 documented as of this encounter
--- OUTSIDE RECORDS SUMMARY | 2025-07-27 11:53 | XMS_ITS | Encounter Summary ---
Author Organization [facility] Address [address] [place] [address] Care Team Providers Care Photographer Motion Picture Name Role Phone Paradise Haas MD Primary Care Provider Unavaila Danelle Casillas MD Primary Care Provider [facility], Pcp Primary Care Provider Unavailabl e Reason for Referral * EXTERNAL (Routine) - Authorized/Booked Specialty Diagnoses / Procedures Referred By Contvivian calloway Referred To Contact Physical Therapy Diagnoses Lumbar radiculitis Procedures RE[place]ERRAL [place] [address] [place] [address] External Phys Thrpy Referral ID Status Reason Start Date Expiration Date V isits Requested Visits Authorized SEE NOTE Authorized/B ooked 09/19/2017 11/20/2017 1 1 Reason for Visit * Reason Onset Date Comments Provider Call Back 09/18/2017 Encounter Details Date Type Department Care Team Description 09/18/2017 Telephone Physiatry - [address] [address] Jack Rosenthal DO Provider Call Back Social [...] 09/18/2017 1:10 PM EDT Spoke with Carin, [facility] is going to bring a [...] 09/18/2017 1:02 PM EDT Carin, coordinator from [facility] called stating patient is out of meloxicam (MOBIC) 15 MG tabletmedication. She is asking if Dr wants patient to continue medication, if so, they need a new order send to [facility] pharmacy. Please advise. * Telephone Encounter [...] unspecified documented in this encounter Care Teams Photographer Motion Picture Relationship Specialty Start Date End Date Paradise Haas MD PCP - General Internal Medicine 09/15/15 03/12/18 Danelle Rosales MD PCP - General Internal Medicine 03/13/1804/15 [facility], Pcp PCP - General Internal Medicine 04/16/19 documented as of this encounter
--- OUTSIDE RECORDS SUMMARY | 2025-07-27 11:53 | XMS_ITS | Encounter Summary ---
Author Organization [facility] Address [address] [place] [address] Care Team Providers Care Manufacturing Specialist Name Role Phone Jil Lebron MD Primary Care Provider Paradise Blair MD Primary Care Provider Danelle Georges MD Primary Care Provider [facility], Pcp Primary Care Provider Unavailabl e Reason for Visit * Reason Onset Date Comments Call From Home Care 08/11/2015 Encounter Details Date Type Department Care Team Description 08/11/2015 Telephone Medicine/Pediatrics - [address] [phone] Zay Horton PA-C Call From Home Care [...] 08/11/2015 2:29 PM EDT Jayde calling from [email or web address] regarding patient's medications. She needs to clarify the atarax rx, whether patient is still taking and if she has refills. She is sending up a copy of consent from the patient. She is faxing to [employer] fax number. documented in this encounter Plan of Treatment Not on file documented as of this encounter Visit Diagnoses Not on filedocumented in this encounter Care Teams Manufacturing Specialist Relationship Specialty Start Date End Date Jil Lebron MD PCP - General Internal Medicine 10/25/14 09/14/15 Paradise Haas MD PCP - General Internal Medicine 09/15/15 03/12/18 Danelle Rosales MD PCP - General Internal Medicine 03/13/1804/15 [facility], [facility]cp PCP - General Internal Medicine 04/16/19 documented as of this encounter
--- OUTSIDE RECORDS SUMMARY | 2025-07-27 11:53 | XMS_ITS | Encounter Summary ---
Author Organization [facility] Address [address] [place] [address] Care Team Providers Care Telephone Solicitor Name Role Phone Danelle Rosales MD Primary Care Provider [facility], Pcp Primary Care Provider Unavailabl e Reason for Visit * Reason Comments E-prescribe Rx Request Encounter Details Date Type Department Care Team Description 07/25/2018 Refill Medicine/Pediatrics - [address] [phone] Lala Roach PA-C E-prescribe Rx Request Social [...] THE PATIENT'S LAST APPOINTMENT IN ADULT MEDICINE? [id number] WHEN WAS THE LAST TIME THE PATIENT [...] / Plan[place] / Product Type: MEDICARE [id number] documented in this encounter Plan of Treatment Not on file documented as of this encounter Visit Diagnoses Not on filedocumented in this encounter Care Teams Telephone Solicitor Relationship Specialty Start Date End Date Danelle Rosales MD PCP - General Internal Medicine 03/13/1804/15 [facility] PCP - General Internal Medicine 04/16/19 documented as of this encounter
--- OUTSIDE RECORDS SUMMARY | 2025-07-27 11:53 | XMS_ITS | Encounter Summary ---
Author Organization [facility] Address [address] [place] [address] Care Team Providers Care Wrapper Layer And Examiner Soft Work Name Role Phone Paradise Haas MD Primary Care Provider Oria Danelle Casillas MD Primary Care Provider [facility], Pcp Primary Care Provider Unavailabl e Reason for Visit * Reason Onset Date Comments Form 03/22/2016 Viralriubaldo Encounter Details Date Type Department Care Team Description 03/22/2016 Telephone Medicine/Pediatrics [address] [phone] Paradise Haas MD Form (Deionscript) Social History Tobacco Use Types Packs/Day Years [...] encounter Miscellaneous Notes * Telephone Encounter - Dorothy Wang - 03/22/2016 8:19 AM EDT Viralript drug utilization review program Zay Horton to review, sign and return fax [phone] Form in call center documented in this encounter Plan of Treatment Not on file documented as of this encounter Visit Diagnoses Not on filedocumented in this encounter Care Teams Wrapper Layer And Examiner Soft Work Relationship Specialty Start Date End Date Paradise Haas MD PCP - General Internal Medicine 09/15/15 03/12/18 Danelle Rosales MD PCP - General Internal Medicine 03/13/1804/15 [facility], Pcp PCP - General Internal Medicine 04/16/19 documented as of this encounter
--- OUTSIDE RECORDS SUMMARY | 2025-07-27 11:53 | XMS_ITS | Encounter Summary ---
Author Organization [facility] Address [address] [place] [address] Care Team Providers Care Shotweld Operator Name Role Phone Paradise Haas MD Primary Care Provider Danelle Georges MD Primary Care Provider [facility], Pcp Primary Care Provider Unavailabl e Reason for Visit * Reason Onset Date Comments Medication 08/13/2017 incoming fax Encounter Details Date Type Department Care Team Description 08/13/2017 Telephone Medicine/Pediatrics - [address] [phone] Paradise Haas MD Medication (incoming fax) Social [...] on filedocumented in this encounter Care Teams Shotweld Operator Relationship Specialty Start Date End Date Paradise Haas MD PCP - General Internal Medicine 09/15/15 03/12/18 Danelle Rosales MD PCP - General Internal Medicine 03/13/1804/15 [facility], Pcp PCP - General Internal Medicine 04/16/19 documented as of this encounter
--- OUTSIDE RECORDS SUMMARY | 2025-07-27 11:53 | XMS_ITS | Encounter Summary ---
Author Organization [facility] Address [address] [place] [address] Care Team Providers Care Residential Supervisor Name Role Phone Paradise Haas MD Primary Care Provider Oria Danelle Casillas MD Primary Care Provider [facility], Pcp Primary Care Provider Unavailabl e Reason for Visit * Reason Comments E-prescribe Rx Request Encounter Details Date Type Department Care Team Description 09/05/2017 Refill Physiatry - [address] [address] Jack Rosenthal DO E-prescribe Rx Request Social [...] sacrum documented in this encounter Care Teams Residential Supervisor Relationship Specialty Start Date End Date Paradise Haas MD PCP - General Internal Medicine 09/15/15 03/12/18 Danelle Rosales MD PCP - General Internal Medicine 03/13/1804/15 [facility], Pcp PCP - General Internal Medicine 04/16/19 documented as of this encounter
--- OUTSIDE RECORDS SUMMARY | 2025-07-27 11:53 | XMS_ITS | Encounter Summary ---
Author Organization [facility] Address [address] [place] [address] Care Team Providers Care Manager Stars Name Role Phone Danelle Rosales MD Primary Care Provider [facility], Pcp Primary Care Provider Unavailabl e Reason for Visit * Reason Comments E-prescribe Rx Request Encounter Details Date Type Department Care Team Description 08/07/2018 Refill Medicine/Pediatrics - [address] [phone] Danelle Rosales MD E-prescribe Rx Request Social [...] Telephone Encounter - Danelle Rosado MD - 08/08/2018 7:41 AM EDT Please refer to telephone encounter from 06/26/18. Psych meds interact with cyclobenzaprine. Will notrefill. * Telephone Encounter - LJ Coronel - 08/07/2018 3:08 PM EDT Presumably for knee pain. Will defer to PCP * Telephone Encounter - Shea St - 08/07/2018 2:06 PM EDT Last office visit: 05/14/2018 * Telephone Encounter - Eugenie Cleary - 08/07/2018 11:30 AM EDT Patient would like script to [...] / Plan[place] / Product Type: MEDICARE [id number] documented in this encounter Plan of Treatment Not on file documented as of this encounter Visit Diagnoses Not on filedocumented in this encounter Care Teams Manager Stars Relationship Specialty Start Date End Date Danelle Rosales MD PCP - General Internal Medicine 03/13/1804/15 [facility], Pcp PCP - General Internal Medicine 04/16/19 documented as of this encounter
--- OUTSIDE RECORDS SUMMARY | 2025-07-27 11:53 | XMS_ITS | Encounter Summary ---
Author Organization [facility] Address [address] [place] [address] Care Team Providers Care Statistical Secretary Name Role Phone Paradise Haas MD Primary Care Provider Danelle Georges MD Primary Care Provider [facility], Pcp Primary Care Provider Unavailabl e Encounter Details Date Type Department Care Team Description 07/11/2017 Business Doc Medical Records [address] [place] [address] Abstract, Provider Social History Tobacco Use Types [...] on filedocumented in this encounter Care Teams Statistical Secretary Relationship Specialty Start Date End Date Paradise Haas MD PCP - General Internal Medicine 09/15/15 03/12/18 Danelle Rosales MD PCP - General Internal Medicine 03/13/1804/15 [facility], Pcp PCP - General Internal Medicine 04/16/19 documented as of this encounter
--- OUTSIDE RECORDS SUMMARY | 2025-07-27 11:53 | XMS_ITS | Clinical Summary ---
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
--- OUTSIDE RECORDS SUMMARY | 2025-07-27 11:53 | XMS_ITS | Encounter Summary ---
Author Organization [facility] Address [address] [place] [address] Care Team Providers Care Fine Artist Name Role Phone Paradise Haas MD Primary Care Provider Danelle Georges MD Primary Care Provider [facility], Pcp Primary Care Provider Unavailabl e Reason for Visit * Reason Onset Date Comments medication problems 01/08/2018 Encounter Details Date Type Department Care Team Description 01/08/2018 Telephone Medicine/Pediatrics - [address] [id number] Paradise Haas MD medication problems Social History [...] on filedocumented in this encounter Care Teams Fine Artist Relationship Specialty Start Date End Date Paradise Haas MD PCP - General Internal Medicine 09/15/15 03/12/18 Danelle oRsales MD PCP - General Internal Medicine 03/13/1804/15 [facility], Pcp PCP - General Internal Medicine 04/16/19 documented as of this encounter
== END 2025-07-27 11:02 | disposition home or self-care (01) ==
LOC: HO.HKAS 10:22
PROVIDERS: PCP Internal Medicine; Visit Provider Internal Medicine Nephrology
DX: I10 Essential (primary) hypertension (principal); N20.0 Calculus of kidney; N18.31 Chronic kidney disease, stage 3a
CPT/HCPCS: 99214

== ENCOUNTER → 2025-07-27 10:21 | Outpatient (BNVA) | payer MEDICARE, MEDICAID, SELFPAY | PROVIDERS: PCP Internal Medicine; Visit Provider Internal Medicine Nephrology | DX: I12.9 Hypertensive chronic kidney disease with stage 1 through stage 4 chronic kidney disease, or unspecified chronic kidney disease (principal); N18.31 Chronic kidney disease, stage 3a; N20.0 Calculus of kidney | CPT/HCPCS: 99212 ==

== ENCOUNTER → 2025-08-03 10:53 | Outpatient (REF) | payer MEDICARE, MEDICAID, SELFPAY ==
--- NOTE | ~2025-08-03 | NM_ITS ---
EXAMINATION: NM KIDNEY FLOW FUNCTION WITH RX HISTORY: N13.30 - Unspecified hydronephrosis. TECHNIQUE: A renogram and renal scan were performed following the intravenous segment is 9.3 mCi technetium 99m-MDP. The patient received 40 mg IV Lasix approximately 30 minutes after injection of the radiopharmaceutical. COMPARISON: Correlation is made with an unenhanced CT of the abdomen and pelvis dated 12/07/2024. FINDINGS: Normal blood flow is seen to the left kidney. There is normal uptake and excretion of the radiopharmaceutical on the left. No activity is seen in the right renal fossa before or after the administration of intravenous Lasix. NM/NM renal flow w pharm int IMPRESSION: No activity is seen in the right renal fossa, consistent with a nonfunctioning kidney. Electronically signed by: Maxi Casiano MD 08/03/2025 02:14 PM EDT
== END ==
LOC: HO.NUCMED 10:53
PROVIDERS: PCP Internal Medicine; Visit Provider Nurse Practitioner Family
DX: N13.30 Unspecified hydronephrosis (principal)
CPT/HCPCS: 78708; A9539; J1938

== ENCOUNTER → 2025-08-03 10:57 | Outpatient (BNV) | payer MEDICARE, MEDICAID, SELFPAY | PROVIDERS: PCP Internal Medicine; Visit Provider Radiology Diagnostic Radiology | DX: N13.30 Unspecified hydronephrosis (principal) | CPT/HCPCS: 78708 ==

== ENCOUNTER 2025-08-10 08:59 | Outpatient (AMB) | payer MEDICARE, MEDICAID, SELFPAY ==
--- NOTE | 2025-08-10 08:59 | MHC.OFFVIS ---
Intake Visit Reasons: H&P/scan results Intake Note: Patient present for Telehealth for H&P follow up Urology meds: none Blood Thinner: none Imaging : NM Renal scan done 08/03/25 Automotive Designer Required: No Accompanied by: Self / Same As Patient Allergies bee pollen (BEE STINGS) Allergy (Severe, Verified 08/10/25 09:06) ANAPHYLAXIS aspirin (ASA) Allergy (Intermediate, Verified 08/10/25 09:06) RASH Penicillins Allergy (Intermediate, Verified 08/10/25 09:06) Rash strawberry (STRAWBERRY) Allergy (Intermediate, Verified 08/10/25 09:06) RASH buspirone Allergy (Unknown, Verified 08/10/25 09:06) Unknown Compazine Allergy (Unknown, Verified 08/10/25 09:06) unknown iodine (IODINE) Allergy (Unknown, Verified 08/10/25 09:06) UNKNOWN methadone Allergy (Unknown, Verified 08/10/25 09:06) none Opioids - Morphine Analogues Allergy (Unknown, Verified 08/10/25 09:06) Unknown codeine (CODEINE) Adverse Reaction (Intermediate, Verified 08/10/25 09:06) GI upset benztropine (From Cogentin) Adverse Reaction (Unknown, Verified 08/10/25 09:06) Unknown HPI Comments Details: Mayra is a pleasant female. She is a patient of Dr. Rivers. She is seen for the following urologic conditions - large right renal stone - right hydro nephrosis Telemedicine Evaluation 15 min Consultation Doximity Meme Video Discussion with foster care case manager Found to have right hydronephrosis on imaging Lasix renogram shows minimal function right side Plan for cystoscopy, bilateral retrograde, possible right stent Creatinine: 03/17 0.84, 09/16 0.76, 01/18 0.88, 10/18 1.31, 11/17 1.21, 04/[address] 1.3 cm right renal stone Intervention - 01/18 ureteroscopy with laser lithotripsy - 03/18 [facility] Medical History (Updated 04/27/25 @ 12:15 by Zeferino Watson MD) Mixed dyslipidemia Elevated serum creatinine Tubular adenoma of colon Hx of adenomatous polyp of colon Glaucoma Osteopenia of multiple sites Irritable bowel syndrome with diarrhea Osteoarthritis Staghorn calculus Diverticulosis Urinary incontinence, mixed Atherosclerotic cardiovascular disease Colon cancer screening Smoker unmotivated to quit Shoulder bursitis Trochanteric bursitis Mitral valve regurgitation Narcotic dependence, in remission Chronic GERD Morbid obesity History of myasthenia gravis Allergic rhinitis Eczema Duodenum ulcer Bipolar disorder History of anoxic brain injury Mild intermittent asthma in adult without complication Postsurgical hypothyroidism Surgical History History of cataract surgery Hx of cystoscopy H/O colonoscopy Hx of thyroidectomy History of esophagogastroduodenoscopy (~01/2015) History of partial hysterectomy History of thymectomy (~2007) History of thyroidectomy, total Hx of tonsillectomy History of cholecystectomy (Unknown) History of appendectomy (Unknown) Family History Father Stroke Mother Breast cancer, Onset Age: 40 Brother Brain cancer Brother HIV disease Son No problems noted. Maternal Grandmother Glaucoma Paternal Grandmother Lung cancer Ovarian cancer Social History Household Members: Other Household Members Other:: shelter ([employer]) Housing: Other Housing Other:: [employer] agencyGroup home Do you presently have visiting nurse or other home services: Yes (shelter staff) Alcohol intake: never Patient Tobacco Use Status: Current everyday Tobacco user Tobacco use type: Cigarette Cigarette Packs Per Day: 0.5 Cigarettes Per Day: 10.0 Years Smoked: 40 e-Cigarette/Vaping Use: Never Used Current occupational status: disabled Cognitive needs: No Hearing needs: No Vision needs: Yes Physical Exam Telephone evaluation Appropriate responses Regular breathing rate and rhythm Telehealth Telehealth Telehealth Platform: [employer] Location of provider rendering services: practice address Location of patient: address on file Patient Identification confirmed using: Name, : Yes Telehealth method: video Patient verbally consented to treatment: Yes Patient verbally consented to billing insurance company: Yes Patient informed of any privacy concerns related to visit: Yes Minutes spent on Phone/Video with Pt.: 15 Assessment & Plan Assessment & Plan (1) Nephrolithiasis: Code(s): N20.0 - Calculus of kidney Category: Medical (2) Hydronephrosis: Code(s): N13.30 - Unspecified hydronephrosis Category: Medical Plan Risks, benefits and alternatives to therapy were discussed. These include but are not limited to infection, bleeding, damage to local organs and tissues, need for further interventions. Anesthetic risks regarding cardiac arrhythmia, blood clots, and potential mortality were discussed. The patient understands the typical recovery time and the outpatient nature of the procedure. After consideration of these risks the patient gives full informed consent and they wish to move ahead with the procedure. - cystoscopy, bilateral retrograde possible right stent Patient Instructions: This note is constructed using voice recognition software. While every effort has been made to ensure accuracy screen printer helper errors may have been included. Imaging studies, laboratory and physical exam results were discussed and reviewed in detail. No major barriers to patient understanding were identified. An opportunity to ask questions regarding the treatment plan was provided. All questions were answered. The patient expressed understanding and agreement with the above treatment plan. The patient is aware they should contact our office by phone for worsening of their current condition or the appearance of new urologic symptoms. Compliance is encouraged with any medications and followup testing that is ordered. It is a privilege to participate in the urologic care of your patient. If you have any questions or concerns regarding treatment for the above conditions, or other urologic issues, please do not hesitate to contact me. The office telephone contact is [phone]. Sincerely, Dr Rocky Mays MD, [facility] - Urology Compassionate Specialist Care for the Genitourinary System Coding Level of Care Code Tele Est Pt Level 3 (45445) Complex EM visit Add On G2211 Diagnoses Nephrolithiasis N20.0 Hydronephrosis N13.30
== END 2025-08-10 16:00 | disposition home or self-care (01) ==
PROVIDERS: PCP Internal Medicine; Visit Provider Urology
DX: N20.0 Calculus of kidney (principal); N13.30 Unspecified hydronephrosis
CPT/HCPCS: 99213; G2211

== ENCOUNTER 2025-09-07 09:49 | Outpatient (AMB) | payer MEDICARE, MEDICAID, SELFPAY ==
--- NOTE | 2025-09-07 09:51 | MHC.OFFVIS ---
Vital Signs 09/07/25 10:05 Height 5 ft 7.5 in Weight 266 lb 5.094 oz BMI 41.1 BP 121/56 L Blood Pressure Location Rt brachial Position Sitting Pulse 63 Intake Visit Reasons: IBS, GERD 6 mo f/u Intake Note: Mayra presents to in office follow up of IBS. CC: Patient reports that she continues to have constipation alternating with diarrhea, occasional blood in stool, GERD, and abdominal pain. She also reports that she was found to have a kidney covered in scarred tissue. Reprographics Technician Required: No Accompanied by: staff Allergies bee pollen (BEE STINGS) Allergy (Severe, Verified 09/07/25 10:20) ANAPHYLAXIS aspirin (ASA) Allergy (Intermediate, Verified 09/07/25 10:20) RASH Penicillins Allergy (Intermediate, Verified 09/07/25 10:20) Rash strawberry (STRAWBERRY) Allergy (Intermediate, Verified 09/07/25 10:20) RASH buspirone Allergy (Unknown, Verified 09/07/25 10:20) Unknown Compazine Allergy (Unknown, Verified 09/07/25 10:20) unknown iodine (IODINE) Allergy (Unknown, Verified 09/07/25 10:20) UNKNOWN methadone Allergy (Unknown, Verified 09/07/25 10:20) none Opioids - Morphine Analogues Allergy (Unknown, Verified 09/07/25 10:20) Unknown codeine (CODEINE) Adverse Reaction (Intermediate, Verified 09/07/25 10:20) GI upset benztropine (From Cogentin) Adverse Reaction (Unknown, Verified 09/07/25 10:20) Unknown HPI HPI IBS, GERD 6 mo f/u: Details: Assessment & Plan (1) Chronic GERD: Code(s): K21.9 - Gastro-esophageal reflux disease without esophagitis Category: Medical (2) Irritable bowel syndrome with both constipation and diarrhea: Code(s): K58.2 - Mixed irritable bowel syndrome Category: Medical Plan She is here today with a staff member who is supportive. She is doing very well! She continues on her pantprazole with good GERD control, and she is using the hemorrhoid cream and Amitiza prn for CIC. She is satisfied with her GI regimen. She will be due for a colonoscopy screening in 2025 related to tubular adenomas. Return office visit in 6 months. Medications: Refilled pantoprazole 40 mg PO BID 60 tabs 6RF K21.9 - Gastro-esophageal reflux disease without esophagitis hydrocortisone 2.5% (Proctosol HC) 1 appl PA BID PRN 30 grams 12RF hemorrhoids [facility]IT [facility] Medical History Mixed dyslipidemia Elevated serum creatinine Tubular adenoma of colon Hx of adenomatous polyp of colon Glaucoma Osteopenia of multiple sites Irritable bowel syndrome with diarrhea Osteoarthritis Staghorn calculus Diverticulosis Urinary incontinence, mixed Atherosclerotic cardiovascular disease Colon cancer screening Smoker unmotivated to quit Shoulder bursitis Trochanteric bursitis Mitral valve regurgitation Narcotic dependence, in remission Chronic GERD Morbid obesity History of myasthenia gravis Allergic rhinitis Eczema Duodenum ulcer Bipolar disorder History of anoxic brain injury Mild intermittent asthma in adult without complication Postsurgical hypothyroidism Surgical History History of cataract surgery Hx of cystoscopy H/O colonoscopy Hx of thyroidectomy History of esophagogastroduodenoscopy (~01/2015) History of partial hysterectomy History of thymectomy (~2007) History of thyroidectomy, total Hx of tonsillectomy History of cholecystectomy (Unknown) History of appendectomy (Unknown) Family History Father Stroke Mother Breast cancer, Onset Age: 40 Brother Brain cancer Brother HIV disease Son No problems noted. Maternal Grandmother Glaucoma Paternal Grandmother Lung cancer Ovarian cancer Social History Household Members: Other Household Members Other:: residential ([employer]) Housing: Other Housing Other:: [employer] agencyGroup home Do you presently have visiting nurse or other home services: Yes (residential staff) Alcohol intake: never Patient Tobacco Use Status: Current everyday Tobacco user Tobacco use type: Cigarette Cigarette Packs Per Day: 0.5 Cigarettes Per Day: 10.0 Years Smoked: 40 e-Cigarette/Vaping Use: Never Used Current occupational status: disabled Cognitive needs: No Hearing needs: No Vision needs: Yes Review of Systems Const Denies fatigue, Denies fever(s), Denies night sweats, Denies poor appetite and Denies weight loss ENT Reports Normal hearing present, Denies dental pain, Denies dysphagia, Denies hearing loss, Denies mouth pain, Denies odynophagia, Denies throat swelling, Denies tongue swelling and Reports other (Dentition adequate) Card Reports no additional complaints Resp Reports no additional complaints GI Details: Denies abdominal pain, Denies melena, Denies bloating, Denies hematochezia, Reports constipation, Denies GI cramping, Denies dysphagia, Denies excessive flatus, Denies early satiety, Reports dyspepsia, Denies heartburn, Reports diarrhea, Denies nausea, Denies odynophagia, Denies vomiting and Denies hematemesis Skin/Breast Denies pruritus, Denies lesions, Denies rash and Denies jaundice Neuro Reports Normal hearing present and Denies Abnormal speech present Endo Denies fatigue Aller/Immun Denies throat swelling and Denies tongue swelling Physical Exam Vital Signs: Last Vital Signs Pulse 63 09/07/25 10:05 BP 121/56 L 09/07/25 10:05 BMI result Body Mass Index 41.1 Const General: cooperative, no acute distress, well developed and well groomed Nutritional Appearance: well nourished and obese Orientation/consciousness: oriented to person, oriented to place and oriented to time Limitations: No language barrier and ambulation with walker HEENT Head: Yes normocephalic and Yes atraumatic Eyes General: appearance normal, both eyes and all related structures Pupils: Equal, round and reactive pupils present Neck Neck: Yes normal visual inspection and Yes no lymphadenopathy Thyroid: Thyroid normal Resp Effort & Inspection: normal respiratory effort and able to speak in complete sentences Auscultation: clear to auscultation bilaterally Cardio Rate: regular rate Rhythm: regular rhythm Heart sounds: Normal, physiologic split S2 sound present Peripheral pulses: radial pulses present and posterior tibial pulses present GI Inspection: No distended, Yes Abdominal panniculus present and Yes obesity Palpation (GI): Soft to palpation, nontender, no guarding, not rigid and No hepatosplenomegaly present Percussion: Yes normal to percussion Auscultation: normal bowel sounds Rectal Exam - Female: deferred Skin General skin exam: no rashes or lesions noted, turgor normal, skin not dry, no jaundice, No spider nevi and no striae Rashes: no rashes Nails: normal Neuro General: oriented to person, oriented to place and oriented to time Cranial nerves: Yes Equal, round and reactive pupils present and Yes Normal hearing present Speech: No Abnormal speech present Extrem General: Yes normal to inspection, No clubbing, No cyanosis and No edema Psych Appearance: grossly normal and well kempt Mental Status: mental status grossly normal Speech and movement: Normal speech and movement present Affect: normal affect Attitude: cooperative Thought process: not confabulating and Impoverished thought process present Thought content: Normal thought content present Insight: Limited insight present (Psych) Judgement: Limited judgement present (Psych) Assessment & Plan Assessment & Plan (1) Irritable bowel syndrome with both constipation and diarrhea: Code(s): K58.2 - Mixed irritable bowel syndrome Category: Medical (2) Chronic GERD: Code(s): K21.9 - Gastro-esophageal reflux disease without esophagitis Category: Medical Plan She continues on her pantprazole with good GERD control, and she is using the hemorrhoid cream and Amitiza prn for CIC. However, she is reporting irritability of the bowels that sometimes causes her an upset stomach. She goes back and forth between constipation and diarrhea. Because of this I recommend we start a fiber supplement as this is the best way of equalizing someone who has mixed irritable bowel syndrome. She will be due for a colonoscopy screening in 2025 related to tubular adenomas. Return office visit in 6 months Medications: New calcium polycarbophil (Fiber (calcium polycarbophil)) 1,250 mg (2 x 625 mg) PO BID 120 tabs 6RF K58.2 - Mixed irritable bowel syndrome Refilled pantoprazole 40 mg PO BID 56 tabs 6RF K21.9 - Gastro-esophageal reflux disease without esophagitis hydrocortisone 2.5% (Proctosol HC) 1 appl PA BID PRN 30 grams 12RF hemorrhoids Coding Level of Care Code Est Pt Level 3 (90792) Diagnoses Irritable bowel syndrome with both constipation and diarrhea K58.2 Chronic GERD K21.9
[2025-09-07 10:05] VITALS: BP 121/56; PULSE 63; BMI 41.1
== END 2025-09-07 11:07 | disposition home or self-care (01) ==
PROVIDERS: PCP Internal Medicine; Visit Provider Nurse Practitioner
DX: K58.2 Mixed irritable bowel syndrome (principal); K21.9 Gastro-esophageal reflux disease without esophagitis
CPT/HCPCS: 99213

== ENCOUNTER → 2025-09-07 09:49 | Outpatient (BNVA) | payer MEDICARE, MEDICAID, SELFPAY | PROVIDERS: PCP Internal Medicine; Visit Provider Nurse Practitioner | DX: K58.2 Mixed irritable bowel syndrome (principal); K21.9 Gastro-esophageal reflux disease without esophagitis; F17.210 Nicotine dependence, cigarettes, uncomplicated | CPT/HCPCS: 99212 ==

== ENCOUNTER 2025-09-14 10:30 | Outpatient (REF) | payer MEDICARE, MEDICAID, SELFPAY ==
[2025-09-14 18:01] LABS: Alanine Aminotransferase 14 U/L (0-31); Albumin Level 3.9 g/dL (3.5-5.0); Alkaline Phosphatase 72 U/L (39-117); Aspartate Amino Transferase 16 U/L (5-31); Cholesterol 171 mg/dL (<200); HDL Cholesterol 43 mg/dL (>40); Total Protein 7.0 g/dL (6.5-8.0); Triglycerides 181 mg/dL (<150)
[2025-09-15 12:08] LABS: Cholesterol 172 mg/dL (<200); HDL Cholesterol 43 mg/dL (>40); Triglycerides 182 mg/dL (<150)
[2025-09-15 12:10] LABS: Free T4 (Free Thyroxine) 1.05 ng/dL (0.71-1.85); Thyroid Stimulating Hormone 1.52 uIU/mL (0.32-4.0)
== END 2025-09-14 10:31 | disposition home or self-care (01) ==
LOC: HO.HMGCLDS 10:30
PROVIDERS: Absent Provider General Practice; PCP Internal Medicine; Visit Provider Internal Medicine
DX: E78.2 Mixed hyperlipidemia (principal); E89.0 Postprocedural hypothyroidism; F33.1 Major depressive disorder, recurrent, moderate; Z13.1 Encounter for screening for diabetes mellitus; Z79.899 Other long term (current) drug therapy
CPT/HCPCS: 36415; 80061; 80076; 80164; 82947; 84439; 84443

== ENCOUNTER 2025-09-15 09:26 | Outpatient (REF) | payer MEDICARE, MEDICAID, SELFPAY | END 2025-09-15 09:27 | disposition home or self-care (01) | LOC: HO.HMGCLDS 09:26 | PROVIDERS: PCP Internal Medicine; Visit Provider Internal Medicine | DX: Z13.89 Encounter for screening for other disorder (principal) ==

== ENCOUNTER 2025-09-22 10:44 | Outpatient (AMB) | payer MEDICARE, MEDICAID, SELFPAY ==
[2025-09-22 10:51] VITALS: BP 110/60; PULSE 69; RESP 16; TEMP 36.6; O2SAT 96; BMI 41.0
--- NOTE | 2025-09-22 10:51 | AM.OFFVISMDC ---
Intake Vital Signs 09/22/25 10:51 Height 5 ft 7.5 in Weight 266 lb BMI 41.0 BP 110/60 Blood Pressure Location Rt brachial Position Sitting Respiration 16 Pulse 69 Temp 97.8 F Temp Source Oral Pulse Oximetry (%) 96 Oxygen Delivery Method Room Air Intake Visit Reasons: SWV G0439 Intake Note: Pt is here today for her SWV: last mammogram 04/01/25, bone denisty scan 04/01/25, colonoscopy 08/22/25 Lower In Supervisor Required: No Allergies bee pollen (BEE STINGS) Allergy (Severe, Verified 09/22/25 11:29) ANAPHYLAXIS aspirin (ASA) Allergy (Intermediate, Verified 09/22/25 11:29) RASH Penicillins Allergy (Intermediate, Verified 09/22/25 11:29) Rash strawberry (STRAWBERRY) Allergy (Intermediate, Verified 09/22/25 11:29) RASH buspirone Allergy (Unknown, Verified 09/22/25 11:29) Unknown Compazine Allergy (Unknown, Verified 09/22/25 11:29) unknown iodine (IODINE) Allergy (Unknown, Verified 09/22/25 11:29) UNKNOWN methadone Allergy (Unknown, Verified 09/22/25 11:29) none Opioids - Morphine Analogues Allergy (Unknown, Verified 09/22/25 11:29) Unknown codeine (CODEINE) Adverse Reaction (Intermediate, Verified 09/22/25 11:29) GI upset benztropine (From Cogentin) Adverse Reaction (Unknown, Verified 09/22/25 11:29) Unknown Medication List - Last Reconciled 09/22/25 by Chichi Rivers MD acetaminophen 650 mg (2 x 325 mg) PO BID PRN albuterol sulfate 90 mcg/actuation (Ventolin HFA) 2 puffs inhalation Q4H PRN atorvastatin 10 mg PO DAILY 90 days brinzolamide 1% (Azopt) drps ophthalmic (eye) calcium polycarbophil (Fiber (calcium polycarbophil)) 1,250 mg (2 x 625 mg) PO BID cetirizine 10 mg PO QAM cholecalciferol (vitamin D3) 50 mcg PO QAM dextromethorphan-guaifenesin 10-100 mg/5 mL (Tussin DM) 10 mL PO Q4H PRN divalproex 1,000 mg PO .every evening escitalopram oxalate (Lexapro) 20 mg PO DAILY escitalopram oxalate 10 mg PO DAILY fluticasone furoate-vilanterol 100-25 mcg/dose (Breo Ellipta) 1 inh inhalation Q24H hydrocortisone 2.5% (Proctosol HC) 1 appl ME BID PRN latanoprost 0.005% 1 drp ophthalmic (eye) DAILY latanoprostene bunod 0.024% (Vyzulta) 1 drp ophthalmic (eye) QPM levothyroxine (Levoxyl) 50 mcg PO DAILY loperamide 2 mg PO Q12H PRN lubiprostone 8 mcg PO BID PRN metoprolol tartrate 12.5 mg (1/2 x 25 mg) PO QAM 3 months montelukast 10 mg PO DAILY omega 8-ulr-ogk-fish oil 1,200 (144-216) mg (Fish Oil) 2 caps PO BID 3 months pantoprazole 40 mg PO BID quetiapine ER 200 mg PO BEDTIME quetiapine ER mg PO BID trazodone 200 mg PO DAILY PFSH Medical History Mixed dyslipidemia Elevated serum creatinine Tubular adenoma of colon Hx of adenomatous polyp of colon Glaucoma Osteopenia of multiple sites Irritable bowel syndrome with diarrhea Osteoarthritis Staghorn calculus Diverticulosis Urinary incontinence, mixed Atherosclerotic cardiovascular disease Colon cancer screening Smoker unmotivated to quit Shoulder bursitis Trochanteric bursitis Mitral valve regurgitation Narcotic dependence, in remission Chronic GERD Morbid obesity History of myasthenia gravis Allergic rhinitis Eczema Duodenum ulcer Bipolar disorder History of anoxic brain injury Mild intermittent asthma in adult without complication Postsurgical hypothyroidism Surgical History History of cataract surgery Hx of cystoscopy H/O colonoscopy Hx of thyroidectomy History of esophagogastroduodenoscopy (~01/2015) History of partial hysterectomy History of thymectomy (~2007) History of thyroidectomy, total Hx of tonsillectomy History of cholecystectomy (Unknown) History of appendectomy (Unknown) Family History Father Stroke Mother Breast cancer, Onset Age: 40 Brother Brain cancer Brother HIV disease Son No problems noted. Maternal Grandmother Glaucoma Paternal Grandmother Lung cancer Ovarian cancer Social History Household Members: Other Household Members Other:: [facility] ([facility]) Housing: Other Housing Other:: [employer] agencyGroup home Do you presently have visiting nurse or other home services: Yes (penitentiary staff) Alcohol intake: never Patient Tobacco Use Status: Current everyday Tobacco user Tobacco use type: Cigarette Cigarette Packs Per Day: 0.5 Cigarettes Per Day: 10.0 Years Smoked: 40 e-Cigarette/Vaping Use: Never Used Current occupational status: disabled Cognitive needs: No Hearing needs: No Vision needs: Yes Questionnaire Medicare Wellness Checkup What [age] What gender do you identify with?: female During the past 4 weeks, how much have you been bothered by emotional problems such as feeling anxious, depressed, irritable, sad or downhearted, and blue?: moderately During the past 4 weeks, has your physical & emotional health limited your social activities with family, friends, neighbors, or groups?: not at all During the past 4 weeks, how much bodily pain have you generally had?: very mild pain During the past 4 weeks, was someone available to help you if you needed & wanted help?: yes, as much as I wanted During the past 4 weeks, what was the hardest physical activity you could do for at least 2 minutes?: light Can you get to places out of walking distance without help? (For eg., can you travel alone on buses, taxis or drive your car?): No Can you go shopping for groceries or clothes without someone's help?: No Can you prepare your own meals?: No Can you do your housework without help?: No Because of any health problems, do you need the help of another person with your personal care needs such as eating, bathing, dressing or getting around the house?: No Can you handle your own money without help?: No During the past 4 weeks, how would you rate your health in general?: fair During the past 4 weeks how have things been going for you?: pretty well Are you having difficulties driving your car?: not applicable, I don't use a car Do you always fasten your seat belt when you are in a car?: yes, usually During past 4 weeks, have you been bothered by the following: never: Sexual problems?, Trouble eating well?, Teeth or denture problems? and Problems using the telephone? and seldom: Falling or dizzy when standing up and Tiredness or fatigue? Have you fallen 2 or more times in the past year?: Yes Are you afraid of falling?: Yes Are you a smoker?: yes, but I'm not ready to quit During the past 4 weeks, how many drinks of wine, beer, or other alcoholic beverages did you have?: no alcohol at all Do you exercise for about 20 minutes 3 or more times a week?: yes, most of the time Have you been given information to help with the following?: yes: Hazards in your house that might hurt you? and no: Keeping track of your medications? How often do you have trouble taking medicines the way you have been told to take them?: I always take medicine as prescribed How confident are you that you can control & manage most of your health problems?: not very confident What is your race?: White Mini Mental State Exam (MMSE) Orientation What is the (year) (season) (date) (day) (month)?: year (2024), season (Fall), date (09/22/25), day (saturday) and month (August) Where are we (state) (county) (town or city) (hospital) (floor)?: state ([facility]), [facility] ([place]), town or city ([place] and hospital/clinic ([facility]) Score Score: 9 PHQ-9 Over the last 2 weeks, how often have you been bothered by any of the following problems? 1. Little interest or pleasure in doing things: several days 2. Feeling down, depressed, or hopeless: several days 3. Trouble falling or staying asleep, or sleeping too much: several days 4. Feeling tired or having little energy: not at all 5. Poor appetite or overeating: not at all 6. Feeling bad about yourself - or that you are a failure or have let yourself or your family down: not at all 7. Trouble concentrating on things, such as reading the newspaper or watching television: not at all 8. Moving or speaking so slowly that other people could have noticed. Or the opposite - being so fidgety or restless that you have been moving around a lot more than usual: not at all 9. Thoughts that you would be better off or of hurting yourself in some way: not at all Total score: 3 Depression Screening Interpretation: Negative Depression Screening Done: Yes 98068 - PHQ-9 Billing: Yes Source: Developed by Drs. Maxi Poewrs, Palak Brown, Gorge Lund and colleagues, with an educational jon from [employer]. Physical Exam Vital Signs: Last Vital Signs Temp 97.8 F 09/22/25 10:51 Pulse 69 09/22/25 10:51 Resp 16 09/22/25 10:51 BP 110/60 09/22/25 10:51 Pulse Ox 96 09/22/25 10:51 Oxygen Delivery Method Room Air 09/22/25 10:51 BMI result Body Mass Index 41.0 Assessment & Plan Assessment & Plan Medications: Refilled acetaminophen 650 mg (2 x 325 mg) PO BID PRN 60 tabs 5RF fever or pain Quality Reporting (2019) Depression/Bipolar (159/160/161/177) PHQ-9: Total score: 3 Coding Additional Codes PHQ-9 - 07364 - PHQ-9 Billing: Yes ([id number])
--- NOTE | 2025-09-27 09:12 | MHC.PC.OV ---
Vital Signs 09/22/25 10:51 Height 5 ft 7.5 in Weight 266 lb BMI 41.0 BP 110/60 Blood Pressure Location Rt brachial Position Sitting Respiration 16 Pulse 69 Temp 97.8 F Temp Source Oral Pulse Oximetry (%) 96 Oxygen Delivery Method Room Air Intake Visit Reasons: f/up office visit Intake Note: Pt is here today for a f/u ov Allergies bee pollen (BEE STINGS) Allergy (Severe, Verified 09/22/25 11:29) ANAPHYLAXIS aspirin (ASA) Allergy (Intermediate, Verified 09/22/25 11:29) RASH Penicillins Allergy (Intermediate, Verified 09/22/25 11:29) Rash strawberry (STRAWBERRY) Allergy (Intermediate, Verified 09/22/25 11:29) RASH buspirone Allergy (Unknown, Verified 09/22/25 11:29) Unknown Compazine Allergy (Unknown, Verified 09/22/25 11:29) unknown iodine (IODINE) Allergy (Unknown, Verified 09/22/25 11:29) UNKNOWN methadone Allergy (Unknown, Verified 09/22/25 11:29) none Opioids - Morphine Analogues Allergy (Unknown, Verified 09/22/25 11:29) Unknown codeine (CODEINE) Adverse Reaction (Intermediate, Verified 09/22/25 11:29) GI upset benztropine (From Cogentin) Adverse Reaction (Unknown, Verified 09/22/25 11:29) Unknown Medication List - Last Reconciled 09/22/25 by Chichi Rivers MD acetaminophen 650 mg (2 x 325 mg) PO BID PRN albuterol sulfate 90 mcg/actuation (Ventolin HFA) 2 puffs inhalation Q4H PRN atorvastatin 10 mg PO DAILY 90 days brinzolamide 1% (Azopt) drps ophthalmic (eye) calcium polycarbophil (Fiber (calcium polycarbophil)) 1,250 mg (2 x 625 mg) PO BID cetirizine 10 mg PO QAM cholecalciferol (vitamin D3) 50 mcg PO QAM dextromethorphan-guaifenesin 10-100 mg/5 mL (Tussin DM) 10 mL PO Q4H PRN divalproex 1,000 mg PO .every evening escitalopram oxalate (Lexapro) 20 mg PO DAILY escitalopram oxalate 10 mg PO DAILY fluticasone furoate-vilanterol 100-25 mcg/dose (Breo Ellipta) 1 inh inhalation Q24H hydrocortisone 2.5% (Proctosol HC) 1 appl DE BID PRN latanoprost 0.005% 1 drp ophthalmic (eye) DAILY latanoprostene bunod 0.024% (Vyzulta) 1 drp ophthalmic (eye) QPM levothyroxine (Levoxyl) 50 mcg PO DAILY loperamide 2 mg PO Q12H PRN lubiprostone 8 mcg PO BID PRN metoprolol tartrate 12.5 mg (1/2 x 25 mg) PO QAM 3 months montelukast 10 mg PO DAILY omega 9-rbt-xrt-fish oil 1,200 (144-216) mg (Fish Oil) 2 caps PO BID 3 months pantoprazole 40 mg PO BID quetiapine ER 200 mg PO BEDTIME quetiapine ER mg PO BID trazodone 200 mg PO DAILY Tobacco use date assessed: 09/27/25 Fall risk assessment: No Falls in past year Last assessed Fall Risk: 09/22/25 Dental Screening Dental Screen Date: 04/06/25 HPI f/up office visit HPI Details 69 year-old lady with history of myasthenia gravis, atherosclerotic cardiovascular disease status post non STEMI, has mitral valve regurgitatio, dyslipidemia, postsurgical hypothyroidism, mild intermittent asthma, here today for a follow up visit . He has been compliant with taking medications, tries to adhere to recommended diet. Had recent fasting labs done which showed her fasting glucose, lipids, thyroid levels within normal limits, except for elevated triglycerides. The patient has a history of a non-functioning right kidney, which her urologist, Dr. Mays, feels is due to scar tissue from previously passed kidney stones. She has a history of a 1.3 cm stone that was unsuccessfully treated with lithotripsy three times and still present. . A stent was previously placed but was removed due to significant pain. Dr. Mays has ordered a cystoscopy with retrograde pyelogram, to assess the severity of the blockage, but it has not been scheduled yet. She also follows with a classified advertising supervisor, Dr. Watson, with her next appointment scheduled for March 2026. Asthynorts alternating constipation and diarrhea and is on pantoprazole. She has a follow-up with her GI specialist in eight weeks. She is taking a medication for constipation, which she reports is not helpful, but a prescribed fiber supplement is providing relief. Recent lab work shows her fasting glucost at 80 , triglycerides have improved, decreasing from 255 to 182, and her LDL cholesterol is now normal at 93, which coincides with a reported 10-pound weight loss. A bone density scan on April 01 revealed osteopenia in her lower back, hip, and thigh. Up-to-date with her breast cancer screening, with latest mammogram with negative findings, she is due for a colonoscopy next year. She is up to date on her pneumonia, shingles, RSV, and tetanus vaccinations and is scheduled to receive her COVID-19 and influenza shots. [facility] Medical History Mixed dyslipidemia Elevated serum creatinine Tubular adenoma of colon Hx of adenomatous polyp of colon Glaucoma Osteopenia of multiple sites Irritable bowel syndrome with diarrhea Osteoarthritis Staghorn calculus Diverticulosis Urinary incontinence, mixed Atherosclerotic cardiovascular disease Colon cancer screening Smoker unmotivated to quit Shoulder bursitis Trochanteric bursitis Mitral valve regurgitation Narcotic dependence, in remission Chronic GERD Morbid obesity History of myasthenia gravis Allergic rhinitis Eczema Duodenum ulcer Bipolar disorder History of anoxic brain injury Mild intermittent asthma in adult without complication Postsurgical hypothyroidism Surgical History History of cataract surgery Hx of cystoscopy H/O colonoscopy Hx of thyroidectomy History of esophagogastroduodenoscopy (~01/2015) History of partial hysterectomy History of thymectomy (~2007) History of thyroidectomy, total Hx of tonsillectomy History of cholecystectomy (Unknown) History of appendectomy (Unknown) Family History Father Stroke Mother Breast cancer, Onset Age: 40 Brother Brain cancer Brother HIV disease Son No problems noted. Maternal Grandmother Glaucoma Paternal Grandmother Lung cancer Ovarian cancer Social History Household Members: Other Household Members Other:: [facility] ([employer]) Housing: Other Housing Other:: [employer] agencyGroup home Do you presently have visiting nurse or other home services: Yes ([facility] staff) Alcohol intake: never Patient Tobacco Use Status: Current everyday Tobacco user Tobacco use type: Cigarette Cigarette Packs Per Day: 0.5 Cigarettes Per Day: 10.0 Years Smoked: 40 e-Cigarette/Vaping Use: Never Used Current occupational status: disabled Cognitive needs: No Hearing needs: No Vision needs: Yes Questionnaire PHQ-9 Over the last 2 weeks, how often have you been bothered by any of the following problems? 1. Little interest or pleasure in doing things: not at all 2. Feeling down, depressed, or hopeless: not at all 3. Trouble falling or staying asleep, or sleeping too much: several days 4. Feeling tired or having little energy: not at all 5. Poor appetite or overeating: not at all 6. Feeling bad about yourself - or that you are a failure or have let yourself or your family down: not at all 7. Trouble concentrating on things, such as reading the newspaper or watching television: not at all 8. Moving or speaking so slowly that other people could have noticed. Or the opposite - being so fidgety or restless that you have been moving around a lot more than usual: not at all 9. Thoughts that you would be better off or of hurting yourself in some way: not at all Total score: 1 Depression Screening Interpretation: Negative Depression Screening Done: Yes Source: Developed by Drs. Maxi Powers, Palak Brown, Gorge Lund and colleagues, with an educational jon from [employer]. Thrive Questionnaire Date Thrive assessed: 03/30/25 I am a: Patient What is your living situation today?: I have a steady place to live Within the past 12 months, did the food you bought not last and you didn't have the money to get more?: Never true Within the past 12 months, did you worry whether your food would run out before you got money to buy more?: Never true Do you have trouble paying for medicines?: No Do you have trouble getting transportation to medical appointments?: No Do you have trouble paying your heating and electricity bill?: No Do you have trouble taking care of your child, family member or friend?: No Do you have trouble with day-to-day activities such as bathing, preparing meals, shopping, managing finances, etc.?: No Are you currently unemployed and looking for a job?: No Are you interested in more education?: No Please select the resources that you would like help with: None Currently or been in a relationship where the following occur: No concerns reported THRIVE Score: 0 AUDIT C Alcohol Use Questionnaire (AUDIT-C) 1. How often do you have a drink containing alcohol?: Never Total Score: 0 SIMRAN-7 AMB Questionnaire SIMRAN-7 Date SIMRAN - 7 assessed: 09/22/25 Feeling nervous, anxious, or on edge: 0 = Not at all Not being able to stop or control worryin = Not at all Worrying too much about different things: 0 = Not at all Trouble relaxin = Not at all Being so restless that it is hard to sit still: 0 = Not at all Becoming easily annoyed or irritable: 0 = Not at all Feeling afraid as if something awful might happen: 0 = Not at all Total SIMRAN-7 score (0-4 normal; 5-9 mild; 10-14 moderate; 15-21 severe): 0 Source: Developed by Drs. Maxi Powers, Palak Brown, Gorge Lund and colleagues, with an educational jon from [employer]. Review of Systems Const Denies fatigue and Denies headache(s) Eyes Details: Up-to-date with her eye exam, sees [facility] Denies dizziness, Denies headache(s) and Denies nasal congestion Card Denies chest pain, Denies chest pain with activity, Denies edema, Denies lightheadedness, Denies palpitations, Denies dyspnea and Denies dyspnea on exertion Resp Denies cough, Denies dyspnea and Denies dyspnea on exertion GI Denies abdominal pain, Denies melena, Denies hematochezia, Denies change in bowel habits and Denies heartburn Reports no additional complaints Musc Denies muscle cramps, Denies numbness, Denies radiating pain into limb and Denies tingling Skin/Breast Details: sees Dr Martinez Neuro Denies Abnormal speech present, Denies dizziness, Denies headache(s), Denies numbness and Denies tingling Psych Details: Followed by psychiatry Reports no additional complaints Endo Denies fatigue, Denies polydipsia, Denies polyuria and Denies palpitations Ned/Lymph Reports no additional complaints Aller/Immun Reports no additional complaints Physical exam (Primary Care) Vital Signs: Last Vital Signs Temp 97.8 F 09/22/25 10:51 Pulse 69 09/22/25 10:51 Resp 16 09/22/25 10:51 BP 110/60 09/22/25 10:51 Pulse Ox 96 09/22/25 10:51 Oxygen Delivery Method Room Air 09/22/25 10:51 BMI result Body Mass Index 41.0 Tobacco/Smoking Status: Tobacco use Status Tobacco use date assessed 09/27/25 09/27/25 09:13 Patient Tobacco Use Status Current everyday Tobacco 09/27/25 09:13 Tobacco use type Cigarette 09/27/25 09:13 e-Cigarette/Vaping Use Never Used 09/27/25 09:13 Are you ready to quit: No Depression Screening Interpretation: Negative Thrive Assessment: Date of Thrive Assessment Date Thrive assessed 03/30/25 09/27/25 09:13 Currently or been in a relationship where the following occur: No concerns reported Const Other: Accompanied by caregiver General: no acute distress and alert Nutritional Appearance: obese Orientation/consciousness: patient oriented x3 Limitations: ambulation with walker HENMT Mouth: Normal oral and palatal mucosa present, oropharynx normal and moist mucous membranes Teeth and gingiva: edentulous Eyes General: appearance normal, both eyes and all related structures Neck Neck: Yes full ROM, Yes no lymphadenopathy and Yes supple Resp Auscultation: clear to auscultation bilaterally Cardio Other: S1-S2 present regular rate and rhythm GI Palpation (GI): Soft to palpation, nontender and no guarding Auscultation: normal bowel sounds General: Yes no CVA tenderness Back/Spine/Pelvis Back: no CVA tenderness and No back tenderness Neuro General: patient oriented x3, moves all extremities, Normal light touch and pain sensation and no focal motor deficits Speech: No Abnormal speech present Gait exam (Neuro): Shuffling gait present and Assisted gait required Gait assisted method: walker Extrem General: Yes full ROM, Yes no joint enlargement, Yes no pedal edema and Yes no calf tenderness Psych Appearance: grossly normal and well kempt Speech and movement: Normal speech and movement present Affect: normal affect Results Reviewed Results Reviewed: Name: Mayra Osorio Age/Sex: 69/F : 1955 Unit#: [id number] Attend Dr: Chichi Rivers MD Re09/14/25 Status: DEP REF Location: [facility] Disch: SPEC : [id number] ANITA: 09/14/25 STATUS: COMP REQ : [id number] RECD: 09/15/[address]: Chichi Rivers MD COMP: 09/15/25 ENTERED: 09/15/[address]: ORDERED: Glu Fasting, Lipid Panel, Free T4, TSH Test Result Flag Reference FBS 80 60-99 mg/dL Triglyceride 182 H <150 mg/dL Desirable Triglyceride: less than 150 mg/dL Borderline High Triglyceride 150-199 mg/dL High Triglyceride: 200-499 mg/dL Very High Triglyceride: greater than or equal to 5OO mg/dL Cholesterol 172 <200 mg/dL Desirable Cholesterol: less than 200 mg/dL Borderline High Cholesterol: 200-239 mg/dL High Cholesterol: greater than 239 mg/dL LDL Calculated 93 <100 mg/dL Desirable LDL: less than 100 mg/dL Near Optimal/Above Optimal LDL: 110-129 mg/dL Borderline High LDL: 130-159 mg/dL High LDL: 160-189 mg/dL Very High LDL: greater than or equal to 190 mg/dL HDL 43 >40 mg/dL Desirable HDL: greater than 40 mg/dL Note: This HDL assay may give artificially low results in patients with liver disease. Free T4 1.05 0.71-1.85 ng/dL TSH 3rd Gen. 1.52 0.32-4.0 uIU/mL TSH 3rd Generation ([facility]) Coding Level of Care Code Est Pt Level 4 (75077) Complex EM visit Add On G2211 Diagnoses Mixed dyslipidemia E78.2 Postsurgical hypothyroidism E89.0 Osteopenia of multiple sites M85.89 Assessment & Plan Assessment & Plan (1) Mixed dyslipidemia: Code(s): E78.2 - Mixed hyperlipidemia Category: Medical Plan: Continue atorvastatin 10 mg daily and [place] 3 fatty acid supplements. (2) Postsurgical hypothyroidism: Code(s): E89.0 - Postprocedural hypothyroidism Category: Medical Plan: Thyroid levels are within normal limits, continue with current dose of levothyroxine 50 mcg daily (3) Osteopenia of multiple sites: Code(s): M85.89 - Other specified disorders of bone density and structure, multiple sites Category: Medical Plan: Up-to-date with her bone density scan. Continue taking [id number] vitamin-D 3 supplements 2000 units daily, take adequate calcium from dietary sources, and importance of doing regular weight-bearing exercise . Repeat bone density scan due again in 2025 Medications: Refilled acetaminophen 650 mg (2 x 325 mg) PO BID PRN 60 tabs 5RF fever or pain
== END 2025-09-22 11:45 | disposition home or self-care (01) ==
LOC: HO.HMCC 10:46
PROVIDERS: PCP Internal Medicine; Visit Provider Internal Medicine
DX: E78.2 Mixed hyperlipidemia (principal); E89.0 Postprocedural hypothyroidism; M85.89 Other specified disorders of bone density and structure, multiple sites

== ENCOUNTER → 2025-09-22 10:44 | Outpatient (BNVA) | payer MEDICARE, MEDICAID, SELFPAY | PROVIDERS: PCP Internal Medicine; Visit Provider Internal Medicine | DX: E78.2 Mixed hyperlipidemia (principal); E89.0 Postprocedural hypothyroidism; M85.89 Other specified disorders of bone density and structure, multiple sites; Z13.31 Encounter for screening for depression; Z13.39 Encounter for screening examination for other mental health and behavioral disorders | CPT/HCPCS: 96127; 99212 ==

== ENCOUNTER 2025-10-11 09:32 | Day surgery (SDC) | payer MEDICARE, MEDICAID, SELFPAY ==
--- OUTSIDE RECORDS SUMMARY | 2025-09-28 08:15 | XMS_ITS | Encounter Summary ---
Author Organization [facility] Address [address] [place] [address] Care Team Providers Care Vtc Technician Name Role Phone Tyrone Torrez MD Primary Care Provider Jil Jackson MD Primary Care Provider Paradise Blair MD Primary Care Provider Danelle Georges MD Primary Care Provider [facility], Pcp Primary Care Provider Unavailabl e Encounter Details Date Type Department Care Team Description 09/22/2010 Hospital Medical Records [address] [place] [address] Larissa Ceballos MD [address] [place] [id number] Social History Tobacco Use Types Packs/Day Years [...] on filedocumented in this encounter Care Teams Vtc Technician Relationship Specialty Start Date End Date [...]
--- OUTSIDE RECORDS SUMMARY | 2025-09-28 08:15 | XMS_ITS | Encounter Summary ---
Author Organization [facility] Address [address] [place] [address] Care Team Providers Care Cleaner Carpet And Upholstery Name Role Phone Tyrone Torrez MD Primary Care Provider Jil Jackson MD Primary Care Provider Paradise Blair MD Primary Care Provider Danelle Georges MD Primary Care Provider [facility], Pcp Primary Care Provider Unavailabl e Encounter Details Date Type Department Care Team Description 02/01/2011 Hospital Medical Records [address] [place] [address] [address] [place] [address] [address] [place] [address] Social History Tobacco Use Types Packs/Day Years [...] on filedocumented in this encounter Care Teams Cleaner Carpet And Upholstery Relationship Specialty Start Date End Date Tyrone Torrez MD PCP - General 07/17/11 10/24/14 Jil Lebron MD PCP - General Internal Medicine 10/25/14 09/14/15 Paradise Haas MD PCP - General Internal Medicine 09/15/15 03/12/18 Danelle Rosales MD PCP - General Internal Medicine 03/13/1804/15 [facility], Pcp PCP - General Internal Medicine 04/16/19 documented as of this encounter
--- OUTSIDE RECORDS SUMMARY | 2025-09-28 08:16 | XMS_ITS | Encounter Summary ---
Author Organization [facility] Address [address] [place] [address] Care Team Providers Care Intertype Operator Name Role Phone Paradise Haas MD Primary Care Provider Oria Danelle Casillas MD Primary Care Provider [facility], Pcp Primary Care Provider Unavailabl e Reason for Visit * Reason Comments E-prescribe Rx Request Encounter Details Date Type Department Care Team Description 09/05/2017 Refill Physiatry - [place] [address] Jack Rosenthal DO E-prescribe Rx Request Social [...] sacrum documented in this encounter Care Teams Intertype Operator Relationship Specialty Start Date End Date Paradise Haas MD PCP - General Internal Medicine 09/15/15 03/12/18 Danelle Rosales MD PCP - General Internal Medicine 03/13/1804/15 [facility], Pcp PCP - General Internal Medicine 04/16/19 documented as of this encounter
--- OUTSIDE RECORDS SUMMARY | 2025-09-28 08:16 | XMS_ITS | Encounter Summary ---
Author Organization [facility] Address [address] [place] [address] Care Team Providers Care Chemist Helper Name Role Phone Paradise Haas MD Primary Care Provider Danelle Georges MD Primary Care Provider [facility], Pcp Primary Care Provider Unavailabl e Encounter Details Date Type Department Care Team Description 04/24/2016 Orders Only Medicine/Pediatrics - [address] [phone] Zay Horton PA-C Routine general medical examination [...] - 6.0 % 04/26/2016 3:15 PM EDT [facility] Comment: HbA1C VALUES MAY NOT ACCURATELY REFLECT MEAN BLOOD GLUCOSE IN PATIENTS WITH HEMOGLOBIN VARIANTS SUCH HbF, HbS. 04/26/2016 12:1 4 PM EDT 04/26/2016 12:15 PM EDT Zay Horton PA-C LAB [address] * THYROID PROFILE W/TSH (04/26/2016 12:14 PM EDT) TSH CASCADE 2.36 0.40 - 4.00 uIU/ml 04/26/2016 4:30 PM EDT [facility] 04/26/2016 12:1 4 PM EDT 04/26/2016 12:15 PM EDT Zay Horton PA-C LAB Performing Organization Address City/[facility]/ZIP Co de Phone Number [address] * (ABNORMAL) LIPID PROFILE (04/26/2016 12:14 PM EDT) Cholesterol 162 0 - 200 mg/dL 04/26/2016 4:30 PM EDT [facility] TRIGLYCERIDES 266(H) 0 - 150 mg/dL 04/26/2016 4:30 PM EDT [facility] HDL CHOLESTEROL 47 >40 mg/dL 6 4:30 PM EDT [facility] LDL CALCULATED 62 0 - 100 mg/dL 04/26/2016 4:30 PM EDT [facility] TC-HDLC RATIO 3 0.0 - 4.4 mg/dL 04/26/2016 4:30 PM EDT [facility] 04/26/2016 12:1 4 PM EDT 04/26/2016 12:15 PM EDT Zay Horton PA-C LAB Performing Organization Address City/[facility]/ZIP Co de Phone Number [address] * (ABNORMAL) BASIC METABOLIC PANEL (04/26/2016 12:14 PM EDT) GLUCOSE 102(H) 70 - 100 mg/dL 04/26/2016 4:30 PM EDT [facility] Comment: Reference range applicable to fasting specimens only Based on recommendations from the ADA and AACE, the fasting glucose reference range has been changed to 70-100 mg/dL. This change is effective April 10, 2010 BUN 30(H) 5 - 25 mg/dL 04/26/2016 4:30 PM EDT [facility] CREAT 1.1 0.7 - 1.5 mg/dL 04/26/2016 4:30 PM EDT [facility] GFR 54(L) >60 04/26/2016 4:[address] [facility] Comment: If patient is -Polish, multiply result by 1.21 Chronic Kidney Disease: < 60 ml/min/1.73 square meters Kidney Failure: < 15 ml/min/1.73 square meters Sodium 140 133 - 145 mEq/L 04/26/2016 4:30 PM EDT [facility] Potassium 4.5 3.5 - 5.5 mEq/L 04/26/2016 4:30 PM EDT [facility] Chloride 99 96 - 108 mEq/L 04/26/2016 4:30 PM EDT [facility] CO2 24.7 21.0 - 32.0 mEq/L 04/26/2016 4:30 PM EDT [facility] CALCIUM 9.3 8.5 - 10.5 mg/dL 04/26/2016 4:[address] [facility] 04/26/2016 12:1 4 PM EDT 04/26/2016 12:15 PM EDT Zay Horton PA-C LAB Performing Organization Address City/State/[facility] Co de Phone Number [facility] [address] [facility] documented in this encounter Visit Diagnoses Diagnosis Routine general medical examination at a health care facility- Primary documented in this encounter Care Teams Chemist Helper Relationship Specialty Start Date End Date Paradise Haas MD PCP - General Internal Medicine 09/15/15 03/12/18 Danelle Rosales MD PCP - General Internal Medicine 03/13/1804/15 Replaced By [facility], Pcp PCP - General Internal Medicine 04/16/19 documented as of this encounter
--- OUTSIDE RECORDS SUMMARY | 2025-09-28 08:17 | XMS_ITS | Encounter Summary ---
Author Organization [facility] Address [address] [place] [address] Care Team Providers Care Resilient Tile Installer Name Role Phone Paradise Haas MD Primary Care Provider Danelle Georges MD Primary Care Provider [facility], Pcp Primary Care Provider Unavailgill e Encounter Details Date Type Department Care Team Description 07/09/2016 Orders Only Adult Medicine [address] [address] Paradise Haas MD Colon cancer screening; Special [...] colon documented in this encounter Care Teams Resilient Tile Installer Relationship Specialty Start Date End Date Paradise Haas MD PCP - General Internal Medicine 09/15/15 03/12/18 Danelle Rosales MD PCP - General Internal Medicine 03/13/1804/15 [facility], Pcp PCP - General Internal Medicine 04/16/19 documented as of this encounter
--- OUTSIDE RECORDS SUMMARY | 2025-09-28 08:18 | XMS_ITS | Encounter Summary ---
Author Organization [facility] Address [address] [place] [address] Care Team Providers Care Audiovisual Tech Name Role Phone Jil Lebron MD Primary Care Provider Paradise Blair MD Primary Care Provider Danelle Georges MD Primary Care Provider [facility], Pcp Primary Care Provider Perez e Encounter Details Date Type Department Care Team Description 11/17/2014 Controlled Substance Contract with Plan Medical Records [address] [place] [address] Abstract, Provider Social History Tobacco Use Types [...] on filedocumented in this encounter Care Teams Audiovisual Tech Relationship Specialty Start Date End Date Jil Lebron MD PCP - General Internal Medicine 10/25/14 09/14/15 Paradise Haas MD PCP - General Internal Medicine 09/15/15 03/12/18 Danelle Rosales MD PCP - General Internal Medicine 03/13/1804/15 [facility], Pcp PCP - General Internal Medicine 04/16/19 documented as of this encounter
--- OUTSIDE RECORDS SUMMARY | 2025-09-28 08:18 | XMS_ITS | Encounter Summary ---
Author Organization [facility] Address [address] [place] [address] Care Team Providers Care Gericare Aide Teacher Name Role Phone Paradise Haas MD Primary Care Provider Danelle Georges MD Primary Care Provider [facility], Pcp Primary Care Provider Unavailabl e Encounter Details Date Type Department Care Team Description 12/19/2015 Controlled Substance Plan Medical Records [address] [place] [address] Abstract, Provider Social History Tobacco Use Types [...] on filedocumented in this encounter Care Teams Gericare Aide Teacher Relationship Specialty Start Date End Date Paradise Haas MD PCP - General Internal Medicine 09/15/15 03/12/18 Danelle Rosales MD PCP - General Internal Medicine 03/13/1804/15 [facility], Pcp PCP - General Internal Medicine 04/16/19 documented as of this encounter
--- OUTSIDE RECORDS SUMMARY | 2025-09-28 08:18 | XMS_ITS | Encounter Summary ---
Author Organization [facility] Address [address] [place] [address] Care Team Providers Care Director Of Cardiac Rehabilitation Name Role Phone Jil Lebron MD Primary Care Provider Paradise Blair MD Primary Care Provider Danelle Georges MD Primary Care Provider [facility], Pcp Primary Care Provider Unavailabl e Reason for Visit * Reason Comments E-prescribe Rx Request Encounter Details Date Type Department Care Team Description 08/08/2015 Refill Medicine/Pediatrics - [address] [phone] Cassie South PA-C E-prescribe Rx Request Social History Tobacco [...] * Telephone Encounter - Adry Londono - 08/09/2015 3:02 PM EDT Unable to reach you letter mailed * Telephone Encounter - Katherine Engel - 08/08/2015 3:08 PM EDT Could not leave message - no voicemail * Telephone Encounter - Kylee Fontaine M.A. - 08/08/2015 2:01 PM EDT Please schedule appt with PCP * Telephone Encounter - Jil Lebron MD - 08/08/2015 11:40 AM EDT I have never prescribed this for her and she no showed for her follow up. I would not be comfortable refilling this. * Telephone Encounter - Kylee Fontaine M.A. - 08/08/2015 10:26 AM EDT Pt had last refill in April. Will you refill? * Telephone Encounter - Adry Londono - 08/08/2015 10:21 AM EDT Patient would like script to be: E-PRESCRIBED/FAXED TO PHARMACY WHEN WAS THE PATIENT'S LAST APPOINTMENT IN ADULT MEDICINE? 08/04/15 WHEN WAS THE LAST TIME THE PATIENT SAW THEIR PCP? 02/22/15 Does patient have an upcoming appointment? Yes 09/06/15 (THE MEDICATION REQUESTED IS ON THE MED LIST ABOVE) All of the medications requested were on the CURRENT MEDS list Did you check the Pharmacy information above?: YES Patient wants: 30 -day supply Is this a mail order prescription request ? NO Patients current insurance carrier is: [place] / [place] / Product Type: MEDICARE [id number] documented in this encounter Plan of Treatment Not on file documented as of this encounter Visit Diagnoses Not on filedocumented in this encounter Care Teams Director Of Cardiac Rehabilitation Relationship Specialty Start Date End Date Jil Lebron MD PCP - General Internal Medicine 10/25/14 09/14/15 Paradise Haas MD PCP - General Internal Medicine 09/15/15 03/12/18 Danelle Rosales MD PCP - General Internal Medicine 03/13/1804/15 [facility], Pcp PCP - General Internal Medicine 04/16/19 documented as of this encounter
--- OUTSIDE RECORDS SUMMARY | 2025-09-28 08:18 | XMS_ITS | Encounter Summary ---
Author Organization [facility] Address [address] [place] [address] Care Team Providers Care Ratoprinter Name Role Phone Paradise Haas MD Primary Care Provider Danelle Georges MD Primary Care Provider [facility], Pcp Primary Care Provider Unavailabl e Reason for Visit * Reason Onset Date Comments medication problems 01/08/2018 Encounter Details Date Type Department Care Team Description 01/08/2018 Telephone Medicine/Pediatrics - [address] [phone] Paradise Haas MD medication problems Social History [...] on filedocumented in this encounter Care Teams Ratoprinter Relationship Specialty Start Date End Date Paradise Haas MD PCP - General Internal Medicine 09/15/15 03/12/18 Danelle Rosales MD PCP - General Internal Medicine 03/13/1804/15 [facility], Pcp PCP - General Internal Medicine 04/16/19 documented as of this encounter
--- OUTSIDE RECORDS SUMMARY | 2025-09-28 08:18 | XMS_ITS | Encounter Summary ---
Author Organization [facility] Address [address] [place] [address] Care Team Providers Care Acting Teacher Name Role Phone Paradise Haas MD Primary Care Provider Danelle Georges MD Primary Care Provider [facility], Pcp Primary Care Provider Unavailabl e Encounter Details Date Type Department Care Team Description 12/19/2015 Controlled Substance Contract with Plan Medical Records [address] [place] [address] Abstract, Provider Social History Tobacco Use Types [...] on filedocumented in this encounter Care Teams Acting Teacher Relationship Specialty Start Date End Date Paradise Haas MD PCP - General Internal Medicine 09/15/15 03/12/18 Danelle Rosales MD PCP - General Internal Medicine 03/13/1804/15 [facility], Pcp PCP - General Internal Medicine 04/16/19 documented as of this encounter
--- OUTSIDE RECORDS SUMMARY | 2025-09-28 08:19 | XMS_ITS | Encounter Summary ---
Author Organization [facility] Address [address] [place] [address] Care Team Providers Care Auto Glass Technician Name Role Phone Paradise Haas MD Primary Care Provider Unavaila Danelle Casillas MD [facility] Primary Care Provider Unavailabl e Encounter Details Date Type Department Care Team Description 02/24/2017 Controlled Substance Contract with Plan Medical Records [address] [place] [address] Abstract, Provider Social History Tobacco Use Types [...] on filedocumented in this encounter Care Teams Auto Glass Technician Relationship Specialty Start Date End Date Paradise Haas MD PCP - General Internal Medicine 09/15/15 03/12/18 Danelle Rosales MD PCP - General Internal Medicine 03/13/1804/15 [facility], Pcp PCP - General Internal Medicine 04/16/19 documented as of this encounter
--- OUTSIDE RECORDS SUMMARY | 2025-09-28 08:19 | XMS_ITS | Encounter Summary ---
Author Organization [facility] Address [address] [place] [address] Care Team Providers Care Firewall Security Engineer Name Role Phone Paradise Haas MD Primary Care Provider Danelle Georges MD Primary Care Provider [facility], Pcp Primary Care Provider Unavailabl e Encounter Details Date Type Department Care Team Description 03/05/2017 Business Doc Medical Records [address] [place] [address] Abstract, Provider Social History Tobacco Use Types [...] on filedocumented in this encounter Care Teams Firewall Security Engineer Relationship Specialty Start Date End Date Paradise Haas MD PCP - General Internal Medicine 09/15/15 03/12/18 Danelle Rosales MD PCP - General Internal Medicine 03/13/1804/15 [facility], Pcp PCP - General Internal Medicine 04/16/19 documented as of this encounter
--- OUTSIDE RECORDS SUMMARY | 2025-09-28 08:19 | XMS_ITS | Encounter Summary ---
Author Organization [facility] Address [address] [place] [address] Care Team Providers Care Imaging Aide Name Role Phone Danelle Rosales MD Primary Care Provider [facility], Pcp Primary Care Provider Unavailabl e Encounter Details Date Type Department Care Team Description 12/16/2018 Orders Only Adult Medicine B - [address] [address] Danelle Rosales MD Social History Tobacco Use [...] filedocumented in this encounter Care Teams Imaging Aide Relationship Specialty Start Date End Date Danelle Rosales MD PCP - General Internal Medicine 03/13/1804/15 [facility], Pcp PCP - General Internal Medicine 04/16/19 documented as of this encounter
--- OUTSIDE RECORDS SUMMARY | 2025-09-28 08:19 | XMS_ITS | Encounter Summary ---
Author Organization [facility] Address [address] [place] [address] Care Team Providers Care Gta Name Role Phone Paradise Haas MD Primary Care Provider Oria Danelle Casillas MD [facility] Primary Care Provider Unavailabl e Encounter Details Date Type Department Care Team Description 02/24/2017 [facility] Medical Records [address] [place] [address] Abstract, Provider Social History Tobacco Use Types [...] on filedocumented in this encounter Care Teams Gta Relationship Specialty Start Date End Date Paradise Haas MD PCP - General Internal Medicine 09/15/15 03/12/18 Danelle Rosales MD PCP - General Internal Medicine 03/13/1804/15 [facility], Pcp PCP - General Internal Medicine 04/16/19 documented as of this encounter
--- OUTSIDE RECORDS SUMMARY | 2025-09-28 08:19 | XMS_ITS | Encounter Summary ---
Author Organization [facility] Address [address] [place] [address] Care Team Providers Care Skin Fitter Name Role Phone Danelle Rosales MD Primary Care Provider [facility], Pcp Primary Care Provider Unavailabl e Reason for Visit * Reason Comments E-prescribe Rx Request Encounter Details Date Type Department Care Team Description 04/07/2019 Refill Adult Medicine - [address] [address] Danelle Rosales MD E-prescribe Rx Request Social [...] / [place] / Product Type: [place]ICARE [id number] documented in this encounter Plan of Treatment Not on file documented as of this encounter Visit Diagnoses Not on filedocumented in this encounter Care Teams Skin Fitter Relationship Specialty Start Date End Date Danelle Rosales MD PCP - General Internal Medicine 03/13/1804/15 [facility], Pcp PCP - General Internal Medicine 04/16/19 documented as of this encounter
--- OUTSIDE RECORDS SUMMARY | 2025-09-28 08:20 | XMS_ITS | Encounter Summary ---
Author Organization [facility] Address [address] [place] [address] Care Team Providers Care Lna Name Role Phone Paradise Haas MD Primary Care Provider Danelle Georges MD Primary Care Provider [facility], Pcp Primary Care Provider Unavailabl e Reason for Visit * Reason Onset Date Comments Medication 08/13/2017 incoming fax Encounter Details Date Type Department Care Team Description 08/13/2017 Telephone Medicine/Pediatrics - [address] [phone] Paradise Haas MD Medication (incoming fax) Social [...] on filedocumented in this encounter Care Teams Lna Relationship Specialty Start Date End Date Paradise Haas MD PCP - General Internal Medicine 09/15/15 03/12/18 Dnaelle Rosales MD PCP - General Internal Medicine 03/13/1804/15 [facility], Pcp PCP - General Internal Medicine 04/16/19 documented as of this encounter
--- OUTSIDE RECORDS SUMMARY | 2025-09-28 08:20 | XMS_ITS | Encounter Summary ---
Author Organization [facility] Address [address] [place] [address] Care Team Providers Care Coat Examiner Name Role Phone Paradise Haas MD Primary Care Provider Unavaila Danelle Casillas MD Primary Care Provider [facility], Pcp Primary Care Provider Unavailabl e Encounter Details Date Type Department Care Team Description 02/22/2017 Orders Only Medicine/Pediatrics - [address] [phone] Zay Horton PA-C Social History Tobacco Use [...] on filedocumented in this encounter Care Teams Coat Examiner Relationship Specialty Start Date End Date Paradise Haas MD PCP - General Internal Medicine 09/15/15 03/12/18 Danelle Rosales MD PCP - General Internal Medicine 03/13/1804/15 [facility], Pcp PCP - General Internal Medicine 04/16/19 documented as of this encounter
--- OUTSIDE RECORDS SUMMARY | 2025-09-28 08:20 | XMS_ITS | Encounter Summary ---
Author Organization [facility] Address [address] [place] [address] Care Team Providers Care Executive Director Of Marketing Name Role Phone Paradise Haas MD Primary Care Provider Oria Danelle Casillas MD Primary Care Provider [facility], Pcp Primary Care Provider Unavailabl e Encounter Details Date Type Department Care Team Description 07/02/2017 Chart Reader Report Medical Records [address] [place] [address] Chemo Lopez PA [address] [place] [address] Social History Tobacco Use Types Packs/Day Years [...] filedocumented in this encounter Care Teams Executive Director Of Marketing Relationship Specialty Start Date End Date Paradise Haas MD PCP - General Internal Medicine 09/15/15 03/12/18 Danelle Rosales MD PCP - General Internal Medicine 03/13/1804/15 [facility], Pcp PCP - General Internal Medicine 04/16/19 documented as of this encounter
--- OUTSIDE RECORDS SUMMARY | 2025-09-28 08:20 | XMS_ITS | Encounter Summary ---
Author Organization [facility] Address [address] [place] [address] Care Team Providers Care Farm Loan Representative Name Role Phone Paradise Haas MD Primary Care Provider Oria Danelle Casillas MD Primary Care Provider [facility], Pcp Primary Care Provider Unavailabl e Reason for Visit * Reason Onset Date Comments Form 03/22/2016 Viralriubaldo Encounter Details Date Type Department Care Team Description 03/22/2016 Telephone Medicine/Pediatrics [address] [phone] Paradise Haas MD Form (Deionscript) Social History [...] Horton to review, sign and return fax [phone] Form in call center documented in this encounter Plan of Treatment Not on file documented as of this encounter Visit Diagnoses Not on filedocumented in this encounter Care Teams Farm Loan Representative Relationship Specialty Start Date End Date Paradise Haas MD PCP - General Internal Medicine 09/15/15 03/12/18 Danelle Rosales MD PCP - General Internal Medicine 03/13/1804/15 [facility], Pcp PCP - General Internal Medicine 04/16/19 documented as of this encounter
--- OUTSIDE RECORDS SUMMARY | 2025-09-28 08:20 | XMS_ITS | Clinical Summary ---
Author Organization [facility] Address [address] [place] [address] Care Team Providers Care Gambling Cashier Name Role Phone Community, Pcp Primary Care Provider Unavailabl e Allergies Active Allergy Reactions Severity Noted Date Comments Aspirin Rash/Dermatitis 11/08/2014 Bee Anaphylaxis 03/17/2015 Codeine 05/17/2016 Benzyl Goj-Litbywdrxscmrtzg-Lnoeslqhh 05/17/2016 Iodine 05/17/2016 Penicillin G Rash/Dermatitis 11/08/2014 [place] Rash/Dermatitis 11/08/2014 Medications Medication Sig Dispensed Refills [...] Mixed hyperlipidemia 10/29/2014 Duodenal ulcer 10/29/2014 Old CA (myocardial infarction) 4 Overview: Non-ST CA historic, 2008, [facility] Borderline personality disorder 10/29/20 14 Narcotic dependence [...] 2025 10/04/2014 HEPATITIS C SCREENING Completed 06/05/2017 Insurance Payer Benefit Plan / Group Subscriber ID Effective Dates Phone Address Type MEDICARE- A CH/PT/MEDICAR E/$0 [id number] 04/05/2015-Pres ent [address] [place] [address] MEDICARE [id number] [place] MEDICAID- A MEDICAID $0 UNLTD V/REF REQ. [id number] 04/05/2015-Pres ent [place] [address] [place] [address] MEDICAID [id number] [place] MEDICARE- A MEDICARE-[place] [id number] 11/25/2010-Prese nt [address] [place] [phone] MEDICARE [id number] [place] MEDIC[place] A [place] [id number] 09/25/2012-Pres ent [address] [place] [phone] MEDICARE [id number] [place] MEDICARE-M A [place] [id number] 10/25/2014-Pres ent [address] [place] [phone] MEDICARE [id number] [place] MEDICARE-M A [place] [id number] 11/25/2015-Prese nt [address] [place] [phone] MEDICARE [id number] [place] MEDICA[place] [id number] 11/25/2010-Prese [place] [address] [place] [address] MEDICAID [id number] [place] MEDICAID-M A MEDICA[place] [id number] 09/25/2012-Pres ent [place] [address] [place] [address] MEDICAID [id number] [place] MEDICA[place] [id number] 10/25/2014-Pres ent [place] [address] [place] [address] MEDICAID [id number] [place] MEDICAID-M A MED[place] [id number] 11/25/2015-Prese nt [place] [address] [place] [address] MEDICAID [id number] ICE Care Teams Gambling Cashier Relationship Specialty Start Date End Date Community, Pcp PCP - General Internal Medicine 04/16/19
--- OUTSIDE RECORDS SUMMARY | 2025-09-28 08:20 | XMS_ITS | Encounter Summary ---
Author Organization [facility] Address [address] [place] [address] Care Team Providers Care Professor Of Archaeology Name Role Phone Community, Pcp Primary Care Provider Unavailabl e Reason for Visit * Reason Onset Date Comments Prior Authorization 01/13/2020 Encounter Details Date Type Department Care Team Description 01/13/2020 Telephone Adult Medicine - [address] [address] Community, Pcp Prior Authorization Social History Tobacco [...] from 11/25/2019 until 01/13/2021 Approval faxed to [facility] at [phone] * Telephone Encounter - Lisa Walker M.A. [...] from: ?? Pharmacy fax #: ?? [facility] [employer] Party Information from fax: ?? What Prescription Plan does the patient have? ?? BIN/PCN if applicable: ?? Cardholder ID: ?? Person Code: ?? Relationship Code: ?? Help desk phone: ?? documented in this encounter Plan of Treatment Not on file documented as of this encounter Visit Diagnoses Not on filedocumented in this encounter Care Teams Professor Of Archaeology Relationship Specialty Start Date End Date Community, Pcp PCP - General Internal Medicine 04/16/19 documented as of this encounter
--- OUTSIDE RECORDS SUMMARY | 2025-09-28 08:20 | XMS_ITS | Encounter Summary ---
Author Organization [facility] Address [address] [place] [address] Care Team Providers Care Bank Appraiser Name Role Phone Paradise Haas MD Primary Care Provider Oria Danelle Casillas MD Primary Care Provider [facility], Pcp Primary Care Provider Unavailabl e Reason for Visit * Reason Comments E-prescribe Rx Request Encounter Details Date Type Department Care Team Description 08/01/2017 Refill Physiatry - [address] [address] Jack Rosenthal DO E-prescribe Rx Request Social [...] sacrum documented in this encounter Care Teams Bank Appraiser Relationship Specialty Start Date End Date Paradise Haas MD PCP - General Internal Medicine 09/15/15 03/12/18 Danelle Rosales MD PCP - General Internal Medicine 03/13/1804/15 [facility], Pcp PCP - General Internal Medicine 04/16/19 documented as of this encounter
--- OUTSIDE RECORDS SUMMARY | 2025-09-28 08:20 | XMS_ITS | Encounter Summary ---
Author Organization [facility] Address [address] [place] [address] Care Team Providers Care Citrix Consultant Name Role Phone Paradise Haas MD Primary Care Provider Danelle Georges MD Primary Care Provider U francine Burr, Pcp Primary Care Provider Unavailabl e Encounter Details Date Type Department Care Team Description 02/23/2016 Business Doc Medical Records [address] [place] [address] Abstract, Provider Social History Tobacco Use Types [...] on filedocumented in this encounter Care Teams Citrix Consultant Relationship Specialty Start Date End Date Paradise Haas MD PCP - General Internal Medicine 09/15/15 03/12/18 Danelle Rosales MD PCP - General Internal Medicine 03/13/1804/15 [facility], Pcp PCP - General Internal Medicine 04/16/19 documented as of this encounter
--- OUTSIDE RECORDS SUMMARY | 2025-09-28 08:21 | XMS_ITS | Encounter Summary ---
Author Organization [facility] Address [address] [place] [address] Care Team Providers Care Sheet Metal Work Furnace Installer Name Role Phone Paradise Haas MD Primary Care Provider Danelle Georges MD Primary Care Provider U francine Burr, Pcp Primary Care Provider Unavailabl e Encounter Details Date Type Department Care Team Description 10/14/2015 Home Health Certification Medical Records [address] [place] [address] Abstract, Provider Social History Tobacco Use Types [...] on filedocumented in this encounter Care Teams Sheet Metal Work Furnace Installer Relationship Specialty Start Date End Date Paradise Haas MD PCP - General Internal Medicine 09/15/15 03/12/18 Danelle Rosales MD PCP - General Internal Medicine 03/13/1804/15 [facility], Pcp PCP - General Internal Medicine 04/16/19 documented as of this encounter
--- OUTSIDE RECORDS SUMMARY | 2025-09-28 08:21 | XMS_ITS | Encounter Summary ---
Author Organization [facility] Address [address] [place] [address] Care Team Providers Care Transmission And Coordination Engineer Name Role Phone Paradise Haas MD Primary Care Provider Unavaila Danelle Casillas MD Primary Care Provider [facility], Pcp Primary Care Provider Unavailabl e Reason for Visit * Reason Onset Date Comments VNA Call 10/09/2015 Encounter Details Date Type Department Care Team Description 10/09/2015 Telephone Pediatrics Urgent Care [address] [place] [address] Paradise Haas MD VNA Call Social History [...] Med list and problem list faxed to [facility] att: Dominique [phone] * Telephone Encounter - Nela Hickey - 10/09/2015 10:23 AM EST [facility]NA CALL Which [facility] office is calling? [facility] Full name of caller: dominique The caller [...] on filedocumented in this encounter Care Teams Transmission And Coordination Engineer Relationship Specialty Start Date End Date Paradise Haas MD PCP - General Internal Medicine 09/15/15 03/12/18 Danelle Rosales MD PCP - General Internal Medicine 03/13/1804/15 [facility], Pcp PCP - General Internal Medicine 04/16/19 documented as of this encounter
--- OUTSIDE RECORDS SUMMARY | 2025-09-28 08:21 | XMS_ITS | Encounter Summary ---
Author Organization [facility] Address [address] [place] [address] Care Team Providers Care Staff Development Manager Name Role Phone Jil Lebron MD Primary Care Provider Paradise Blair MD Primary Care Provider Danelle Georges MD Primary Care Provider [facility], Pcp Primary Care Provider Unavailgill haddad Encounter Details Date Type Department Care Team Description 01/26/2015 Telephone Podiatry - [place] [address] [place] [address] Peterson Muhammad DPM Social History Tobacco Use [...] she is not a diabetic. Please advise. [phone] Catrachito Kar- website project manager documented in this encounter Plan of Treatment Not on file documented as of this encounter Visit Diagnoses Not on filedocumented in this encounter Care Teams Staff Development Manager Relationship Specialty Start Date End Date Jil Lebron MD PCP - General Internal Medicine 10/25/14 09/14/15 Paradise Haas MD PCP - General Internal Medicine 09/15/15 03/12/18 Danelle Rosales MD PCP - General Internal Medicine 03/13/1804/15 [facility], Pcp PCP - General Internal Medicine 04/16/19 documented as of this encounter
--- OUTSIDE RECORDS SUMMARY | 2025-09-28 08:21 | XMS_ITS | Encounter Summary ---
Author Organization [facility] Address [address] [place] [address] Care Team Providers Care Industrial Trainer Name Role Phone Paradise Haas MD Primary Care Provider Oria Danelle Casillas MD Primary Care Provider [facility], Pcp Primary Care Provider Unavailabl e Reason for Visit * Reason Onset Date Comments Form 10/06/2015 Encounter Details Date Type Department Care Team Description 10/06/2015 Telephone Medicine/Pediatrics - [address] [phone] Paradise Haas MD Form Social History Tobacco [...] 10/06/2015 2:02 PM EST Received form from [facility] requesting more information on the pt in order to process a referral, including a diagnosis, the services needed, and a face to face form, placed in [employer] entertainments bin in call center. documented in this encounter Plan of Treatment Not on file documented as of this encounter Visit Diagnoses Not on filedocumented in this encounter Care Teams Industrial Trainer Relationship Specialty Start Date End Date Paradise Haas MD PCP - General Internal Medicine 09/15/15 03/12/18 Danelle Rosales MD PCP - General Internal Medicine 03/13/1804/15 [facility], Pcp PCP - General Internal Medicine 04/16/19 documented as of this encounter
--- OUTSIDE RECORDS SUMMARY | 2025-09-28 08:21 | XMS_ITS | Encounter Summary ---
Author Organization [facility] Address [address] [place] [address] Care Team Providers Care Caramel Candy Maker Name Role Phone Paradise Haas MD Primary Care Provider Danelle Georges MD Primary Care Provider U francine Burr, Pcp Primary Care Provider Unavailabl e Encounter Details Date Type Department Care Team Description 09/29/2015 Release of Information Medical Records [address] [place] [address] Abstract, Provider Social History Tobacco Use Types [...] on filedocumented in this encounter Care Teams Caramel Candy Maker Relationship Specialty Start Date End Date Paradise Haas MD PCP - General Internal Medicine 09/15/15 03/12/18 Danelle Rosales MD PCP - General Internal Medicine 03/13/1804/15 [facility], Pcp PCP - General Internal Medicine 04/16/19 documented as of this encounter
--- OUTSIDE RECORDS SUMMARY | 2025-09-28 08:21 | XMS_ITS | Encounter Summary ---
Author Organization [facility] Address [address] [place] [address] Care Team Providers Care Filling Station Laborer Name Role Phone Jil Lebron MD Primary Care Provider Paradise Blair MD Primary Care Provider Danelle Georges MD Primary Care Provider U [facility], Pcp Primary Care Provider Perez e Encounter Details Date Type Department Care Team Description 01/13/2015 Literature Professor Report Medical Records [address] [place] [address] Michael Hudson MD Social History Tobacco Use [...] on filedocumented in this encounter Care Teams Filling Station Laborer Relationship Specialty Start Date End Date Jil Lebron MD PCP - General Internal Medicine 10/25/14 09/14/15 Paradise Haas MD PCP - General Internal Medicine 09/15/15 03/12/18 Danelle Rosales MD PCP - General Internal Medicine 03/13/1804/15 [facility], Pcp PCP - General Internal Medicine 04/16/19 documented as of this encounter
--- OUTSIDE RECORDS SUMMARY | 2025-09-28 08:22 | XMS_ITS | Encounter Summary ---
Author Organization [facility] Address [address] [place] [address] Care Team Providers Care Transcripter Name Role Phone Paradise Haas MD Primary Care Provider rOia Danelle Casillas MD [facility] Primary Care Provider Unavailabl e Encounter Details Date Type Department Care Team Description 02/26/2018 Release of Information Medical Records [address] [place] [address] Abstract, Provider Social History Tobacco Use Types [...] on filedocumented in this encounter Care Teams Transcripter Relationship Specialty Start Date End Date Paradise Haas MD PCP - General Internal Medicine 09/15/15 03/12/18 Danelle Rosales MD PCP - General Internal Medicine 03/13/1804/15 [facility], Pcp PCP - General Internal Medicine 04/16/19 documented as of this encounter
--- OUTSIDE RECORDS SUMMARY | 2025-09-28 08:22 | XMS_ITS | Encounter Summary ---
Author Organization [facility] Address [address] [place] [address] Care Team Providers Care General Laborer Name Role Phone Paradise Haas MD Primary Care Provider Danelle Georges MD Primary Care Provider [facility], Pcp Primary Care Provider Unavailabl e Reason for Visit * Reason Comments E-prescribe Rx Request Encounter Details Date Type Department Care Team Description 10/24/2015 Refill Medicine/Pediatrics - [address] [address] Zay Horton PA-C E-prescribe Rx Request Social [...] insurance carrier is: [place] / Plan: MEDICARE-[employer]ons[employer] / Product Type: MEDICARE [id number] documented in this encounter Plan of Treatment Not on file documented as of this encounter Visit Diagnoses Not on filedocumented in this encounter Care Teams General Laborer Relationship Specialty Start Date End Date Paradise Haas MD PCP - General Internal Medicine 09/15/15 03/12/18 Danelle Rosales MD PCP - General Internal Medicine 03/13/1804/15 [facility] PCP - General Internal Medicine 04/16/19 documented as of this encounter
--- OUTSIDE RECORDS SUMMARY | 2025-09-28 08:22 | XMS_ITS | Encounter Summary ---
Author Organization [facility] Address [address] [place] [address] Care Team Providers Care Jboss Developer Name Role Phone Danelle Rosales MD Primary Care Provider [facility] francine Burr, Pcp Primary Care Provider Unavailabl e Encounter Details Date Type Department Care Team Description 04/29/2018 Telephone Adult Medicine [address] [address] Danelle Rosales MD Social History Tobacco Use [...] on filedocumented in this encounter Care Teams Jboss Developer Relationship Specialty Start Date End Date Danelle Rosales MD PCP - General Internal Medicine 03/13/1804/15 [facility], Pcp PCP - General Internal Medicine 04/16/19 documented as of this encounter
--- OUTSIDE RECORDS SUMMARY | 2025-09-28 08:22 | XMS_ITS | Encounter Summary ---
Author Organization [facility] Address [address] [place] [address] Care Team Providers Care Detective Sergeant Name Role Phone Danelle Rosales MD Primary Care Provider francine Burr, Pcp Primary Care Provider Unavailabl e Reason for Visit * Reason Onset Date Comments REFERRAL 06/09/2018 gastro Encounter Details Date Type Department Care Team Description 06/09/2018 Telephone Gastroenterology - [address] [address] Danelle Rosales MD REFERRAL (gastro) Social History [...] on filedocumented in this encounter Care Teams Detective Sergeant Relationship Specialty Start Date End Date Danelle Rosales MD PCP - General Internal Medicine 03/13/1804/15 [facility], Pcp PCP - General Internal Medicine 04/16/19 documented as of this encounter
--- OUTSIDE RECORDS SUMMARY | 2025-09-28 08:22 | XMS_ITS | Encounter Summary ---
Author Organization [facility] Address [address] [place] [address] Care Team Providers Care Scan Coordinator Name Role Phone Paradise Haas MD Primary Care Provider Danelle Georges MD Primary Care Provider [facility], Pcp Primary Care Provider Unavailabl e Reason for Visit * Reason Onset Date Comments Faxed Order 10/19/2015 Encounter Details Date Type Department Care Team Description 10/19/2015 Telephone Medicine/Pediatrics - [address] [phone] Paradise Haas MD Faxed Order Social History [...] on filedocumented in this encounter Care Teams Scan Coordinator Relationship Specialty Start Date End Date Paradise Haas MD PCP - General Internal Medicine 09/15/15 03/12/18 Danelle Rosales MD PCP - General Internal Medicine 03/13/1804/15 [facility], Pcp PCP - General Internal Medicine 04/16/19 documented as of this encounter
--- OUTSIDE RECORDS SUMMARY | 2025-09-28 08:22 | XMS_ITS | Encounter Summary ---
Author Organization [facility] Address [address] [place] [address] Care Team Providers Care Job Order Clerk Name Role Phone Danelle Rosales MD Primary Care Provider [facility], Pcp Primary Care Provider Unavailabl e Reason for Visit * Reason Onset Date Comments refill request 06/09/2018 Encounter Details Date Type Department Care Team Description 06/09/2018 Refill Adult Medicine [address] [address] Danelle Rosales MD refill request Social History Tobacco Use Types Packs/Day Years [...] Telephone Encounter - Danelle Rosado MD - 06/10/2018 7:52 AM EDT Signed, thank you * Telephone Encounter - Kay Shaw L.P.N. - 06/09/2018 5:26 PM EDT Last office visit 05/14/18. Lab Results Component Value Date TSH 2.33 10/15/2017 * Telephone Encounter - Tana Paredes - 06/09/2018 3:27 PM EDT Patient would like script to be: E-PRESCRIBED/FAXED TO PHARMACY WHEN WAS THE PATIENT'S LAST APPOINTMENT IN ADULT MEDICINE? 05/14/18 WHEN WAS THE LAST TIME THE PATIENT SAW THEIR PCP? Same as above Does patient have an upcoming appointment? Yes 08/07/18 (THE MEDICATION REQUESTED IS ON THE MED [...] / Plan: [place] / Product Type: MEDICARE [id number] documented in this encounter Plan of Treatment Not on file documented as of this encounter Visit Diagnoses Not on filedocumented in this encounter Care Teams Job Order Clerk Relationship Specialty Start Date End Date Danelle Rosales MD PCP - General Internal Medicine 03/13/1804/15 [facility] Pcp PCP - General Internal Medicine 04/16/19 documented as of this encounter
--- OUTSIDE RECORDS SUMMARY | 2025-09-28 08:22 | XMS_ITS | Encounter Summary ---
Author Organization [facility] Address [address] [place] [address] Care Team Providers Care Director Social Name Role Phone Paradise Haas MD Primary Care Provider Danelle Georges MD Primary Care Provider U francine Burr, Pcp Primary Care Provider Unavailabl e Encounter Details Date Type Department Care Team Description 11/24/2015 Business Doc Medical Records [address] [place] [address] Abstract, Provider Social History Tobacco Use Types [...] filedocumented in this encounter Care Teams Director Social Relationship Specialty Start Date End Date Paradise Haas MD PCP - General Internal Medicine 09/15/15 03/12/18 Danelle Rosales MD PCP - General Internal Medicine 03/13/1804/15 [facility], Pcp PCP - General Internal Medicine 04/16/19 documented as of this encounter
--- OUTSIDE RECORDS SUMMARY | 2025-09-28 08:22 | XMS_ITS | Encounter Summary ---
Author Organization [facility] Address [address] [place] [address] Care Team Providers Care Meteorology Instructor Name Role Phone Danelle Rosales MD Primary Care Provider [facility], Pcp Primary Care Provider Unavailabl e Reason for Visit * Reason Comments E-prescribe Rx Request Encounter Details Date Type Department Care Team Description 08/07/2018 Refill Medicine/Pediatrics - [address] [address] Danelle Rosales MD E-prescribe Rx Request Social [...] / Plan: [place] / Product Type: MEDICARE [id number] documented in this encounter Plan of Treatment Not on file documented as of this encounter Visit Diagnoses Not on filedocumented in this encounter Care Teams Meteorology Instructor Relationship Specialty Start Date End Date Danelle Rosales MD PCP - General Internal Medicine 03/13/1804/15 [facility], Pcp PCP - General Internal Medicine 04/16/19 documented as of this encounter
--- OUTSIDE RECORDS SUMMARY | 2025-09-28 08:22 | XMS_ITS | Encounter Summary ---
Author Organization [facility] Address [address] [place] [address] Care Team Providers Care Permit Coordinator Name Role Phone Paradise Haas MD Primary Care Provider Danelle Georges MD Primary Care Provider [facility], Pcp Primary Care Provider Unavailabl e Encounter Details Date Type Department Care Team Description 10/31/2015 Orders Only Medicine/Pediatrics - [address] [address] Zay Horton PA-C Bilateral edema of lower extremity (Primary Dx) Social History [...] as of this encounter Results * (ABNORMAL) COMPREHENSIVE METABOLIC PANEL (11/24/2015 10:15 AM EST) [facility] GLUCOSE 98 70 - 100 mg/dL 11/24/2015 3:16 PM [facility] Comment: Reference range applicable to fasting specimens only Based on recommendations from the ADA and AACE, the fasting glucose reference range has been changed to 70-100 mg/dL. This change is effective April 10, 2010 BUN 33(H) 5 - 25 mg/dL 11/24/2015 3:16 PM [facility] CREAT 0.9 0.7 - 1.5 mg/dL 11/24/2015 3:16 PM EST [facility] BUN/CREAT RATIO 36.7(H) 6.0 - 20.0 11/24/2015 3:16 PM EST [facility] GFR > 60 >60 11/24/2015 3:16 PM EST [facility] Comment: If patient is -[place], multiply result by 1.21 Chronic Kidney Disease: < 60 ml/min/1.73 square meters Kidney Failure: < 15 ml/min/1.73 square meters Sodium 141 133 - 145 mEq/L 11/24/2015 3:16 PM EST [facility] Potassium 4.3 3.5 - 5.5 mEq/L 11/24/2015 3:16 PM EST [facility] Chloride 98 96 - 108 mEq/L 11/24/2015 3:16 PM EST [facility] CO2 27.2 21.0 - 32.0 mEq/L 11/24/2015 3:16 PM EST [facility] CALCIUM 9.6 8.5 - 10.5 mg/dL 11/24/2015 3:16 PM EST [facility] TOTAL PROTEIN 6.6 6.0 - 8.3 gm/dL 11/24/2015 3:16 PM EST [facility] Albumin 4.0 3.2 - 5.6 gm/dL 11/24/2015 3:16 PM EST [facility] GLOBULIN 2.6 1.9 - 4.4 gm/dL 11/24/2015 3:16 PM EST [facility] A/G RATIO 1.5 1.1 - 2.3 11/24/2015 3:16 PM EST [facility] BILI,TOTAL 0.2 0.0 - 1.2 mg/dL 11/24/2015 3:16 PM EST [facility] AST (SGOT) 13 10 - 42 U/L 11/24/2015 3:16 PM EST [facility] ALT( SGPT) 14 10 - 60 U/L 11/24/2015 3:16 PM EST [facility] ALK PHOS 100 42 - 121 U/L 11/24/2015 3:16 PM EST [facility] 11/24/2015 10:1 5 AM EST 11/24/2015 10:15 AM EST Zay Horton PA-C LAB Performing Organization Address City/State/[facility] Co de Phone Number [facility] [address] [place] [address] documented in this encounter Visit Diagnoses Diagnosis Bilateral edema of lower extremity- Primary Edema documented in this encounter Care Teams Permit Coordinator Relationship Specialty Start Date End Date Paradise Haas MD PCP - General Internal Medicine 09/15/15 03/12/18 Danelle Rosales MD PCP - General Internal Medicine 03/13/1804/15 [facility], Pcp PCP - General Internal Medicine 04/16/19 documented as of this encounter
--- OUTSIDE RECORDS SUMMARY | 2025-09-28 08:22 | XMS_ITS | Encounter Summary ---
Author Organization [facility] Address [address] [place] [address] Care Team Providers Care Ultrasound Specialist Name Role Phone Paradise Haas MD Primary Care Provider Danelle Georges MD Primary Care Provider [facility], Pcp Primary Care Provider Unavailabl e Reason for Visit * Reason Onset Date Comments APPOINTMENT 02/27/2018 Encounter Details Date Type Department Care Team Description 02/27/2018 Telephone Medicine/Pediatrics - [address] [phone] Paradise Haas MD APPOINTMENT Social History Tobacco [...] on filedocumented in this encounter Care Teams Ultrasound Specialist Relationship Specialty Start Date End Date Paradise Haas MD PCP - General Internal Medicine 09/15/15 03/12/18 Danelle Rosales MD PCP - General Internal Medicine 03/13/1804/15 [facility], Pcp PCP - General Internal Medicine 04/16/19 documented as of this encounter
--- OUTSIDE RECORDS SUMMARY | 2025-09-28 08:23 | XMS_ITS | Encounter Summary ---
Author Organization [facility] Address [address] [place] [address] Care Team Providers Care Metal Work Duct Installer Name Role Phone Paradise Haas MD Primary Care Provider Oria Danelle Casillas MD [facility] Primary Care Provider Unavailabl e Encounter Details Date Type Department Care Team Description 12/18/2016 [facility] Medical Records [address] [place] [address] Abstract, Provider Social History Tobacco Use Types [...] on filedocumented in this encounter Care Teams Metal Work Duct Installer Relationship Specialty Start Date End Date Paradise Haas MD PCP - General Internal Medicine 09/15/15 03/12/18 Danelle Rosales MD PCP - General Internal Medicine 03/13/1804/15 [facility], Pcp PCP - General Internal Medicine 04/16/19 documented as of this encounter
--- OUTSIDE RECORDS SUMMARY | 2025-09-28 08:23 | XMS_ITS | Encounter Summary ---
Author Organization [facility] Address [address] [place] [address] Care Team Providers Care Solar Panel Installation Supervisor Name Role Phone Paradise Haas MD Primary Care Provider Danelle Georges MD Primary Care Provider [facility], Pcp Primary Care Provider Unavailabl e Reason for Visit * Reason Onset Date Comments Prior Authorization 01/15/2018 nexlum Encounter Details Date Type Department Care Team Description 01/15/2018 Telephone Medicine/Pediatrics - [address] [phone] Paradise Haas MD Prior Authorization (nexlum) Social [...] What Pharmacy did the fax come from: [facility] fax #: [phone] [employer] Information from fax: What Prescription Plan does the patient have? BIN/PCN if applicable: Cardholder ID: Person Code: Relationship Code: Help desk phone: *FAXED TO PRIOR AUTH documented in this encounter Plan of Treatment Not on file documented as of this encounter Visit Diagnoses Not on filedocumented in this encounter Care Teams Solar Panel Installation Supervisor Relationship Specialty Start Date End Date Paradise Haas MD PCP - General Internal Medicine 09/15/15 03/12/18 Danelle Rosales MD PCP - General Internal Medicine 03/13/1804/15 [facility], Pcp PCP - General Internal Medicine 04/16/19 documented as of this encounter
--- NOTE | 2025-10-06 14:08 | HO.ANESPROP2 ---
Documented by User: Jazmin Miller NP 10/06/25 14:25 HPI - Anesthesia Eval Consult details Narrative: 69yo F for BILATERAL Cystoscopy,retrograde, RIGHT side Stent Placement [facility] Myheladio gravis s/p thymectomy Previously followed by [facility] for vague hx of CAD with CABG, but likely incorrect (had negative cath with [facility]). Last seen 2023 with PRN f/u only PMFSH Active Problems Active Problems: All Active Problems Hypertension (Acute) CKD stage 3a, GFR 45-59 ml/min (Acute) Hydronephrosis (Acute) Mixed dyslipidemia (Acute) Elevated serum creatinine (Acute) Irritable bowel syndrome with both constipation and diarrhea (Acute) Hx of adenomatous polyp of colon (Acute) Glaucoma (Acute) Osteopenia of multiple sites (Acute) Nephrolithiasis (Acute) Cardiomyopathy (Acute) Urinary incontinence, mixed (Acute) Atherosclerotic cardiovascular disease (Acute) Smoker unmotivated to quit (Acute) Mitral valve regurgitation (Acute) Postsurgical hypothyroidism (Acute) Mild intermittent asthma in adult without complication (Acute) Bipolar disorder (Acute) Chronic GERD (Acute) Allergic rhinitis (Acute) Eczema (Acute) Morbid obesity (Acute) Past Medical History Medical History Mixed dyslipidemia Elevated serum creatinine Tubular adenoma of colon Hx of adenomatous polyp of colon Glaucoma Osteopenia of multiple sites Irritable bowel syndrome with diarrhea Osteoarthritis Staghorn calculus Diverticulosis Urinary incontinence, mixed Atherosclerotic cardiovascular disease Colon cancer screening Smoker unmotivated to quit Shoulder bursitis Trochanteric bursitis Mitral valve regurgitation Narcotic dependence, in remission Chronic GERD Morbid obesity History of myasthenia gravis Allergic rhinitis Eczema Duodenum ulcer Bipolar disorder History of anoxic brain injury Mild intermittent asthma in adult without complication Postsurgical hypothyroidism Family History Family History Father Stroke Mother Breast cancer, Onset Age: 40 Brother Brain cancer Brother HIV disease Son No problems noted. Maternal Grandmother Glaucoma Paternal Grandmother Lung cancer Ovarian cancer Family history of problems with anesthesia: Unobtainable Surgical History Surgical History Hx of lithotripsy (03/11/24) History of cataract surgery Hx of cystoscopy (01/20/24) H/O colonoscopy (2022) Hx of thyroidectomy History of esophagogastroduodenoscopy (~01/2015) History of partial hysterectomy History of thymectomy (~2007) History of thyroidectomy, total Hx of tonsillectomy History of cholecystectomy (Unknown) History of appendectomy (Unknown) History of Problems with Anesthesia: No Social History Social History Household Members: Other Household Members Other:: longterm ([employer]) Housing: Other Housing Other:: [employer] agencyGroup home Do you presently have visiting nurse or other home services: Yes (longterm staff) Alcohol intake: never Patient Tobacco Use Status: Current everyday Tobacco user Tobacco use type: Cigarette Cigarette Packs Per Day: 0.5 Cigarettes Per Day: 10 Years Smoked: 40 e-Cigarette/Vaping Use: Never Used Use of substances other than those prescribed or required for medical reasons: No Are you DNR?: Yes Advance Directives: No Advance Directives Information Provided: Yes Patient : No : No Current occupational status: disabled Cognitive needs: No Hearing needs: No Vision needs: Yes Meds Allergies Allergy/AdvReac Type Severity Reaction Status Date / Time bee pollen (BEE STINGS) Allergy Severe ANAPHYLAXIS Verified 09/22/25 11:29 aspirin (ASA) Allergy Intermediate RASH Verified 09/22/25 11:29 Penicillins Allergy Intermediate Rash Verified 09/22/25 11:29 strawberry (STRAWBERRY) Allergy Intermediate RASH Verified 09/22/25 11:29 buspirone Allergy Unknown Unknown Verified 09/22/25 11:29 Compazine Allergy Unknown unknown Verified 09/22/25 11:29 iodine (IODINE) Allergy Unknown UNKNOWN Verified 09/22/25 11:29 methadone Allergy Unknown none Verified 09/22/25 11:29 Opioids - Morphine Analogues Allergy Unknown Unknown Verified 09/22/25 11:29 codeine (CODEINE) AdvReac Intermediate GI upset Verified 09/22/25 11:29 benztropine (From Cogentin) AdvReac Unknown Unknown Verified 09/22/25 11:29 Home Medications ?Medication ?Instructions ?Recorded ?Confirmed ?Last Taken ?Type escitalopram oxalate 20 mg tablet 20 mg PO DAILY 08/24/20 10/07/25 10/28/20 History (Lexapro) divalproex 500 mg tablet,delayed 1,000 mg PO .every evening 09/05/23 10/07/25 Unknown History release latanoprost 0.005 % eye drops 1 drp ophthalmic (eye) DAILY 12/26/23 10/07/25 Unknown History trazodone 100 mg tablet 200 mg PO DAILY 09/01/24 10/07/25 Unknown History brinzolamide 1 % eye drp ophthalmic (eye) 10/01/24 09/22/25 Unknown History drops,suspension (Azopt) quetiapine 200 mg tablet,extended 200 mg PO BEDTIME 10/01/24 10/07/25 Unknown History release 24 hr loperamide 2 mg capsule 2 mg PO Q12H PRN Diarrhea 04/06/25 10/07/25 Unknown History quetiapine 50 mg tablet,extended mg PO BID 04/27/25 09/22/25 Unknown History release 24 hr latanoprostene bunod 0.024 % eye 1 drp ophthalmic (eye) QPM 09/22/25 10/07/25 Unknown History drops (Vyzulta) Exam Pertinent Lab Results Pertinent Lab Results: Laboratory Tests 07/19/25 09:15 WBC 4.8 Hgb 12.8 Hct 41.0 Plt Count 145 L Sodium 140 Potassium 4.9 Chloride 102 Carbon Dioxide 28 BUN 28 H Creatinine 1.26 Narrative Narrative: EKG 2023 EKG Details: EKG with sinus rhythm at 65/Min; right bundle-branch block pattern. ECHO 2021 Conclusions: - The left ventricular systolic function is normal. The visually estimated ejection fraction is between 55-60%. - No obvious valvular pathology seen on this study. Assessment and Plan Assessment Anesthesia Assessment: Chart Reviewed Final Anesthetic Review Family History of Problems with Anesthesia: Unobtainable History of Problems with Anesthesia: No Documented by User: Blanche Bosch MD 10/11/25 11:32 [facility] Past Medical History Medical History Mixed dyslipidemia Elevated serum creatinine Tubular adenoma of colon Hx of adenomatous polyp of colon Glaucoma Osteopenia of multiple sites Irritable bowel syndrome with diarrhea Osteoarthritis Staghorn calculus Diverticulosis Urinary incontinence, mixed Atherosclerotic cardiovascular disease Colon cancer screening Smoker unmotivated to quit Shoulder bursitis Trochanteric bursitis Mitral valve regurgitation Narcotic dependence, in remission Chronic GERD Morbid obesity History of myasthenia gravis Allergic rhinitis Eczema Duodenum ulcer Bipolar disorder History of anoxic brain injury Mild intermittent asthma in adult without complication Postsurgical hypothyroidism Family History Family History Father Stroke Mother Breast cancer, Onset Age: 40 Brother Brain cancer Brother HIV disease Son No problems noted. Maternal Grandmother Glaucoma Paternal Grandmother Lung cancer Ovarian cancer Surgical History Surgical History Hx of lithotripsy (03/11/24) History of cataract surgery Hx of cystoscopy (01/20/24) H/O colonoscopy (2022) Hx of thyroidectomy History of esophagogastroduodenoscopy (~01/2015) History of partial hysterectomy History of thymectomy (~2007) History of thyroidectomy, total Hx of tonsillectomy History of cholecystectomy (Unknown) History of appendectomy (Unknown) Social History Social History Household Members: Other Household Members Other:: longterm ([employer]) Housing: Other Housing Other:: [employer] agencyGroup home Do you presently have visiting nurse or other home services: Yes (longterm staff) Alcohol intake: never Patient Tobacco Use Status: Current everyday Tobacco user Tobacco use type: Cigarette Cigarette Packs Per Day: 0.5 Cigarettes Per Day: 10 Years Smoked: 40 e-Cigarette/Vaping Use: Never Used Use of substances other than those prescribed or required for medical reasons: No Are you DNR?: Yes Advance Directives: No Advance Directives Information Provided: Yes Patient : No : No Current occupational status: disabled Cognitive needs: No Hearing needs: No Vision needs: Yes Meds Allergies Allergy/AdvReac Type Severity Reaction Status Date / Time bee pollen (BEE STINGS) Allergy Severe ANAPHYLAXIS Verified 09/22/25 11:29 aspirin (ASA) Allergy Intermediate RASH Verified 09/22/25 11:29 Penicillins Allergy Intermediate Rash Verified 09/22/25 11:29 strawberry (STRAWBERRY) Allergy Intermediate RASH Verified 09/22/25 11:29 buspirone Allergy Unknown Unknown Verified 09/22/25 11:29 Compazine Allergy Unknown unknown Verified 09/22/25 11:29 iodine (IODINE) Allergy Unknown UNKNOWN Verified 09/22/25 11:29 methadone Allergy Unknown none Verified 09/22/25 11:29 Opioids - Morphine Analogues Allergy Unknown Unknown Verified 09/22/25 11:29 codeine (CODEINE) AdvReac Intermediate GI upset Verified 09/22/25 11:29 benztropine (From Cogentin) AdvReac Unknown Unknown Verified 09/22/25 11:29 Home Medications ?Medication ?Instructions ?Recorded ?Confirmed ?Last Taken ?Type escitalopram oxalate 20 mg tablet 20 mg PO DAILY 08/24/20 10/07/25 10/28/20 History (Lexapro) divalproex 500 mg tablet,delayed 1,000 mg PO .every evening 09/05/23 10/07/25 Unknown History release latanoprost 0.005 % eye drops 1 drp ophthalmic (eye) DAILY 12/26/23 10/07/25 Unknown History trazodone 100 mg tablet 200 mg PO DAILY 09/01/24 10/07/25 Unknown History brinzolamide 1 % eye drp ophthalmic (eye) 10/01/24 09/22/25 Unknown History drops,suspension (Azopt) quetiapine 200 mg tablet,extended 200 mg PO BEDTIME 10/01/24 10/07/25 Unknown History release 24 hr loperamide 2 mg capsule 2 mg PO Q12H PRN Diarrhea 04/06/25 10/07/25 Unknown History quetiapine 50 mg tablet,extended mg PO BID 04/27/25 09/22/25 Unknown History release 24 hr latanoprostene bunod 0.024 % eye 1 drp ophthalmic (eye) QPM 09/22/25 10/07/25 Unknown History drops (Vyzulta) Exam Airway Mallampati Class: II TM Dist: >3cm Neck ROM: Limited Heart: rrr Lungs: cta Assessment and Plan Assessment Anesthesia Assessment: Anesthesia Plan Discussed Final Anesthetic Review NPO: Yes ASA Class: III Final Preanesthetic Review: No Changes in Pt Med Stat, Meds/Allgs Chart Reviewed, Consent Obtained/Reviewed and Anes Risks/Benef Reviewed Patient Risk: Intermediate Procedure Risk: Low Anesthetic Plan Anesthetic Plan: GA, MAC: and Agree w/ Assess. and Plan Disposition: Standard PACU
--- NOTE | ~2025-10-11 | FL_ITS ---
EXAMINATION: FLUOROSCOPY GUIDANCE FOR NEEDLE PLACEMENT CLINICAL INFORMATION: BILATERAL URETERAL RETROGRADES COMPARISON: None available. TECHNIQUE: Bilateral retrograde pyelograms were performed in the OR. FINDINGS: On right pyelogram there is complete opacification of the entire ureter and the renal sinus with no intraluminal filling defect. On left pyelogram there is a dilated left kidney pelvis and proximal ureter with subsequent images revealing [address] The proximal end in the kidney pelvis and distal end in the bladder. FLUOROSCOPY TIME: 24 seconds DOSE AREA PRODUCT: 1350 uGy-m2 (microgray-meter squared) FL/FL guidance in OR IMPRESSION: Obstructive pattern of the left pyelogram with subsequent insertion of internal ureteral stent. The right pyelogram is unremarkable.. Electronically signed by: Raghavendra Ruby MD 10/11/2025 03:32 PM [facility]
[2025-10-11 10:13] VITALS: BMI 41.1
[2025-10-11 10:25] VITALS: BP 118/57; PULSE 64; RESP 16; TEMP 35.7; O2SAT 97
[2025-10-11 10:43] VITALS: PULSE 57; TEMP 35.8
[2025-10-11] MEDS: Lactated Ringers 1,000 ML 100 ML IVCONT (10:49)
--- NOTE | 2025-10-11 11:46 | MHC.SHP ---
Pre-Procedural Eval Section A - 24 Hr Update-Section A only Date of Service: 10/11/25 The patient is an INPATIENT: No Changes since office visit: No Cold of Flu in the past 2 weeks, No New Medical Problems, No Changes in Medication and No Patient answered all questions The patient has been examined within 24 hours of the surgical procedure. The History & Physical has been completed within 30 days and I have reviewed it.: Yes Section B - Complete if H&P > 30 days Chief Complaint: Unspecified hydronephrosis Details of Present Illness: Right side hydro nephrosis with decreased function. Plan bilateral retrograde with right stent placement Allergies: Allergies Allergy/AdvReac Type Severity Reaction Status Date / Time bee pollen (BEE STINGS) Allergy Severe ANAPHYLAXIS Verified 09/22/25 11:29 aspirin (ASA) Allergy Intermediate RASH Verified 09/22/25 11:29 Penicillins Allergy Intermediate Rash Verified 09/22/25 11:29 strawberry (STRAWBERRY) Allergy Intermediate RASH Verified 09/22/25 11:29 buspirone Allergy Unknown Unknown Verified 09/22/25 11:29 Compazine Allergy Unknown unknown Verified 09/22/25 11:29 iodine (IODINE) Allergy Unknown UNKNOWN Verified 09/22/25 11:29 methadone Allergy Unknown none Verified 09/22/25 11:29 Opioids - Morphine Analogues Allergy Unknown Unknown Verified 09/22/25 11:29 codeine (CODEINE) AdvReac Intermediate GI upset Verified 09/22/25 11:29 benztropine (From Cogentin) AdvReac Unknown Unknown Verified 09/22/25 11:29 Plan I have reviewed the history and physical and performed a pertinent physical examination on my patient. No changes have occurred unless specified. Time Spent With Patient Time: Total time managing care of this patient today ____ minutes.
--- NOTE | 2025-10-11 12:24 | P.OP_ITS ---
Operative Note Operative Note Date of Service: 10/11/25 Narrative: PreOperative Diagnosis: right hdronephrosis Post Operative Diagnosis: right hydronephrosis Procedure: cysto, bilateral retrogrades, right stent placement Surgeon: Dr Rocky Mays Anesthesia: sedation Indications for procedure: right hydronephrosis, lasix renogram with minimal function Procedure: After informed consent was verified the patient was brought to the operating room and placed in a supine position. Anesthesia was administered per protocol. The patient was placed in modified dorsal lithotomy position and prepped and draped in a sterile fashion. A safety pause time-out was performed. Laterality of procedure and antibiotics were confirmed, appropriate imaging was available A 22 Kiswahili cystoscope was introduced per urethra. No abnormality was noted of urethra or bladder. Both ureteric orifices were seen in a normal position. The left ureter was cannulated with an open ended catheter and a retrograde examination was performed. Normal filling and excretion. The right ureter was cannulated with an open ended catheter and a retrograde examination was performed. Tortuous upper ureter with hydronephrosis. Delayed emptying. A Sensor guidewire was placed under fluoroscopy and a good coil was seen within the renal pelvis. A 6F by 26cm double J stent was advanced over the wire and up to the level of the renal pelvis under fluoroscopic and direct visualization. The stent was seen with appropriate coil within the renal pelvis and in the bladder after deployment. The patient tolerated the procedure well and was transferred in a stable condition to the recovery area. Pathology: Drains: stent as above
[2025-10-11 12:31] VITALS: BP 100/38; PULSE 54; RESP 16; TEMP 36.6; O2SAT 88
[2025-10-11 12:35] VITALS: BP 96/42; PULSE 53; RESP 14; O2SAT 97
[2025-10-11 12:40] VITALS: BP 98/46; PULSE 53; RESP 14; O2SAT 97
[2025-10-11 12:46] VITALS: BP 109/55; PULSE 54; RESP 16; TEMP 36.7; O2SAT 96
== END 2025-10-11 13:35 | disposition home or self-care (01) ==
PROVIDERS: PCP Internal Medicine; Visit Provider Urology
PROC: (CPT 52332; principal; 2025-10-11 12:10)
DX: N13.30 Unspecified hydronephrosis (principal); R39.14 Feeling of incomplete bladder emptying; N20.0 Calculus of kidney; Z87.442 Personal history of urinary calculi; N39.46 Mixed incontinence; J45.20 Mild intermittent asthma, uncomplicated; E78.2 Mixed hyperlipidemia; E89.0 Postprocedural hypothyroidism; E66.01 Morbid (severe) obesity due to excess calories; J30.2 Other seasonal allergic rhinitis; G93.1 Anoxic brain damage, not elsewhere classified; Z88.0 Allergy status to penicillin; Z88.5 Allergy status to narcotic agent; Z88.6 Allergy status to analgesic agent; Z88.8 Allergy status to other drugs, medicaments and biological substances; Z91.041 Radiographic dye allergy status; Z66 Do not resuscitate; Z90.49 Acquired absence of other specified parts of digestive tract; F17.210 Nicotine dependence, cigarettes, uncomplicated; Z98.890 Other specified postprocedural states
CPT/HCPCS: 52332; C1758; C1769; C2617; J1956; J2003; J2405; J2704; J3010; Q9967

== ENCOUNTER → 2025-10-11 09:32 | Outpatient (BNV) | payer MEDICARE, MEDICAID, SELFPAY | PROVIDERS: PCP Internal Medicine; Visit Provider Urology | DX: N13.39 Other hydronephrosis (principal) | CPT/HCPCS: 52332; 74420 ==

== ENCOUNTER 2025-10-18 09:28 | Outpatient (AMB) | payer MEDICARE, MEDICAID, SELFPAY ==
[2025-10-18 10:05] VITALS: BP 118/76; PULSE 65; TEMP 36.4; O2SAT 95; BMI 42.0
--- NOTE | 2025-10-18 10:05 | AM.OFFWIN_ITS ---
Intake Vital Signs 10/18/25 10:05 Height 5 ft 7 in Weight 268 lb BMI 42.0 BP 118/76 Blood Pressure Location Rt brachial Position Sitting Pulse 65 Pulse Source Pulse Oximeter Temp 97.5 F Temp Source Oral Pulse Oximetry (%) 95 Oxygen Delivery Method Room Air Intake Visit Reasons: EP Diarrhea Intake Note: pt presents with Diarrhea (started as watery but then ate some white crackers and diarrhea turned mush like) with severe abdominal cramping x7 days s/p cysto, bilateral retrogrades, right stent placement Dr Ortiz 10/11/25 Patient Tobacco Use Status: Current everyday Tobacco user Allergies bee pollen (BEE STINGS) Allergy (Severe, Verified 10/18/25 10:06) ANAPHYLAXIS aspirin (ASA) Allergy (Intermediate, Verified 10/18/25 10:06) RASH Penicillins Allergy (Intermediate, Verified 10/18/25 10:06) Rash strawberry (STRAWBERRY) Allergy (Intermediate, Verified 10/18/25 10:06) RASH buspirone Allergy (Unknown, Verified 10/18/25 10:06) Unknown Compazine Allergy (Unknown, Verified 10/18/25 10:06) unknown iodine (IODINE) Allergy (Unknown, Verified 10/18/25 10:06) UNKNOWN methadone Allergy (Unknown, Verified 10/18/25 10:06) none Opioids - Morphine Analogues Allergy (Unknown, Verified 10/18/25 10:06) Unknown codeine (CODEINE) Adverse Reaction (Intermediate, Verified 10/18/25 10:06) GI upset benztropine (From Cogentin) Adverse Reaction (Unknown, Verified 10/18/25 10:06) Unknown Do you need a note to return to daycare/school/sports/work: No HPI HPI Comments History of Present Illness Details History of Present Illness - The patient is a 69-year-old individua l presenting with severe diarrhea. - The diarrhea began after a procedure i nvolving intravenous antibiotics and kidney stent placement. - The patient reports having diarrhea 4 to 5 times a day, reduced from 10 times previously. - The diarrhea has improved in consisten cy from watery to more formed after dietary changes. - The patient experiences nausea and blo ating but no vomiting or fever. - The patient underwent a procedure for kidney stones, which involved stent placement, and is experiencing pain from the stent. - The patient is scheduled for a follow- up to remove the stent on Wed. - She denies fever, chills, CP, SOB, abd pain, nausea, or vomiting. - She has no sick contacts. - She denies melena or hematochezia. - Needs a refill on her tylenol. Physical Exam General: Cooperative, healthy appearing, comfortable, no acute distress and well developed Orientation: Patient oriented x3 Limitations: No limitations Neck: Normal visual inspection and Yes full ROM Respiratory: Normal respiratory effort and able to speak in complete sentences. Clear to auscultation bilaterally Cardiovascular: Regular rate and rhythm. Normal S1 and S2 GI: Bloated, soft to palpation and nontender. No guarding or rebound tenderness noted. Negtive CVA tenderness noted. Skin: No rashes or lesions noted Patient was informed and verbally consented to the use of an ambient scribe for clinic note documentation during this visit. [facility] Medical History Mixed dyslipidemia Elevated serum creatinine Tubular adenoma of colon Hx of adenomatous polyp of colon Glaucoma Osteopenia of multiple sites Irritable bowel syndrome with diarrhea Osteoarthritis Staghorn calculus Diverticulosis Urinary incontinence, mixed Atherosclerotic cardiovascular disease Colon cancer screening Smoker unmotivated to quit Shoulder bursitis Trochanteric bursitis Mitral valve regurgitation Narcotic dependence, in remission Chronic GERD Morbid obesity History of myasthenia gravis Allergic rhinitis Eczema Duodenum ulcer Bipolar disorder History of anoxic brain injury Mild intermittent asthma in adult without complication Postsurgical hypothyroidism Surgical History Hx of lithotripsy (03/11/24) History of cataract surgery Hx of cystoscopy (01/20/24) H/O colonoscopy (2022) Hx of thyroidectomy History of esophagogastroduodenoscopy (~01/2015) History of partial hysterectomy History of thymectomy (~2007) History of thyroidectomy, total Hx of tonsillectomy History of cholecystectomy (Unknown) History of appendectomy (Unknown) Family History Father Stroke Mother Breast cancer, Onset Age: 40 Brother Brain cancer Brother HIV disease Son No problems noted. 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) Alcohol intake: never Patient Tobacco Use Status: Current everyday Tobacco user Tobacco use type: Cigarette Cigarette Packs Per Day: 0.5 Cigarettes Per Day: 10 Years Smoked: 40 e-Cigarette/Vaping Use: Never Used Current occupational status: disabled Cognitive needs: No Hearing needs: No Vision needs: Yes Review of Systems Const All systems reviewed & are unremarkable except as noted in HPI and below Physical Exam Vital Signs: Last Vital Signs Temp 97.5 F 10/18/25 10:05 Pulse 65 10/18/25 10:05 BP 118/76 10/18/25 10:05 Pulse Ox 95 10/18/25 10:05 Oxygen Delivery Method Room Air 10/18/25 10:05 BMI result Body Mass Index 42.0 Assessment & Plan Assessment & Plan (1) Diarrhea due to drug: Code(s): K52.1 - Toxic gastroenteritis and colitis Plan Most likely due to the IV antibiotics while inpatient vs diet plan - Continue with dietary modifications including the BRAT diet and hydration. - Monitor symptoms and follow up with PCP - Scheduled for stent removal to alleviate pain and discomfort. - Follow up with the urologist for further evaluation and management. Medications: Refilled acetaminophen 650 mg (2 x 325 mg) PO BID PRN 60 tabs 5RF fever or pain Coding Level of Care Code Est Pt Level 3 (62290) Diagnoses Diarrhea due to drug K52.1
== END 2025-10-18 11:02 | disposition home or self-care (01) ==
PROVIDERS: PCP Internal Medicine; Visit Provider Physician Assistant Medical
DX: K52.1 Toxic gastroenteritis and colitis (principal)

== ENCOUNTER → 2025-10-18 09:28 | Outpatient (BNVA) | payer MEDICARE, MEDICAID, SELFPAY | PROVIDERS: PCP Internal Medicine; Visit Provider Physician Assistant Medical | DX: K52.1 Toxic gastroenteritis and colitis (principal) | CPT/HCPCS: 99212 ==

== ENCOUNTER 2025-10-20 12:45 | Outpatient (AMB) | payer MEDICARE, MEDICAID, SELFPAY ==
--- NOTE | 2025-10-20 12:53 | A.OFFVIS_ITS ---
Intake Visit Reasons: Cystoscopy/Stent Removal/UA(set) Intake Note: Reason for Visit: Cystoscopy/Stent Removal Urology Meds: None Blood Thinners: None Labs: None Imaging: Renal Scan- 08/03/2025 Last PVR: 17ml URO G-HD Cystoscope LOT:[id number] EXP:05/03/2028 Child Psychiatrist Required: No Allergies bee pollen (BEE STINGS) Allergy (Severe, Verified 10/20/25 13:00) ANAPHYLAXIS aspirin (ASA) Allergy (Intermediate, Verified 10/20/25 13:00) RASH Penicillins Allergy (Intermediate, Verified 10/20/25 13:00) Rash strawberry (STRAWBERRY) Allergy (Intermediate, Verified 10/20/25 13:00) RASH buspirone Allergy (Unknown, Verified 10/20/25 13:00) Unknown Compazine Allergy (Unknown, Verified 10/20/25 13:00) unknown iodine (IODINE) Allergy (Unknown, Verified 10/20/25 13:00) UNKNOWN methadone Allergy (Unknown, Verified 10/20/25 13:00) none Opioids - Morphine Analogues Allergy (Unknown, Verified 10/20/25 13:00) Unknown codeine (CODEINE) Adverse Reaction (Intermediate, Verified 10/20/25 13:00) GI upset benztropine (From Cogentin) Adverse Reaction (Unknown, Verified 10/20/25 13:00) Unknown HPI Comments Details: Mayra is a pleasant female. She is a patient of Dr. Rivers. She is seen for the following urologic conditions - large right renal stone - right hydro nephrosis Here for stent removal In did not tolerate Stent had been placed in order to try to maximize renal function Likely will result with right renal atrophy Found to have right hydronephrosis on imaging Lasix renogram shows minimal function right side Creatinine: 03/17 0.84, 09/16 0.76, 01/18 0.88, 10/18 1.31, 11/17 1.21, 04/[address] 1.3 cm right renal stone Intervention - 01/18 ureteroscopy with laser lithotripsy - 03/18 [facility] Medical History Mixed dyslipidemia Elevated serum creatinine Tubular adenoma of colon Hx of adenomatous polyp of colon Glaucoma Osteopenia of multiple sites Irritable bowel syndrome with diarrhea Osteoarthritis Staghorn calculus Diverticulosis Urinary incontinence, mixed Atherosclerotic cardiovascular disease Colon cancer screening Smoker unmotivated to quit Shoulder bursitis Trochanteric bursitis Mitral valve regurgitation Narcotic dependence, in remission Chronic GERD Morbid obesity History of myasthenia gravis Allergic rhinitis Eczema Duodenum ulcer Bipolar disorder History of anoxic brain injury Mild intermittent asthma in adult without complication Postsurgical hypothyroidism Surgical History Hx of lithotripsy (03/11/24) History of cataract surgery Hx of cystoscopy (01/20/24) H/O colonoscopy (2022) Hx of thyroidectomy History of esophagogastroduodenoscopy (~01/2015) History of partial hysterectomy History of thymectomy (~2007) History of thyroidectomy, total Hx of tonsillectomy History of cholecystectomy (Unknown) History of appendectomy (Unknown) Family History Father Stroke Mother Breast cancer, Onset Age: 40 Brother Brain cancer Brother HIV disease Son No problems noted. 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) Alcohol intake: never Patient Tobacco Use Status: Current everyday Tobacco user Tobacco use type: Cigarette Cigarette Packs Per Day: 0.5 Cigarettes Per Day: 10 Years Smoked: 40 e-Cigarette/Vaping Use: Never Used Current occupational status: disabled Cognitive needs: No Hearing needs: No Vision needs: Yes Review of Systems Const Denies chills and Denies fever(s) Card Reports no additional complaints and Denies syncope Resp Denies cough GI Denies abdominal pain and Denies heartburn Reports as per HPI and Denies change in libido Neuro Denies syncope Psych Denies change in libido Endo Denies change in libido Physical Exam Const General: cooperative, healthy appearing, comfortable and no acute distress Orientation/consciousness: patient oriented x3 HEENT Face and sinus: Yes normal facial exam Mouth: moist mucous membranes Neck Neck: Yes normal visual inspection, Yes full ROM and Yes trachea midline Chest Chest palpation & inspection: normal inspection of the chest Resp Effort & Inspection: normal respiratory effort, able to speak in complete sentences and no respiratory distress GI Inspection: Yes normal to inspection Back/Spine/Pelvis Cervical Spine: normal cervical lordosis Thoracic/Lumbar Spine: thoracic and lumbar spine normal to inspection Skin General skin exam: no rashes or lesions noted Neuro General: patient oriented x3, gait normal, tone normal and moves all extremities Extrem General: Yes normal to inspection and Yes capillary refill normal Office Procedures Cystoscopy Consent Discussed risk and benefit or proposed procedure with the patient. Information consent for procedure given to the patient. Discussed technical aspects, risks, benefits and alternatives in full. Addressed all of the patient's questions and concerns regarding the procedure. The patient demonstrated knowledge and understanding. They wish to proceed with this procedure. Preparation The patient was prepped in the usual manner. A department mgr was present and in the room. Genitalia was prepped with betadine solution in a sterile manner. Lidocaine Jelly 2% was placed into the urethra and 16Fr flexible Olympus cystoscope was inserted into the meatus after adequate lubrication. Procedure A well lubricated 16 Scottish cystoscope was placed No abnormality noted of urethra during placement Indwelling stent seen within bladder emerging from right ureteric orifices The stent was grasped with a 3 prong grasper and removed without difficulty The patient tolerated the procedure well [id number] with stent removal DISPOSABLE SCOPE URO-G FLEXIBLE SCOPE Procedure code (CPT) selection complete Office Meds lidocaine HCl 2 % mucosal jelly in applicator Performing Provider: Rocky Mays MD Performing Location: [facility] [place] [facility] Administered by: Sascha Waterman LPN on 10/20/25 13:01 Dose Route Admin Location Dispensed Lot Number Expiration Date [facility] [place] Extractor Loader And Unloader 10 mL intra-urethral 10 mL nitrofurantoin monohydrate/macrocrystals 100 mg capsule Performing Provider: Rocky Mays MD Performing Location: [facility] [place] [facility] Administered by: Sascha Waterman LPN on 10/20/25 13:01 Dose Route Admin Location Dispensed Lot Number Expiration Date [place] Extractor Loader And Unloader 100 mg PO 1 cap Assessment & Plan Assessment & Plan (1) Hydronephrosis: Code(s): N13.30 - Unspecified hydronephrosis Category: Medical (2) Nephrolithiasis: Code(s): N20.0 - Calculus of kidney Category: Medical Plan Six-month follow-up ultrasound Orders: Orders US renal BI 6 Months N13.30 - Unspecified hydronephrosis AMB Cystoscopy Today N20.0 - Calculus of kidney Patient Instructions: This note is constructed using voice recognition software. While every effort has been made to ensure accuracy caterer's aide errors may have been included. Imaging studies, laboratory and physical exam results were discussed and reviewed in detail. No major barriers to patient understanding were identified. An opportunity to ask questions regarding the treatment plan was provided. All questions were answered. The patient expressed understanding and agreement with the above treatment plan. The patient is aware they should contact our office by phone for worsening of their current condition or the appearance of new urologic symptoms. Compliance is encouraged with any medications and followup testing that is ordered. It is a privilege to participate in the urologic care of your patient. If you have any questions or concerns regarding treatment for the above conditions, or other urologic issues, please do not hesitate to contact me. The office telephone contact is [phone]. Sincerely, Dr Rocky Mays MD, [facility] - Urology Compassionate Specialist Care for the Genitourinary System Coding Level of Care Code Est Pt Level 3 (49801) Complex visit Add On G2211 Diagnoses Hydronephrosis N13.30 Nephrolithiasis N20.0 CPT Codes Cystoscopy - CPT: 69772-[id number] with stent removal ([id number])
== END 2025-10-20 13:34 | disposition home or self-care (01) ==
LOC: HO.HUSH 12:46
PROVIDERS: PCP Internal Medicine; Visit Provider Urology
DX: N20.0 Calculus of kidney (principal); N13.30 Unspecified hydronephrosis
CPT/HCPCS: 52310; 99213

== ENCOUNTER → 2025-10-20 12:45 | Outpatient (BNVA) | payer MEDICARE, MEDICAID, SELFPAY | PROVIDERS: PCP Internal Medicine; Visit Provider Urology | DX: N13.30 Unspecified hydronephrosis (principal); N20.0 Calculus of kidney | CPT/HCPCS: 52310; 99212 ==

== ENCOUNTER 2025-11-03 10:25 | Outpatient (AMB) | payer MEDICARE, MEDICAID, SELFPAY ==
[2025-11-03 10:28] VITALS: BP 119/57; PULSE 67; BMI 40.4
--- NOTE | 2025-11-03 10:28 | MHC.OFFVIS ---
Vital Signs 11/03/25 10:28 Height 5 ft 7 in Weight 258 lb BMI 40.4 BP 119/57 L Blood Pressure Location Lt brachial Position Sitting Pulse 67 Intake Visit Reasons: Follow up Intake Note: Mayra presents to in office visit today in follow up for diarrhea. CC: Patient c/o diarrhea on and, Wt loss, and abd cramping. Patient states that she underwent stent placement by urology and stent removal later on d/t pain. Blending Supervisor Required: No Accompanied by: Caregiver Allergies bee pollen (BEE STINGS) Allergy (Severe, Verified 10/20/25 13:00) ANAPHYLAXIS aspirin (ASA) Allergy (Intermediate, Verified 10/20/25 13:00) RASH Penicillins Allergy (Intermediate, Verified 10/20/25 13:00) Rash strawberry (STRAWBERRY) Allergy (Intermediate, Verified 10/20/25 13:00) RASH buspirone Allergy (Unknown, Verified 10/20/25 13:00) Unknown Compazine Allergy (Unknown, Verified 10/20/25 13:00) unknown iodine (IODINE) Allergy (Unknown, Verified 10/20/25 13:00) UNKNOWN methadone Allergy (Unknown, Verified 10/20/25 13:00) none Opioids - Morphine Analogues Allergy (Unknown, Verified 10/20/25 13:00) Unknown codeine (CODEINE) Adverse Reaction (Intermediate, Verified 10/20/25 13:00) GI upset benztropine (From Cogentin) Adverse Reaction (Unknown, Verified 10/20/25 13:00) Unknown HPI HPI Follow up: Details: Assessment & Plan (1) Irritable bowel syndrome with both constipation and diarrhea: Code(s): K58.2 - Mixed irritable bowel syndrome Category: Medical (2) Chronic GERD: Code(s): K21.9 - Gastro-esophageal reflux disease without esophagitis Category: Medical Plan She continues on her pantprazole with good GERD control, and she is using the hemorrhoid cream and Amitiza prn for CIC. However, she is reporting irritability of the bowels that sometimes causes her an upset stomach. She goes back and forth between constipation and diarrhea. Because of this I recommend we start a fiber supplement as this is the best way of equalizing someone who has mixed irritable bowel syndrome. She will be due for a colonoscopy screening in 2025 related to tubular adenomas. Return office visit in 6 months Medications: New calcium polycarbophil (Fiber (calcium polycarbophil)) 1,250 mg (2 x 625 mg) PO BID 120 tabs 6RF K58.2 - Mixed irritable bowel syndrome Refilled pantoprazole 40 mg PO BID 56 tabs 6RF K21.9 - Gastro-esophageal reflux disease without esophagitis hydrocortisone 2.5% (Proctosol HC) 1 appl VA BID PRN 30 grams 12RF hemorrhoids TODAY'S VISIT [facility] Medical History Mixed dyslipidemia Elevated serum creatinine Tubular adenoma of colon Hx of adenomatous polyp of colon Glaucoma Osteopenia of multiple sites Irritable bowel syndrome with diarrhea Osteoarthritis Staghorn calculus Diverticulosis Urinary incontinence, mixed Atherosclerotic cardiovascular disease Colon cancer screening Smoker unmotivated to quit Shoulder bursitis Trochanteric bursitis Mitral valve regurgitation Narcotic dependence, in remission Chronic GERD Morbid obesity History of myasthenia gravis Allergic rhinitis Eczema Duodenum ulcer Bipolar disorder History of anoxic brain injury Mild intermittent asthma in adult without complication Postsurgical hypothyroidism Surgical History Hx of lithotripsy (03/11/24) History of cataract surgery Hx of cystoscopy (01/20/24) H/O colonoscopy (2022) Hx of thyroidectomy History of esophagogastroduodenoscopy (~01/2015) History of partial hysterectomy History of thymectomy (~2007) History of thyroidectomy, total Hx of tonsillectomy History of cholecystectomy (Unknown) History of appendectomy (Unknown) Family History Father Stroke Mother Breast cancer, Onset Age: 40 Brother Brain cancer Brother HIV disease Son No problems noted. Maternal Grandmother Glaucoma Paternal Grandmother Lung cancer Ovarian cancer Social History Household Members: Other Household Members Other:: shelter ([employer]) Housing: Other Housing Other:: [employer] agency[employer] home Do you presently have visiting nurse or other home services: Yes (shelter staff) Alcohol intake: never Patient Tobacco Use Status: Current everyday Tobacco user Tobacco use type: Cigarette Cigarette Packs Per Day: 0.5 Cigarettes Per Day: 10 Years Smoked: 40 e-Cigarette/Vaping Use: Never Used Current occupational status: disabled Cognitive needs: No Hearing needs: No Vision needs: Yes Review of Systems Const Denies fatigue, Denies fever(s), Denies night sweats, Denies poor appetite and Reports weight loss ENT Reports Normal hearing present, Denies dysphagia, Denies odynophagia, Denies throat swelling and Denies tongue swelling Card Reports no additional complaints Resp Reports no additional complaints GI Details: Denies abdominal pain, Denies melena, Denies bloating, Denies hematochezia, Denies constipation, Reports GI cramping, Denies dysphagia, Denies excessive flatus, Denies early satiety, Reports heartburn, Reports diarrhea, Denies nausea, Denies odynophagia, Denies vomiting and Denies hematemesis Reports flank pain Musc Reports back pain Skin/Breast Denies pruritus, Denies lesions, Denies rash and Denies jaundice Neuro Reports Normal hearing present and Denies Abnormal speech present Psych Reports anxiety Endo Denies fatigue Aller/Immun Denies throat swelling and Denies tongue swelling Physical Exam Vital Signs: Last Vital Signs Pulse 67 11/03/25 10:28 BP 119/57 L 11/03/25 10:28 BMI result Body Mass Index 40.4 Const General: cooperative, no acute distress, well developed and well groomed Nutritional Appearance: well nourished and obese Orientation/consciousness: oriented to person, oriented to place and oriented to time Limitations: No language barrier HEENT Head: Yes normocephalic and Yes atraumatic Eyes General: appearance normal, both eyes and all related structures Pupils: Equal, round and reactive pupils present Neck Neck: Yes normal visual inspection and Yes no lymphadenopathy Thyroid: Thyroid normal Resp Effort & Inspection: normal respiratory effort and able to speak in complete sentences Auscultation: clear to auscultation bilaterally Cardio Rate: regular rate Rhythm: regular rhythm Heart sounds: Normal, physiologic split S2 sound present Peripheral pulses: radial pulses present and posterior tibial pulses present GI Inspection: No distended, Yes Abdominal panniculus present and Yes obesity Palpation (GI): Soft to palpation, nontender, no guarding, not rigid and No hepatosplenomegaly present Percussion: Yes normal to percussion Auscultation: normal bowel sounds Rectal Exam - Female: deferred Skin General skin exam: no rashes or lesions noted, turgor normal, skin not dry, no jaundice, No spider nevi and no striae Rashes: no rashes Nails: normal Neuro General: oriented to person, oriented to place and oriented to time Cranial nerves: Yes Equal, round and reactive pupils present and Yes Normal hearing present Speech: No Abnormal speech present Extrem General: Yes normal to inspection, No clubbing, No cyanosis and No edema Psych Appearance: grossly normal and well kempt Mental Status: other Speech and movement: Pressured speech present Affect: Anxious affect present Attitude: cooperative Thought process: not confabulating and Perseverating thought process present Thought content: Normal thought content present Insight: Poor insight present (Psych) Judgement: Poor judgement present (Psych) Assessment & Plan Assessment & Plan (1) Diarrhea: Code(s): R19.7 - Diarrhea, unspecified Category: Medical (2) Irritable bowel syndrome with both constipation and diarrhea: Code(s): K58.2 - Mixed irritable bowel syndrome Category: Medical Plan She continues on her pantprazole with good GERD control, and she is using the hemorrhoid cream and Amitiza prn for CIC. I SUGGESTED ADDING A FIBER SUPPLEMENT EQUALIZE HER BETWEEN CONSTIPATION AND DIARRHEA FOR THE LAST VISIT. She is due for screening colonoscopy around July of 2026 Subjective Patient presents with recurrent diarrhea following a recent kidney stent procedure. Symptoms began after lynette-procedural antibiotic exposure, with stent subsequently removed approximately 1.5 weeks later due to pain. Reports bouts of watery diarrhea that initially occurred up to 10 times daily; loperamide reduced frequency to approximately five times daily, then to two times daily. After eating a regular dinner (chicken, vegetables, baked potato) on Saturday night, she had four episodes overnight. Associated lower abdominal cramping is described as severe and localized to the lower abdomen. Denies nausea or vomiting. Reports approximately 10-pound unintentional weight loss since the procedure. Notes prior history of irritable bowel. Currently not taking lubiprostone. Has been advised to limit coffee and milk and try a BRAT diet; discussed non-dairy substitutes for coffee. Relevant Past Medical, Social, and Family History - History of irritable bowel. - Recent kidney stent placement with subsequent removal. - Lynette-procedural antibiotic exposure. - Son with history of C. difficile infection. Objective - Chart review indicates lynette-procedural levofloxacin was administered. Assessment & Plan Diarrhea, subacute, post-antibiotic exposure; rule out C. difficile; history of IBS: Diarrhea began after lynette-procedural levofloxacin with ongoing intermittent episodes, lower abdominal cramping, and 10-lb weight loss. No nausea or vomiting. Concern for antibiotic-associated diarrhea including possible C. difficile versus IBS flare. - Order stool studies including C. difficile testing. - Order blood work today, including CBC to assess for leukocytosis. - Start probiotic containing Lactobacillus and Bifidobacterium, twice daily. - Modify loperamide to scheduled 2 mg once daily for a short course until follow-up; day camp counselor on constipation risk and to avoid additional PRN dosing unless instructed. - Hold lubiprostone during active diarrhea; retain as PRN for constipation if needed once diarrhea resolves. - Dietary guidance: continue BRAT-style, bland diet as tolerated; avoid dairy; use almond milk as a coffee substitute; maintain hydration. - Follow-up: keep 12/21 appointment; retain December appointment as backup depending on clinical course and results. - Provide stool collection kit and instructions via the lab; obtain blood work today; return samples per lab guidance. Orders: Orders CDiff Gene PCR Today R19.7 - Diarrhea, unspecified GI Panel Today R19.7 - Diarrhea, unspecified Complete Blood Count Auto Diff Today R19.7 - Diarrhea, unspecified Medications: New Lacto 33-B.animal,epak-VIJ-bep 3.4 billion cell-210 mg 1 cap PO BID 60 caps 12RF R19.7 - Diarrhea, unspecified On Hold lubiprostone Hold Comment: Doctor's Order 8 mcg PO BID PRN 56 caps 0RF for constipation K59.00 - Constipation, unspecified Coding Level of Care Code Est Pt Level 4 (06642) Diagnoses Diarrhea R19.7 Irritable bowel syndrome with both constipation and diarrhea K58.2 Time Spent (min) 38
== END 2025-11-03 11:11 | disposition home or self-care (01) ==
LOC: HO.HGI 10:25
PROVIDERS: PCP Internal Medicine; Visit Provider Nurse Practitioner
DX: R19.7 Diarrhea, unspecified (principal); K58.2 Mixed irritable bowel syndrome
CPT/HCPCS: 99214

== ENCOUNTER → 2025-11-03 10:25 | Outpatient (BNVA) | payer MEDICARE, MEDICAID, SELFPAY | PROVIDERS: PCP Internal Medicine; Visit Provider Nurse Practitioner | DX: K58.2 Mixed irritable bowel syndrome (principal) | CPT/HCPCS: 99212 ==